=== PATIENT | female | born 1985 | race Caucasian/White ===

== ENCOUNTER 2016-06-13 07:45 | Inpatient (IN) | payer OTHER ==
[~2016-06-13] VITALS: Ht 154.9 cm; Wt 68.3 kg
[~2016-06-13 07:45] MED LIST: ADV1DS; ALBU0.632 IH; ALBU0.632 NEB; ALBU0.8322 IH; ALBU17AE23 IH; ALBU17AE23 INH; ALBU17AE3; ALBU8.5H2 INH; AMOX500C2 PO; BUDE6HFA IH; CEFP500T4 PO; CETI10CA PO; CLIN150C17 PO; CLIN300C11 PO; DOCU100C37 PO; DULO20CA; DULO60CA6; FLUT16SP22 NS; FLUT1DIS26 IH; FLUT1DIS27 IH; FLUT1DIS27 INH; FLUT1DIS28 IH; HYDR-3812 PO; HYDR-3820 PO; HYDR1CAP2 PO; IBP800T PO; IBUP-1773 PO; METH4TAB PO; MNTL10T; MNTL10T PO; MONT10TA24 PO; NCT14P TOP; NCT21TD TD; NEBULIZER TREATMENT; PNT40TEC PO; PRD10T PO; PRD20T PO; PRED10TA PO; PREN-94 PO; PRNMV1T; PRX25T; RANI150T15 PO; RT-ALBUINH IH; RT-ALBUTEROL/IPRATROPIUM 3 ML (DUONEB) VIAL ONE
[2016-06-13] MEDS ORDERED: RT-ALBUTEROL SULF 2.5 MG/3 ML PRE-MIX VIAL ONE ×3 (07:54→08:38)
--- NOTE | 2016-06-13 08:41 | ED Respiratory ---
General Chief Complaint: Respiratory Problems Stated Complaint: ASTHMA Nursing Triage Note: Arrived via amb from home with complaints of her asthma acting up starting yesterday. Denies fever. States she has taken her inhaler at home but it is not working. States she does not have and medicine to give herself a breathing treatment. Source: patient Exam Limitations: no limitations History of Present Illness Time seen by provider: 08:36 Initial Comments The patient is a 31-year-old white female well-known to this institution over many years with asthma attacks. She reports that she has run out of medications and has not seen a doctor since Dr. Nation retired in November. The symptoms increased yesterday. She reports that she stopped smoking a few months ago. Timing/Duration: yesterday Prior Episodes/Possible Cause: frequent episodes Allergies and Home Medications Allergies Coded Allergies: chlorpheniramine (Verified Allergy, Unknown, 03/05/06) phenylephrine (Verified Allergy, Unknown, 03/05/06) phenylpropanolamine (Verified Allergy, Unknown, 03/05/06) phenyltoloxamine (Verified Allergy, Unknown, 03/05/06) Home Medications Albuterol Sulfate 1 Puff Puff 2 PUFF IH Q6H PRN PRN SHORTNESS OF BREATH ( Reported) Constitutional: see HPI EENTM: no symptoms reported Respiratory: see HPI cough dyspnea on exertion short of breath wheezing Cardiovascular: no symptoms reported Gastrointestinal: no symptoms reported Genitourinary: no symptoms reported Musculoskeletal: no symptoms reported Psychiatric/Neurological: No Symptoms Reported Hematologic/Lymphatic: No Symptoms Reported Past Tkirbmr-Obdghg-Ujtvzm Hx Patient Social History Alcohol Use: Denies Use Recreational Drug Use: No (DEINIES USE WITH THIS PAST BUT HAS A KNOWN PAST HISTORY. ) Smoking Status: Former Smoker Type Used: Cigarettes Former Smoker/When Quit: Jan 24, 2015 2nd Hand Smoke Exposure: Yes ( SMOKES IN HOME) Recent Foreign Travel: No Contact w/Someone Who Travel: No Recent Infectious Disease Expo: No Recent Hopitalizations: Yes (C-SECTIONS, ASTHMA) Physical Abuse Screen: No Sexual Abuse: No Immunizations Up To Date Tetanus Booster (TDap): Unknown PED Vaccines UTD: Yes Date of Pneumonia Vaccine: Jan 29, 2013 Seasonal Allergies Seasonal Allergies: Yes Surgeries HX Surgeries: Yes ( X4) Surgeries: Section Respiratory Hx Respiratory Disorders: Yes Respiratory Disorders: Asthma Cardiovascular Hx Cardiac Disorders: No (TACHYCARDIA ) Neurological Hx Neurological Disorders: No Reproductive System : No Hx Reproductive Disorders: No Sexually Transmitted Disease: No HIV/AIDS: No Female Reproductive Disorders: Denies Genitourinary Hx Genitourinary Disorders: No Gastrointestinal Hx Gastrointestinal Disorders: Yes (HEPATITIS C +) Gastrointestinal Disorders: Gastroesophageal Reflux, Liver Disease/Jaundice, Hepatitis Musculoskeletal Hx Musculoskeletal Disorders: No Endocrine Hx Endocrine Disorders: No HEENT HX ENT Disorders: No Loss of Vision: Denies Hearing Impairment: Denies Cancer Hx Cancer: No Psychosocial Hx Psychiatric Problems: No Integumentary HX Skin/Integumentary Disorder: No Blood Transfusions Hx Blood Disorders: No Adverse Reaction to a Blood Tr: No Family Medical History Significant Family History: Asthma Family Medial History: Alcoholism 19 FATHER G8 BROTHER Arthritis 19 FATHER Cardiovascular disease 19 MOTHER Coronary thrombosis 19 MOTHER Diabetes mellitus 19 MOTHER MATERNAL GRANDMOTHER Myocardial infarction 19 MOTHER Neoplasm 19 FATHER (LUNG CANCER) 19 MOTHER Respiratory disorder 19 FATHER (EMPHYSEMA) Physical Exam Vital Signs Vital Sign - Last 12Hours 06/13/16 07:45 Temp 98.0 Pulse 127 Resp 24 B/P 126/76 Pulse Ox 96 O2 Delivery Room Air Capillary Refill : Less Than 3 Seconds General Appearance: moderate distress Eyes: Bilateral Eye Normal Inspection HEENT: normal ENT inspection Neck: full range of motion Respiratory: decreased breath sounds rhonchi wheezing Cardiovascular: tachycardia Gastrointestinal: normal bowel sounds non tender soft no organomegaly no pulsatile mass Extremities: normal range of motion non-tender normal inspection no pedal edema no calf tenderness normal capillary refill pelvis stable Neurologic/Psychiatric: precast molder II-XII nml as tested no motor/sensory deficits alert normal mood/affect oriented x 3 Skin: normal color warm/dry cyanosis cool diaphoresis damp Lymphatic: no adenopathy Progress/Results/Core Measures Results/Orders Lab Results Laboratory Tests Test 06/13/16 07:50 Range/Units Alanine Aminotransferase (ALT/SGPT) 55 0-55 U/L Albumin 4.1 3.2-4.5 G/DL Alkaline Phosphatase 66 40-136 U/L Anion Gap 11 5-14 MMOL/L Aspartate Amino Transf (AST/SGOT) 40 H 5-34 U/L BUN/Creatinine Ratio 10 Basophils # (Auto) 0.1 0.0-0.1 10^3/uL Basophils (%) (Auto) 1 0-10 % Blood Urea Nitrogen 7 7-18 MG/DL Calcium Level 9.2 8.5-10.1 MG/DL Carbon Dioxide Level 23 21-32 MMOL/L Chloride Level 107 98-107 MMOL/L Creatinine 0.70 0.60-1.30 MG/DL Eosinophils # (Auto) 0.8 H 0.0-0.3 10^3/uL Eosinophils (%) (Auto) 12 H 0-10 % Estimat Glomerular Filtration Rate > 60 Glucose Level 113 H 70-105 MG/DL Hematocrit 46 35-52 % Hemoglobin 14.8 11.5-16.0 G/DL Lymphocytes # (Auto) 1.4 1.0-4.0 X 10^3 Lymphocytes (%) (Auto) 19 12-44 % Mean Corpuscular Hemoglobin 27 25-34 PG Mean Corpuscular Hemoglobin Concent 32 32-36 G/DL Mean Corpuscular Volume 84 80-99 FL Mean Platelet Volume 10.7 H 7.4-10.4 FL Monocytes # (Auto) 0.7 0.0-1.0 X 10^3 Monocytes (%) (Auto) 9 0-12 % Neutrophils # (Auto) 4.2 1.8-7.8 X 10^3 Neutrophils (%) (Auto) 59 42-75 % Platelet Count 302 130-400 10^3/uL Potassium Level 4.7 3.6-5.0 MMOL/L Red Blood Count 5.46 4.35-5.85 10^6/uL Red Cell Distribution Width 15.0 H 10.0-14.5 % Sodium Level 141 135-145 MMOL/L Total Bilirubin 0.4 0.1-1.0 MG/DL Total Protein 7.2 6.4-8.2 G/DL White Blood Count 7.2 4.3-11.0 10^3/uL My Orders Orders-CATHY RUBIO MD Albuterol/Ipra Inhalation Soln (Duoneb I (06/13/16 07:43) Albuterol Pre-Mix Nebs (Rt) (Proventil P (06/13/16 07:54) Albuterol Pre-Mix Nebs (Rt) (Proventil P (06/13/16 08:01) Cbc With Automated Diff (06/13/16 08:33) Comprehensive Metabolic Panel (06/13/16 08:33) Drug Screen Stat (Urine) (06/13/16 08:33) Ua Culture If Indicated (06/13/16 08:33) Chest 1 View, Ap/Pa Only (06/13/16 08:33) Rt Request For Service (06/13/16 08:33) Methylprednisolone Sod Succ (Solu-Medrol (06/13/16 08:45) Albuterol Pre-Mix Nebs (Rt) (Proventil P (06/13/16 08:38) Medications Given in ED Current Medications Medications Dose Ordered Sig/Juan José Route Start Time Stop Time Status Last Admin Dose Admin Albuterol Sulfate 2.5 mg STK-MED ONCE .ROUTE 06/13/16 07:54 06/13/16 08:02 DC 06/13/16 08:02 2.5 MG Albuterol Sulfate 2.5 mg STK-MED ONCE .ROUTE 06/13/16 08:01 06/13/16 08:09 DC 06/13/16 08:10 2.5 MG Albuterol Sulfate 2.5 mg STK-MED ONCE .ROUTE 06/13/16 08:38 06/13/16 08:46 DC 06/13/16 08:49 15 MG Albuterol/ Ipratropium 3 ml STK-MED ONCE .ROUTE 06/13/16 07:43 06/13/16 07:51 DC 06/13/16 07:57 3 ML Methylprednisolone Sodium Succinate 125 mg ONCE ONCE IVP 06/13/16 08:45 06/13/16 08:46 DC 06/13/16 09:05 125 MG Vital Signs/I&O Vital Sign - Last 12Hours 06/13/16 06/13/16 06/13/16 06/13/16 07:45 07:57 08:02 08:10 Temp 98.0 Pulse 127 Resp 24 B/P 126/76 Pulse Ox 96 96 98 96 O2 Delivery Room Air Room Air Room Air Room Air 06/13/16 08:50 Pulse Ox 96 O2 Delivery Room Air Blood Pressure Mean: 93 Departure Communication Progress Notes 0945 the patient reports that she feels very little better if any. Repeat exam shows somewhat better air movement and much louder rhonchi and wheezing. Impression Impression: Primary Impression: Asthma exacerbation Disposition: ADMITTED INPATIENT Condition: Stable/Unchanged Decision to Admit Reason: Admit from ER (General) Decision to Admit/Date: Jun 13, 2016 Time/Decision to Admit Time: 09:56 Departure-Patient Inst. Referrals: NO,LOCAL PHYSICIAN (PCP/Family) Primary Care Physician CATHY RUBIO MD Jun 13, 2016 08:41 CATHY RUBIO MD Jun 13, 2016 08:41
[2016-06-13 08:45] LABS: BASOPHILS # (AUTO) 0.1 10^3/uL (0.0-0.1); BASOPHILS % (AUTO) 1 % (0-10); EOSINOPHILS # (AUTO) 0.8 10^3/uL (0.0-0.3); EOSINOPHILS % (AUTO) 12 % (0-10); LYMPHOCYTES # (AUTO) 1.4 X 10^3 (1.0-4.0); LYMPHOCYTES % (AUTO) 19 % (12-44); MEAN CORPUSCULAR HEMOGLOBIN 27 PG (25-34); MEAN CORPUSCULAR HGB CONC 32 G/DL (32-36); MEAN CORPUSCULAR VOLUME 84 FL (80-99); MEAN PLATELET VOLUME 10.7 FL (7.4-10.4); MONOCYTES # (AUTO) 0.7 X 10^3 (0.0-1.0); MONOCYTES % (AUTO) 9 % (0-12); NEUTROPHILS # (AUTO) 4.2 X 10^3 (1.8-7.8); NEUTROPHILS % (AUTO) 59 % (42-75); PLATELET COUNT 302 10^3/uL (130-400); RED BLOOD COUNT 5.46 10^6/uL (4.35-5.85); WHITE BLOOD COUNT 7.2 10^3/uL (4.3-11.0)
[2016-06-13] MEDS ORDERED: methylPREDNISolone 125 MG (Solu-MEDROL) VIAL IVP ONE (08:45)
[2016-06-13 09:00] LABS: ALANINE AMINOTRANSFERASE 55 U/L (0-55); ALBUMIN 4.1 G/DL (3.2-4.5); ANION GAP 11 MMOL/L (5-14); ASPARTATE AMINO TRANSFERASE 40 U/L (5-34); BILIRUBIN,TOTAL 0.4 MG/DL (0.1-1.0); BLOOD UREA NITROGEN 7 MG/DL (7-18); BUN/CREATININE RATIO 10; CALCIUM 9.2 MG/DL (8.5-10.1); CARBON DIOXIDE 23 MMOL/L (21-32); CHLORIDE 107 MMOL/L (98-107); GFR ESTIMATED > 60; GLUCOSE 113 MG/DL (70-105); POTASSIUM 4.7 MMOL/L (3.6-5.0); SODIUM 141 MMOL/L (135-145); TOTAL PROTEIN 7.2 G/DL (6.4-8.2)
--- NOTE | 2016-06-13 09:22 | Diagnostic Imaging Report ---
INDICATION: Difficulty breathing since this morning. FINDINGS: Frontal view of the chest demonstrates the lungs to be clear. The heart, mediastinum, pulmonary vascularity, and visualized bony thorax are normal. IMPRESSION: Normal chest. Dictated by: Dictated on workstation # [id number]
[2016-06-13] MEDS ORDERED: RT-ALBUTEROL/IPRATROPIUM 3 ML (DUONEB) VIAL ONE (10:40)
[2016-06-13] MEDS ORDERED: ALPRAZolam 0.25 MG (XANAX) TAB PO PRN (11:00)
[2016-06-13] MEDS ORDERED: ACETAMINOPHEN 500 MG TAB (TYLENOL) PO PRN (11:00)
[2016-06-13] MEDS ORDERED: ONDANSETRON 4 MG/2 ML (SDV) Z0FRAN IVP PRN (11:00)
[2016-06-13] MEDS ORDERED: LACTULOSE SYRUP 10GM/15ML (ENULOSE) 30ML UDC PO PRN (11:00)
[2016-06-13] MEDS ORDERED: HYDROcodone/APAP 5 MG/325 MG (LORTAB) TAB PO PRN (11:00)
--- NOTE | 2016-06-13 11:20 | History & Physical-Hospitalist ---
HPI History of Present Illness: HPI/Chief Complaint CC: Dyspnea HPI: This is a 31yoWF former clinic patient of [facility] that missed her appt this past week to re-establish care that presents to the ER with complaints of wheezing and shortness of breath for the past several days. She stopped smoking 3 months ago and overall has been doing well but began to have shortness of breath to the extent that she went to the ER found to be in exacerbation of asthma and status asthmaticus meeting criteria for inpatient status. At this current time patient does feel little better but she still feels tight in her chest. Source: patient Exam Limitations: clinical condition Date Seen 06/13/16 Attending Physician Jaylyn Salmon DO PCP No,Local Physician Referring Physician Date of Admission Jun 13, 2016 at 10:34 Home Medications & Allergies Home Medications Reviewed patient Home Medication Reconciliation Form Allergies Coded Allergies: chlorpheniramine (Verified Allergy, Unknown, 03/05/06) phenylephrine (Verified Allergy, Unknown, 03/05/06) phenylpropanolamine (Verified Allergy, Unknown, 03/05/06) phenyltoloxamine (Verified Allergy, Unknown, 03/05/06) Past Bjriyvq-Zmsgsy-Fdgfgh Hx Patient Social History Marrital Status: cohabiting Employed/Student: unemployed Alcohol Use: Denies Use Recreational Drug Use: No (DEINIES USE WITH THIS PAST BUT HAS A KNOWN PAST HISTORY. ) Smoking Status: Former Smoker Former smoker/When Quit: Jan 24, 2015 Type Used: Cigarettes 2nd Hand Smoke Exposure: Yes ( SMOKES IN HOME) Physical Abuse Screen: No Sexual Abuse: No Recent Foreign Travel: No Contact w/other who traveled: No Recent Hopitalizations: Yes (C-SECTIONS, ASTHMA) Recent Infectious Disease Expo: No Immunizations Up To Date Tetanus Booster (TDap): Unknown Date of Pneumonia Vaccine: Jan 29, 2013 Seasonal Allergies Seasonal Allergies: Yes Surgeries HX Surgeries: Yes ( X4) Surgeries: Section Respiratory Hx Respiratory Disorders: Yes Respiratory Disorders: Asthma Cardiovascular Hx Cardiovascular Disorders: Yes (TACHYCARDIA ) Neurological Hx Neurological Disorders: No Reproductive System : No Hx Reproductive Disorders: No Sexually Transmitted Disease: No HIV/AIDS: No Female Reproductive Disorders: Denies Genitourinary Hx Genitourinary Disorders: No Gastrointestinal Hx Gastrointestinal Disorders: Yes (HEPATITIS C +) Gastrointestinal Disorders: Gastroesophageal Reflux, Liver Disease/Jaundice, Hepatitis Musculoskeletal Hx Musculoskeletal Disorders: No Endocrine Hx Endocrine Disorders: No HEENT HX ENT Disorders: No Loss of Vision: Denies Hearing Impairment: Denies Cancer Hx Cancer: No Psychosocial Hx Psychiatric Problems: No Integumentary HX Skin/Integumentary Disorder: No Blood Transfusions Hx Blood Disorders: No Adverse Reaction to a Blood Tr: No Family Medical History Significant Family History: Asthma Family Hx: Alcoholism 19 FATHER G8 BROTHER Arthritis 19 FATHER Cardiovascular disease 19 MOTHER Coronary thrombosis 19 MOTHER Diabetes mellitus 19 MOTHER MATERNAL GRANDMOTHER Myocardial infarction 19 MOTHER Neoplasm 19 FATHER (LUNG CANCER) 19 MOTHER Respiratory disorder 19 FATHER (EMPHYSEMA) Review of Systems Constitutional: see HPI dizziness weakness EENTM: no symptoms reported Respiratory: cough dyspnea on exertion short of breath wheezing Cardiovascular: no symptoms reported Gastrointestinal: no symptoms reported Genitourinary: no symptoms reported Musculoskeletal: no symptoms reported Skin: no symptoms reported Psychiatric/Neurological: Anxiety Depressed All Other Systems Reviewed Negative Unless Noted: Yes Physical Exam Physical Exam Vital Signs Vital Sign - Last 12Hours 06/13/16 06/13/16 07:45 10:46 Temp 98.0 Pulse 127 Resp 24 B/P 126/76 Pulse Ox 96 O2 Delivery Room Air O2 Flow Rate 2 Capillary Refill : Less Than 3 Seconds General Appearance: No Apparent Distress WD/WN Chronically ill Eyes: Bilateral Eye Normal Inspection, Bilateral Eye PERRL HEENT: PERRL/EOMI Normal ENT Inspection Pharynx Normal Neck: Full Range of Motion Normal Inspection Non Tender Supple Carotid Bruit Respiratory: Chest Non Tender Accessory Muscle Use Crackles Decreased Breath Sounds Rales Respiratory Distress Wheezing Cardiovascular: Regular Rate, Rhythm No Edema No Gallop No JVD No Murmur Normal Peripheral Pulses Gastrointestinal: Normal Bowel Sounds No Organomegaly No Pulsatile Mass Non Tender Soft Back: Normal Inspection No CVA Tenderness No Vertebral Tenderness Extremity: Normal Capillary Refill Normal Inspection Normal Range of Motion Non Tender No Calf Tenderness No Pedal Edema Neurologic/Psychiatric: Alert Oriented x3 No Motor/Sensory Deficits Normal Mood/Affect Skin: Normal Color Warm/Dry Lymphatic: No Adenopathy Results Results/Procedures Lab Laboratory Tests 06/13/16 07:50 Assessment/Plan Admission Diagnosis Assessment: Status asthmaticus requiring inpatient status for IV steroids and nebulizer treatments Recent smoking cessation 3 months ago History of hepatitis C Methamphetamine use in the past Noncompliance with medical treatment Assessment and Plan Continue IV steroids and nebulizer treatments Monitor closely Empiric antibiotic for bronchitis JAYLYN SALMON DO Jun 13, 2016 11:20
[2016-06-13] MEDS ORDERED: methylPREDNISolone 40 MG/ML (Solu-MEDROL) VIAL IV SCH (12:00)
[2016-06-13 12:04] VITALS: BP 134/68
[2016-06-13] MEDS ORDERED: RT-ALBUTEROL/IPRATROPIUM 3 ML (DUONEB) VIAL INH PRN (12:15)
[2016-06-13] MEDS: RT-ALBUTEROL/IPRATROPIUM 3 ML (DUONEB) VIAL INH SCH ×3 (13:26→21:59)
[2016-06-13] MEDS ORDERED: RT-ALBUTEROL/IPRATROPIUM 3 ML (DUONEB) VIAL INH SCH (14:00)
[2016-06-13 16:12] VITALS: BP 129/60
[2016-06-13] MEDS: methylPREDNISolone 125 MG (Solu-MEDROL) VIAL IV SCH ×2 (16:24→22:22)
[2016-06-13] MEDS: AUGMENTIN 500 MG TAB (AMOXICILLIN/CLAVULANATE) PO SCH (16:29)
[2016-06-13 18:17] LABS: BILIRUBIN,URINE NEGATIVE (NEGATIVE); KETONES,URINE NEGATIVE (NEGATIVE); LEUKOCYTE ESTERASE ,URINE NEGATIVE (NEGATIVE); NITRITE,URINE NEGATIVE (NEGATIVE); PH,URINE 5 (5-9); PROTEIN,URINE NEGATIVE (NEGATIVE); UROBILINOGEN,URINE NORMAL (NORMAL)
[2016-06-13] MEDS: RT-BUDESONIDE NEBS 0.5 MG/2ML (PULMICORT) AMP INH SCH (18:47)
[2016-06-13 20:00] VITALS: BP 116/57
[2016-06-13] MEDS: BISACODYL 10 MG SUPP (DULCOLAX) PR SCH (21:00)
[2016-06-14] VITALS: BP 125/76
[2016-06-14] MEDS: RT-ALBUTEROL/IPRATROPIUM 3 ML (DUONEB) VIAL INH SCH ×6 (02:00→23:05)
[2016-06-14 04:00] VITALS: BP 113/55
[2016-06-14] MEDS: methylPREDNISolone 125 MG (Solu-MEDROL) VIAL IV SCH ×4 (04:48→20:46)
[2016-06-14 05:07] LABS: ALANINE AMINOTRANSFERASE 46 U/L (0-55); ANION GAP 12 MMOL/L (5-14); ASPARTATE AMINO TRANSFERASE 26 U/L (5-34); BILIRUBIN,TOTAL 0.3 MG/DL (0.1-1.0); BLOOD UREA NITROGEN 9 MG/DL (7-18); BUN/CREATININE RATIO 15; CALCIUM 9.5 MG/DL (8.5-10.1); CARBON DIOXIDE 20 MMOL/L (21-32); CHLORIDE 106 MMOL/L (98-107); CREATININE SERUM 0.62 MG/DL (0.60-1.30); GFR ESTIMATED > 60; GLUCOSE 147 MG/DL (70-105); POTASSIUM 4.5 MMOL/L (3.6-5.0); SODIUM 138 MMOL/L (135-145)
[2016-06-14 05:56] LABS: BASOPHILS % (AUTO) 0 % (0-10); EOSINOPHILS % (AUTO) 0 % (0-10); LYMPHOCYTES # (AUTO) 0.8 X 10^3 (1.0-4.0); LYMPHOCYTES % (AUTO) 4 % (12-44); MEAN CORPUSCULAR HEMOGLOBIN 27 PG (25-34); MEAN CORPUSCULAR HGB CONC 33 G/DL (32-36); MEAN CORPUSCULAR VOLUME 83 FL (80-99); MONOCYTES # (AUTO) 0.3 X 10^3 (0.0-1.0); MONOCYTES % (AUTO) 2 % (0-12); NEUTROPHILS # (AUTO) 19.3 X 10^3 (1.8-7.8); NEUTROPHILS % (AUTO) 95 % (42-75); PLATELET COUNT 323 10^3/uL (130-400); RED BLOOD COUNT 5.18 10^6/uL (4.35-5.85); RED CELL DISTRIBUTION WIDTH 14.9 % (10.0-14.5); WHITE BLOOD COUNT 20.4 10^3/uL (4.3-11.0)
[2016-06-14 06:14] LABS: BAND NEUTROPHILS 8 %; BASOPHILS % (MANUAL) 0 %; EOSINOPHILS % (MANUAL) 0 %; LYMPHOCYTES % (MANUAL) 3 %; NEUTROPHILS % (MANUAL) 87 %
[2016-06-14] MEDS: RT-BUDESONIDE NEBS 0.5 MG/2ML (PULMICORT) AMP INH SCH ×2 (06:26→18:33)
[2016-06-14] MEDS: AUGMENTIN 500 MG TAB (AMOXICILLIN/CLAVULANATE) PO SCH ×2 (07:00→16:52)
[2016-06-14 08:30] VITALS: BP 111/56
[2016-06-14] MEDS: BISACODYL 10 MG SUPP (DULCOLAX) PR SCH ×2 (09:00→20:46)
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
[2016-06-14] MEDS ORDERED: PRED10TA22 PO (11:33)
[2016-06-14] MEDS ORDERED: FLUT1DIS27 IH (11:33)
[2016-06-14] MEDS ORDERED: AMOX1TAB11 PO (11:33)
[2016-06-14] MEDS ORDERED: BUDE10.2 IH (11:45)
[2016-06-14] MEDS ORDERED: CATHETER FLUSH 10 ML SYR IV PRN (13:45)
[2016-06-14] MEDS: ONDANSETRON 4 MG (ZOFRAN) ORAL DISSOLVE TAB PO PRN ×2 (15:17→20:46)
[2016-06-14] MEDS: CATHETER FLUSH 10 ML SYR IV SCH ×2 (15:17→22:15)
[2016-06-14 16:10] VITALS: BP 114/60
[2016-06-14 20:28] VITALS: BP 127/64
[2016-06-15] VITALS: BP 114/64
[2016-06-15] MEDS: RT-ALBUTEROL/IPRATROPIUM 3 ML (DUONEB) VIAL INH SCH ×6 (02:47→22:17)
[2016-06-15] MEDS: methylPREDNISolone 125 MG (Solu-MEDROL) VIAL IV SCH ×4 (02:53→20:24)
[2016-06-15 04:00] VITALS: BP 102/52
[2016-06-15 04:55] LABS: BASOPHILS % (AUTO) 0 % (0-10); EOSINOPHILS % (AUTO) 0 % (0-10); LYMPHOCYTES % (AUTO) 4 % (12-44); MEAN CORPUSCULAR HEMOGLOBIN 27 PG (25-34); MEAN CORPUSCULAR HGB CONC 33 G/DL (32-36); MEAN CORPUSCULAR VOLUME 83 FL (80-99); MEAN PLATELET VOLUME 10.8 FL (7.4-10.4); MONOCYTES # (AUTO) 0.6 X 10^3 (0.0-1.0); MONOCYTES % (AUTO) 3 % (0-12); NEUTROPHILS # (AUTO) 23.9 X 10^3 (1.8-7.8); NEUTROPHILS % (AUTO) 94 % (42-75); PLATELET COUNT 329 10^3/uL (130-400); RED BLOOD COUNT 5.06 10^6/uL (4.35-5.85); RED CELL DISTRIBUTION WIDTH 15.5 % (10.0-14.5); WHITE BLOOD COUNT 25.5 10^3/uL (4.3-11.0)
[2016-06-15 04:58] LABS: ALANINE AMINOTRANSFERASE 40 U/L (0-55); ALBUMIN 3.8 G/DL (3.2-4.5); ANION GAP 13 MMOL/L (5-14); ASPARTATE AMINO TRANSFERASE 21 U/L (5-34); BILIRUBIN,TOTAL 0.3 MG/DL (0.1-1.0); BLOOD UREA NITROGEN 16 MG/DL (7-18); BUN/CREATININE RATIO 25; CALCIUM 9.2 MG/DL (8.5-10.1); CARBON DIOXIDE 20 MMOL/L (21-32); CHLORIDE 105 MMOL/L (98-107); CREATININE SERUM 0.64 MG/DL (0.60-1.30); GFR ESTIMATED > 60; GLUCOSE 126 MG/DL (70-105); POTASSIUM 4.4 MMOL/L (3.6-5.0); SODIUM 138 MMOL/L (135-145); TOTAL PROTEIN 6.7 G/DL (6.4-8.2)
[2016-06-15] MEDS: CATHETER FLUSH 10 ML SYR IV SCH ×3 (06:18→20:25)
[2016-06-15] MEDS: AUGMENTIN 500 MG TAB (AMOXICILLIN/CLAVULANATE) PO SCH (06:18)
[2016-06-15] MEDS: RT-BUDESONIDE NEBS 0.5 MG/2ML (PULMICORT) AMP INH SCH ×2 (07:24→18:26)
[2016-06-15 08:00] VITALS: BP 123/87
[2016-06-15] MEDS: BISACODYL 10 MG SUPP (DULCOLAX) PR SCH ×2 (09:00→20:24)
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
--- NOTE | 2016-06-15 13:27 | Diagnostic Imaging Report ---
INDICATION: Short of air, cough, history of asthma. 2 views of the chest shows normal heart size and vascularity. There is mild perihilar peribronchial thickening which may be related to reactive airway disease. No infiltrate or effusion is seen. There is no pneumothorax. IMPRESSION: There is mild perihilar parabronchial thickening with no peripheral infiltrate present at this time. Dictated by: Dictated on workstation # [id number]
[2016-06-15 16:07] VITALS: BP 115/70
[2016-06-15] MEDS: guaiFENesin (MUCINEX) 600 MG TAB PO SCH (20:24)
[2016-06-16] VITALS: BP 96/53
[2016-06-16] MEDS: RT-ALBUTEROL/IPRATROPIUM 3 ML (DUONEB) VIAL INH SCH ×6 (02:22→22:31)
[2016-06-16] MEDS: methylPREDNISolone 125 MG (Solu-MEDROL) VIAL IV SCH ×4 (03:08→21:16)
[2016-06-16] MEDS: CATHETER FLUSH 10 ML SYR IV SCH ×3 (05:33→21:16)
[2016-06-16] MEDS: RT-BUDESONIDE NEBS 0.5 MG/2ML (PULMICORT) AMP INH SCH ×2 (06:27→18:41)
[2016-06-16 08:00] VITALS: BP 104/56
[2016-06-16] MEDS: BISACODYL 10 MG SUPP (DULCOLAX) PR SCH ×2 (08:16→21:00)
[2016-06-16] MEDS: AZITHROMYCIN 250 MG TAB (ZITHROMAX) PO SCH (08:22)
[2016-06-16] MEDS: guaiFENesin (MUCINEX) 600 MG TAB PO SCH ×2 (08:22→21:16)
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
[2016-06-16 16:00] VITALS: BP 105/52
[2016-06-17] VITALS: BP 130/68
[2016-06-17] MEDS: RT-ALBUTEROL/IPRATROPIUM 3 ML (DUONEB) VIAL INH SCH ×6 (02:18→22:15)
[2016-06-17] MEDS: methylPREDNISolone 125 MG (Solu-MEDROL) VIAL IV SCH (02:35)
[2016-06-17] MEDS: CATHETER FLUSH 10 ML SYR IV SCH ×3 (05:50→20:36)
[2016-06-17] MEDS: RT-BUDESONIDE NEBS 0.5 MG/2ML (PULMICORT) AMP INH SCH ×2 (06:29→19:27)
--- NOTE | 2016-06-17 06:52 | Pulmonary Consultation ---
History of Present Illness History of Present Illness Date of Consultation 06/17/16 06:48 Date of Admission History of Present Illness 31yo presented to ED seocndary to wheezing and worsening SOB. Onset was 3 days prior to admission. She stopped smoking 3 months ago. Pt was given multiple treatments in ED and still had wheezing she was admitted with status asthmaticus. Pt is now feeling much improved. I am consulted for pulmonary management. Allergies and Home Medications Allergies Coded Allergies: chlorpheniramine (Verified Allergy, Unknown, 03/05/06) phenylephrine (Verified Allergy, Unknown, 03/05/06) phenylpropanolamine (Verified Allergy, Unknown, 03/05/06) phenyltoloxamine (Verified Allergy, Unknown, 03/05/06) Home Medications Amoxicillin/Potassium Clav 1 Each Tablet #10 500 MG PO BID WITH MEALS Prescribed by: JAMARCUS NEWSOME on 06/14/16 1133 Budesonide/Formoterol Fumarate 10.2 Gm Hfa.aer.ad #1 2 PUFF IH BID Prescribed by: JAMARCUS NEWSOME on 06/14/16 1145 Prednisone 10 Mg Tab.ds.pk #42 10 MG PO DAILY Take 6 tabs(60mg)daily,decrease by 1 tab(10mg)every other day. Prescribed by: JAMARCUS NEWSOME on 06/14/16 1133 Past Idkhthu-Xmrtdi-Rptvkc Hx Patient Social History Alcohol Use: Denies Use Recreational Drug Use: No Smoking Status: Former Smoker Type Used: Cigarettes Former Smoker/When Quit: Jan 24, 2015 2nd Hand Smoke Exposure: Yes ( SMOKES IN HOME) Recent Foreign Travel: No Contact w/Someone Who Travel: No Recent Infectious Disease Expo: No Recent Hopitalizations: Yes (C-SECTIONS, ASTHMA) Physical Abuse Screen: No Sexual Abuse: No Immunizations Up To Date Tetanus Booster (TDap): Unknown PED Vaccines UTD: No Date of Pneumonia Vaccine: Jan 29, 2013 Date of Influenza Vaccine: Mar 26, 2016 Seasonal Allergies Seasonal Allergies: Yes Surgeries HX Surgeries: Yes ( X4) Surgeries: Section Respiratory Hx Respiratory Disorders: Yes Respiratory Disorders: Asthma Cardiovascular Hx Cardiac Disorders: Yes (TACHYCARDIA ) Neurological Hx Neurological Disorders: No Reproductive System : No Hx Reproductive Disorders: No Sexually Transmitted Disease: No HIV/AIDS: No Female Reproductive Disorders: Denies Genitourinary Hx Genitourinary Disorders: No Gastrointestinal Hx Gastrointestinal Disorders: Yes (HEPATITIS C +) Gastrointestinal Disorders: Gastroesophageal Reflux, Liver Disease/Jaundice, Hepatitis Musculoskeletal Hx Musculoskeletal Disorders: No Endocrine Hx Endocrine Disorders: No HEENT HX ENT Disorders: No Loss of Vision: Denies Hearing Impairment: Denies Cancer Hx Cancer: No Psychosocial Hx Psychiatric Problems: No Integumentary HX Skin/Integumentary Disorder: No Blood Transfusions Hx Blood Disorders: No Adverse Reaction to a Blood Tr: No Family Medical History Significant Family History: Asthma Family Medial History: Alcoholism 19 FATHER G8 BROTHER Arthritis 19 FATHER Cardiovascular disease 19 MOTHER Coronary thrombosis 19 MOTHER Diabetes mellitus 19 MOTHER MATERNAL GRANDMOTHER Myocardial infarction 19 MOTHER Neoplasm 19 FATHER (LUNG CANCER) 19 MOTHER Respiratory disorder 19 FATHER (EMPHYSEMA) Review of Systems Constitutional: : Malaise: Sweats: WeaknessNo: Chills, Fever, Other Respiratory: : Cough: SOB with excertion: Shortness of breath: Wheezing: Wheezing Cardiovascular: : Edema: Paroxysmal Noc. Dyspnea Neurological: : Weakness Exam Exam Vital Signs Date Time Temp Pulse Resp B/P Pulse Ox O2 Delivery O2 Flow Rate FiO2 06/17/16 06:29 96 2.00 06/17/16 06:18 94 2.00 06/17/16 02:18 94 2.00 06/17/16 00:00 98.0 107 18 130/68 94 Nasal Cannula 2.00 06/16/16 22:32 96 2.00 06/16/16 20:00 Nasal Cannula 2.00 06/16/16 18:47 97 2.00 06/16/16 18:42 95 2.00 06/16/16 16:00 98.4 109 16 105/52 96 Nasal Cannula 2.00 06/16/16 13:30 91 2.00 06/16/16 10:19 92 2.00 06/16/16 08:00 97.6 88 20 104/56 95 Nasal Cannula 2.00 06/16/16 07:58 Nasal Cannula 2.00 I & O 06/17/16 07:00 Intake Total 3170 ml Output Total 2250 ml Balance 920 ml General Appearance: WD/WN HEENT: Normal ENT Inspection Neck: Full Range of Motion Normal Inspection Non Tender Supple Carotid Bruit Respiratory: Crackles Expiration Inspiration Rales Rhonci Wheezing Cardiovascular: Tachycardia Capillary Refill: Less Than 3 Seconds Gastrointestinal: normal bowel sounds non tender soft no organomegaly no pulsatile mass Extremity: Normal Capillary Refill Normal Inspection Normal Range of Motion Non Tender No Calf Tenderness No Pedal Edema Neurologic/Psychiatric: Alert Oriented x3 No Motor/Sensory Deficits Normal Mood/Affect Skin: Normal Color Warm/Dry Lymphatic: No Adenopathy Assessment/Plan Assessment/Plan Status asthmaticus -continue SVNS -Solumedrol recently quit smoking 3 mo ago hx of hep C Hx of meth use medical noncompliance. Clinical Quality Measures DVT/VTE Risk/Contraindication: RFS Level Per Nursing on Admit: 0=No Risk/No VTE PPX TONIO GOTTI DO Jun 17, 2016 06:52
[2016-06-17] MEDS: guaiFENesin (MUCINEX) 600 MG TAB PO SCH ×2 (08:39→20:35)
[2016-06-17] MEDS: AZITHROMYCIN 250 MG TAB (ZITHROMAX) PO SCH (08:39)
[2016-06-17] MEDS: methylPREDNISolone 40 MG/ML (Solu-MEDROL) VIAL IV SCH ×3 (08:41→20:35)
[2016-06-17] MEDS: BISACODYL 10 MG SUPP (DULCOLAX) PR SCH ×2 (08:41→20:36)
[2016-06-17 08:48] VITALS: BP 165/57
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
[2016-06-17 16:50] VITALS: BP 113/62
[2016-06-17 23:35] VITALS: BP 106/54
[2016-06-18] MEDS: RT-ALBUTEROL/IPRATROPIUM 3 ML (DUONEB) VIAL INH SCH ×3 (02:12→10:00)
[2016-06-18] MEDS: methylPREDNISolone 40 MG/ML (Solu-MEDROL) VIAL IV SCH ×2 (03:04→09:20)
[2016-06-18 04:00] VITALS: BP 100/51
[2016-06-18] MEDS: CATHETER FLUSH 10 ML SYR IV SCH (06:23)
--- NOTE | 2016-06-18 06:48 | Pulmonary Progress Note ---
Subjective Subjective/Events-last exam Pt feels improved however still wheezy. Exam Exam Vital Signs Date Time Temp Pulse Resp B/P Pulse Ox O2 Delivery O2 Flow Rate FiO2 06/18/16 04:00 98.3 72 16 100/51 94 Nasal Cannula 2.00 06/18/16 02:12 97 2.00 06/17/16 23:35 98.5 90 18 106/54 95 Nasal Cannula 2.00 06/17/16 22:15 95 2.00 06/17/16 20:00 98 Nasal Cannula 2.00 06/17/16 19:34 98 2.00 06/17/16 19:28 97 2.00 06/17/16 16:50 97.7 98 18 113/62 95 Nasal Cannula 2.00 06/17/16 15:07 96 2.00 06/17/16 11:00 92 2.00 06/17/16 08:56 92 2.00 06/17/16 08:48 97.2 101 20 165/57 96 Room Air 06/17/16 08:30 Nasal Cannula 2.00 06/17/16 07:07 93 2.00 I & O 06/18/16 07:00 Intake Total 3800 ml Output Total 4150 ml Balance -350 ml General Appearance: No Apparent Distress WD/WN HEENT: Normal ENT Inspection Neck: Full Range of Motion Normal Inspection Non Tender Supple Carotid Bruit Respiratory: Crackles Expiration Inspiration Rales Rhonci Wheezing Cardiovascular: Tachycardia Capillary Refill: Less Than 3 Seconds Gastrointestinal: normal bowel sounds non tender soft no organomegaly no pulsatile mass Extremity: Normal Capillary Refill Normal Inspection Normal Range of Motion Non Tender No Calf Tenderness No Pedal Edema Neurologic/Psychiatric: Alert Oriented x3 No Motor/Sensory Deficits Normal Mood/Affect Skin: Normal Color Warm/Dry Lymphatic: No Adenopathy Assessment/Plan Assessment/Plan Status asthmaticus -continue SVNS -Solumedrol -add Singulair, advair recently quit smoking 3 mo ago hx of hep C Hx of meth use medical noncompliance. Clinical Quality Measures DVT/VTE Risk/Contraindication: RFS Level Per Nursing on Admit: 0=No Risk/No VTE PPX TONIO GOTTI DO Jun 18, 2016 06:48
[2016-06-18] MEDS: RT-BUDESONIDE NEBS 0.5 MG/2ML (PULMICORT) AMP INH SCH (07:31)
[2016-06-18 08:00] VITALS: BP 109/57
[2016-06-18] MEDS ORDERED: RT-ADVAIR HFA 115/21 MCG PER PUFF IH SCH (08:00)
[2016-06-18] MEDS: BISACODYL 10 MG SUPP (DULCOLAX) PR SCH (09:00)
[2016-06-18] MEDS ORDERED: AZIT250T5 PO (09:12)
--- NOTE | 2016-06-18 09:14 | Discharge Instructions ---
Discharge Instructions Discharge Medications New, Converted or Re-Newed RX: Transmitted to Pharmacy New Medications: Budesonide/Formoterol Fumarate (Symbicort 160-4.5 Mcg Inhaler) 10.2 Gm Hfa.aer.ad 2 PUFF IH BID #1 INHALER Prednisone (Prednisone) 10 Mg Tab.ds.pk 10 MG PO DAILY Take 6 tabs(60mg)daily,decrease by 1 tab(10mg)every other day. # 42 PKG Azithromycin (Azithromycin) 250 Mg Tablet 500 MG PO DAILY #2 TAB Patient Instructions Goal/Follow Up Appt: [facility] in 1 week to establish care Return to The Hospital For: Severe shortness of breath Activity & Diet Discharge Diet: No Restrictions Activity as Tolerated: Yes JAMARCUS NEWSOME DO Jun 18, 2016 09:14
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
[2016-06-18] MEDS: guaiFENesin (MUCINEX) 600 MG TAB PO SCH (09:20)
[2016-06-18] MEDS: AZITHROMYCIN 250 MG TAB (ZITHROMAX) PO SCH (09:20)
[2016-06-18] MEDS ORDERED: MONTELUKAST 10 MG (SINGULAIR) TAB PO SCH (21:00)
== END 2016-06-18 12:58 | disposition home or self-care (01) | DRG 203 ==
LOC: EDUNIT# 07:45 → ER 07:47 → 4TH 10:34 → UNDOADMIN 10:34 → OBSVTOIN 10:34 → 4TH 10:34 → INTOOBSV 10:34 → 4TH 06-14 14:37
PROVIDERS: ADMIT Internal Medicine; ATTEND Internal Medicine
DX: J45.902 Unspecified asthma with status asthmaticus (principal); Z87.891 Personal history of nicotine dependence; B19.20 Unspecified viral hepatitis C without hepatic coma; Z91.19 Patient's noncompliance with other medical treatment and regimen; K21.9 Gastro-esophageal reflux disease without esophagitis; J45.901 Unspecified asthma with (acute) exacerbation; Z77.22 Contact with and (suspected) exposure to environmental tobacco smoke (acute) (chronic)
CPT/HCPCS: 36415; 71010; 71020; 80053; 80306; 81000; 85007; 85025; 85027; 94150; 94640; 94664; 94760; 94761; 96374

== ENCOUNTER → 2016-08-15 | Outpatient (CLI) | payer OTHER ==
[~2016-08-15] MED LIST changes: +AMOX1TAB11 PO; +AZIT250T5 PO; +BUDE10.2 IH; +PRED10TA22 PO; -RT-ALBUTEROL/IPRATROPIUM 3 ML (DUONEB) VIAL ONE
--- NOTE | 2016-08-15 12:45 | Diagnostic Imaging Report ---
INDICATION: Panic attacks, anxiety, depression and asthmatic. COMPARISON: 06/15/2016. FINDINGS: No substantial over thickening of the central airways and no bronchiectasis. There is borderline symmetrical air trapping versus an aggressive inspiratory effort. No pneumothorax or pneumomediastinum. No pneumonia. No failure, effusion or free air beneath the diaphragms. IMPRESSION: Clear borderline hyperexpanded lungs with no alveolar or interstitial infiltrative pattern identified. Dictated by: Dictated on workstation # [id number]
== END ==
LOC: RAD 09:39
PROVIDERS: ATTEND Neuromusculoskeletal Medicine, Sports Medicine
DX: Z02.71 Encounter for disability determination (principal)
CPT/HCPCS: 71020

== ENCOUNTER 2016-11-03 09:22 | Inpatient (IN) | payer OTHER ==
[2016-11-03] VITALS (15 sets, daily range): BP systolic 87–130; BP diastolic 53–96
[~2016-11-03] VITALS: Ht 154.9 cm; Wt 77.8 kg
[~2016-11-03 09:22] MED LIST changes: +RT-ALBUTEROL/IPRATROPIUM 3 ML (DUONEB) VIAL ONE
[2016-11-03] MEDS ORDERED: methylPREDNISolone 125 MG (Solu-MEDROL) VIAL ONE (09:24)
[2016-11-03] MEDS ORDERED: RT-ALBUTEROL SULF 2.5 MG/3 ML PRE-MIX VIAL ONE (09:27)
[2016-11-03] MEDS ORDERED: methylPREDNISolone 125 MG (Solu-MEDROL) VIAL IV STA (09:33)
[2016-11-03] MEDS ORDERED: NS IV 1000 ML 1,000 ML IV ONE (09:33)
[2016-11-03] MEDS ORDERED: RT-ALBUTEROL SULF 2.5 MG/3 ML PRE-MIX VIAL INH STA (09:33)
--- NOTE | 2016-11-03 09:33 | ED Respiratory ---
General Chief Complaint: Respiratory Problems Stated Complaint: ASTHMA Nursing Triage Note: AMBULATED TO ROOM 05 WITH COMPLAINTS OF ASTHMA LIKE SX X2DAYS. Source: patient Exam Limitations: clinical condition History of Present Illness Time seen by provider: 09:25 Initial Comments Patient with a known history of severe asthma and multiple hospitalizations in the last several years comes the ER with acute progressively worsening shortness of breath for the past 1-1/2 days. She feels she is in extremis and it is difficult to catch her breath and exhale. this started yesterday quickly progressively gotten worse. She denies any recent infections, travel, upper respiratory tract infection symptoms, runny nose, ear pain, sore throat, sick contacts, travel outside the [place]. She does live with a significant other who smokes. She does not smoke, drink or admit any recreational drug use. She is very scared and states this is about the worst it has ever been, however she says she has been intubated once in her life for her asthma attacks.she denies any pain, nausea, diarrhea, constipation. Allergies and Home Medications Allergies Coded Allergies: chlorpheniramine (Verified Allergy, Unknown, 03/05/06) phenylephrine (Verified Allergy, Unknown, 03/05/06) phenylpropanolamine (Verified Allergy, Unknown, 03/05/06) phenyltoloxamine (Verified Allergy, Unknown, 03/05/06) Home Medications Azithromycin 250 Mg Tablet, 500 MG PO DAILY, #2 Prescribed by: JAMARCUS NEWSOME on 06/18/16 0912 Budesonide/Formoterol Fumarate 10.2 Gm Hfa.aer.ad, 2 PUFF IH BID, #1 Prescribed by: JAMARCUS NEWSOME on 06/14/16 1145 Prednisone 10 Mg Tab.ds.pk, 10 MG PO DAILY, #42 Take 6 tabs(60mg)daily,decrease by 1 tab(10mg)every other day. Prescribed by: JAMARCUS NEWSOME on 06/14/16 1133 Constitutional: see HPI, No chills, No diaphoresis, No fever, malaise, weakness EENTM: see HPI Respiratory: see HPI, cough, orthopnea, short of breath, wheezing Cardiovascular: No chest pain, No edema, No syncope, No vascular heart diseas Gastrointestinal: see HPI, No abdominal pain, No constipation, No diarrhea, No nausea, No vomiting Genitourinary: No discharge, No dysuria : No (states she is not sexually active and does not use any control.) LMP: October 10, 2016 Musculoskeletal: see HPI, No back pain, No joint pain Skin: see HPI, No pruritus, No rash Psychiatric/Neurological: Headache, Denies Numbness, Denies Paresthesia Hematologic/Lymphatic: Denies Anemia, Denies Easy Bleeding, Denies Easy Bruising Immunological/Allergic: see HPI (lots of seasonal allergies), denies HIV/AIDS Past Beuamlv-Swyfbt-Ocyrxt Hx Patient Social History Alcohol Use: Denies Use Recreational Drug Use: No Smoking Status: Former Smoker Type Used: Cigarettes Former Smoker/When Quit: Jan 24, 2015 2nd Hand Smoke Exposure: Yes ( SMOKES IN HOME) Recent Foreign Travel: No Contact w/Someone Who Travel: No Recent Infectious Disease Expo: No Recent Hopitalizations: Yes (C-SECTIONS, ASTHMA) Immunizations Up To Date Tetanus Booster (TDap): Unknown PED Vaccines UTD: No Date of Pneumonia Vaccine: Jan 29, 2013 Date of Influenza Vaccine: Mar 26, 2016 Seasonal Allergies Seasonal Allergies: Yes Surgeries HX Surgeries: Yes ( X4) Surgeries: Section Respiratory Hx Respiratory Disorders: Yes Respiratory Disorders: Asthma Cardiovascular Hx Cardiac Disorders: Yes (TACHYCARDIA ) Neurological Hx Neurological Disorders: No Reproductive System : No Hx Reproductive Disorders: No Sexually Transmitted Disease: No HIV/AIDS: No Female Reproductive Disorders: Denies Genitourinary Hx Genitourinary Disorders: No Gastrointestinal Hx Gastrointestinal Disorders: Yes (HEPATITIS C +) Gastrointestinal Disorders: Gastroesophageal Reflux, Liver Disease/Jaundice, Hepatitis Musculoskeletal Hx Musculoskeletal Disorders: No Endocrine Hx Endocrine Disorders: No HEENT HX ENT Disorders: No Loss of Vision: Denies Hearing Impairment: Denies Cancer Hx Cancer: No Psychosocial Hx Psychiatric Problems: No Integumentary HX Skin/Integumentary Disorder: No Blood Transfusions Hx Blood Disorders: No Adverse Reaction to a Blood Tr: No Family Medical History Significant Family History: Asthma Family Medial History: Alcoholism 19 FATHER G8 BROTHER Arthritis 19 FATHER Cardiovascular disease 19 MOTHER Coronary thrombosis 19 MOTHER Diabetes mellitus 19 MOTHER MATERNAL GRANDMOTHER Myocardial infarction 19 MOTHER Neoplasm 19 FATHER (LUNG CANCER) 19 MOTHER Respiratory disorder 19 FATHER (EMPHYSEMA) Physical Exam Vital Signs Vital Sign - Last 12Hours 11/03/16 11/03/16 09:22 09:36 Temp 98.9 Pulse 143 Resp 24 B/P (MAP) 131/106 Pulse Ox 84 O2 Delivery Room Air O2 Flow Rate 2.00 Capillary Refill : Less Than 3 Seconds General Appearance: WD/WN, severe distress Eyes: Bilateral Eye EOMI, Bilateral Eye Normal Inspection, Bilateral Eye PERRL HEENT: PERRL/EOMI, normal ENT inspection, TMs normal, pharynx normal Neck: non-tender, full range of motion, supple, normal inspection Respiratory: chest non-tender, respiratory distress (severe), decreased breath sounds, accessory muscle use, rales, rhonchi, wheezing, expiration Cardiovascular: normal peripheral pulses, no edema, no gallop, tachycardia Gastrointestinal: normal bowel sounds, non tender, soft Extremities: non-tender, normal inspection, no pedal edema, no calf tenderness , normal capillary refill Neurologic/Psychiatric: alert, oriented x 3 Skin: normal color, diaphoresis Lymphatic: no adenopathy Focused Exam Evaluation Sepsis Stage: Ruled Out (this is an asthma exacerbation without any evidence of infection on clinical exam, history or lab) Reason for ruling out sepsis: this is an asthma exacerbation Time of Focused Exam: 10:00 Respiratory: Accessory Muscle Use, Decreased Breath Sounds, Expiration, Rales, Respiratory Distress, Wheezing Cardiovascular: No Edema, Normal Peripheral Pulses, Tachycardia Capillary Refill: Less Than 3 Seconds Peripheral Pulses: 3+ Dorsalis Pedis (R), 3+ Left Dors-Pedis (L), 4+ Radial Pulses (R), 4+ Radial Pulses (L) Skin: normal color, diaphoresis Lactic Acid Level Laboratory Tests Test 11/03/16 10:26 Lactic Acid Level 1.21 MMOL/L (0.50-2.00) Progress/Results/Core Measures Results/Orders Lab Results Laboratory Tests Test 11/03/16 09:31 11/03/16 10:05 11/03/16 10:26 Range/Units White Blood Count 6.9 4.3-11.0 10^3/uL Red Blood Count 5.51 4.35-5.85 10^6/uL Hemoglobin 14.6 11.5-16.0 G/DL Hematocrit 46 35-52 % Mean Corpuscular Volume 84 80-99 FL Mean Corpuscular Hemoglobin 27 25-34 PG Mean Corpuscular Hemoglobin Concent 32 32-36 G/DL Red Cell Distribution Width 15.4 H 10.0-14.5 % Platelet Count 294 130-400 10^3/uL Mean Platelet Volume 10.4 7.4-10.4 FL Neutrophils (%) (Auto) 54 42-75 % Lymphocytes (%) (Auto) 27 12-44 % Monocytes (%) (Auto) 8 0-12 % Eosinophils (%) (Auto) 10 0-10 % Basophils (%) (Auto) 1 0-10 % Neutrophils # (Auto) 3.7 1.8-7.8 X 10^3 Lymphocytes # (Auto) 1.9 1.0-4.0 X 10^3 Monocytes # (Auto) 0.6 0.0-1.0 X 10^3 Eosinophils # (Auto) 0.7 H 0.0-0.3 10^3/uL Basophils # (Auto) 0.1 0.0-0.1 10^3/uL D-Dimer < 0.27 0.00-0.49 UG/ML Sodium Level 143 135-145 MMOL/L Potassium Level 4.5 3.6-5.0 MMOL/L Chloride Level 108 H 98-107 MMOL/L Carbon Dioxide Level 26 21-32 MMOL/L Anion Gap 9 5-14 MMOL/L Blood Urea Nitrogen 7 7-18 MG/DL Creatinine 0.66 0.60-1.30 MG/DL Estimat Glomerular Filtration Rate > 60 BUN/Creatinine Ratio 11 Glucose Level 93 70-105 MG/DL Calcium Level 9.9 8.5-10.1 MG/DL Phosphorus Level 3.6 2.3-4.7 MG/DL Magnesium Level 2.2 1.8-2.4 MG/DL Total Bilirubin 0.9 0.1-1.0 MG/DL Aspartate Amino Transf (AST/SGOT) 36 H 5-34 U/L Alanine Aminotransferase (ALT/SGPT) 47 0-55 U/L Alkaline Phosphatase 60 40-136 U/L C-Reactive Protein High Sensitivity 0.13 0.00-0.50 MG/DL Total Protein 7.9 6.4-8.2 G/DL Albumin 4.4 3.2-4.5 G/DL Thyroid Stimulating Hormone (TSH) 0.75 0.35-4.94 UIU/ML Serum Test, Qualitative NEGATIVE NEGATIVE Blood Gas Puncture Site LT RADIAL Blood Gas Patient Temperature 96.9 Arterial Blood pH 7.32 *L 7.37-7.43 Arterial Blood Partial Pressure CO2 47 H 35-45 MMHG Arterial Blood Partial Pressure O2 142 H 79-93 MMHG Arterial Blood HCO3 24 23-27 MMOL/L Arterial Blood Total CO2 25.2 21.0-31.0 MMOL/L Arterial Blood Oxygen Saturation 99 94-100 % Arterial Blood Base Excess -1.8 -2.5-2.5 MMOL/L Familia Test YES-POS Blood Gas Ventilator Setting NO Blood Gas Inspired Oxygen 10 Lactic Acid Level 1.21 0.50-2.00 MMOL/L My Orders Orders - PETR RICARDO Albuterol/Ipra Inhalation Soln (Duoneb I (11/03/16 09:22) Methylprednisolone Sod Succ (Solu-Medrol (11/03/16 09:24) Albuterol Pre-Mix Nebs (Rt) (Proventil P (11/03/16 09:27) Albuterol Pre-Mix Nebs (Rt) (Proventil P (11/03/16 09:45) Cbc With Automated Diff (11/03/16 09:33) Comprehensive Metabolic Panel (11/03/16 09:33) Hs C Reactive Protein (11/03/16 09:33) Lactic Acid Analyzer (11/03/16:33) Magnesium (11/03/16 09:33) Rapid Strep A Screen (11/03/16 09:33) Thyroid Stimulating Hormone (11/03/16 09:33) Blood Culture (11/03/16 09:33) Sputum Culture (11/03/16 09:33) Phosphorus (11/03/16 09:33) Chest 1 View, Ap/Pa Only (11/03/16 09:33) Albuterol Pre-Mix Nebs (Rt) (Proventil P (11/03/16 09:33) Albuterol/Ipra Inhalation Soln (Duoneb I (11/03/16 09:45) Rt Request For Service (11/03/16 09:33) Saline Lock/Iv-Start (11/03/16 09:33) Ns Iv 1000 Ml (Sodium Chloride 0.9%) (11/03/16 09:33) Methylprednisolone Sod Succ (Solu-Medrol (11/03/16 09:33) Fibrin Degradation Products (11/03/16 09:33) Ekg Tracing (11/03/16 09:33) O2 (11/03/16 09:33) Saline Lock/Iv-Start (11/03/16 09:33) Monitor-Rhythm Ecg Trace Only (11/03/16 09:33) Svn Sm Volume Nebulizer Rt-Rfs (11/03/16 09:33) Svn Sm Volume Nebulizer Rt-Rfs (11/03/16 09:33) Magnesium 1 Gm/100 Ml Ivpb (Magnesium Holliday (11/03/16 09:45) Lorazepam Injection (Ativan Injection) (11/03/16 09:49) Arterial Blood Gas (11/03/16 10:06) Ceftriaxone Injection (Rocephin Injectio (11/03/16 10:15) Azithromycin Injection (Zithromax Inject (11/03/16 10:15) Fentanyl Injection (Sublimaze Injection (11/03/16 10:06) Ketamine Injection (Ketalar Injection) (11/03/16 10:30) Ketamine Injection (Ketalar Injection) (11/03/16 10:25) Fentanyl Injection (Sublimaze Injection (11/03/16 10:32) Ondansetron Injection (Zofran Injectio (11/03/16 10:43) Hcg,Qualitative Serum (11/03/16 11:07) Albuterol Pre-Mix Nebs (Rt) (Proventil P (11/03/16 11:30) Medications Given in ED Current Medications Medications Dose Ordered Sig/Juan José Route Start Time Stop Time Status Last Admin Dose Admin Albuterol Sulfate 2.5 mg STK-MED ONCE .ROUTE 11/03/16 09:27 11/03/16 09:33 DC 11/03/16 09:27 2.5 MG Azithromycin 500 mg/Sodium Chloride 250 ml @ 250 mls/hr ONCE ONCE IV 11/03/16 10:15 11/03/16 11:14 DC 11/03/16 10:51 250 MLS/HR Ceftriaxone Sodium 1000 mg/ Sodium Chloride 50 ml @ 100 mls/hr ONCE ONCE IV 11/03/16 10:15 11/03/16 10:44 DC 11/03/16 10:27 100 MLS/HR Fentanyl Citrate 100 mcg STK-MED ONCE .ROUTE 11/03/16 10:06 11/03/16 10:11 DC 11/03/16 10:12 25 MCG Fentanyl Citrate 100 mcg STK-MED ONCE .ROUTE 11/03/16 10:32 11/03/16 10:37 DC 11/03/16 10:38 25 MCG Ketamine HCl 36 mg ONCE ONCE IV 11/03/16 10:30 11/03/16 10:31 DC 11/03/16 10:45 36 MG Lorazepam 2 mg STK-MED ONCE .ROUTE 11/03/16 09:49 11/03/16 09:55 DC 11/03/16 09:58 0.25 MG Methylprednisolone Sodium Succinate 125 mg STK-MED ONCE .ROUTE 11/03/16 09:24 11/03/16 09:30 DC 11/03/16 09:33 125 MG Ondansetron HCl 4 mg STK-MED ONCE .ROUTE 11/03/16 10:43 11/03/16 10:48 DC 11/03/16 10:48 4 MG Sodium Chloride 1,000 ml @ 0 mls/hr Q0M ONCE IV 11/03/16 09:33 11/03/16 09:45 DC 11/03/16 10:02 1,000 MLS/HR Vital Signs/I&O Vital Sign - Last 12Hours 11/03/16 11/03/16 11/03/16 11/03/16 09:22 09:36 10:22 11:22 Temp 98.9 Pulse 143 Resp 24 B/P (MAP) 131/106 Pulse Ox 84 92 97 O2 Delivery Room Air Nasal Cannula Nasal Cannula Nasal Cannula O2 Flow Rate 2.00 5.00 5.00 Blood Pressure Mean: 114 ECG Initial ECG Impression Date: Nov 03, 2016 Initial ECG Impression Time: 10:17 Initial ECG Rate: 140 Initial ECG Rhythm: S.Tach Initial ECG Intervals: Normal Initial ECG Impression: Normal Initial ECG Comparisson: Unchanged Comment Sinus tach with a lot of artifact from breathing. No evidence of ST wave aberration. Diagnostic Imaging Diagonstic Imaging: Xray Plain Films/CT/US/NM/MRI: chest Comments Bronchial markings but no infiltrates noted. Lungs fully expanded. Reviewed: Reviewed by Me Critical Care Note Critical Care Start Time: 10:00 Stop Time: 11:30 Total Time (minutes) 90 Progress patient presented in extremis for asthma exacerbation without any clinical or historical clues as to an infection. She states she's had this many times before. We immediately started her with 2 vials of DuoNeb and followed that with another 10 mg of albuterol by small volume neb. We gave her 125 mg of Solu- Medrol as we got to IV of a large bore characteristic started. She was given a liter of fluids and we gave magnesium 2 g by IV. We continued her albuterol small volume neb for a total of 20 mg to include the DuoNeb up to this point. the crash cart and airway cart were brought just outside the room and the patient was verbally prepared for the possibility of being intubated. We prepared medication doses with ketamine and propofol if we needed to do a rapid sequence intubation. WeGave her a quarter milligram of Ativan IV and started coaching her on her breathing which helped tremendously. An ABG was obtained about this time that demonstrated a pH of 7.32 and a PCO2 of 46. When she arrived she was satting about 60% on room air but on about 35% FiO2 with CPAP at 10 cm water pressure she was maintaining 98-100%.she was not tolerating the CPAP very well and felt that it was suffocating her so he reduced the pressure to 5 cm water pressure. She was still not tolerating this so after about 10-15 minutes we abandon the CPAP. She did not feel she was breathing any better without the CPAP and she was with it. About this time is when the magnesium was completed and the patient began to turn the corner.her lungs were beginning to open up and the patient was no longer tiring out from working so hard to exhale her breath.at this point the ketamine had arrived and we started giving her her dose of 0.5 mg/kg over about 10 minutes. the patient was having a terrible headache so I gave her 25 micrograms of fentanyl for anxiolysis and pain control. This seemed to have a very good effect on her. We got about 15 mg of the ketamine and the patient started feeling quite loose and associated so we held the dose. She stated she could breathe much easier and her breath sounds were much more audible. at this point the patient was becoming much more stable and was given 5 more milligrams of small volume neb albuterol for a total of 25 mg. the patient's FiO2 was trimmed down to about 4 L on nasal cannula and she was satting 98 to 100%. chest x-ray was reviewed at the time it was obtained and was unremarkable. Her labs were reviewed as they came up and there is no evidence on the CRP, white count, or lactate to indicate an infectious etiology. we then transitioned her care to inpatient ICU under the care of internal medicine, Dr. Grossman. Departure Communication Time/Spoke to Admitting Phy: 11:[address] Grossman about the patient's case and he agreed to admit her to the ICU with albuterol updrafts as well as continued 125 mg Solu-Medrol every 6 hours. Impression Impression: Primary Impression: Asthma exacerbation Additional Impression: Hypercapnic respiratory failure Qualified Codes: J96.02 - Acute respiratory failure with hypercapnia Disposition: ADMITTED INPATIENT Condition: Improved (ERASED) Decision to Admit Reason: Admit from ER (General) ( has been typed house) Decision to Admit/Date: Nov 03, 2016 Time/Decision to Admit Time: 12:11 Departure-Patient Inst. Referrals: LEANDER COONEY DO (PCP) Primary Care Physician Copy Copies To 1: LEANDER COONEY TITUS J Nov 03, 2016 09:33
[2016-11-03] MEDS ORDERED: MAGNESIUM 1 GM/100 ML IVPB 100 ML IV SCH (09:45)
[2016-11-03] MEDS ORDERED: RT-ALBUTEROL/IPRATROPIUM 3 ML (DUONEB) VIAL INH ONE (09:45)
[2016-11-03] MEDS ORDERED: RT-ALBUTEROL SULF 2.5 MG/3 ML PRE-MIX VIAL IH SCH ×2 (09:45→11:30)
[2016-11-03 09:48] LABS: BASOPHILS # (AUTO) 0.1 10^3/uL (0.0-0.1); BASOPHILS % (AUTO) 1 % (0-10); EOSINOPHILS # (AUTO) 0.7 10^3/uL (0.0-0.3); EOSINOPHILS % (AUTO) 10 % (0-10); LYMPHOCYTES # (AUTO) 1.9 X 10^3 (1.0-4.0); LYMPHOCYTES % (AUTO) 27 % (12-44); MEAN CORPUSCULAR HEMOGLOBIN 27 PG (25-34); MEAN CORPUSCULAR HGB CONC 32 G/DL (32-36); MEAN CORPUSCULAR VOLUME 84 FL (80-99); MEAN PLATELET VOLUME 10.4 FL (7.4-10.4); MONOCYTES # (AUTO) 0.6 X 10^3 (0.0-1.0); MONOCYTES % (AUTO) 8 % (0-12); NEUTROPHILS # (AUTO) 3.7 X 10^3 (1.8-7.8); NEUTROPHILS % (AUTO) 54 % (42-75); PLATELET COUNT 294 10^3/uL (130-400); RED BLOOD COUNT 5.51 10^6/uL (4.35-5.85); RED CELL DISTRIBUTION WIDTH 15.4 % (10.0-14.5); WHITE BLOOD COUNT 6.9 10^3/uL (4.3-11.0)
[2016-11-03] MEDS ORDERED: LORazepam INJ 2 MG/ML (ATIVAN) VIAL ONE (09:49)
[2016-11-03 10:01] LABS: ALANINE AMINOTRANSFERASE 47 U/L (0-55); ALBUMIN 4.4 G/DL (3.2-4.5); ANION GAP 9 MMOL/L (5-14); ASPARTATE AMINO TRANSFERASE 36 U/L (5-34); BILIRUBIN,TOTAL 0.9 MG/DL (0.1-1.0); BLOOD UREA NITROGEN 7 MG/DL (7-18); BUN/CREATININE RATIO 11; CALCIUM 9.9 MG/DL (8.5-10.1); CARBON DIOXIDE 26 MMOL/L (21-32); CHLORIDE 108 MMOL/L (98-107); CREATININE SERUM 0.66 MG/DL (0.60-1.30); GFR ESTIMATED > 60; GLUCOSE 93 MG/DL (70-105); MAGNESIUM 2.2 MG/DL (1.8-2.4); PHOSPHORUS 3.6 MG/DL (2.3-4.7); POTASSIUM 4.5 MMOL/L (3.6-5.0); SODIUM 143 MMOL/L (135-145); TOTAL PROTEIN 7.9 G/DL (6.4-8.2); hs C REACTIVE PROTEIN 0.13 MG/DL (0.00-0.50)
[2016-11-03] MEDS ORDERED: fentaNYL INJECTION 100 MCG/2 ML AMP ONE ×3 (10:06→13:00)
[2016-11-03 10:12] LABS: ABG BASE EXCESS -1.8 MMOL/L (-2.5-2.5); ABG HCO3 24 MMOL/L (23-27); ABG OXYGEN SATURATION 99 % (94-100); ABG PCO2 47 MMHG (35-45); ABG PO2 142 MMHG (79-93); ABG TCO2 25.2 MMOL/L (21.0-31.0)
[2016-11-03] MEDS: cefTRIAXone INJECTION 1,000 MG in NS (IVPB) 50 ML IV ONE ×2 (10:15→10:27)
[2016-11-03] MEDS ORDERED: AZITHROMYCIN INJECTION 500 MG in NS (IVPB) 250 ML IV ONE (10:15)
[2016-11-03 10:17] LABS: ABG PH 7.32 (7.37-7.43); ALLENS TEST YES-POS; PATIENT TEMP 96.9
[2016-11-03 10:21] LABS: THYROID STIMULATING HORMONE 0.75 UIU/ML (0.35-4.94)
[2016-11-03] MEDS ORDERED: KETAMINE HCL 100 MG/ML 5 ML VIAL IV ONE (10:30)
[2016-11-03] MEDS: KETAMINE HCL 100 MG/ML 5 ML VIAL INJ NR ×2 (10:40→10:41)
[2016-11-03] MEDS ORDERED: ONDANSETRON 4 MG/2 ML (SDV) Z0FRAN ONE (10:43)
--- NOTE | 2016-11-03 12:00 | Diagnostic Imaging Report ---
EXAMINATION: Portable erect AP chest obtained at 11:15h. INDICATION: Asthma, shortness of breath Heart size is within normal limits and stable when compared to 08/15/16. The lungs are clear. There is no evidence for pneumonia or for a pleural effusion. There is no sign of a pneumothorax. As on the prior exam the lungs are slightly hyperexpanded. This would be consistent with the patient's diagnosis of asthma. The mediastinum is not widened. The osseous structures are intact. IMPRESSION: There is no evidence for active disease. When compared to the prior study there has been no adverse change. Dictated by: Dictated on workstation # [id number]
[2016-11-03] MEDS ORDERED: RT-ALBUTEROL SULF 2.5 MG/3 ML PRE-MIX VIAL IH PRN (13:15)
[2016-11-03] MEDS: NS IV 1000 ML 1,000 ML IV SCH (13:36)
[2016-11-03 14:03] LABS: ABG BASE EXCESS -2.2 MMOL/L (-2.5-2.5); ABG HCO3 23 MMOL/L (23-27); ABG OXYGEN SATURATION 79 % (94-100); ABG PCO2 49 MMHG (35-45); ABG PO2 46 MMHG (79-93); ABG TCO2 24.8 MMOL/L (21.0-31.0)
[2016-11-03 14:04] LABS: ALLENS TEST YES-POS; PATIENT TEMP 98.4
[2016-11-03] MEDS: RT-ALBUTEROL SULF 2.5 MG/3 ML PRE-MIX VIAL IH SCH ×3 (14:31→22:04)
[2016-11-03] MEDS: fentaNYL INJECTION 100 MCG/2 ML AMP IVP PRN ×2 (16:10→20:30)
[2016-11-03] MEDS: methylPREDNISolone 125 MG (Solu-MEDROL) VIAL IVP SCH (18:31)
[2016-11-04] VITALS (13 sets, daily range): BP systolic 97–120; BP diastolic 49–83
[2016-11-04] MEDS: methylPREDNISolone 125 MG (Solu-MEDROL) VIAL IVP SCH ×2 (00:08→06:19)
[2016-11-04] MEDS: RT-ALBUTEROL SULF 2.5 MG/3 ML PRE-MIX VIAL IH SCH ×6 (02:08→22:41)
[2016-11-04] MEDS: NS IV 1000 ML 1,000 ML IV SCH (02:55)
[2016-11-04] MEDS: HYDROcodone/APAP 5 MG/325 MG (LORTAB) TAB PO PRN ×4 (03:02→22:07)
[2016-11-04 04:37] LABS: BASOPHILS % (AUTO) 0 % (0-10); EOSINOPHILS % (AUTO) 0 % (0-10); LYMPHOCYTES # (AUTO) 0.8 X 10^3 (1.0-4.0); LYMPHOCYTES % (AUTO) 6 % (12-44); MEAN CORPUSCULAR HEMOGLOBIN 27 PG (25-34); MEAN CORPUSCULAR HGB CONC 32 G/DL (32-36); MEAN CORPUSCULAR VOLUME 85 FL (80-99); MEAN PLATELET VOLUME 10.7 FL (7.4-10.4); MONOCYTES # (AUTO) 0.2 X 10^3 (0.0-1.0); MONOCYTES % (AUTO) 1 % (0-12); NEUTROPHILS % (AUTO) 93 % (42-75); PLATELET COUNT 254 10^3/uL (130-400); RED BLOOD COUNT 4.92 10^6/uL (4.35-5.85); RED CELL DISTRIBUTION WIDTH 15.3 % (10.0-14.5); WHITE BLOOD COUNT 12.9 10^3/uL (4.3-11.0)
[2016-11-04 05:00] LABS: ALANINE AMINOTRANSFERASE 35 U/L (0-55); ALBUMIN 3.9 G/DL (3.2-4.5); ANION GAP 10 MMOL/L (5-14); ASPARTATE AMINO TRANSFERASE 23 U/L (5-34); BILIRUBIN,TOTAL 0.4 MG/DL (0.1-1.0); BLOOD UREA NITROGEN 9 MG/DL (7-18); BUN/CREATININE RATIO 16; CALCIUM 9.1 MG/DL (8.5-10.1); CARBON DIOXIDE 19 MMOL/L (21-32); CHLORIDE 111 MMOL/L (98-107); CREATININE SERUM 0.58 MG/DL (0.60-1.30); GFR ESTIMATED > 60; GLUCOSE 152 MG/DL (70-105); MAGNESIUM 2.3 MG/DL (1.8-2.4); PHOSPHORUS 2.9 MG/DL (2.3-4.7); POTASSIUM 4.4 MMOL/L (3.6-5.0); SODIUM 140 MMOL/L (135-145); TOTAL PROTEIN 6.5 G/DL (6.4-8.2)
[2016-11-04 05:06] LABS: BAND NEUTROPHILS 3 %; BASOPHILS % (MANUAL) 0 %; EOSINOPHILS % (MANUAL) 0 %; LYMPHOCYTES % (MANUAL) 2 %; NEUTROPHILS % (MANUAL) 92 %; REACTIVE LYMPHOCYTES 3 %
[2016-11-04 05:07] LABS: ANISOCYTOSIS SLIGHT
--- NOTE | 2016-11-04 07:19 | Pulmonary Consultation ---
History of Present Illness History of Present Illness Date of Consultation 11/04/16 07:14 Date of Admission History of Present Illness 31 yo with hx of severe asthma and multiple hospitalizations presented to ED with acute progressive SOB and wheezing over the last 1-2 days. No sick contacts at home. She has required mechanical ventilation in the past. Pt has been scheduled in my office in the past however has never actually made any of the appts. Pt uses symbicort, and rescue INH at home. INHs were not helping prior to this admission. I am consulted for pulmonary management. Allergies and Home Medications Allergies Coded Allergies: chlorpheniramine (Verified Allergy, Unknown, 03/05/06) phenylephrine (Verified Allergy, Unknown, 03/05/06) phenylpropanolamine (Verified Allergy, Unknown, 03/05/06) phenyltoloxamine (Verified Allergy, Unknown, 03/05/06) Home Medications Albuterol Sulfate 1 Puff Puff, 2 PUFF IH Q4H PRN for WHEEZING, (Reported) 1 PUFF = 90 MCG Budesonide/Formoterol Fumarate 10.2 Gm Hfa.aer.ad, 2 PUFF IH BID, (Reported) Montelukast Sodium 10 Mg Tablet, 10 MG PO HS, (Reported) Past Qbzzwhb-Rwvftx-Xngvow Hx Patient Social History Alcohol Use: Denies Use Recreational Drug Use: No Smoking Status: Former Smoker Type Used: Cigarettes Former Smoker/When Quit: Jan 24, 2015 2nd Hand Smoke Exposure: Yes ( SMOKES IN HOME) Recent Foreign Travel: No Contact w/Someone Who Travel: No Recent Infectious Disease Expo: No Recent Hopitalizations: Yes (C-SECTIONS, ASTHMA) Physical Abuse Screen: No Sexual Abuse: No Immunizations Up To Date Tetanus Booster (TDap): Unknown PED Vaccines UTD: No Date of Pneumonia Vaccine: Mar 05, 2016 Date of Influenza Vaccine: Mar 26, 2016 Seasonal Allergies Seasonal Allergies: Yes Surgeries HX Surgeries: Yes ( X4) Surgeries: Section Respiratory Hx Respiratory Disorders: Yes Respiratory Disorders: Asthma Cardiovascular Hx Cardiac Disorders: Yes (TACHYCARDIA ) Neurological Hx Neurological Disorders: No Reproductive System : No Hx Reproductive Disorders: No Sexually Transmitted Disease: No HIV/AIDS: No Female Reproductive Disorders: Denies Genitourinary Hx Genitourinary Disorders: No Gastrointestinal Hx Gastrointestinal Disorders: Yes (HEPATITIS C +) Gastrointestinal Disorders: Gastroesophageal Reflux, Liver Disease/Jaundice, Hepatitis Musculoskeletal Hx Musculoskeletal Disorders: No Endocrine Hx Endocrine Disorders: No HEENT HX ENT Disorders: No Loss of Vision: Denies Hearing Impairment: Denies Cancer Hx Cancer: No Psychosocial Hx Psychiatric Problems: No Integumentary HX Skin/Integumentary Disorder: No Blood Transfusions Hx Blood Disorders: No Adverse Reaction to a Blood Tr: No Family Medical History Significant Family History: Asthma Family Medial History: Alcoholism 19 FATHER G8 BROTHER Arthritis 19 FATHER Cardiovascular disease 19 MOTHER Coronary thrombosis 19 MOTHER Diabetes mellitus 19 MOTHER MATERNAL GRANDMOTHER Myocardial infarction 19 MOTHER Neoplasm 19 FATHER (LUNG CANCER) 19 MOTHER Respiratory disorder 19 FATHER (EMPHYSEMA) Review of Systems Constitutional: No: Chills, Fever, Malaise, Other, Sweats, Weakness Eyes: No: Conjunctivae inflammation, Eyelid inflammation, Other, Pain, Redness , Vision change ENT: No: Ear discharge, Ear pain, Mouth pain, Mouth swelling, Nose congestion, Nose discharge, Nose pain, Other, Throat pain, Throat swelling Respiratory: Cough, Dry, Shortness of breath, Wheezing Cardiovascular: Lt Headedness, Orthopnea, Palpitations, Paroxysmal Noc. Dyspnea Gastrointestinal: No: Abdominal Pain, Constipation, Diarrhea, Hematochezia, Melena, Nausea, Other, Vomiting Genitourinary: No Dysuria, No Frequency, No Incontinence, No Hematuria, No Retention, No Other Neurological: Weakness Exam Exam Vital Signs Date Time Temp Pulse Resp B/P (MAP) Pulse Ox O2 Delivery O2 Flow Rate FiO2 11/04/16 04:00 95 Nasal Cannula 3.00 11/04/16 04:00 98.0 92 14 120/83 95 Nasal Cannula 3.00 11/04/16 03:00 105 16 104/64 96 Nasal Cannula 3.00 11/04/16 02:09 97 Nasal Cannula 3.00 11/04/16 02:00 112 19 116/70 97 Nasal Cannula 3.00 11/04/16 01:00 104 19 101/62 95 Nasal Cannula 3.00 11/04/16 01:00 103 11/04/16 00:00 98.2 Nasal Cannula 3.00 11/04/16 00:00 104 47 104/60 93 Nasal Cannula 3.00 11/04/16 00:00 93 Nasal Cannula 3.00 11/03/16 23:00 121 20 109/59 96 Nasal Cannula 3.00 11/03/16 22:05 96 Nasal Cannula 3.00 11/03/16 22:00 109 25 98/53 99 Nasal Cannula 3.00 11/03/16 21:00 117 20 114/70 95 Nasal Cannula 3.00 11/03/16 20:00 98.9 Nasal Cannula 5.00 11/03/16 20:00 96 Nasal Cannula 3.00 11/03/16 20:00 131 24 130/89 97 Nasal Cannula 5.00 11/03/16 19:00 125 21 110/63 95 Nasal Cannula 3.00 11/03/16 19:00 122 11/03/16 18:23 96 Nasal Cannula 3.50 11/03/16 18:00 112 27 106/79 97 Nasal Cannula 5.00 11/03/16 17:00 123 24 108/71 Nasal Cannula 5.00 11/03/16 16:00 96 Nasal Cannula 5.00 11/03/16 16:00 98.8 Nasal Cannula 5.00 11/03/16 16:00 126 17 111/64 Nasal Cannula 5.00 11/03/16 15:23 /66 11/03/16 15:00 137 27 104/96 Nasal Cannula 5.00 11/03/16 14:32 99 11/03/16 14:25 99 Nasal Cannula 5.00 11/03/16 14:00 112 20 87/70 Nasal Cannula 5.00 11/03/16 13:45 112 21 105/59 Nasal Cannula 5.00 11/03/16 13:30 114 29 121/68 96 Nasal Cannula 5.00 11/03/16 13:15 118 33 115/80 96 Nasal Cannula 5.00 11/03/16 13:05 126 11/03/16 13:00 95 Nasal Cannula 5.00 11/03/16 13:00 97.9 11/03/16 13:00 130 20 113/56 97 Nasal Cannula 5.00 11/03/16 12:45 98.0 121 20 99 Nasal Cannula 5.00 11/03/16 11:22 97 Nasal Cannula 5.00 11/03/16 10:22 Nasal Cannula 5.00 11/03/16 09:36 92 Nasal Cannula 2.00 11/03/16 09:22 98.9 143 24 131/106 84 Room Air I & O 11/04/16 07:00 Intake Total 3730 ml Output Total 4800 ml Balance -1070 ml General Appearance: Anxious, Mild Distress HEENT: PERRL/EOMI Neck: Normal Inspection, Non Tender, Supple Respiratory: Accessory Muscle Use, Decreased Breath Sounds, Expiration, Rales, Respiratory Distress, Wheezing Cardiovascular: No Edema, Normal Peripheral Pulses, Tachycardia Capillary Refill: Less Than 3 Seconds Peripheral Pulses: 3+ Dorsalis Pedis (R), 3+ Left Dors-Pedis (L), 4+ Radial Pulses (R), 4+ Radial Pulses (L) Gastrointestinal: normal bowel sounds, non tender, soft Extremity: Normal Capillary Refill, Normal Inspection, Non Tender, No Calf Tenderness Neurologic/Psychiatric: Alert, Oriented x3 Skin: Normal Color, Warm/Dry Results Lab Laboratory Tests 11/03/16 09:31 11/04/16 03:58 Assessment/Plan Assessment/Plan Acute asthma exacerbation with acute respiratory failure -Albuterol Q4 -Solumedrol change to 40 Q6 Allergic rhinitis -singulair, zyrtec, flonase Hyperchloremic metabolic acidosis -CHange IVF to LR. Hx of tobacco use - pt states she no longer smokes Will keep pt in ICU for 24hrs. Labs/radiology reviewed 255 45 mins spent with patient and medical team discussing plan and patient education. Clinical Quality Measures DVT/VTE Risk/Contraindication: Risk Factor Score Per Nursin RFS Level Per Nursing on Admit: 1=Low/No VTE PPX TONIO GOTTI DO Nov 04, 2016 07:19
--- NOTE | 2016-11-04 07:43 | Diagnostic Imaging Report ---
INDICATION: Asthma exacerbation. COMPARISON: 11/03/2016 FINDINGS: Single frontal view of the chest demonstrates normal heart size and pulmonary vascularity. The lungs are well aerated and clear. No large pleural effusion or pneumothorax is seen. The visualized osseous structures show no acute abnormalities. IMPRESSION: 1. No acute cardiopulmonary process. Dictated by: Dictated on workstation # [id number]
[2016-11-04] MEDS ORDERED: MONT10TA21 PO (08:13)
[2016-11-04] MEDS ORDERED: BUDE10.22 IH (08:13)
[2016-11-04] MEDS ORDERED: RT-ALBUINH IH (08:13)
[2016-11-04] MEDS: LORATADINE (CLARITIN) 10 MG TAB PO SCH (08:14)
[2016-11-04] MEDS: FLUTICASONE NASAL SPRAY (FLONASE) 16 GM BTL NS SCH (08:14)
[2016-11-04] MEDS: LACTATED RINGERS 1,000 ML IV SCH ×2 (08:28→22:59)
--- NOTE | 2016-11-04 08:52 | History & Physicial (CH[facility]) ---
HPI History of Present Illness: 31yo woman with a longstanding history of asthma presented to hospital with complaints of shortness of breath and cough developing over the 2 days prior to admssion. Patient states she was previously using Advair which was prescribed to her mother, and her mother is giving it to her. Her mother's insurance stopped covering Advair and she was switched to Symbicort (doses unknown). She has been using that in the past few weeks. She did not have a fever or cold/ URI sx prior to this most recent exacerbation. She has been staying with her mother who smokes outside, but Denise says that her house and clothes all still smell like smoke. No fever. NO sputum production. Patient has been referred to Dr Walsh on several occasions but did not go because she was afraid of a bill as she does not have insurance herself. She has applied for Medicaid and is hopeful to get it soon. Source: patient Exam Limitations: no limitations Date seen by provider: Nov 04, 2016 Time Seen by Provider: 08:30 Attending Physician Primitivo Grossman MD PCP Hillary Hamm DO Consult Yan Walsh DO Date of Admission Nov 03, 2016 at 12:08 Home Medications Home Medications Reviewed patient Home Medication Reconciliation Form Allergies Coded Allergies: chlorpheniramine (Verified Allergy, Unknown, 03/05/06) phenylephrine (Verified Allergy, Unknown, 03/05/06) phenylpropanolamine (Verified Allergy, Unknown, 03/05/06) phenyltoloxamine (Verified Allergy, Unknown, 03/05/06) [id number] Hx Patient Social History Alcohol Use: Denies Use Recreational Drug Use: No Smoking Status: Former Smoker Former smoker/When Quit: Jan 24, 2015 Type Used: Cigarettes 2nd Hand Smoke Exposure: Yes ( SMOKES IN HOME) Recent Foreign Travel: No Contact w/other who traveled: No Recent Hopitalizations: Yes (C-SECTIONS, ASTHMA) Recent Infectious Disease Expo: No Physical Abuse Screen: No Sexual Abuse: No Immunizations Up To Date Tetanus Booster (TDap): Unknown Date of Pneumonia Vaccine: Mar 05, 2016 Date of Influenza Vaccine: Mar 26, 2016 Past Medical History Asthma, Hep C Family Medical History Significant Family History: Asthma Family History: Alcoholism 19 FATHER G8 BROTHER Arthritis 19 FATHER Cardiovascular disease 19 MOTHER Coronary thrombosis 19 MOTHER Diabetes mellitus 19 MOTHER MATERNAL GRANDMOTHER Myocardial infarction 19 MOTHER Neoplasm 19 FATHER (LUNG CANCER) 19 MOTHER Respiratory disorder 19 FATHER (EMPHYSEMA) Review of Systems ([facility]) Time Seen by Provider: 08:30 Constitutional: no symptoms reported All Other Systems Reviewed Negative Unless Noted: Yes Reviewed Test Results Reviewed Test Results Lab Laboratory Tests Test 11/03/16 09:31 11/03/16 10:05 11/03/16 10:26 11/03/16 13:55 Range/Units White Blood Count 6.9 4.3-11.0 10^3/uL Red Blood Count 5.51 4.35-5.85 10^6/uL Hemoglobin 14.6 11.5-16.0 G/DL Hematocrit 46 35-52 % Mean Corpuscular Volume 84 80-99 FL Mean Corpuscular Hemoglobin 27 25-34 PG Mean Corpuscular Hemoglobin Concent 32 32-36 G/DL Red Cell Distribution Width 15.4 H 10.0-14.5 % Platelet Count 294 130-400 10^3/uL Mean Platelet Volume 10.4 7.4-10.4 FL Neutrophils (%) (Auto) 54 42-75 % Lymphocytes (%) (Auto) 27 12-44 % Monocytes (%) (Auto) 8 0-12 % Eosinophils (%) (Auto) 10 0-10 % Basophils (%) (Auto) 1 0-10 % Neutrophils # (Auto) 3.7 1.8-7.8 X 10^3 Lymphocytes # (Auto) 1.9 1.0-4.0 X 10^3 Monocytes # (Auto) 0.6 0.0-1.0 X 10^3 Eosinophils # (Auto) 0.7 H 0.0-0.3 10^3/uL Basophils # (Auto) 0.1 0.0-0.1 10^3/uL D-Dimer < 0.27 0.00-0.49 UG/ML Sodium Level 143 135-145 MMOL/L Potassium Level 4.5 3.6-5.0 MMOL/L Chloride Level 108 H 98-107 MMOL/L Carbon Dioxide Level 26 21-32 MMOL/L Anion Gap 9 5-14 MMOL/L Blood Urea Nitrogen 7 7-18 MG/DL Creatinine 0.66 0.60-1.30 MG/DL Estimat Glomerular Filtration Rate > 60 BUN/Creatinine Ratio 11 Glucose Level 93 70-105 MG/DL Calcium Level 9.9 8.5-10.1 MG/DL Phosphorus Level 3.6 2.3-4.7 MG/DL Magnesium Level 2.2 1.8-2.4 MG/DL Total Bilirubin 0.9 0.1-1.0 MG/DL Aspartate Amino Transf (AST/SGOT) 36 H 5-34 U/L Alanine Aminotransferase (ALT/SGPT) 47 0-55 U/L Alkaline Phosphatase 60 40-136 U/L C-Reactive Protein High Sensitivity 0.13 0.00-0.50 MG/DL Total Protein 7.9 6.4-8.2 G/DL Albumin 4.4 3.2-4.5 G/DL Thyroid Stimulating Hormone (TSH) 0.75 0.35-4.94 UIU/ML Serum Test, Qualitative NEGATIVE NEGATIVE Blood Gas Puncture Site LT RADIAL LT RADIAL Blood Gas Patient Temperature 96.9 98.4 Arterial Blood pH 7.32 *L 7.30 *L 7.37-7.43 Arterial Blood Partial Pressure CO2 47 H 49 H 35-45 MMHG Arterial Blood Partial Pressure O2 142 H 46 L 79-93 MMHG Arterial Blood HCO3 24 23 23-27 MMOL/L Arterial Blood Total CO2 25.2 24.8 21.0-31.0 MMOL/L Arterial Blood Oxygen Saturation 99 79 L 94-100 % Arterial Blood Base Excess -1.8 -2.2 -2.5-2.5 MMOL/L Familia Test YES-POS YES-POS Blood Gas Ventilator Setting NO NO Blood Gas Inspired Oxygen 10 5 Lactic Acid Level 1.21 0.50-2.00 MMOL/L Test 11/04/16 03:58 Range/Units White Blood Count 12.9 H 4.3-11.0 10^3/uL Red Blood Count 4.92 4.35-5.85 10^6/uL Hemoglobin 13.2 11.5-16.0 G/DL Hematocrit 42 35-52 % Mean Corpuscular Volume 85 80-99 FL Mean Corpuscular Hemoglobin 27 25-34 PG Mean Corpuscular Hemoglobin Concent 32 32-36 G/DL Red Cell Distribution Width 15.3 H 10.0-14.5 % Platelet Count 254 130-400 10^3/uL Mean Platelet Volume 10.7 H 7.4-10.4 FL Neutrophils (%) (Auto) 93 H 42-75 % Lymphocytes (%) (Auto) 6 L 12-44 % Monocytes (%) (Auto) 1 0-12 % Eosinophils (%) (Auto) 0 0-10 % Basophils (%) (Auto) 0 0-10 % Neutrophils # (Auto) 12.0 H 1.8-7.8 X 10^3 Lymphocytes # (Auto) 0.8 L 1.0-4.0 X 10^3 Monocytes # (Auto) 0.2 0.0-1.0 X 10^3 Eosinophils # (Auto) 0.0 0.0-0.3 10^3/uL Basophils # (Auto) 0.0 0.0-0.1 10^3/uL Neutrophils % (Manual) 92 % Lymphocytes % (Manual) 2 % Monocytes % (Manual) 0 % Eosinophils % (Manual) 0 % Basophils % (Manual) 0 % Band Neutrophils 3 % Reactive Lymphocytes 3 % Toxic Granulation 1+ Anisocytosis SLIGHT Sodium Level 140 135-145 MMOL/L Potassium Level 4.4 3.6-5.0 MMOL/L Chloride Level 111 H 98-107 MMOL/L Carbon Dioxide Level 19 L 21-32 MMOL/L Anion Gap 10 5-14 MMOL/L Blood Urea Nitrogen 9 7-18 MG/DL Creatinine 0.58 L 0.60-1.30 MG/DL Estimat Glomerular Filtration Rate > 60 BUN/Creatinine Ratio 16 Glucose Level 152 H 70-105 MG/DL Calcium Level 9.1 8.5-10.1 MG/DL Phosphorus Level 2.9 2.3-4.7 MG/DL Magnesium Level 2.3 1.8-2.4 MG/DL Total Bilirubin 0.4 0.1-1.0 MG/DL Aspartate Amino Transf (AST/SGOT) 23 5-34 U/L Alanine Aminotransferase (ALT/SGPT) 35 0-55 U/L Alkaline Phosphatase 53 40-136 U/L Total Protein 6.5 6.4-8.2 G/DL Albumin 3.9 3.2-4.5 G/DL Radiology Date of Exam:11/04/16 CHEST 1 VIEW, AP/PA ONLY INDICATION: Asthma exacerbation. COMPARISON: 11/03/2016 FINDINGS: Single frontal view of the chest demonstrates normal heart size and pulmonary vascularity. The lungs are well aerated and clear. No large pleural effusion or pneumothorax is seen. The visualized osseous structures show no acute abnormalities. IMPRESSION: 1. No acute cardiopulmonary process. Physical Exam-([facility]) Physical Exam Vital Signs VS - Last 72 Hours, by Label 11/03/16 11/03/16 11/03/16 11/03/16 09:22 09:36 10:22 11:22 Temp 98.9 Pulse 143 Resp 24 B/P (MAP) 131/106 Pulse Ox 84 92 97 O2 Delivery Room Air Nasal Cannula Nasal Cannula Nasal Cannula O2 Flow Rate 2.00 5.00 5.00 11/03/16 11/03/16 11/03/16 11/03/16 12:45 13:00 13:00 13:00 Temp 98.0 97.9 Pulse 121 130 Resp 20 20 B/P (MAP) 113/56 Pulse Ox 99 97 95 O2 Delivery Nasal Cannula Nasal Cannula Nasal Cannula O2 Flow Rate 5.00 5.00 5.00 11/03/16 11/03/16 11/03/16 11/03/16 13:05 13:15 13:30 13:45 Pulse 126 118 114 112 Resp 33 29 21 B/P (MAP) 115/80 121/68 105/59 Pulse Ox 96 96 O2 Delivery Nasal Cannula Nasal Cannula Nasal Cannula O2 Flow Rate 5.00 5.00 5.00 11/03/16 11/03/16 11/03/16 11/03/16 14:00 14:25 14:32 15:00 Pulse 112 137 Resp 20 27 B/P (MAP) 87/70 104/96 Pulse Ox 99 99 O2 Delivery Nasal Cannula Nasal Cannula Nasal Cannula O2 Flow Rate 5.00 5.00 5.00 11/03/16 11/03/16 11/03/16 11/03/16 15:23 16:00 16:00 16:00 Temp 98.8 Pulse 126 Resp 17 B/P (MAP) /66 111/64 Pulse Ox 96 O2 Delivery Nasal Cannula Nasal Cannula Nasal Cannula O2 Flow Rate 5.00 5.00 5.00 11/03/16 11/03/16 11/03/16 11/03/16 17:00 18:00 18:23 19:00 Pulse 123 112 122 Resp 24 27 B/P (MAP) 108/71 106/79 Pulse Ox 97 96 O2 Delivery Nasal Cannula Nasal Cannula Nasal Cannula O2 Flow Rate 5.00 5.00 3.50 611/03/16 11/03/16 11/03/16 19:00 20:00 20:00 20:00 Temp 98.9 Pulse 125 131 Resp 21 24 B/P (MAP) 110/63 130/89 Pulse Ox 95 97 96 O2 Delivery Nasal Cannula Nasal Cannula Nasal Cannula Nasal Cannula O2 Flow Rate 3.00 5.00 3.00 5.00 11/03/16 11/03/16 11/03/16 11/03/16 21:00 22:00 22:05 23:00 Pulse 117 109 121 Resp 20 25 20 B/P (MAP) 114/70 98/53 109/59 Pulse Ox 95 99 96 96 O2 Delivery Nasal Cannula Nasal Cannula Nasal Cannula Nasal Cannula O2 Flow Rate 3.00 3.00 3.00 3.00 11/04/16 11/04/16 11/04/16 11/04/16 00:00 00:00 00:00 01:00 Temp 98.2 Pulse 104 103 Resp 47 B/P (MAP) 104/60 Pulse Ox 93 93 O2 Delivery Nasal Cannula Nasal Cannula Nasal Cannula O2 Flow Rate 3.00 3.00 3.00 11/04/16 11/04/16 11/04/16 11/04/16 01:00 02:00 02:09 03:00 Pulse 104 112 105 Resp 19 19 16 B/P (MAP) 101/62 116/70 104/64 Pulse Ox 95 97 97 96 O2 Delivery Nasal Cannula Nasal Cannula Nasal Cannula Nasal Cannula O2 Flow Rate 3.00 3.00 3.00 3.00 11/04/16 11/04/16 11/04/16 11/04/16 04:00 04:00 05:00 06:00 Temp 98.0 Pulse 92 97 90 Resp 14 13 20 B/P (MAP) 120/83 109/64 103/65 Pulse Ox 95 95 95 94 O2 Delivery Nasal Cannula Nasal Cannula Nasal Cannula Nasal Cannula O2 Flow Rate 3.00 3.00 3.00 3.00 11/04/16 11/04/16 11/04/16 11/04/16 07:00 07:00 07:18 08:15 Pulse 76 89 Resp 31 B/P (MAP) 97/55 Pulse Ox 94 95 O2 Delivery Nasal Cannula Nasal Cannula Nasal Cannula O2 Flow Rate 3.00 3.00 3.00 11/04/16 11/04/16 08:20 09:00 Temp 97.8 Pulse 107 109 Resp 25 35 B/P (MAP) 103/49 111/57 Pulse Ox 93 96 O2 Delivery Nasal Cannula Nasal Cannula O2 Flow Rate 3.00 3.00 Capillary Refill : Less Than 3 Seconds General Appearance: WD/WN, mild distress HEENT: PERRL/EOMI, normal ENT inspection, pharynx normal Neck: non-tender, full range of motion, supple, normal inspection Respiratory: chest non-tender, no respiratory distress, no accessory muscle use , wheezing (all lung hernandez) Cardiovascular: regular rate, rhythm, no edema, no gallop, no JVD, no murmur Gastrointestinal: normal bowel sounds, non tender, soft, no organomegaly Extremities: normal range of motion, non-tender, normal inspection, no pedal edema, no calf tenderness, normal capillary refill Neurologic/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 Will continue the IV abx for now due to severity. Dr Walsh consulted. Have encouraged patient to follow up with him in clinic in 4-6 weeks (we will arrange at discharge); we also need to get her on PALS to obtain jaswant inhalers from her own prescription so that she is not reliant on her mother's. Supported her decision to quit tobacco use. Hopefully, she can get into her own home soon and not be exposed to 2nd hand tobacco as well. Change to ICU stepdown status today, plan to move to floor tomorrow. Plan SEVERE ACUTE ASTHMA EXACERBATION PERSONAL HISTORY OF TOBACCO ABUSE ADM: Pt on steroids, changed to Solumedrol 40 q6 today. Will continue the IV abx for now due to severity. Dr Walsh consulted. Have encouraged patient to follow up with him in clinic in 4-6 weeks (we will arrange at discharge); we also need to get her on PALS to obtain jaswant inhalers from her own prescription so that she is not reliant on her mother's. Supported her decision to quit tobacco use. Hopefully, she can get into her own home soon and not be exposed to 2nd hand tobacco as well. Change to ICU stepdown status today, plan to move to floor tomorrow. Diagnosis/Problems: Clinical Quality Measures DVT/VTE Risk/Contraindication: Risk Factor Score Per Nursin RFS Level Per Nursing on Admit: 1=Low/No VTE PPX Copy Copies To 1: LANDON BARKLEY APRN, MD Nov 04, 2016 08:51
[2016-11-04] MEDS ORDERED: AZITHROMYCIN INJECTION 250 MG in NS (IVPB) 250 ML IV SCH (09:00)
[2016-11-04] MEDS: cefTRIAXone INJECTION 1,000 MG in NS (IVPB) 50 ML IV SCH (09:20)
[2016-11-04] MEDS: methylPREDNISolone 40 MG/ML (Solu-MEDROL) VIAL IV SCH ×2 (12:15→18:03)
[2016-11-04] MEDS: MONTELUKAST 10 MG (SINGULAIR) TAB PO SCH (21:29)
[2016-11-05] VITALS (7 sets, daily range): BP systolic 112–141; BP diastolic 53–75
[2016-11-05] MEDS: methylPREDNISolone 40 MG/ML (Solu-MEDROL) VIAL IV SCH ×5 (00:14→23:58)
[2016-11-05] MEDS: RT-ALBUTEROL SULF 2.5 MG/3 ML PRE-MIX VIAL IH SCH ×2 (02:28→06:57)
[2016-11-05] MEDS: HYDROcodone/APAP 5 MG/325 MG (LORTAB) TAB PO PRN ×4 (04:03→22:52)
[2016-11-05 04:27] LABS: BASOPHILS % (AUTO) 0 % (0-10); EOSINOPHILS % (AUTO) 0 % (0-10); LYMPHOCYTES # (AUTO) 0.7 X 10^3 (1.0-4.0); LYMPHOCYTES % (AUTO) 4 % (12-44); MEAN CORPUSCULAR HEMOGLOBIN 27 PG (25-34); MEAN CORPUSCULAR HGB CONC 32 G/DL (32-36); MEAN CORPUSCULAR VOLUME 85 FL (80-99); MEAN PLATELET VOLUME 11.2 FL (7.4-10.4); MONOCYTES # (AUTO) 0.6 X 10^3 (0.0-1.0); MONOCYTES % (AUTO) 3 % (0-12); NEUTROPHILS # (AUTO) 16.3 X 10^3 (1.8-7.8); NEUTROPHILS % (AUTO) 93 % (42-75); PLATELET COUNT 268 10^3/uL (130-400); RED BLOOD COUNT 4.66 10^6/uL (4.35-5.85); RED CELL DISTRIBUTION WIDTH 15.4 % (10.0-14.5); WHITE BLOOD COUNT 17.6 10^3/uL (4.3-11.0)
[2016-11-05 05:07] LABS: ANISOCYTOSIS SLIGHT; BAND NEUTROPHILS 0 %; BASOPHILS % (MANUAL) 0 %; EOSINOPHILS % (MANUAL) 0 %; LYMPHOCYTES % (MANUAL) 3 %; NEUTROPHILS % (MANUAL) 90 %
[2016-11-05 05:14] LABS: ANION GAP 11 MMOL/L (5-14); BLOOD UREA NITROGEN 13 MG/DL (7-18); BUN/CREATININE RATIO 22; CARBON DIOXIDE 19 MMOL/L (21-32); CHLORIDE 110 MMOL/L (98-107); GFR ESTIMATED > 60; GLUCOSE 119 MG/DL (70-105); POTASSIUM 3.9 MMOL/L (3.6-5.0); SODIUM 140 MMOL/L (135-145)
[2016-11-05] MEDS ORDERED: MAGNESIUM 1 GM/100 ML IVPB 100 ML IV SCH (06:00)
[2016-11-05] MEDS ORDERED: KCL 20 MEQ TAB (K-DUR) PO SCH (06:00)
[2016-11-05] MEDS ORDERED: POTASSIUM CL 10MEQ/50ML IVPB 50 ML IV SCH (06:00)
--- NOTE | 2016-11-05 07:59 | Pulmonary Progress Note ---
Subjective Subjective/Events-last exam pt feels improved she is more wheezy secondary to being able to move more air c/ w yesterday Exam Exam Vital Signs Date Time Temp Pulse Resp B/P (MAP) Pulse Ox O2 Delivery O2 Flow Rate FiO2 11/05/16 06:57 96 Nasal Cannula 2.00 11/05/16 04:00 98.2 82 18 116/75 94 Nasal Cannula 2.00 11/05/16 04:00 Nasal Cannula 2.00 11/05/16 02:28 93 Nasal Cannula 2.00 11/05/16 01:00 97 11/05/16 00:00 98.9 105 23 117/74 95 Nasal Cannula 2.00 11/05/16 00:00 Nasal Cannula 2.00 11/04/16 22:41 95 Nasal Cannula 2.00 11/04/16 20:00 Nasal Cannula 2.00 11/04/16 20:00 98.9 111 21 103/62 95 Nasal Cannula 2.00 11/04/16 19:11 93 Nasal Cannula 1.50 11/04/16 19:00 102 11/04/16 16:35 99.3 116 21 118/64 96 Nasal Cannula 2.00 11/04/16 16:00 Nasal Cannula 3.00 11/04/16 14:26 95 Nasal Cannula 3.00 11/04/16 13:00 113 11/04/16 12:10 99.1 118 23 110/64 95 Nasal Cannula 3.00 11/04/16 12:00 Nasal Cannula 3.00 11/04/16 10:19 95 Nasal Cannula 3.00 11/04/16 09:00 109 35 111/57 96 Nasal Cannula 3.00 11/04/16 08:20 97.8 107 25 103/49 93 Nasal Cannula 3.00 11/04/16 08:15 Nasal Cannula 3.00 I & O 11/05/16 07:00 Intake Total 3743 ml Output Total 6350 ml Balance -2607 ml General Appearance: Anxious, Mild Distress HEENT: PERRL/EOMI Neck: Normal Inspection, Non Tender, Supple Respiratory: Accessory Muscle Use, Decreased Breath Sounds, Expiration, Rales, Respiratory Distress, Wheezing Cardiovascular: No Edema, Normal Peripheral Pulses, Tachycardia Capillary Refill: Less Than 3 Seconds Peripheral Pulses: 3+ Dorsalis Pedis (R), 3+ Left Dors-Pedis (L), 4+ Radial Pulses (R), 4+ Radial Pulses (L) Gastrointestinal: normal bowel sounds, non tender, soft Extremity: Normal Capillary Refill, Normal Inspection, Non Tender, No Calf Tenderness Neurologic/Psychiatric: Alert, Oriented x3 Skin: Normal Color, Warm/Dry Results Lab Laboratory Tests 11/03/16 09:31 11/04/16 03:58 11/05/16 03:44 Assessment/Plan Assessment/Plan Acute asthma exacerbation with acute respiratory failure -Albuterol Q4 -- will give an hour -Solumedrol change to 40 Q6 Allergic rhinitis -singulair, zyrtec, flonase Hyperchloremic metabolic acidosis IVF LR. Hx of tobacco use - pt states she no longer smokes Labs/radiology reviewed 233 will transfer to floor later today after hr long SVN. Pt is more wheezy today however this is secondary to bronchodilation and being able to move more air. Clinical Quality Measures DVT/VTE Risk/Contraindication: Risk Factor Score Per Nursin RFS Level Per Nursing on Admit: 1=Low/No VTE PPX TONIO GOTTI DO Nov 05, 2016 07:59
[2016-11-05] MEDS ORDERED: RT-ALBUTEROL SULF 2.5 MG/3 ML PRE-MIX VIAL IH NR (08:00)
[2016-11-05] MEDS ORDERED: RT-IPRATROPIUM (ATROVENT) 0.5MG/2.5ML AMP IH NR (08:00)
[2016-11-05] MEDS ORDERED: RT-ALBUTEROL/IPRATROPIUM 3 ML (DUONEB) VIAL INH PRN (08:00)
[2016-11-05] MEDS ORDERED: RT-IPRATROPIUM (ATROVENT) 0.5MG/2.5ML AMP IH ONE (08:05)
--- NOTE | 2016-11-05 08:55 | Progress Note (SOAP) ---
Objective Exam Last Set of Vital Signs Vital Signs Date Time Temp Pulse Resp B/P (MAP) Pulse Ox O2 Delivery O2 Flow Rate FiO2 11/05/16 08:10 96 Nasal Cannula 2.00 11/05/16 07:00 74 11/05/16 04:00 98.2 18 116/75 Capillary Refill : Less Than 3 Seconds I&O Intake and Output 11/05/16 00:00 Intake Total 4567 ml Output Total 6850 ml Balance -2283 ml Intake Oral 2153 ml IV Total 2414 ml Output Urine Total 6850 ml # Voids 2 # Bowel Movements 1 Results/Procedures Lab Laboratory Tests 11/05/16 03:44: White Blood Count 17.6H, Red Blood Count 4.66, Hemoglobin 12.6, Hematocrit 39, Mean Corpuscular Volume 85, Mean Corpuscular Hemoglobin 27, Mean Corpuscular Hemoglobin Concent 32, Red Cell Distribution Width 15.4H, Platelet Count 268, Mean Platelet Volume 11.2H, Neutrophils (%) (Auto) 93H, Lymphocytes (%) (Auto) 4L, Monocytes (%) (Auto) 3, Eosinophils (%) (Auto) 0, Basophils (%) (Auto) 0, Neutrophils # (Auto) 16.3H, Lymphocytes # (Auto) 0.7L, Monocytes # (Auto) 0.6, Eosinophils # (Auto) 0.0, Basophils # (Auto) 0.0, Neutrophils % (Manual) 90, Lymphocytes % (Manual) 3, Monocytes % (Manual) 7, Eosinophils % (Manual) 0, Basophils % (Manual) 0, Band Neutrophils 0, Toxic Granulation 1+, Anisocytosis SLIGHT, Sodium Level 140, Potassium Level 3.9, Chloride Level 110H, Carbon Dioxide Level 19L, Anion Gap 11, Blood Urea Nitrogen 13, Creatinine 0.60, Estimat Glomerular Filtration Rate > 60, BUN/Creatinine Ratio 22, Glucose Level 119H, Calcium Level 9.0 Microbiology 11/03/16 Blood Culture - Preliminary, Resulted No growth Radiology Date of Exam:11/04/16 CHEST 1 VIEW, AP/PA ONLY INDICATION: Asthma exacerbation. COMPARISON: 11/03/2016 FINDINGS: Single frontal view of the chest demonstrates normal heart size and pulmonary vascularity. The lungs are well aerated and clear. No large pleural effusion or pneumothorax is seen. The visualized osseous structures show no acute abnormalities. IMPRESSION: 1. No acute cardiopulmonary process. Assessment/Plan Assessment/Plan Admission Dx SEVERE ACUTE ASTHMA EXACERBATION PERSONAL HISTORY OF TOBACCO ABUSE ADM: Pt on steroids, changed to Solumedrol 40 q6 today. Will continue the IV abx for now due to severity. Dr Walsh consulted. Have encouraged patient to follow up with him in clinic in 4-6 weeks (we will arrange at discharge); we also need to get her on PALS to obtain jaswant inhalers from her own prescription so that she is not reliant on her mother's. Supported her decision to quit tobacco use. Hopefully, she can get into her own home soon and not be exposed to 2nd hand tobacco as well. Change to ICU stepdown status today, plan to move to floor tomorrow. Plan SEVERE ACUTE ASTHMA EXACERBATION PERSONAL HISTORY OF TOBACCO ABUSE ADM: Pt on steroids, changed to Solumedrol 40 q6 today. Will continue the IV abx for now due to severity. Dr Walsh consulted. Have encouraged patient to follow up with him in clinic in 4-6 weeks (we will arrange at discharge); we also need to get her on PALS to obtain jaswant inhalers from her own prescription so that she is not reliant on her mother's. Supported her decision to quit tobacco use. Hopefully, she can get into her own home soon and not be exposed to 2nd hand tobacco as well. Change to ICU stepdown status today, plan to move to floor tomorrow. Diagnosis/Problems: Clinical Quality Measures DVT/VTE Risk/Contraindication: Risk Factor Score Per Nursin RFS Level Per Nursing on Admit: 1=Low/No VTE PPX LANDON ROWAN MD Nov 05, 2016 08:55
[2016-11-05] MEDS: LORATADINE (CLARITIN) 10 MG TAB PO SCH (09:58)
[2016-11-05] MEDS: cefTRIAXone INJECTION 1,000 MG in NS (IVPB) 50 ML IV SCH (09:59)
[2016-11-05] MEDS: FLUTICASONE NASAL SPRAY (FLONASE) 16 GM BTL NS SCH (09:59)
--- NOTE | 2016-11-05 11:27 | Progress Note (SOAP) ---
Subjective Subjective/Events-last exam Patient is feeling much better today. Breathing better. Has been up to toilet but that is all as yet. Review of Systems Date Seen by Provider: Nov 05, 2016 Time Seen by Provider: 08:45 General: No Chills, No Night Sweats Objective Exam Last Set of Vital Signs Vital Signs Date Time Temp Pulse Resp B/P (MAP) Pulse Ox O2 Delivery O2 Flow Rate FiO2 11/05/16 08:10 96 Nasal Cannula 2.00 11/05/16 08:00 98.3 125 20 141/53 Capillary Refill : Less Than 3 Seconds I&O Intake and Output 11/05/16 00:00 Intake Total 4567 ml Output Total 6850 ml Balance -2283 ml Intake Oral 2153 ml IV Total 2414 ml Output Urine Total 6850 ml # Voids 2 # Bowel Movements 1 General: Alert, Oriented X3, Cooperative, No Acute Distress Lungs: Other (wheezing bilaterally, improved from yesterday, doing SVN during exam, good effort) Heart: Regular Rate, Normal S1, Normal S2, No Murmurs, Gallops, Rubs Abdomen: Normal Bowel Sounds, Soft, No Tenderness, No Hepatosplenomegaly, No Masses Extremities: No Clubbing, No Cyanosis, No Edema Psych/Mental Status: Mental Status NL, Mood NL Results/Procedures Lab Laboratory Tests 11/05/16 03:44: White Blood Count 17.6H, Red Blood Count 4.66, Hemoglobin 12.6, Hematocrit 39, Mean Corpuscular Volume 85, Mean Corpuscular Hemoglobin 27, Mean Corpuscular Hemoglobin Concent 32, Red Cell Distribution Width 15.4H, Platelet Count 268, Mean Platelet Volume 11.2H, Neutrophils (%) (Auto) 93H, Lymphocytes (%) (Auto) 4L, Monocytes (%) (Auto) 3, Eosinophils (%) (Auto) 0, Basophils (%) (Auto) 0, Neutrophils # (Auto) 16.3H, Lymphocytes # (Auto) 0.7L, Monocytes # (Auto) 0.6, Eosinophils # (Auto) 0.0, Basophils # (Auto) 0.0, Neutrophils % (Manual) 90, Lymphocytes % (Manual) 3, Monocytes % (Manual) 7, Eosinophils % (Manual) 0, Basophils % (Manual) 0, Band Neutrophils 0, Toxic Granulation 1+, Anisocytosis SLIGHT, Sodium Level 140, Potassium Level 3.9, Chloride Level 110H, Carbon Dioxide Level 19L, Anion Gap 11, Blood Urea Nitrogen 13, Creatinine 0.60, Estimat Glomerular Filtration Rate > 60, BUN/Creatinine Ratio 22, Glucose Level 119H, Calcium Level 9.0 Microbiology 11/03/16 Blood Culture - Preliminary, Resulted No growth Radiology Date of Exam:11/04/16 CHEST 1 VIEW, AP/PA ONLY INDICATION: Asthma exacerbation. COMPARISON: 11/03/2016 FINDINGS: Single frontal view of the chest demonstrates normal heart size and pulmonary vascularity. The lungs are well aerated and clear. No large pleural effusion or pneumothorax is seen. The visualized osseous structures show no acute abnormalities. IMPRESSION: 1. No acute cardiopulmonary process. Assessment/Plan Assessment/Plan Admission Dx SEVERE ACUTE ASTHMA EXACERBATION PERSONAL HISTORY OF TOBACCO ABUSE ADM: Pt on steroids, changed to Solumedrol 40 q6 today. Will continue the IV abx for now due to severity. Dr Walsh consulted. Have encouraged patient to follow up with him in clinic in 4-6 weeks (we will arrange at discharge); we also need to get her on PALS to obtain jaswant inhalers from her own prescription so that she is not reliant on her mother's. Supported her decision to quit tobacco use. Hopefully, she can get into her own home soon and not be exposed to 2nd hand tobacco as well. Change to ICU stepdown status today, plan to move to floor tomorrow. Plan SEVERE ACUTE ASTHMA EXACERBATION PERSONAL HISTORY OF TOBACCO ABUSE ADM: Pt on steroids, changed to Solumedrol 40 q6 today. Will continue the IV abx for now due to severity. Dr Walsh consulted. Have encouraged patient to follow up with him in clinic in 4-6 weeks (we will arrange at discharge); we also need to get her on PALS to obtain jaswant inhalers from her own prescription so that she is not reliant on her mother's. Supported her decision to quit tobacco use. Hopefully, she can get into her own home soon and not be exposed to 2nd hand tobacco as well. Change to ICU stepdown status today, plan to move to floor tomorrow. 11/05 - pt much improved. continue current care, will transfer to floor today. encouraged her to get up in her room today. change abx to oral azithromycin. now on 2L NC. Diagnosis/Problems: Clinical Quality Measures DVT/VTE Risk/Contraindication: Risk Factor Score Per Nursin RFS Level Per Nursing on Admit: 1=Low/No VTE PPX LANDON ROWAN MD Nov 05, 2016 11:26
[2016-11-05] MEDS: LACTATED RINGERS 1,000 ML IV SCH (11:46)
[2016-11-05] MEDS: AZITHROMYCIN 250 MG TAB (ZITHROMAX) PO SCH (12:21)
[2016-11-05] MEDS: RT-ALBUTEROL/IPRATROPIUM 3 ML (DUONEB) VIAL INH SCH ×4 (13:40→22:06)
[2016-11-05] MEDS: MONTELUKAST 10 MG (SINGULAIR) TAB PO SCH (20:15)
[2016-11-06 00:31] VITALS: BP 115/61
[2016-11-06] MEDS: RT-ALBUTEROL/IPRATROPIUM 3 ML (DUONEB) VIAL INH SCH ×6 (03:51→22:02)
[2016-11-06 04:32] VITALS: BP 114/66
[2016-11-06 05:06] LABS: BASOPHILS % (AUTO) 0 % (0-10); EOSINOPHILS % (AUTO) 0 % (0-10); LYMPHOCYTES # (AUTO) 0.7 X 10^3 (1.0-4.0); LYMPHOCYTES % (AUTO) 6 % (12-44); MEAN CORPUSCULAR HEMOGLOBIN 27 PG (25-34); MEAN CORPUSCULAR HGB CONC 32 G/DL (32-36); MEAN CORPUSCULAR VOLUME 84 FL (80-99); MEAN PLATELET VOLUME 10.9 FL (7.4-10.4); MONOCYTES # (AUTO) 0.4 X 10^3 (0.0-1.0); MONOCYTES % (AUTO) 3 % (0-12); NEUTROPHILS # (AUTO) 11.6 X 10^3 (1.8-7.8); NEUTROPHILS % (AUTO) 91 % (42-75); PLATELET COUNT 266 10^3/uL (130-400); RED BLOOD COUNT 4.82 10^6/uL (4.35-5.85); RED CELL DISTRIBUTION WIDTH 15.3 % (10.0-14.5); WHITE BLOOD COUNT 12.7 10^3/uL (4.3-11.0)
[2016-11-06] MEDS: methylPREDNISolone 40 MG/ML (Solu-MEDROL) VIAL IV SCH ×4 (05:20→23:22)
[2016-11-06 05:29] LABS: ANION GAP 12 MMOL/L (5-14); BLOOD UREA NITROGEN 15 MG/DL (7-18); BUN/CREATININE RATIO 25 (0-20); CALCIUM 9.2 MG/DL (8.5-10.1); CARBON DIOXIDE 21 MMOL/L (21-32); CHLORIDE 107 MMOL/L (98-107); GFR ESTIMATED > 60; GLUCOSE 124 MG/DL (70-105); SODIUM 140 MMOL/L (135-145)
[2016-11-06 07:34] VITALS: BP 108/60
--- NOTE | 2016-11-06 07:39 | Pulmonary Progress Note ---
Subjective Subjective/Events-last exam Pt is still very wheezy and is complaining of COX. Exam Exam Vital Signs Date Time Temp Pulse Resp B/P (MAP) Pulse Ox O2 Delivery O2 Flow Rate FiO2 11/06/16 07:34 97.7 78 22 108/60 93 Nasal Cannula 2.00 11/06/16 06:52 97 Nasal Cannula 2.00 11/06/16 04:32 97.5 67 18 114/66 94 Nasal Cannula 2.00 11/06/16 00:31 97.9 88 18 115/61 95 Nasal Cannula 2.00 11/05/16 22:06 96 Nasal Cannula 2.00 11/05/16 19:45 92 Nasal Cannula 2.00 11/05/16 19:40 98.2 112 20 119/71 92 Nasal Cannula 2.00 11/05/16 19:31 95 Nasal Cannula 2.00 11/05/16 16:00 Nasal Cannula 2.00 11/05/16 15:25 98.8 106 20 114/60 95 Nasal Cannula 2.00 11/05/16 13:40 94 Nasal Cannula 2.00 11/05/16 12:00 98.3 99 16 112/70 98 Nasal Cannula 2.00 11/05/16 11:00 Nasal Cannula 2.00 11/05/16 10:50 98.4 123 16 116/75 94 Nasal Cannula 2.00 11/05/16 08:10 96 Nasal Cannula 2.00 11/05/16 08:00 98.3 125 20 141/53 93 Nasal Cannula 2.00 11/05/16 08:00 Nasal Cannula 2.00 I & O 11/06/16 07:00 Intake Total 4484 ml Output Total 3600 ml Balance 884 ml General Appearance: Anxious, Mild Distress HEENT: PERRL/EOMI Neck: Normal Inspection, Non Tender, Supple Respiratory: Accessory Muscle Use, Decreased Breath Sounds, Expiration, Rales, Respiratory Distress, Wheezing Cardiovascular: No Edema, Normal Peripheral Pulses, Tachycardia Capillary Refill: Less Than 3 Seconds Peripheral Pulses: 3+ Dorsalis Pedis (R), 3+ Left Dors-Pedis (L), 4+ Radial Pulses (R), 4+ Radial Pulses (L) Gastrointestinal: normal bowel sounds, non tender, soft Extremity: Normal Capillary Refill, Normal Inspection, Non Tender, No Calf Tenderness Neurologic/Psychiatric: Alert, Oriented x3 Skin: Normal Color, Warm/Dry Results Lab Laboratory Tests 11/05/16 03:44 11/06/16 04:15 Assessment/Plan Assessment/Plan Acute asthma exacerbation with acute respiratory failure -Albuterol Q4 -- will give an hour -Solumedrol change to 40 Q6 Allergic rhinitis -singulair, zyrtec, flonase Hyperchloremic metabolic acidosis IVF LR. Hx of tobacco use - pt states she no longer smokes Labs/radiology reviewed 232 Clinical Quality Measures DVT/VTE Risk/Contraindication: Risk Factor Score Per Nursin RFS Level Per Nursing on Admit: 1=Low/No VTE PPX TONIO GOTTI DO Nov 06, 2016 07:39
[2016-11-06] MEDS: cefTRIAXone INJECTION 1,000 MG in NS (IVPB) 50 ML IV SCH (07:57)
[2016-11-06] MEDS: AZITHROMYCIN 250 MG TAB (ZITHROMAX) PO SCH (07:57)
[2016-11-06] MEDS: HYDROcodone/APAP 5 MG/325 MG (LORTAB) TAB PO PRN ×3 (07:58→22:00)
[2016-11-06] MEDS: FLUTICASONE NASAL SPRAY (FLONASE) 16 GM BTL NS SCH (07:58)
[2016-11-06] MEDS: LORATADINE (CLARITIN) 10 MG TAB PO SCH (07:58)
[2016-11-06] MEDS ORDERED: AZITHROMYCIN 250 MG TAB (ZITHROMAX) PO SCH (09:00)
--- NOTE | 2016-11-06 10:31 | Progress Note (SOAP) ---
Subjective Subjective/Events-last exam Pt states she is improved but gets very short of breath when she is up and movign around in her room. Review of Systems Date Seen by Provider: Nov 06, 2016 Time Seen by Provider: 08:45 General: No Chills, No Night Sweats Cardiovascular: No: Chest Pain, Palpitations Objective Exam Last Set of Vital Signs Vital Signs Date Time Temp Pulse Resp B/P (MAP) Pulse Ox O2 Delivery O2 Flow Rate FiO2 11/06/16 08:00 93 Nasal Cannula 2.00 11/06/16 07:34 97.7 78 22 108/60 Capillary Refill : Less Than 3 Seconds I&O Intake and Output 11/06/16 00:00 Intake Total 4250 ml Output Total 5500 ml Balance -1250 ml Intake Oral 4250 ml Output Urine Total 5500 ml General: Alert, Oriented X3, Cooperative, Mild Distress Lungs: Other (wheezing throughout all lung hernandez, improved aeration from yesterday) Heart: Regular Rate, Normal S1, Normal S2, No Murmurs, Gallops, Rubs Abdomen: Normal Bowel Sounds, Soft, No Tenderness, No Hepatosplenomegaly Extremities: No Clubbing, No Cyanosis, No Edema Results/Procedures Lab Laboratory Tests 11/06/16 04:15: White Blood Count 12.7H, Red Blood Count 4.82, Hemoglobin 13.0, Hematocrit 41, Mean Corpuscular Volume 84, Mean Corpuscular Hemoglobin 27, Mean Corpuscular Hemoglobin Concent 32, Red Cell Distribution Width 15.3H, Platelet Count 266, Mean Platelet Volume 10.9H, Neutrophils (%) (Auto) 91H, Lymphocytes (%) (Auto) 6L, Monocytes (%) (Auto) 3, Eosinophils (%) (Auto) 0, Basophils (%) (Auto) 0, Neutrophils # (Auto) 11.6H, Lymphocytes # (Auto) 0.7L, Monocytes # (Auto) 0.4, Eosinophils # (Auto) 0.0, Basophils # (Auto) 0.0, Sodium Level 140, Potassium Level 4.0, Chloride Level 107, Carbon Dioxide Level 21, Anion Gap 12, Blood Urea Nitrogen 15, Creatinine 0.60, Estimat Glomerular Filtration Rate > 60, BUN/ Creatinine Ratio 25H, Glucose Level 124H, Calcium Level 9.2 Microbiology 11/03/16 Blood Culture - Preliminary, Resulted No growth Radiology Date of Exam:11/04/16 CHEST 1 VIEW, AP/PA ONLY INDICATION: Asthma exacerbation. COMPARISON: 11/03/2016 FINDINGS: Single frontal view of the chest demonstrates normal heart size and pulmonary vascularity. The lungs are well aerated and clear. No large pleural effusion or pneumothorax is seen. The visualized osseous structures show no acute abnormalities. IMPRESSION: 1. No acute cardiopulmonary process. Assessment/Plan Assessment/Plan Admission Dx SEVERE ACUTE ASTHMA EXACERBATION PERSONAL HISTORY OF TOBACCO ABUSE ADM: Pt on steroids, changed to Solumedrol 40 q6 today. Will continue the IV abx for now due to severity. Dr Walsh consulted. Have encouraged patient to follow up with him in clinic in 4-6 weeks (we will arrange at discharge); we also need to get her on PALS to obtain jaswant inhalers from her own prescription so that she is not reliant on her mother's. Supported her decision to quit tobacco use. Hopefully, she can get into her own home soon and not be exposed to 2nd hand tobacco as well. Change to ICU stepdown status today, plan to move to floor tomorrow. Plan SEVERE ACUTE ASTHMA EXACERBATION PERSONAL HISTORY OF TOBACCO ABUSE ADM: Pt on steroids, changed to Solumedrol 40 q6 today. Will continue the IV abx for now due to severity. Dr Walsh consulted. Have encouraged patient to follow up with him in clinic in 4-6 weeks (we will arrange at discharge); we also need to get her on PALS to obtain jaswant inhalers from her own prescription so that she is not reliant on her mother's. Supported her decision to quit tobacco use. Hopefully, she can get into her own home soon and not be exposed to 2nd hand tobacco as well. Change to ICU stepdown status today, plan to move to floor tomorrow. 11/05 - pt much improved. continue current care, will transfer to floor today. encouraged her to get up in her room today. change abx to oral azithromycin. now on 2L NC. 11/06 - spoke with Dr Walsh personally. will keep steroids at 40 q6h again today. continue albuterol q4h. pt still on 2L NC. expected DC will be Friday , discussed with pt who will find childcare for her baby. Diagnosis/Problems: Clinical Quality Measures DVT/VTE Risk/Contraindication: Risk Factor Score Per Nursin RFS Level Per Nursing on Admit: 1=Low/No VTE PPX LANDON ROWAN MD Nov 06, 2016 10:31
[2016-11-06 15:52] VITALS: BP 112/71
[2016-11-06] MEDS: MONTELUKAST 10 MG (SINGULAIR) TAB PO SCH (20:11)
[2016-11-07] VITALS: BP 111/65
[2016-11-07] MEDS: RT-ALBUTEROL/IPRATROPIUM 3 ML (DUONEB) VIAL INH SCH ×6 (02:22→23:17)
[2016-11-07 05:01] LABS: BASOPHILS % (AUTO) 0 % (0-10); EOSINOPHILS % (AUTO) 0 % (0-10); LYMPHOCYTES # (AUTO) 0.7 X 10^3 (1.0-4.0); LYMPHOCYTES % (AUTO) 8 % (12-44); MEAN CORPUSCULAR HEMOGLOBIN 27 PG (25-34); MEAN CORPUSCULAR HGB CONC 32 G/DL (32-36); MEAN CORPUSCULAR VOLUME 84 FL (80-99); MEAN PLATELET VOLUME 10.3 FL (7.4-10.4); MONOCYTES # (AUTO) 0.4 X 10^3 (0.0-1.0); MONOCYTES % (AUTO) 5 % (0-12); NEUTROPHILS # (AUTO) 7.5 X 10^3 (1.8-7.8); NEUTROPHILS % (AUTO) 87 % (42-75); PLATELET COUNT 261 10^3/uL (130-400); RED BLOOD COUNT 4.91 10^6/uL (4.35-5.85); RED CELL DISTRIBUTION WIDTH 15.1 % (10.0-14.5); WHITE BLOOD COUNT 8.5 10^3/uL (4.3-11.0)
[2016-11-07 05:25] LABS: ANION GAP 13 MMOL/L (5-14); BLOOD UREA NITROGEN 12 MG/DL (7-18); BUN/CREATININE RATIO 20 (0-20); CALCIUM 8.8 MG/DL (8.5-10.1); CARBON DIOXIDE 21 MMOL/L (21-32); CHLORIDE 107 MMOL/L (98-107); GFR ESTIMATED > 60; GLUCOSE 127 MG/DL (70-105); HEMOLYSIS 26 (0-29); ICTERUS 0.4 (0-1.9); LIPEMIA 6 (0-49); POTASSIUM 3.8 MMOL/L (3.6-5.0); SODIUM 141 MMOL/L (135-145)
[2016-11-07] MEDS: methylPREDNISolone 40 MG/ML (Solu-MEDROL) VIAL IV SCH ×4 (05:27→23:39)
[2016-11-07 08:00] VITALS: BP 124/82
[2016-11-07] MEDS: cefTRIAXone INJECTION 1,000 MG in NS (IVPB) 50 ML IV SCH (08:56)
[2016-11-07] MEDS: AZITHROMYCIN 250 MG TAB (ZITHROMAX) PO SCH (08:56)
[2016-11-07] MEDS: LORATADINE (CLARITIN) 10 MG TAB PO SCH (08:56)
[2016-11-07] MEDS: FLUTICASONE NASAL SPRAY (FLONASE) 16 GM BTL NS SCH (08:57)
--- NOTE | 2016-11-07 10:28 | Progress Note (SOAP) ---
Subjective Subjective/Events-last exam Pt states she is better. Has been goign to bathroom without oxygen and doesn't get lightheaded. Still very wheezy. Knows that if she went home too soon taht she would have to come back because of the smoke in her mom's home. Review of Systems Date Seen by Provider: Nov 07, 2016 Time Seen by Provider: 09:00 Pulmonary: Dyspnea, Cough Objective Exam Last Set of Vital Signs Vital Signs Date Time Temp Pulse Resp B/P (MAP) Pulse Ox O2 Delivery O2 Flow Rate FiO2 11/07/16 09:00 92 Nasal Cannula 2.00 11/07/16 08:00 98.2 109 24 124/82 Capillary Refill : Less Than 3 Seconds I&O Intake and Output 11/07/16 00:00 Intake Total 3032 ml Output Total 3600 ml Balance -568 ml Intake Oral 3032 ml Output Urine Total 3600 ml General: Alert, Oriented X3, Cooperative, No Acute Distress Lungs: Other (wheezing throughout, good effort, no use of accessory resp muscles) Heart: Regular Rate, Normal S1, Normal S2, No Murmurs, Gallops, Rubs Abdomen: Normal Bowel Sounds, Soft, No Tenderness, No Hepatosplenomegaly Extremities: No Clubbing, No Cyanosis, No Edema Results/Procedures Lab Laboratory Tests 11/07/16 04:23: White Blood Count 8.5, Red Blood Count 4.91, Hemoglobin 13.3, Hematocrit 41, Mean Corpuscular Volume 84, Mean Corpuscular Hemoglobin 27, Mean Corpuscular Hemoglobin Concent 32, Red Cell Distribution Width 15.1H, Platelet Count 261, Mean Platelet Volume 10.3, Neutrophils (%) (Auto) 87H, Lymphocytes (%) (Auto) 8L , Monocytes (%) (Auto) 5, Eosinophils (%) (Auto) 0, Basophils (%) (Auto) 0, Neutrophils # (Auto) 7.5, Lymphocytes # (Auto) 0.7L, Monocytes # (Auto) 0.4, Eosinophils # (Auto) 0.0, Basophils # (Auto) 0.0, Sodium Level 141, Potassium Level 3.8, Chloride Level 107, Carbon Dioxide Level 21, Anion Gap 13, Blood Urea Nitrogen 12, Creatinine 0.60, Estimat Glomerular Filtration Rate > 60, BUN/ Creatinine Ratio 20, Glucose Level 127H, Calcium Level 8.8 Microbiology 6/11/17 Blood Culture - Preliminary, Resulted No growth Radiology Date of Exam:11/04/16 CHEST 1 VIEW, AP/PA ONLY INDICATION: Asthma exacerbation. COMPARISON: 11/03/2016 FINDINGS: Single frontal view of the chest demonstrates normal heart size and pulmonary vascularity. The lungs are well aerated and clear. No large pleural effusion or pneumothorax is seen. The visualized osseous structures show no acute abnormalities. IMPRESSION: 1. No acute cardiopulmonary process. Assessment/Plan Assessment/Plan Admission Dx SEVERE ACUTE ASTHMA EXACERBATION PERSONAL HISTORY OF TOBACCO ABUSE ADM: Pt on steroids, changed to Solumedrol 40 q6 today. Will continue the IV abx for now due to severity. Dr Walsh consulted. Have encouraged patient to follow up with him in clinic in 4-6 weeks (we will arrange at discharge); we also need to get her on PALS to obtain jaswant inhalers from her own prescription so that she is not reliant on her mother's. Supported her decision to quit tobacco use. Hopefully, she can get into her own home soon and not be exposed to 2nd hand tobacco as well. Change to ICU stepdown status today, plan to move to floor tomorrow. Plan SEVERE ACUTE ASTHMA EXACERBATION PERSONAL HISTORY OF TOBACCO ABUSE ADM: Pt on steroids, changed to Solumedrol 40 q6 today. Will continue the IV abx for now due to severity. Dr Walsh consulted. Have encouraged patient to follow up with him in clinic in 4-6 weeks (we will arrange at discharge); we also need to get her on PALS to obtain jaswant inhalers from her own prescription so that she is not reliant on her mother's. Supported her decision to quit tobacco use. Hopefully, she can get into her own home soon and not be exposed to 2nd hand tobacco as well. Change to ICU stepdown status today, plan to move to floor tomorrow. 11/05 - pt much improved. continue current care, will transfer to floor today. encouraged her to get up in her room today. change abx to oral azithromycin. now on 2L NC. 11/06 - spoke with Dr Walsh personally. will keep steroids at 40 q6h again today. continue albuterol q4h. pt still on 2L [place]. expected DC will be Friday , discussed with pt who will find childcare for her baby. 6/15 - improved but continues to be very wheezy. still on 2L NC. keep steroids the same unless Dr Walsh orders differently. I don't want to kolb things as she has been so sick. I did speak with Joan, and we will arrange her pulmonary meds as an outpatient so that she can obtain them. Diagnosis/Problems: Clinical Quality Measures DVT/VTE Risk/Contraindication: Risk Factor Score Per Nursin RFS Level Per Nursing on Admit: 1=Low/No VTE PPX LANDON ROWAN MD Nov 07, 2016 10:28
[2016-11-07] MEDS: HYDROcodone/APAP 5 MG/325 MG (LORTAB) TAB PO PRN ×2 (11:03→19:44)
--- NOTE | 2016-11-07 14:36 | Pulmonary Progress Note ---
Subjective Subjective/Events-last exam Pt sleeping. Wheezing improved. Exam Exam Vital Signs Date Time Temp Pulse Resp B/P (MAP) Pulse Ox O2 Delivery O2 Flow Rate FiO2 11/07/16 09:00 92 Nasal Cannula 2.00 11/07/16 08:00 98.2 109 24 124/82 92 Nasal Cannula 2.00 11/07/16 07:08 93 Nasal Cannula 2.00 11/07/16 02:23 96 Nasal Cannula 2.00 11/07/16 00:00 98.2 94 18 111/65 95 Room Air 11/06/16 22:03 95 Nasal Cannula 2.00 11/06/16 19:35 92 Nasal Cannula 2.00 11/06/16 18:40 95 Nasal Cannula 2.00 11/06/16 15:52 97.7 105 22 112/71 96 Nasal Cannula 2.00 11/06/16 15:28 93 Nasal Cannula 2.00 11/06/16 14:51 98 11/06/16 14:46 98 Nasal Cannula 2.00 I & O 11/07/16 07:00 Intake Total 2632 ml Output Total 3800 ml Balance -1168 ml General Appearance: No Apparent Distress, Anxious HEENT: PERRL/EOMI Neck: Normal Inspection, Non Tender, Supple Respiratory: Accessory Muscle Use, Decreased Breath Sounds, Expiration, Respiratory Distress, Wheezing (improved) Cardiovascular: No Edema, Normal Peripheral Pulses Capillary Refill: Less Than 3 Seconds Peripheral Pulses: 3+ Dorsalis Pedis (R), 3+ Left Dors-Pedis (L), 4+ Radial Pulses (R), 4+ Radial Pulses (L) Gastrointestinal: normal bowel sounds, non tender, soft Extremity: Normal Capillary Refill, Normal Inspection, Non Tender, No Calf Tenderness Neurologic/Psychiatric: Alert, Oriented x3 Skin: Normal Color, Warm/Dry Results Lab Laboratory Tests 11/06/16 04:15 11/07/16 04:23 Assessment/Plan Assessment/Plan Acute asthma exacerbation with acute respiratory failure -improving -Albuterol Q4 -- -Solumedrol change 40 Q6 Allergic rhinitis -singulair, zyrtec, flonase Hx of tobacco use - pt states she no longer smokes 232 Clinical Quality Measures DVT/VTE Risk/Contraindication: Risk Factor Score Per Nursin RFS Level Per Nursing on Admit: 1=Low/No VTE PPX TONIO GOTTI DO Nov 07, 2016 14:36
[2016-11-07 16:45] VITALS: BP 111/69
[2016-11-07] MEDS: MONTELUKAST 10 MG (SINGULAIR) TAB PO SCH (23:39)
[2016-11-08] VITALS: BP 119/76
[2016-11-08] MEDS: RT-ALBUTEROL/IPRATROPIUM 3 ML (DUONEB) VIAL INH SCH ×6 (01:58→22:01)
[2016-11-08] MEDS: methylPREDNISolone 40 MG/ML (Solu-MEDROL) VIAL IV SCH ×2 (05:59→18:21)
[2016-11-08] MEDS: HYDROcodone/APAP 5 MG/325 MG (LORTAB) TAB PO PRN ×3 (05:59→20:16)
[2016-11-08 08:10] LABS: BASOPHILS % (AUTO) 0 % (0-10); EOSINOPHILS % (AUTO) 0 % (0-10); LYMPHOCYTES # (AUTO) 0.8 X 10^3 (1.0-4.0); LYMPHOCYTES % (AUTO) 7 % (12-44); MEAN CORPUSCULAR HEMOGLOBIN 27 PG (25-34); MEAN CORPUSCULAR HGB CONC 32 G/DL (32-36); MEAN CORPUSCULAR VOLUME 83 FL (80-99); MEAN PLATELET VOLUME 10.1 FL (7.4-10.4); MONOCYTES # (AUTO) 0.7 X 10^3 (0.0-1.0); MONOCYTES % (AUTO) 6 % (0-12); NEUTROPHILS % (AUTO) 88 % (42-75); PLATELET COUNT 300 10^3/uL (130-400); RED BLOOD COUNT 5.27 10^6/uL (4.35-5.85); WHITE BLOOD COUNT 12.5 10^3/uL (4.3-11.0)
[2016-11-08 08:31] LABS: ANION GAP 10 MMOL/L (5-14); BLOOD UREA NITROGEN 15 MG/DL (7-18); BUN/CREATININE RATIO 25 (0-20); CALCIUM 8.9 MG/DL (8.5-10.1); CARBON DIOXIDE 23 MMOL/L (21-32); CHLORIDE 107 MMOL/L (98-107); CREATININE SERUM 0.59 MG/DL (0.60-1.30); GFR ESTIMATED > 60; GLUCOSE 114 MG/DL (70-105); HEMOLYSIS 8 (0-29); ICTERUS 0.6 (0-1.9); LIPEMIA 8 (0-49); POTASSIUM 4.2 MMOL/L (3.6-5.0); SODIUM 140 MMOL/L (135-145)
[2016-11-08 08:46] VITALS: BP 110/72
--- NOTE | 2016-11-08 08:51 | Progress Note (SOAP) ---
Subjective Subjective/Events-last exam Pt feeling much better today. Still winded. Starting to cough more stuff up. Review of Systems Date Seen by Provider: Nov 08, 2016 Time Seen by Provider: 08:51 General: No Chills, No Night Sweats Objective Exam Last Set of Vital Signs Vital Signs Date Time Temp Pulse Resp B/P (MAP) Pulse Ox O2 Delivery O2 Flow Rate FiO2 11/08/16 08:46 95.7 94 18 110/72 97 Nasal Cannula 2.00 Capillary Refill : Less Than 3 Seconds I&O Intake and Output 11/08/16 00:00 Intake Total 4120 ml Output Total 3700 ml Balance 420 ml Intake Oral 4020 ml IV Total 100 ml Output Urine Total 3700 ml General: Alert, Oriented X3, Cooperative, No Acute Distress Lungs: Other (improved air exchange, wheezing improved but still present) Heart: Regular Rate, Normal S1, Normal S2, No Murmurs, Gallops, Rubs Abdomen: Normal Bowel Sounds, Soft, No Tenderness, No Hepatosplenomegaly, No Masses Extremities: No Clubbing, No Cyanosis, No Edema Results/Procedures Lab Laboratory Tests 11/08/16 08:00: White Blood Count 12.5H, Red Blood Count 5.27, Hemoglobin 14.2, Hematocrit 44, Mean Corpuscular Volume 83, Mean Corpuscular Hemoglobin 27, Mean Corpuscular Hemoglobin Concent 32, Red Cell Distribution Width 15.0H, Platelet Count 300, Mean Platelet Volume 10.1, Neutrophils (%) (Auto) 88H, Lymphocytes (%) (Auto) 7L , Monocytes (%) (Auto) 6, Eosinophils (%) (Auto) 0, Basophils (%) (Auto) 0, Neutrophils # (Auto) 11.0H, Lymphocytes # (Auto) 0.8L, Monocytes # (Auto) 0.7, Eosinophils # (Auto) 0.0, Basophils # (Auto) 0.0, Sodium Level 140, Potassium Level 4.2, Chloride Level 107, Carbon Dioxide Level 23, Anion Gap 10, Blood Urea Nitrogen 15, Creatinine 0.59L, Estimat Glomerular Filtration Rate > 60, BUN /Creatinine Ratio 25H, Glucose Level 114H, Calcium Level 8.9 Microbiology 11/03/16 Blood Culture - Preliminary, Resulted No growth Radiology Date of Exam:11/04/16 CHEST 1 VIEW, AP/PA ONLY INDICATION: Asthma exacerbation. COMPARISON: 11/03/2016 FINDINGS: Single frontal view of the chest demonstrates normal heart size and pulmonary vascularity. The lungs are well aerated and clear. No large pleural effusion or pneumothorax is seen. The visualized osseous structures show no acute abnormalities. IMPRESSION: 1. No acute cardiopulmonary process. Assessment/Plan Assessment/Plan Admission Dx SEVERE ACUTE ASTHMA EXACERBATION PERSONAL HISTORY OF TOBACCO ABUSE ADM: Pt on steroids, changed to Solumedrol 40 q6 today. Will continue the IV abx for now due to severity. Dr Walsh consulted. Have encouraged patient to follow up with him in clinic in 4-6 weeks (we will arrange at discharge); we also need to get her on PALS to obtain jaswant inhalers from her own prescription so that she is not reliant on her mother's. Supported her decision to quit tobacco use. Hopefully, she can get into her own home soon and not be exposed to 2nd hand tobacco as well. Change to ICU stepdown status today, plan to move to floor tomorrow. Plan SEVERE ACUTE ASTHMA EXACERBATION PERSONAL HISTORY OF TOBACCO ABUSE ADM: Pt on steroids, changed to Solumedrol 40 q6 today. Will continue the IV abx for now due to severity. Dr Walsh consulted. Have encouraged patient to follow up with him in clinic in 4-6 weeks (we will arrange at discharge); we also need to get her on PALS to obtain jaswant inhalers from her own prescription so that she is not reliant on her mother's. Supported her decision to quit tobacco use. Hopefully, she can get into her own home soon and not be exposed to 2nd hand tobacco as well. Change to ICU stepdown status today, plan to move to floor tomorrow. 11/05 - pt much improved. continue current care, will transfer to floor today. encouraged her to get up in her room today. change abx to oral azithromycin. now on 2L NC. 11/06 - spoke with Dr Walsh personally. will keep steroids at 40 q6h again today. continue albuterol q4h. pt still on 2L NC. expected DC will be Friday , discussed with pt who will find childcare for her baby. 11/07 - improved but continues to be very wheezy. still on 2L NC. keep steroids the same unless Dr Walsh orders differently. I don't want to kolb things as she has been so sick. I did speak with Joan, and we will arrange her pulmonary meds as an outpatient so that she can obtain them. 11/08 - decreased methylpred to [address] Walsh personally - plan to switch to po prednisone at 60mg tomorrow. should be on the long taper - 60/ 60/50/50...etc. plan for DC on Friday when we can arrange home O2. per Dr Walsh, should stay on 10mg of prednisone until he sees her in 4 weeks or so. Diagnosis/Problems: Clinical Quality Measures DVT/VTE Risk/Contraindication: Risk Factor Score Per Nursin RFS Level Per Nursing on Admit: 1=Low/No VTE PPX LANDON ROWAN MD Nov 08, 2016 08:51
[2016-11-08] MEDS: cefTRIAXone INJECTION 1,000 MG in NS (IVPB) 50 ML IV SCH (09:42)
[2016-11-08] MEDS: AZITHROMYCIN 250 MG TAB (ZITHROMAX) PO SCH (09:43)
[2016-11-08] MEDS: FLUTICASONE NASAL SPRAY (FLONASE) 16 GM BTL NS SCH (09:43)
[2016-11-08] MEDS: LORATADINE (CLARITIN) 10 MG TAB PO SCH (09:43)
[2016-11-08 12:05] VITALS: BP 112/71
[2016-11-08 16:45] VITALS: BP 123/69
[2016-11-08] MEDS: MONTELUKAST 10 MG (SINGULAIR) TAB PO SCH (20:16)
[2016-11-08 23:25] VITALS: BP 113/59
[2016-11-09] MEDS: RT-ALBUTEROL/IPRATROPIUM 3 ML (DUONEB) VIAL INH SCH ×6 (01:56→22:05)
[2016-11-09] MEDS: methylPREDNISolone 40 MG/ML (Solu-MEDROL) VIAL IV SCH (05:17)
[2016-11-09 05:21] LABS: BASOPHILS % (AUTO) 0 % (0-10); EOSINOPHILS % (AUTO) 0 % (0-10); LYMPHOCYTES # (AUTO) 1.6 X 10^3 (1.0-4.0); LYMPHOCYTES % (AUTO) 14 % (12-44); MEAN CORPUSCULAR HEMOGLOBIN 27 PG (25-34); MEAN CORPUSCULAR HGB CONC 33 G/DL (32-36); MEAN CORPUSCULAR VOLUME 83 FL (80-99); MONOCYTES # (AUTO) 1.1 X 10^3 (0.0-1.0); MONOCYTES % (AUTO) 9 % (0-12); NEUTROPHILS # (AUTO) 8.9 X 10^3 (1.8-7.8); NEUTROPHILS % (AUTO) 77 % (42-75); PLATELET COUNT 306 10^3/uL (130-400); RED BLOOD COUNT 5.04 10^6/uL (4.35-5.85); RED CELL DISTRIBUTION WIDTH 14.9 % (10.0-14.5); WHITE BLOOD COUNT 11.6 10^3/uL (4.3-11.0)
[2016-11-09] MEDS: HYDROcodone/APAP 5 MG/325 MG (LORTAB) TAB PO PRN ×4 (05:23→23:04)
[2016-11-09 05:45] LABS: ANION GAP 11 MMOL/L (5-14); BLOOD UREA NITROGEN 16 MG/DL (7-18); BUN/CREATININE RATIO 27 (0-20); CALCIUM 8.8 MG/DL (8.5-10.1); CARBON DIOXIDE 23 MMOL/L (21-32); CHLORIDE 106 MMOL/L (98-107); CREATININE SERUM 0.59 MG/DL (0.60-1.30); GFR ESTIMATED > 60; GLUCOSE 99 MG/DL (70-105); HEMOLYSIS 21 (-100-29); ICTERUS 0.6 (-100-1.9); LIPEMIA 13 (-100-49); POTASSIUM 3.8 MMOL/L (3.6-5.0); SODIUM 140 MMOL/L (135-145)
[2016-11-09 08:16] VITALS: BP 124/78
[2016-11-09] MEDS: cefTRIAXone INJECTION 1,000 MG in NS (IVPB) 50 ML IV SCH (09:37)
[2016-11-09] MEDS: LORATADINE (CLARITIN) 10 MG TAB PO SCH (09:37)
[2016-11-09] MEDS: FLUTICASONE NASAL SPRAY (FLONASE) 16 GM BTL NS SCH (09:38)
--- NOTE | 2016-11-09 10:16 | Progress Note (SOAP) ---
Subjective Subjective/Events-last exam Afebrile, no acute events. She feels her breathing is about the same as yesterday. Remains on 2 lpm supplemental oxygen. Review of Systems Date Seen by Provider: Nov 09, 2016 Time Seen by Provider: 07:00 Objective Exam Last Set of Vital Signs Vital Signs Date Time Temp Pulse Resp B/P (MAP) Pulse Ox O2 Delivery O2 Flow Rate FiO2 11/09/16 08:16 97.6 65 12 124/78 96 Nasal Cannula 2.00 Capillary Refill : Less Than 3 Seconds I&O Intake and Output 11/09/16 00:00 Intake Total 4530 ml Output Total 5450 ml Balance -920 ml Intake Oral 4530 ml Output Urine Total 5450 ml General: Alert Lungs: Other (diffuse inspiratory and expiratory wheezing) Heart: Regular Rate, No Murmurs Psych/Mental Status: Mental Status NL Results/Procedures Lab Laboratory Tests 11/09/16 04:54: White Blood Count 11.6H, Red Blood Count 5.04, Hemoglobin 13.7, Hematocrit 42, Mean Corpuscular Volume 83, Mean Corpuscular Hemoglobin 27, Mean Corpuscular Hemoglobin Concent 33, Red Cell Distribution Width 14.9H, Platelet Count 306, Mean Platelet Volume 10.0, Neutrophils (%) (Auto) 77H, Lymphocytes (%) (Auto) 14 , Monocytes (%) (Auto) 9, Eosinophils (%) (Auto) 0, Basophils (%) (Auto) 0, Neutrophils # (Auto) 8.9H, Lymphocytes # (Auto) 1.6, Monocytes # (Auto) 1.1H, Eosinophils # (Auto) 0.0, Basophils # (Auto) 0.0, Sodium Level 140, Potassium Level 3.8, Chloride Level 106, Carbon Dioxide Level 23, Anion Gap 11, Blood Urea Nitrogen 16, Creatinine 0.59L, Estimat Glomerular Filtration Rate > 60, BUN /Creatinine Ratio 27H, Glucose Level 99, Calcium Level 8.8 Microbiology 11/03/16 Blood Culture - Final, Complete No growth Radiology Date of Exam:11/04/16 CHEST 1 VIEW, AP/PA ONLY INDICATION: Asthma exacerbation. COMPARISON: 11/03/2016 FINDINGS: Single frontal view of the chest demonstrates normal heart size and pulmonary vascularity. The lungs are well aerated and clear. No large pleural effusion or pneumothorax is seen. The visualized osseous structures show no acute abnormalities. IMPRESSION: 1. No acute cardiopulmonary process. Assessment/Plan Assessment/Plan Admission Dx SEVERE ACUTE ASTHMA EXACERBATION PERSONAL HISTORY OF TOBACCO ABUSE ADM: Pt on steroids, changed to Solumedrol 40 q6 today. Will continue the IV abx for now due to severity. Dr Walsh consulted. Have encouraged patient to follow up with him in clinic in 4-6 weeks (we will arrange at discharge); we also need to get her on PALS to obtain jaswant inhalers from her own prescription so that she is not reliant on her mother's. Supported her decision to quit tobacco use. Hopefully, she can get into her own home soon and not be exposed to 2nd hand tobacco as well. Change to ICU stepdown status today, plan to move to floor tomorrow. Plan SEVERE ACUTE ASTHMA EXACERBATION PERSONAL HISTORY OF TOBACCO ABUSE ADM: Pt on steroids, changed to Solumedrol 40 q6 today. Will continue the IV abx for now due to severity. Dr Walsh consulted. Have encouraged patient to follow up with him in clinic in 4-6 weeks (we will arrange at discharge); we also need to get her on PALS to obtain jaswant inhalers from her own prescription so that she is not reliant on her mother's. Supported her decision to quit tobacco use. Hopefully, she can get into her own home soon and not be exposed to 2nd hand tobacco as well. Change to ICU stepdown status today, plan to move to floor tomorrow. 11/05 - pt much improved. continue current care, will transfer to floor today. encouraged her to get up in her room today. change abx to oral azithromycin. now on 2L NC. 11/06 - spoke with Dr Walsh personally. will keep steroids at 40 q6h again today. continue albuterol q4h. pt still on 2L NC. expected DC will be Friday , discussed with pt who will find childcare for her baby. 11/07 - improved but continues to be very wheezy. still on 2L NC. keep steroids the same unless Dr Walsh orders differently. I don't want to kolb things as she has been so sick. I did speak with Joan, and we will arrange her pulmonary meds as an outpatient so that she can obtain them. 11/08 - decreased methylpred to [address] Walsh personally - plan to switch to po prednisone at 60mg tomorrow. should be on the long taper - 60/ 60/50/50...etc. plan for DC on Friday when we can arrange home O2. per Dr Walsh, should stay on 10mg of prednisone until he sees her in 4 weeks or so. 11/09 - start PO prednisone taper DVT ppx: low risk Diagnosis/Problems: Clinical Quality Measures DVT/VTE Risk/Contraindication: Risk Factor Score Per Nursin RFS Level Per Nursing on Admit: 1=Low/No VTE PPX MAX WATERMAN MD Nov 09, 2016 10:16 am
[2016-11-09] MEDS: predniSONE 10 MG TAB PO SCH (11:03)
[2016-11-09 15:35] VITALS: BP 108/69
[2016-11-09] MEDS: MONTELUKAST 10 MG (SINGULAIR) TAB PO SCH (20:16)
[2016-11-09 23:35] VITALS: BP 111/69
[2016-11-10] MEDS: RT-ALBUTEROL/IPRATROPIUM 3 ML (DUONEB) VIAL INH SCH ×6 (02:18→21:30)
[2016-11-10] MEDS: HYDROcodone/APAP 5 MG/325 MG (LORTAB) TAB PO PRN ×4 (06:27→20:10)
[2016-11-10] MEDS: predniSONE 10 MG TAB PO SCH (06:27)
[2016-11-10 08:21] VITALS: BP 125/62
[2016-11-10] MEDS: LORATADINE (CLARITIN) 10 MG TAB PO SCH (08:35)
[2016-11-10] MEDS: FLUTICASONE NASAL SPRAY (FLONASE) 16 GM BTL NS SCH (08:35)
[2016-11-10] MEDS: cefTRIAXone INJECTION 1,000 MG in NS (IVPB) 50 ML IV SCH (08:35)
--- NOTE | 2016-11-10 13:57 | Progress Note (SOAP) ---
Subjective Subjective/Events-last exam Afebrile, no acute events. Stable on room air this morning. Review of Systems Date Seen by Provider: Nov 10, 2016 Time Seen by Provider: 09:40 Objective Exam Last Set of Vital Signs Vital Signs Date Time Temp Pulse Resp B/P (MAP) Pulse Ox O2 Delivery O2 Flow Rate FiO2 11/10/16 13:45 96 Room Air 11/10/16 08:21 96.9 104 18 125/62 11/09/16 10:19 1.00 Capillary Refill : Less Than 3 Seconds I&O Intake and Output 11/10/16 00:00 Intake Total 4400 ml Output Total 3200 ml Balance 1200 ml Intake Oral 4400 ml Output Urine Total 3200 ml # Voids 1 General: Alert, Mild Distress Lungs: Clear to Auscultation, Other (appears short of breath) Heart: Regular Rate, No Murmurs Neuro: Normal Speech Psych/Mental Status: Mental Status NL Results/Procedures Lab Microbiology 11/03/16 Blood Culture - Final, Complete No growth Radiology Date of Exam:11/04/16 CHEST 1 VIEW, AP/PA ONLY INDICATION: Asthma exacerbation. COMPARISON: 11/03/2016 FINDINGS: Single frontal view of the chest demonstrates normal heart size and pulmonary vascularity. The lungs are well aerated and clear. No large pleural effusion or pneumothorax is seen. The visualized osseous structures show no acute abnormalities. IMPRESSION: 1. No acute cardiopulmonary process. Assessment/Plan Assessment/Plan Admission Dx SEVERE ACUTE ASTHMA EXACERBATION PERSONAL HISTORY OF TOBACCO ABUSE ADM: Pt on steroids, changed to Solumedrol 40 q6 today. Will continue the IV abx for now due to severity. Dr Walsh consulted. Have encouraged patient to follow up with him in clinic in 4-6 weeks (we will arrange at discharge); we also need to get her on PALS to obtain jaswant inhalers from her own prescription so that she is not reliant on her mother's. Supported her decision to quit tobacco use. Hopefully, she can get into her own home soon and not be exposed to 2nd hand tobacco as well. Change to ICU stepdown status today, plan to move to floor tomorrow. Plan SEVERE ACUTE ASTHMA EXACERBATION PERSONAL HISTORY OF TOBACCO ABUSE ADM: Pt on steroids, changed to Solumedrol 40 q6 today. Will continue the IV abx for now due to severity. Dr Walsh consulted. Have encouraged patient to follow up with him in clinic in 4-6 weeks (we will arrange at discharge); we also need to get her on PALS to obtain jaswant inhalers from her own prescription so that she is not reliant on her mother's. Supported her decision to quit tobacco use. Hopefully, she can get into her own home soon and not be exposed to 2nd hand tobacco as well. Change to ICU stepdown status today, plan to move to floor tomorrow. 11/05 - pt much improved. continue current care, will transfer to floor today. encouraged her to get up in her room today. change abx to oral azithromycin. now on 2L NC. 11/06 - spoke with Dr Walsh personally. will keep steroids at 40 q6h again today. continue albuterol q4h. pt still on 2L NC. expected DC will be Friday , discussed with pt who will find childcare for her baby. 11/07 - improved but continues to be very wheezy. still on 2L NC. keep steroids the same unless Dr Walsh orders differently. I don't want to kolb things as she has been so sick. I did speak with Joan, and we will arrange her pulmonary meds as an outpatient so that she can obtain them. 11/08 - decreased methylpred to [address] Walsh personally - plan to switch to po prednisone at 60mg tomorrow. should be on the long taper - 60/ 60/50/50...etc. plan for DC on Friday when we can arrange home O2. per Dr Walsh, should stay on 10mg of prednisone until he sees her in 4 weeks or so. 11/09 - start PO prednisone taper 11/10 - home O2 qualification testing today DVT ppx: low risk Diagnosis/Problems: Clinical Quality Measures DVT/VTE Risk/Contraindication: Risk Factor Score Per Nursin RFS Level Per Nursing on Admit: 1=Low/No VTE PPX MAX WATERMAN MD Nov 10, 2016 13:57
[2016-11-10 15:45] VITALS: BP 111/72
[2016-11-10] MEDS: MONTELUKAST 10 MG (SINGULAIR) TAB PO SCH (20:08)
[2016-11-11] VITALS: BP 95/52
[2016-11-11] MEDS: RT-ALBUTEROL/IPRATROPIUM 3 ML (DUONEB) VIAL INH SCH ×3 (02:23→10:18)
[2016-11-11] MEDS: predniSONE 10 MG TAB PO SCH (06:06)
[2016-11-11] MEDS: HYDROcodone/APAP 5 MG/325 MG (LORTAB) TAB PO PRN (06:09)
[2016-11-11 08:00] VITALS: BP 107/67
--- NOTE | 2016-11-11 08:14 | Pulmonary Progress Note ---
Subjective Subjective/Events-last exam pt is now much improved. No complications noted. Exam Exam Vital Signs Date Time Temp Pulse Resp B/P (MAP) Pulse Ox O2 Delivery O2 Flow Rate FiO2 11/11/16 06:41 98 Room Air 11/11/16 02:23 97 Room Air 11/11/16 00:00 98.2 58 22 95/52 96 Room Air 11/10/16 21:30 96 Room Air 11/10/16 19:40 Room Air 11/10/16 18:46 95 Room Air 11/10/16 15:45 99.6 96 20 111/72 94 Room Air 11/10/16 13:45 96 Room Air 11/10/16 10:20 98 Room Air 11/10/16 08:21 96.9 104 18 125/62 96 Room Air I & O 11/11/16 07:00 Intake Total 3730 ml Output Total 4500 ml Balance -770 ml General Appearance: No Apparent Distress, Anxious HEENT: PERRL/EOMI Neck: Normal Inspection, Non Tender, Supple Respiratory: Accessory Muscle Use, Decreased Breath Sounds, Expiration, Respiratory Distress, No Wheezing Cardiovascular: No Edema, Normal Peripheral Pulses Capillary Refill: Less Than 3 Seconds Peripheral Pulses: 3+ Dorsalis Pedis (R), 3+ Left Dors-Pedis (L), 4+ Radial Pulses (R), 4+ Radial Pulses (L) Gastrointestinal: normal bowel sounds, non tender, soft Extremity: Normal Capillary Refill, Normal Inspection, Non Tender, No Calf Tenderness Neurologic/Psychiatric: Alert, Oriented x3 Skin: Normal Color, Warm/Dry Assessment/Plan Assessment/Plan Acute asthma exacerbation with acute respiratory failure -improving -Albuterol Q4 -- -Solumedrol changed to prednisone taper -- taper down to 10mg daily then continue until she sees me in office as out patient Allergic rhinitis -singulair, zyrtec, flonase Hx of tobacco use - pt states she no longer smokes Plan is for discharge today. 232 Pt is ok for discharge from my standpoint. Clinical Quality Measures DVT/VTE Risk/Contraindication: Risk Factor Score Per Nursin RFS Level Per Nursing on Admit: 1=Low/No VTE PPX TONIO GOTTI DO Nov 11, 2016 08:14
[2016-11-11] MEDS: LORATADINE (CLARITIN) 10 MG TAB PO SCH (08:48)
[2016-11-11] MEDS: FLUTICASONE NASAL SPRAY (FLONASE) 16 GM BTL NS SCH (08:48)
[2016-11-11] MEDS ORDERED: RT-ALBUINH IH (10:52)
[2016-11-11] MEDS ORDERED: LORA10TA7 PO (10:52)
[2016-11-11] MEDS ORDERED: BUDE10.22 IH (10:52)
[2016-11-11] MEDS ORDERED: MONT10TA21 PO (10:52)
[2016-11-11] MEDS ORDERED: PRD10T PO (10:52)
--- NOTE | 2016-11-11 11:18 | Discharge Instructions ---
Discharge Inst-[facility] Discharge Medications New, Converted or Re-Newed RX: Transmitted to Pharmacy New Medications: Loratadine (Loratadine) 10 Mg Tablet 10 MG PO DAILY, #30 TAB Prednisone (Prednisone) 10 Mg Tab 50 MG PO DAILY@0700, #44 TAB Continued Medications: Albuterol Sulfate (Proair Hfa) 1 Puff Puff 2 PUFF IH Q4H PRN for WHEEZING, #1 PUFF (This prescription has been renewed) 1 PUFF = 90 MCG Budesonide/Formoterol Fumarate (Symbicort 80-4.5 Mcg Inhaler) 10.2 Gm Hfa.aer.ad 2 PUFF IH BID, #1 INHALER (This prescription has been renewed) Montelukast Sodium (Singulair) 10 Mg Tablet 10 MG PO HS, #1 TAB (This prescription has been renewed) Patient Instructions Goal/Follow Up Appt: You have a follow up with Dr Álvarez November 21 @ 940 AM at [facility] Patient Instructions: - Make sure to take your inhalers every day - Try and stay away from your triggers [facility] to [facility]: - Shortness of breath - Chest pain Activity & Diet Discharge Diet: No Restrictions Activity as Tolerated: Yes Copy [facility] To 1: [facility] MD Nov 11, 2016 11:18
--- NOTE | 2016-11-11 11:19 | Discharge Summary ---
Diagnosis/Chief Complaint Date of Admission Nov 03, 2016 at 12:08 Date of Discharge 11/11/2016 Admission Diagnosis Admission Diagnosis Severe Asthma Exaccerbation Tobacco Abuse Discharge Diagnosis See Above Chief Complaint/HPI Chief Complaint/HPI 31yo woman with a longstanding history of asthma presented to hospital with complaints of shortness of breath and cough developing over the 2 days prior to admssion. Patient states she was previously using Advair which was prescribed to her mother, and her mother is giving it to her. Her mother's insurance stopped covering Advair and she was switched to Symbicort (doses unknown). She has been using that in the past few weeks. She did not have a fever or cold/ URI sx prior to this most recent exacerbation. She has been staying with her mother who smokes outside, but Denise says that her house and clothes all still smell like smoke. No fever. NO sputum production. Patient has been referred to Dr Walsh on several occasions but did not go because she was afraid of a bill as she does not have insurance herself. She has applied for Medicaid and is hopeful to get it soon. Discharge Summary-Simple/Stand Consultations Yan Walsh, DO: Pulmonology Discharge Physical Examination Allergies: Coded Allergies: chlorpheniramine (Verified Allergy, Unknown, 03/05/06) phenylephrine (Verified Allergy, Unknown, 03/05/06) phenylpropanolamine (Verified Allergy, Unknown, 03/05/06) phenyltoloxamine (Verified Allergy, Unknown, 03/05/06) Vitals & I&Os Vital Sign - Last 12Hours Date Time Temp Pulse Resp B/P (MAP) Pulse Ox O2 Delivery O2 Flow Rate FiO2 11/11/16 10:18 96 Room Air 11/11/16 08:00 97.5 101 20 107/67 11/09/16 10:19 1.00 Intake and Output 11/11/16 00:00 Intake Total 3030 ml Output Total 3500 ml Balance -470 ml General Appearance: Alert, Oriented X3, Cooperative, No Acute Distress HEENT: Atraumatic, PERRLA, EOMI, Mucous Memb Moist/[place] Respiratory: Clear to Auscultation, Normal Air Movement Cardiovascular: Regular Rate, No Murmurs Abdominal: Normal Bowel Sounds, Soft, No Tenderness Extremities: No Edema, Normal Pulses, No Tenderness/Swelling Skin: No Rashes Neuro: Normal Gait, Normal Speech, Strength at 5/5 X4 Ext, Sensation Intact, Cranial Nerves 3-12 NL Psych/Mental Status: Mental Status NL, Mood NL Hospital Course See final discharge diagnosis. Pending Labs None Radiology Reviewed Date of Exam:11/04/16 CHEST 1 VIEW, AP/PA ONLY INDICATION: Asthma exacerbation. COMPARISON: 11/03/2016 FINDINGS: Single frontal view of the chest demonstrates normal heart size and pulmonary vascularity. The lungs are well aerated and clear. No large pleural effusion or pneumothorax is seen. The visualized osseous structures show no acute abnormalities. IMPRESSION: 1. No acute cardiopulmonary process. Discussion & Recommendations 31 yo F admitted for acute asthma exacerbation Severe Acute asthma exacerbation: Followed by [facility] and Dr Walsh of pulmonology. Discussed the extreme importance of tobacco cessation and inhaler compliance. Patient was put on IV steroids and antibiotics on admission. She was then tapered and put on PO steroids and antibiotics were discontinued. Patient improved and did not qualify for home oxygen. Discussed taking allergy medications as that seems to be a trigger as well as smoking and second hand smoke. Patient desires PALs to help with medication compliance as cost is a issue for her. D/c home today with follow up at [facility] and Dr Walsh Discharge Condition at discharge Improved Instructions to patient/family Please see electonic discharge instructions given to patient. Discharge Medications Reviewed and agree with Discharge Medication list on patient's Discharge Instruction sheet Clinical Quality Measures DVT/VTE Risk/Contraindication: Risk Factor Score Per Nursin RFS Level Per Nursing on Admit: 1=Low/No VTE PPX Copy Copies To 1: Candido WADE HOLLY R MD Nov 11, 2016 11:19
--- OUTSIDE RECORDS SUMMARY | 2016-11-12 00:17 | XMS REPORT ---
Author PREMA Feng [facility] eClinicalWorks Address Unknown Phone Unavailable Care Team Providers Care Java User Interface Developer Name Role Phone PREMA REYES CP Unavailable Allergies, Adverse Reactions, Alerts Substance Reaction Event Type N.K.D.A. Info Not Available Non Drug Allergy Problems Problem Type Condition Code Onset Dates Condition Status Assessment Elevated blood pressure reading R03.0 Active Problem Bronchitis J40 Active Problem Otitis of left ear H66.92 Active Problem Mild intermittent asthma without complication J45.20 Active Assessment Bronchitis J40 Active Assessment Otitis of left ear H66.92 Active Problem Asthma J45.909 Active Assessment Mild intermittent asthma without complication J45.20 Active Medications Medication Code System Code Instructions Start Date End Date Status Dosage PredniSONE [facility] [address]-06 20 mg Orally Once a day Apr 13, 2016 Apr 23, 2016 1 tid x 3, bid x 3 and daily x 3 Levaquin [facility] [address]-24 500 MG Orally Once a day Apr 13, 2016 Apr 23, 2016 1 tablet Albuterol Sulfate HFA [facility] [address]-43 108 (90 Base) MCG/ACT Inhalation every 4 hrs 2 puffs as needed Advair Diskus [facility] [address]-43 250-50 MCG/DOSE Inhalation Twice a day 1 puff Procedures Procedure Coding System Code Date Office Visit, Est Pt., Level 3 CPT-4 11240 Apr 13, 2016 Vital Signs Date/Time: Apr 13, 2016 Cardiac Monitoring Heart Rate 130 bpm Weight 163 lbs Height 61 in BMI 30.80 Index Blood Pressure Diastolic 98 mmHg Blood Pressure Systolic 132 mmHg Results No Known Results Summary Purpose eClinicalWorks Submission
--- OUTSIDE RECORDS SUMMARY | 2016-11-12 00:18 | XMS REPORT ---
Author Author WILIAN MAIN [facility] eClinicalWorks Address Unknown Phone Unavailable Care Team Providers Care Inbound Call Center Agent Name Role Phone WILIAN MAIN CP Unavailable Allergies No Known Allergies Problems Problem Type Condition ICD-9 Code Onset Dates Condition Status Assessment Anxiety 300.00 Active Assessment Asthma 493.90 Active Problem Asthma 493.90 Active Medications Medication Code System Code Instructions Start Date End Date Status Dosage Advair Diskus [facility] [address]-48 250-50 MCG/DOSE Inhalation Twice a day 1 puff HydrOXYzine HCl [facility] [address]-60 25 MG Orally 3 times a day 1 tablet as needed Procedures Procedure Coding System Code Date Office Visit, New Pt., Level 2 CPT-4 78097 Jan 24, 2015 Vital Signs Date/Time: Jan 24, 2015 Cardiac Monitoring Heart Rate 84 bpm Weight 147 lbs Height 61 in BMI 27.77 Index Blood Pressure Diastolic 60 mmHg Blood Pressure Systolic 100 mmHg Results No Known Results Summary Purpose eClinicalWorks Submission
--- OUTSIDE RECORDS SUMMARY | 2016-11-12 00:19 | XMS REPORT | Continuity of Care Document ---
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 leukocytes 95 % 42-75 Automated blood lymphocytes/100 leukocytes 4 % 12-44 Blood monocytes/100 leukocytes 2 % 0-12 Automated blood eosinophils/100 leukocytes 0 % 0-10 Automated blood basophils/100 leukocytes 0 % 0-10 Blood neutrophils automated count (number/volume) 19.3 10*3 1.8-7.8 Blood lymphocytes automated count (number/volume) 0.8 10*3 1.0-4.0 Blood monocytes automated count (number/volume) 0.3 10*3 0.0-1.0 Automated eosinophil count 0.0 10*3/uL 0.0-0.3 Automated blood basophil count (count/volume) 0.0 10*3/uL 0.0-0.1 Blood manual differential performed detection - 06/14/16 04:25 Blood monocytes/100 leukocytes 2 % NRG Manual blood segmented neutrophils/100 leukocytes 87 % NRG Blood band neutrophils/100 leukocytes 8 % NRG Manual blood lymphocytes/100 leukocytes 3 % NRG Manual eosinophils/100 leukocytes in nose 0 % NRG Manual blood basophils/100 leukocytes 0 % NRG Blood erythrocyte morphology finding identification [facility] Comprehensive metabolic panel - 06/15/16 04:14 Serum or plasma sodium measurement (moles/volume) 138 mmol/ L 135-145 Serum or plasma potassium measurement (moles/volume) 4.4 mmol/L 3.6-5.0 Serum or plasma chloride measurement (moles/volume) 105 mmol /L 98-107 Carbon dioxide 20 mmol/L 21-32 Serum or plasma anion gap determination (moles/volume) 13 mmol/L 5-14 Serum or plasma urea nitrogen measurement (mass/volume) 16 mg/dL 7-18 Serum or plasma creatinine measurement (mass/volume) 0.64 mg /dL 0.60-1.30 Serum or plasma urea nitrogen/creatinine mass ratio 25 NRG Serum or plasma creatinine measurement with calculation of estimated glomerular filtration rate > NRG Serum or plasma glucose measurement (mass/volume) 126 mg/dL 70-105 Serum or plasma calcium measurement (mass/volume) 9.2 mg/dL 8.5-10.1 Serum or plasma total bilirubin measurement (mass/volume) 0.3 mg/dL 0.1-1.0 Serum or plasma alkaline phosphatase measurement (enzymatic activity/volume) 64 U/L 40-136 Serum or plasma aspartate aminotransferase measurement (enzymatic activity/ volume) 21 U/L 5-34 Serum or plasma alanine aminotransferase measurement (enzymatic activity/volume ) 40 U/L 0-55 Serum or plasma protein measurement (mass/volume) 6.7 g/dL 6.4-8.2 Serum or plasma albumin measurement (mass/volume) 3.8 g/dL 3.2-4.5 Complete blood count (CBC) with automated white blood cell (WBC) differential - 06/15/16 04:15 Blood leukocytes automated count (number/volume) 25.5 10*3/ uL 4.3-11.0 Blood erythrocytes automated count (number/volume) 5.06 10*6 /uL 4.35-5.85 Venous blood hemoglobin measurement (mass/volume) 13.7 g/dL 11.5-16.0 Blood hematocrit (volume fraction) 42 % 35-52 Automated erythrocyte mean corpuscular volume 83 [foz_us] 80-99 Automated erythrocyte mean corpuscular hemoglobin (mass per erythrocyte) 27 pg 25-34 Automated erythrocyte mean corpuscular hemoglobin concentration measurement ( mass/volume) 33 g/dL 32-36 Automated erythrocyte distribution width ratio 15.5 % 10.0-14.5 Automated blood platelet count (count/volume) 329 10*3/uL 130-400 Automated blood platelet mean volume measurement 10.8 [foz_ us] 7.4-10.4 Automated blood neutrophils/100 leukocytes 94 % 42-75 Automated blood lymphocytes/100 leukocytes 4 % 12-44 Blood monocytes/100 leukocytes 3 % 0-12 Automated blood eosinophils/100 leukocytes 0 % 0-10 Automated blood basophils/100 leukocytes 0 % 0-10 Blood neutrophils automated count (number/volume) 23.9 10*3 1.8-7.8 Blood lymphocytes automated count (number/volume) 1.0 10*3 1.0-4.0 Blood monocytes automated count (number/volume) 0.6 10*3 0.0-1.0 Automated eosinophil count 0.0 10*3/uL 0.0-0.3 Automated blood basophil count (count/volume) 0.0 10*3/uL 0.0-0.1 Complete blood count (CBC) with automated white blood cell (WBC) differential - 11/03/16 09:31 Blood leukocytes automated count (number/volume) 6.9 10*3/ uL 4.3-11.0 Blood erythrocytes automated count (number/volume) 5.51 10*6 /uL 4.35-5.85 Venous blood hemoglobin measurement (mass/volume) 14.6 g/dL 11.5-16.0 Blood hematocrit (volume fraction) 46 % 35-52 Automated erythrocyte mean corpuscular volume 84 [foz_us] 80-99 Automated erythrocyte mean corpuscular hemoglobin (mass per erythrocyte) 27 pg 25-34 Automated erythrocyte mean corpuscular hemoglobin concentration measurement ( mass/volume) 32 g/dL 32-36 Automated erythrocyte distribution width ratio 15.4 % 10.0-14.5 Automated blood platelet count (count/volume) 294 10*3/uL 130-400 Automated blood platelet mean volume measurement 10.4 [foz_ us] 7.4-10.4 Automated blood neutrophils/100 leukocytes 54 % 42-75 Automated blood lymphocytes/100 leukocytes 27 % 12-44 Blood monocytes/100 leukocytes 8 % 0-12 Automated blood eosinophils/100 leukocytes 10 % 0-10 Automated blood basophils/100 leukocytes 1 % 0-10 Blood neutrophils automated count (number/volume) 3.7 10*3 1.8-7.8 Blood lymphocytes automated count (number/volume) 1.9 10*3 1.0-4.0 Blood monocytes automated count (number/volume) 0.6 10*3 0.0-1.0 Automated eosinophil count 0.7 10*3/uL 0.0-0.3 Automated blood basophil count (count/volume) 0.1 10*3/uL 0.0-0.1 Fibrin D-dimer FEU measurement in platelet poor plasma (mass/volume) - 09:31 Fibrin D-dimer FEU measurement in platelet poor plasma (mass/volume) < ug/mL 0.00-0.49 Comprehensive metabolic panel - 11/03/16 09:31 Serum or plasma sodium measurement (moles/volume) 143 mmol/ L 135-145 Serum or plasma potassium measurement (moles/volume) 4.5 mmol/L 3.6-5.0 Serum or plasma chloride measurement (moles/volume) 108 mmol /L 98-107 Carbon dioxide 26 mmol/L 21-32 Serum or plasma anion gap determination (moles/volume) 9 mmol/L 5-14 Serum or plasma urea nitrogen measurement (mass/volume) 7 mg /dL 7-18 Serum or plasma creatinine measurement (mass/volume) 0.66 mg /dL 0.60-1.30 Serum or plasma urea nitrogen/creatinine mass ratio 11 NRG Serum or plasma creatinine measurement with calculation of estimated glomerular filtration rate > NRG Serum or plasma glucose measurement (mass/volume) 93 mg/dL 70-105 Serum or plasma calcium measurement (mass/volume) 9.9 mg/dL 8.5-10.1 Serum or plasma total bilirubin measurement (mass/volume) 0.9 mg/dL 0.1-1.0 Serum or plasma alkaline phosphatase measurement (enzymatic activity/volume) 60 U/L 40-136 Serum or plasma aspartate aminotransferase measurement (enzymatic activity/ volume) 36 U/L 5-34 Serum or plasma alanine aminotransferase measurement (enzymatic activity/volume ) 47 U/L 0-55 Serum or plasma protein measurement (mass/volume) 7.9 g/dL 6.4-8.2 Serum or plasma albumin measurement (mass/volume) 4.4 g/dL 3.2-4.5 Serum or plasma phosphate measurement (mass/volume) - 11/03/16 09:31 Serum or plasma phosphate measurement (mass/volume) 3.6 mg/ dL 2.3-4.7 Magnesium - 11/03/16 09:31 Magnesium 2.2 mg/dL 1.8-2.4 THYROID STIMULATING HORMONE - 11/03/16 09:31 THYROID STIMULATING HORMONE 0.75 u[iU]/mL 0.35-4.94 Serum or plasma C reactive protein measurement (mass/volume) - 11/03/16 09:31 Serum or plasma C reactive protein measurement (mass/volume) 0.13 mg/dL 0.00-0.50 Serum or plasma choriogonadotropin ( test) detection - 11/03/16 09:31 Serum or plasma choriogonadotropin ( test) detection NEGATIVE NEGATIVE Bacterial blood culture - 11/03/16 10:02 Bacterial blood culture NG NRG Arterial blood gas measurement - 11/03/16 10:05 Blood pCO2 47 mm[Hg] 35-45 Blood pO2 142 mm[Hg] 79-93 Arterial blood bicarbonate measurement (moles/volume) 24 mmol/L 23-27 Arterial blood base excess by calculation -1.8 mmol/L -2.5-2.5 Arterial blood oxygen saturation measurement 99 % 94-100 * Inhaled oxygen flow rate 10 NRG Arterial blood pH measurement with patient temperature correction 7.32 7.37-7.43 Arterial blood carbon dioxide, total measurement (moles/volume) 25.2 mmol/L 21.0-31.0 Body site LT RADIAL NRG Assessment of wrist artery patency prior to arterial puncture YES-POS NRG Setting of ventilation mode NO NRG Measurement of body temperature 96.9 NRG Blood lactic acid measurement (moles/volume) - 11/03/16 10:26 Blood lactic acid measurement (moles/volume) 1.21 mmol/L 0.50-2.00 Bacterial blood culture - 11/03/16 10:26 Bacterial blood culture NG NRG Arterial blood gas measurement - 11/03/16 13:55 Blood pCO2 49 mm[Hg] 35-45 Blood pO2 46 mm[Hg] 79-93 Arterial blood bicarbonate measurement (moles/volume) 23 mmol/L 23-27 Arterial blood base excess by calculation -2.2 mmol/L -2.5-2.5 Arterial blood oxygen saturation measurement 79 % 94-100 * Inhaled oxygen flow rate 5 NRG Arterial blood pH measurement with patient temperature correction 7.30 7.37-7.43 Arterial blood carbon dioxide, total measurement (moles/volume) 24.8 mmol/L 21.0-31.0 Body site LT RADIAL NRG Assessment of wrist artery patency prior to arterial puncture YES-POS NRG Setting of ventilation mode NO NRG Measurement of body temperature 98.4 NRG Complete blood count (CBC) with automated white blood cell (WBC) differential - 11/04/16 03:58 Blood leukocytes automated count (number/volume) 12.9 10*3/ uL 4.3-11.0 Blood erythrocytes automated count (number/volume) 4.92 10*6 /uL 4.35-5.85 Venous blood hemoglobin measurement (mass/volume) 13.2 g/dL 11.5-16.0 Blood hematocrit (volume fraction) 42 % 35-52 Automated erythrocyte mean corpuscular volume 85 [foz_us] 80-99 Automated erythrocyte mean corpuscular hemoglobin (mass per erythrocyte) 27 pg 25-34 Automated erythrocyte mean corpuscular hemoglobin concentration measurement ( mass/volume) 32 g/dL 32-36 Automated erythrocyte distribution width ratio 15.3 % 10.0-14.5 Automated blood platelet count (count/volume) 254 10*3/uL 130-400 Automated blood platelet mean volume measurement 10.7 [foz_ us] 7.4-10.4 Automated blood neutrophils/100 leukocytes 93 % 42-75 Automated blood lymphocytes/100 leukocytes 6 % 12-44 Blood monocytes/100 leukocytes 1 % 0-12 Automated blood eosinophils/100 leukocytes 0 % 0-10 Automated blood basophils/100 leukocytes 0 % 0-10 Blood neutrophils automated count (number/volume) 12.0 10*3 1.8-7.8 Blood lymphocytes automated count (number/volume) 0.8 10*3 1.0-4.0 Blood monocytes automated count (number/volume) 0.2 10*3 0.0-1.0 Automated eosinophil count 0.0 10*3/uL 0.0-0.3 Automated blood basophil count (count/volume) 0.0 10*3/uL 0.0-0.1 Comprehensive metabolic panel - 11/04/16 03:58 Serum or plasma sodium measurement (moles/volume) 140 mmol/ L 135-145 Serum or plasma potassium measurement (moles/volume) 4.4 mmol/L 3.6-5.0 Serum or plasma chloride measurement (moles/volume) 111 mmol /L 98-107 Carbon dioxide 19 mmol/L 21-32 Serum or plasma anion gap determination (moles/volume) 10 mmol/L 5-14 Serum or plasma urea nitrogen measurement (mass/volume) 9 mg /dL 7-18 Serum or plasma creatinine measurement (mass/volume) 0.58 mg /dL 0.60-1.30 Serum or plasma urea nitrogen/creatinine mass ratio 16 NRG Serum or plasma creatinine measurement with calculation of estimated glomerular filtration rate > NRG Serum or plasma glucose measurement (mass/volume) 152 mg/dL 70-105 Serum or plasma calcium measurement (mass/volume) 9.1 mg/dL 8.5-10.1 Serum or plasma total bilirubin measurement (mass/volume) 0.4 mg/dL 0.1-1.0 Serum or plasma alkaline phosphatase measurement (enzymatic activity/volume) 53 U/L 40-136 Serum or plasma aspartate aminotransferase measurement (enzymatic activity/ volume) 23 U/L 5-34 Serum or plasma alanine aminotransferase measurement (enzymatic activity/volume ) 35 U/L 0-55 Serum or plasma protein measurement (mass/volume) 6.5 g/dL 6.4-8.2 Serum or plasma albumin measurement (mass/volume) 3.9 g/dL 3.2-4.5 Serum or plasma phosphate measurement (mass/volume) - 11/04/16 03:58 Serum or plasma phosphate measurement (mass/volume) 2.9 mg/ dL 2.3-4.7 Magnesium - 11/04/16 03:58 Magnesium 2.3 mg/dL 1.8-2.4 Blood manual differential performed detection - 11/04/16 03:58 Blood monocytes/100 leukocytes 0 % NRG Manual blood segmented neutrophils/100 leukocytes 92 % NRG Blood band neutrophils/100 leukocytes 3 % NRG Manual blood lymphocytes/100 leukocytes 2 % NRG Manual eosinophils/100 leukocytes in nose 0 % NRG Manual blood basophils/100 leukocytes 0 % NRG Blood lymphocytes variant/100 leukocytes 3 % NRG Blood anisocytosis detection by light microscopy SLIGHT NRG Blood toxic granules detection by light microscopy 1+ NRG Complete blood count (CBC) with automated white blood cell (WBC) differential - 11/06/16 04:15 Blood leukocytes automated count (number/volume) 12.7 10*3/ uL 4.3-11.0 Blood erythrocytes automated count (number/volume) 4.82 10*6 /uL 4.35-5.85 Venous blood hemoglobin measurement (mass/volume) 13.0 g/dL 11.5-16.0 Blood hematocrit (volume fraction) 41 % 35-52 Automated erythrocyte mean corpuscular volume 84 [foz_us] 80-99 Automated erythrocyte mean corpuscular hemoglobin (mass per erythrocyte) 27 pg 25-34 Automated erythrocyte mean corpuscular hemoglobin concentration measurement ( mass/volume) 32 g/dL 32-36 Automated erythrocyte distribution width ratio 15.3 % 10.0-14.5 Automated blood platelet count (count/volume) 266 10*3/uL 130-400 Automated blood platelet mean volume measurement 10.9 [foz_ us] 7.4-10.4 Automated blood neutrophils/100 leukocytes 91 % 42-75 Automated blood lymphocytes/100 leukocytes 6 % 12-44 Blood monocytes/100 leukocytes 3 % 0-12 Automated blood eosinophils/100 leukocytes 0 % 0-10 Automated blood basophils/100 leukocytes 0 % 0-10 Blood neutrophils automated count (number/volume) 11.6 10*3 1.8-7.8 Blood lymphocytes automated count (number/volume) 0.7 10*3 1.0-4.0 Blood monocytes automated count (number/volume) 0.4 10*3 0.0-1.0 Automated eosinophil count 0.0 10*3/uL 0.0-0.3 Automated blood basophil count (count/volume) 0.0 10*3/uL 0.0-0.1 Whole blood basic metabolic panel - 11/06/16 04:15 Serum or plasma sodium measurement (moles/volume) 140 mmol/ L 135-145 Serum or plasma potassium measurement (moles/volume) 4.0 mmol/L 3.6-5.0 Serum or plasma chloride measurement (moles/volume) 107 mmol /L 98-107 Carbon dioxide 21 mmol/L 21-32 Serum or plasma anion gap determination (moles/volume) 12 mmol/L 5-14 Serum or plasma urea nitrogen measurement (mass/volume) 15 mg/dL 7-18 Serum or plasma creatinine measurement (mass/volume) 0.60 mg /dL 0.60-1.30 Serum or plasma urea nitrogen/creatinine mass ratio 25 0-20 Serum or plasma creatinine measurement with calculation of estimated glomerular filtration rate > NRG Serum or plasma glucose measurement (mass/volume) 124 mg/dL 70-105 Serum or plasma calcium measurement (mass/volume) 9.2 mg/dL 8.5-10.1 Complete blood count (CBC) with automated white blood cell (WBC) differential - 11/07/16 04:23 Blood leukocytes automated count (number/volume) 8.5 10*3/ uL 4.3-11.0 Blood erythrocytes automated count (number/volume) 4.91 10*6 /uL 4.35-5.85 Venous blood hemoglobin measurement (mass/volume) 13.3 g/dL 11.5-16.0 Blood hematocrit (volume fraction) 41 % 35-52 Automated erythrocyte mean corpuscular volume 84 [foz_us] 80-99 Automated erythrocyte mean corpuscular hemoglobin (mass per erythrocyte) 27 pg 25-34 Automated erythrocyte mean corpuscular hemoglobin concentration measurement ( mass/volume) 32 g/dL 32-36 Automated erythrocyte distribution width ratio 15.1 % 10.0-14.5 Automated blood platelet count (count/volume) 261 10*3/uL 130-400 Automated blood platelet mean volume measurement 10.3 [foz_ us] 7.4-10.4 Automated blood neutrophils/100 leukocytes 87 % 42-75 Automated blood lymphocytes/100 leukocytes 8 % 12-44 Blood monocytes/100 leukocytes 5 % 0-12 Automated blood eosinophils/100 leukocytes 0 % 0-10 Automated blood basophils/100 leukocytes 0 % 0-10 Blood neutrophils automated count (number/volume) 7.5 10*3 1.8-7.8 Blood lymphocytes automated count (number/volume) 0.7 10*3 1.0-4.0 Blood monocytes automated count (number/volume) 0.4 10*3 0.0-1.0 Automated eosinophil count 0.0 10*3/uL 0.0-0.3 Automated blood basophil count (count/volume) 0.0 10*3/uL 0.0-0.1 Whole blood basic metabolic panel - 11/07/16 04:23 Serum or plasma sodium measurement (moles/volume) 141 mmol/ L 135-145 Serum or plasma potassium measurement (moles/volume) 3.8 mmol/L 3.6-5.0 Serum or plasma chloride measurement (moles/volume) 107 mmol /L 98-107 Carbon dioxide 21 mmol/L 21-32 Serum or plasma anion gap determination (moles/volume) 13 mmol/L 5-14 Serum or plasma urea nitrogen measurement (mass/volume) 12 mg/dL 7-18 Serum or plasma creatinine measurement (mass/volume) 0.60 mg /dL 0.60-1.30 Serum or plasma urea nitrogen/creatinine mass ratio 20 0-20 Serum or plasma creatinine measurement with calculation of estimated glomerular filtration rate > NRG Serum or plasma glucose measurement (mass/volume) 127 mg/dL 70-105 Serum or plasma calcium measurement (mass/volume) 8.8 mg/dL 8.5-10.1 Complete blood count (CBC) with automated white blood cell (WBC) differential - 11/08/16 08:00 Blood leukocytes automated count (number/volume) 12.5 10*3/ uL 4.3-11.0 Blood erythrocytes automated count (number/volume) 5.27 10*6 /uL 4.35-5.85 Venous blood hemoglobin measurement (mass/volume) 14.2 g/dL 11.5-16.0 Blood hematocrit (volume fraction) 44 % 35-52 Automated erythrocyte mean corpuscular volume 83 [foz_us] 80-99 Automated erythrocyte mean corpuscular hemoglobin (mass per erythrocyte) 27 pg 25-34 Automated erythrocyte mean corpuscular hemoglobin concentration measurement ( mass/volume) 32 g/dL 32-36 Automated erythrocyte distribution width ratio 15.0 % 10.0-14.5 Automated blood platelet count (count/volume) 300 10*3/uL 130-400 Automated blood platelet mean volume measurement 10.1 [foz_ us] 7.4-10.4 Automated blood neutrophils/100 leukocytes 88 % 42-75 Automated blood lymphocytes/100 leukocytes 7 % 12-44 Blood monocytes/100 leukocytes 6 % 0-12 Automated blood eosinophils/100 leukocytes 0 % 0-10 Automated blood basophils/100 leukocytes 0 % 0-10 Blood neutrophils automated count (number/volume) 11.0 10*3 1.8-7.8 Blood lymphocytes automated count (number/volume) 0.8 10*3 1.0-4.0 Blood monocytes automated count (number/volume) 0.7 10*3 0.0-1.0 Automated eosinophil count 0.0 10*3/uL 0.0-0.3 Automated blood basophil count (count/volume) 0.0 10*3/uL 0.0-0.1 Whole blood basic metabolic panel - 11/08/16 08:00 Serum or plasma sodium measurement (moles/volume) 140 mmol/ L 135-145 Serum or plasma potassium measurement (moles/volume) 4.2 mmol/L 3.6-5.0 Serum or plasma chloride measurement (moles/volume) 107 mmol /L 98-107 Carbon dioxide 23 mmol/L 21-32 Serum or plasma anion gap determination (moles/volume) 10 mmol/L 5-14 Serum or plasma urea nitrogen measurement (mass/volume) 15 mg/dL 7-18 Serum or plasma creatinine measurement (mass/volume) 0.59 mg /dL 0.60-1.30 Serum or plasma urea nitrogen/creatinine mass ratio 25 0-20 Serum or plasma creatinine measurement with calculation of estimated glomerular filtration rate > NRG Serum or plasma glucose measurement (mass/volume) 114 mg/dL 70-105 Serum or plasma calcium measurement (mass/volume) 8.9 mg/dL 8.5-10.1 Complete blood count (CBC) with automated white blood cell (WBC) differential - 11/09/16 04:54 Blood leukocytes automated count (number/volume) 11.6 10*3/ uL 4.3-11.0 Blood erythrocytes automated count (number/volume) 5.04 10*6 /uL 4.35-5.85 Venous blood hemoglobin measurement (mass/volume) 13.7 g/dL 11.5-16.0 Blood hematocrit (volume fraction) 42 % 35-52 Automated erythrocyte mean corpuscular volume 83 [foz_us] 80-99 Automated erythrocyte mean corpuscular hemoglobin (mass per erythrocyte) 27 pg 25-34 Automated erythrocyte mean corpuscular hemoglobin concentration measurement ( mass/volume) 33 g/dL 32-36 Automated erythrocyte distribution width ratio 14.9 % 10.0-14.5 Automated blood platelet count (count/volume) 306 10*3/uL 130-400 Automated blood platelet mean volume measurement 10.0 [foz_ us] 7.4-10.4 Automated blood neutrophils/100 leukocytes 77 % 42-75 Automated blood lymphocytes/100 leukocytes 14 % 12-44 Blood monocytes/100 leukocytes 9 % 0-12 Automated blood eosinophils/100 leukocytes 0 % 0-10 Automated blood basophils/100 leukocytes 0 % 0-10 Blood neutrophils automated count (number/volume) 8.9 10*3 1.8-7.8 Blood lymphocytes automated count (number/volume) 1.6 10*3 1.0-4.0 Blood monocytes automated count (number/volume) 1.1 10*3 0.0-1.0 Automated eosinophil count 0.0 10*3/uL 0.0-0.3 Automated blood basophil count (count/volume) 0.0 10*3/uL 0.0-0.1 Whole blood basic metabolic panel - 11/09/16 04:54 Serum or plasma sodium measurement (moles/volume) 140 mmol/ L 135-145 Serum or plasma potassium measurement (moles/volume) 3.8 mmol/L 3.6-5.0 Serum or plasma chloride measurement (moles/volume) 106 mmol /L 98-107 Carbon dioxide 23 mmol/L 21-32 Serum or plasma anion gap determination (moles/volume) 11 mmol/L 5-14 Serum or plasma urea nitrogen measurement (mass/volume) 16 mg/dL 7-18 Serum or plasma creatinine measurement (mass/volume) 0.59 mg /dL 0.60-1.30 Serum or plasma urea nitrogen/creatinine mass ratio 27 0-20 Serum or plasma creatinine measurement with calculation of estimated glomerular filtration rate > NRG Serum or plasma glucose measurement (mass/volume) 99 mg/dL 70-105 Serum or plasma calcium measurement (mass/volume) 8.8 mg/dL 8.5-10.1 Encounters ACCT No. Visit Date/Time Discharge Status Pt. Type Provider Facility Loc./Unit Complaint [id number] 06/13/2016 10:34:00 2016 12:58:00 DIS Inpatient JAMARCUS NEWSOME DO [facility] 4TH ASTHMA [id number] 04/09/2016 15:05:00 2015 17:53:00 DIS Inpatient CATHY RUBIO MD [facility] 4TH ASTHMA EXACERBATION [id number] 11/05/2015 19:41:00 2015 22:37:00 DIS Emergency NAINA LEE [facility] ER POST C SECTION PAIN [id number] 10/26/2015 08:40:00 2015 15:30:00 DIS Inpatient PARK FERNANDO DO [facility] LDRP PREVIOUS SECTION [id number] 10/19/2015 10:37:00 2015 11:27:00 DIS Outpatient PARK FERNANDO DO [facility] PREOP PREVIOUS SECTION [id number] 06/17/2015 15:16:00 2015 14:55:00 DIS Inpatient LELAND BERGER MD [facility] WS ASTHMA EXACERBATION [id number] 05/06/2015 19:43:00 2014 20:52:00 DIS Emergency JORGE LUIS DURAN MD [facility] ER ASTHMA ATTACK [id number] 01/16/2015 04:45:00 2014 16:25:00 DIS Inpatient RENÉ LOVETT, MARTHA Gee [facility] SURGICAL FACIAL FRACTURE,ASSAULT, INTOXICATION [id number] 03/17/2014 01:41:00 2013 14:00:00 DIS Inpatient LELAND BERGER MD [facility] 4TH ASTHMA EXACERBATION,ALCOHOL INTOXICATION, N/V,HYPOX [id number] 12/18/2013 17:45:00 2013 16:20:00 DIS Inpatient DALLAS ASH MD R [facility] 4TH ACUTE ASTHMA ATTACK [id number] 04/04/2013 10:59:00 2012 14:45:00 DIS Emergency MARINA WERNER LIANA Jessa [facility] ER CRAMPING BLEEDING ABOUT 8 WEEKS PREG [id number] 03/11/2013 10:04:00 2012 14:15:00 DIS Inpatient LELAND BERGER MD [facility] 4TH ASTHMA EXACERBATION [id number] 01/28/2013 09:26:00 2012 12:25:00 DIS Inpatient LELAND BERGER MD [facility] [address] STATUS ASTHMA HYPERKALEMIA [id number] 09/27/2012 17:15:00 2012 09:55:00 DIS Inpatient LELAND BERGER MD [facility] 4TH ASTHMA EXACERBATION, ALCOHOL INTOXICATION [id number] 09/25/2012 21:35:00 2012 10:40:00 DIS Inpatient LELAND BERGER MD [facility] 4TH ACUTE ASTHMA EXACERBATION [id number] 11/03/2016 12:08:00 ACT Inpatient LANDON SCANLON MD [facility] 4TH ASTHMA EXACERBATION IN EXTREMIS [id number] 08/15/2016 09:39:00 ACT Outpatient CHRISTIANO ESCUDERO MD (DDU) [facility] RAD DDU [id number] 06/23/2015 13:04:00 ACT Outpatient LELAND BERGER MD [facility] RAD SURVEY [id number] 01/16/2015 02:01:00 Document Registration [id number] 01/16/2015 02:01:00 Document Registration [id number] 01/08/2011 13:57:00 Document Registration [id number] 12/13/2010 09:40:00 Document Registration [id number] 11/12/2010 11:00:00 Document Registration [id number] 10/30/2010 17:09:00 Document Registration [id number] 09/07/2010 19:35:00 Document Registration [id number] 08/21/2010 07:26:00 Document Registration [id number] 07/15/2010 09:40:00 Document Registration [id number] 05/16/2010 12:41:00 Document Registration [id number] 01/27/2010 11:19:00 Document Registration
--- OUTSIDE RECORDS SUMMARY | 2016-11-12 00:20 | XMS REPORT ---
Author EMILIE Pink [employer] Address Unknown Phone Unavailable Care Team Providers Care Head Charrer Name Role Phone EMILIE VILA CP Unavailable Allergies, Adverse Reactions, Alerts Substance Reaction Event Type N.K.D.A. Info Not Available Non Drug Allergy Problems Problem Type Condition Code Onset Dates Condition Status Assessment Dental examination Z01.20 Active Problem Asthma J45.909 Active Medications Medication Code System Code Instructions Start Date End Date Status Dosage [place] [facility] [address]-22 5-325 MG Orally every 6 hrs Feb 12, 2016Jan 1 tablet as needed Advair Diskus [facility] [address]-72 250-50 MCG/DOSE Inhalation Twice a day 1 puff Amoxicillin [facility] [address]-41 500 MG Orally 4 times a day Feb 12, 2016 Feb 19, 2016 1 capsule Procedures Procedure Coding System Code Date INTRAORL-PERIAPICAL 1 FILM 58212 CPT-4 D0220 Feb 12, 2016 LTD ORAL EVALUATION - PROBLEM FOCUS CPT-4 D0140 Feb 12, 2016 Vital Signs Date/Time: Feb 12, 2016 Blood Pressure Diastolic 86 mmHg Blood Pressure Systolic 123 mmHg Height 61 in Results No Known Results Summary Purpose eClinicalWorks Submission
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
== END 2016-11-11 14:06 | disposition home or self-care (01) | DRG 202 ==
LOC: EDUNIT# 09:22 → ER 09:22 → ICU 12:08 → 4TH 11-05 10:51
PROVIDERS: ADMIT Pediatrics; ATTEND Pediatrics
DX: J45.901 Unspecified asthma with (acute) exacerbation (principal); Z87.891 Personal history of nicotine dependence; Z77.22 Contact with and (suspected) exposure to environmental tobacco smoke (acute) (chronic); J96.02 Acute respiratory failure with hypercapnia; E87.2 Acidosis; J30.9 Allergic rhinitis, unspecified
CPT/HCPCS: 36415; 71010; 80048; 80053; 82805; 83605; 83735; 84100; 84443; 84703; 85007; 85025; 85027; 85379; 86141; 87040; 93005; 93041; 94640; 94664; 94760; 96361; 96365; 96367; 96368; 96375

== ENCOUNTER 2017-04-20 09:23 | Inpatient (IN) | payer MEDICAID, OTHER ==
[~2017-04-20] VITALS: Ht 154.9 cm; Wt 79.2 kg
[2017-04-20] VITALS (21 sets, daily range): BP systolic 80–138; BP diastolic 59–89
[~2017-04-20 09:23] MED LIST changes: +AZIT250T12 PO; -AZIT250T5 PO; +BUDE10.22 IH; +LORA10TA7 PO; +MONT10TA21 PO; +methylPREDNISolone 125 MG (Solu-MEDROL) VIAL ONE
[2017-04-20] MEDS ORDERED: RT-IPRATROPIUM (ATROVENT) 0.5MG/2.5ML AMP IH ONE ×2 (09:24→09:30)
[2017-04-20] MEDS ORDERED: RT-ALBUTEROL SULF 2.5 MG/3 ML PRE-MIX VIAL ONE (09:24)
--- OUTSIDE RECORDS SUMMARY | 2017-04-20 09:29 | XMS REPORT ---
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 Unknown Non Drug Allergy May, Unknown SOCIAL HISTORY No smoking Hx information available PLAN OF CARE Activity Details Follow Up 3 Weeks Reason:asthma anxiety VITAL SIGNS Height 61 in 2016-06-19 Weight 159.4 lbs 2016-06-19 Temperature 98.9 degrees Fahrenheit 2016-06-19 Heart Rate 86 bpm 2016-06-19 Respiratory Rate 16 2016-06-19 BMI 30.12 kg/m2 2016-06-19 Blood pressure systolic 138 mmHg 2016-06-19 Blood pressure diastolic 88 mmHg 2016-06-19 MEDICATIONS Medication Instructions Dosage Frequency Start Date End Date Duration Status Paroxetine HCl 10 mg Orally Once a day 1 tablet in the morning 24h May, 90 days Active Oxygen Active PredniSONE 10 MG Orally Once a day 1 tablet 24h Active Albuterol Sulfate HFA 108 (90 Base) MCG/ACT Inhalation every 4 hrs 2 puffs as needed 4h Active ProAir HFA 108 (90 Base) MCG/ACT Inhalation every 4-6 hours as needed 2 puffs as needed May, Active Breo Ellipta 100-25 MCG/INH Inhalation Once a day 1 puff 24h May, Active RESULTS No Results PROCEDURES Procedure Date Ordered Related Diagnosis Body Site Office Visit, Est Pt., Level 5 Jun 19, 2016 IMMUNIZATIONS No Known Immunizations
[2017-04-20] MEDS ORDERED: RT-ALBUTEROL SULF 2.5 MG/3 ML PRE-MIX VIAL IH SCH (09:30)
[2017-04-20] MEDS ORDERED: LORazepam INJ 2 MG/ML (ATIVAN) VIAL ONE (09:31)
--- NOTE | 2017-04-20 09:39 | ED Respiratory ---
General Stated Complaint: SOB Source: patient Exam Limitations: no limitations History of Present Illness Time seen by provider: 09:25 Initial Comments The patient is a 31-year-old white female well-known to me. She reports she began having increasing shortness of breath at home yesterday. She has been using both her MDI and her nebulizer with albuterol. She believes that she has been losing ground through the night. She denies fever. There has not been any productive cough. She states that she stopped smoking a year ago. Timing/Duration: yesterday Prior Episodes/Possible Cause: occasional episodes Modifying Factors: Improves With Albuterol Inhaler, Improves With Albuterol Nebulizer Associated Symptoms: shortness of breath, wheezing Allergies and Home Medications Allergies Coded Allergies: chlorpheniramine (Verified Allergy, Unknown, 03/05/06) phenylephrine (Verified Allergy, Unknown, 03/05/06) phenylpropanolamine (Verified Allergy, Unknown, 03/05/06) phenyltoloxamine (Verified Allergy, Unknown, 03/05/06) Home Medications Albuterol Sulfate 1 Puff Puff, 2 PUFF IH Q4H PRN for WHEEZING, #1 1 PUFF = 90 MCG Prescribed by: DEMETRICE JENNINGS on 11/11/16 1052 Budesonide/Formoterol Fumarate 10.2 Gm Hfa.aer.ad, 2 PUFF IH BID, #1 Prescribed by: DEMETRICE JENNINGS on 11/11/16 1052 Loratadine 10 Mg Tablet, 10 MG PO DAILY, #30 Prescribed by: DEMETRICE JENNINGS on 11/11/16 1052 Montelukast Sodium 10 Mg Tablet, 10 MG PO HS, #1 Prescribed by: DEMETRICE JENNINGS on 11/11/16 1052 Prednisone 10 Mg Tab, 50 MG PO DAILY@0700, #44 Prescribed by: DEMETRICE JENNINGS on 11/11/16 1052 Constitutional: see HPI EENTM: no symptoms reported Respiratory: see HPI, cough, dyspnea on exertion, short of breath, wheezing Cardiovascular: palpitations Gastrointestinal: no symptoms reported Genitourinary: no symptoms reported Musculoskeletal: no symptoms reported Skin: no symptoms reported Psychiatric/Neurological: No Symptoms Reported Hematologic/Lymphatic: No Symptoms Reported Immunological/Allergic: no symptoms reported Past Aoknioz-Ssiqvg-Jrfzri Hx Patient Social History Type Used: Cigarettes Former Smoker, Quit: Nov 04, 2015 2nd Hand Smoke Exposure: Yes ( SMOKES IN HOME) Recent Hopitalizations: Yes (C-SECTIONS, ASTHMA) Immunizations Up To Date Tetanus Booster (TDap): Unknown PED Vaccines UTD: No Date of Pneumonia Vaccine: Mar 05, 2016 Date of Influenza Vaccine: Mar 26, 2016 Seasonal Allergies Seasonal Allergies: Yes Surgeries History of Surgeries: Yes ( X5) Surgeries: Section Respiratory History of Respiratory Disorde: Yes Respiratory Disorders: Asthma Currently Using CPAP: No Currently Using BIPAP: No Cardiovascular History of Cardiac Disorders: No Neurological History of Neurological Disord: No Reproductive System Hx Reproductive Disorders: No Sexually Transmitted Disease: No HIV/AIDS: No Female Reproductive Disorders: Denies Genitourinary History of Genitourinary Disor: No Gastrointestinal History of Gastrointestinal Di: Yes (HEPATITIS C +) Gastrointestinal Disorders: Gastroesophageal Reflux, Liver Disease/Jaundice, Hepatitis Musculoskeletal History of Musculoskeletal Dis: No Endocrine History of Endocrine Disorders: No HEENT History of HEENT Disorders: No Loss of Vision: Denies Hearing Impairment: Denies Cancer History of Cancer: No Psychosocial History of Psychiatric Problem: No Integumentary History of Skin or Integumenta: No Blood Transfusions History of Blood Disorders: No Adverse Reaction to a Blood Tr: No Family Medical History Significant Family History: Asthma Family Medial History: Alcoholism 19 FATHER G8 BROTHER Arthritis 19 FATHER Cardiovascular disease 19 MOTHER Coronary thrombosis 19 MOTHER Diabetes mellitus 19 MOTHER MATERNAL GRANDMOTHER Myocardial infarction 19 MOTHER Neoplasm 19 FATHER (LUNG CANCER) 19 MOTHER Respiratory disorder 19 FATHER (EMPHYSEMA) Physical Exam Vital Signs Vital Sign - Last 12Hours 04/20/17 09:37 Pulse Ox 93 O2 Delivery Nasal Cannula O2 Flow Rate 2.00 Capillary Refill : General Appearance: moderate distress Eyes: Bilateral Eye Normal Inspection HEENT: normal ENT inspection Neck: full range of motion Respiratory: respiratory distress (shallow rapid respirations and stridorous inspiration) Cardiovascular: tachycardia Gastrointestinal: normal bowel sounds, non tender, soft, no organomegaly, no pulsatile mass Neurologic/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: 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 nml as tested, no motor/sensory deficits, alert, normal mood/affect, oriented x 3 Skin: normal color, warm/dry, diaphoresis Lymphatic: no adenopathy Progress/Results/Core Measures Suspected Sepsis SIRS Temperature: Pulse: Respiratory Rate: Blood Pressure / Mean: Results/Orders My Orders Orders - CATHY RUBIO MD Albuterol Pre-Mix Nebs (Rt) (Proventil (04/20/17 09:30) Ipratropium 0.02% Neb Solution (Atrovent (04/20/17 09:30) Svn Sm Volume Nebulizer Rt-Rfs (04/20/17 09:30) Ns Iv 1000 Ml (Sodium Chloride 0.9%) (04/20/17 09:45) Methylprednisolone Sod Succ (Solu-Medrol (04/20/17 09:45) Albuterol Pre-Mix Nebs (Rt) (Proventil (04/20/17 09:24) Ipratropium 0.02% Neb Solution (Atrovent (04/20/17 09:24) Ketamine Injection (Ketalar Injection) (04/20/17 09:51) Medications Given in ED Current Medications Medications Dose Ordered Sig/Ujan José Route Start Time Stop Time Status Last Admin Dose Admin Ipratropium [place] 0.5 mg ONCE ONCE IH 04/20/17 09:30 04/20/17 09:33 DC 04/20/17 09:33 0.5 MG Vital Signs/I&O Vital Sign - Last 12Hours 04/20/17 09:37 Pulse Ox 93 O2 Delivery Nasal Cannula O2 Flow Rate 2.00 Capillary Refill : Departure Communication (Admissions) Progress Notes 1015 called back to the room for declining status. The patient was being bagged. We did not have effective IV access at that time and an IO was placed in the left tibia. She was given etomidate and succinylcholine and intubated in rapid sequence with a video scope. A 7 mm endotracheal tube without difficulty. Breath sounds were heard on both sides and the CO2 monitor was positive. Subsequently Mr. Rubalcava placed an external jugular for IV access.. The patient will be transferred to the ICU. [address] Álvarez from [facility]. The patient will be admitted to the ICU blood gases just returned with a pH of 7.1 and a PCO2 of 86. Impression Impression: Primary Impression: bronchospasm/respiratory failure. Disposition: ADMITTED INPATIENT Condition: Critical Admissions Decision to Admit Reason: Admit from ER (General) Decision to Admit/Date: Apr 20, 2017 Time/Decision to Admit Time: 10:39 Departure-Patient Inst. Referrals: LEANDER COONEY DO (PCP) Primary Care Physician CATHY RUBIO MD Apr 20, 2017 09:38
[2017-04-20] MEDS: methylPREDNISolone 125 MG (Solu-MEDROL) VIAL IV SCH ×2 (09:40→18:42)
[2017-04-20] MEDS ORDERED: methylPREDNISolone 125 MG (Solu-MEDROL) VIAL IVP ONE (09:45)
[2017-04-20] MEDS ORDERED: NS IV 1000 ML 1,000 ML IV SCH ×2 (09:45→23:02)
[2017-04-20] MEDS ORDERED: KETAMINE HCL 100 MG/ML 5 ML VIAL ONE (09:51)
[2017-04-20] MEDS: NS IV 1000 ML 1,000 ML IV SCH ×2 (10:15→21:41)
[2017-04-20 10:37] LABS: ABG BASE EXCESS -2.6 MMOL/L (-2.5-2.5); ABG HCO3 26 MMOL/L (23-27); ABG OXYGEN SATURATION 99 % (94-100); ABG PO2 441 MMHG (79-93); ABG TCO2 29.1 MMOL/L (21.0-31.0)
[2017-04-20 10:38] LABS: ABG PCO2 86 MMHG (35-45); ABG PH 7.11 (7.37-7.43)
[2017-04-20 10:39] LABS: ALLENS TEST YES-POS; PATIENT TEMP 96.6
[2017-04-20] MEDS ORDERED: PROPOFOL DRIP (ICU) 100 ML IV ONE (10:52)
--- NOTE | 2017-04-20 10:55 | Diagnostic Imaging Report ---
INDICATION: ET tube placement. OG tube placement Portable chest shows normal heart size and vascularity. The lungs are clear. There is no effusion or pneumothorax. The ET tube is in good position. The OG tube is in the proximal stomach. IMPRESSION: Interval placement of ET tube and OG tube with chest otherwise appearing normal and stable compared to prior exam from 11/04/2016. Dictated by: Dictated on workstation # [id number]
[2017-04-20 11:00] LABS: BASOPHILS # (AUTO) 0.1 10^3/uL (0.0-0.1); BASOPHILS % (AUTO) 1 % (0-10); EOSINOPHILS # (AUTO) 2.5 10^3/uL (0.0-0.3); EOSINOPHILS % (AUTO) 15 % (0-10); LYMPHOCYTES # (AUTO) 6.9 X 10^3 (1.0-4.0); LYMPHOCYTES % (AUTO) 42 % (12-44); MEAN CORPUSCULAR HEMOGLOBIN 27 PG (25-34); MEAN CORPUSCULAR HGB CONC 32 G/DL (32-36); MEAN CORPUSCULAR VOLUME 84 FL (80-99); MONOCYTES # (AUTO) 1.5 X 10^3 (0.0-1.0); MONOCYTES % (AUTO) 9 % (0-12); NEUTROPHILS # (AUTO) 5.4 X 10^3 (1.8-7.8); NEUTROPHILS % (AUTO) 33 % (42-75); PLATELET COUNT 295 10^3/uL (130-400); RED BLOOD COUNT 5.09 10^6/uL (4.35-5.85); RED CELL DISTRIBUTION WIDTH 15.2 % (10.0-14.5); WHITE BLOOD COUNT 16.4 10^3/uL (4.3-11.0)
[2017-04-20 11:01] LABS: BILIRUBIN,URINE NEGATIVE (NEGATIVE); KETONES,URINE NEGATIVE (NEGATIVE); LEUKOCYTE ESTERASE ,URINE NEGATIVE (NEGATIVE); NITRITE,URINE NEGATIVE (NEGATIVE); PH,URINE 5 (5-9); PROTEIN,URINE 1+ (NEGATIVE); UROBILINOGEN,URINE NORMAL (NORMAL)
[2017-04-20 11:09] LABS: ALANINE AMINOTRANSFERASE 38 U/L (0-55); ALBUMIN 4.2 GM/DL (3.2-4.5); ANION GAP 8 MMOL/L (5-14); ASPARTATE AMINO TRANSFERASE 38 U/L (5-34); BILIRUBIN,TOTAL 0.6 MG/DL (0.1-1.0); BLOOD UREA NITROGEN 8 MG/DL (7-18); BUN/CREATININE RATIO 12; CALCIUM 8.9 MG/DL (8.5-10.1); CARBON DIOXIDE 23 MMOL/L (21-32); CHLORIDE 110 MMOL/L (98-107); CREATININE SERUM 0.67 MG/DL (0.60-1.30); GFR ESTIMATED > 60; GLUCOSE 146 MG/DL (70-105); POTASSIUM 4.7 MMOL/L (3.6-5.0); SODIUM 141 MMOL/L (135-145); TOTAL PROTEIN 7.6 GM/DL (6.4-8.2)
[2017-04-20 11:23] LABS: SQUAMOUS EPITHELIAL CELL,UR 0-2 /HPF
[2017-04-20 11:38] LABS: EOSINOPHILS % (MANUAL) 17 %; LYMPHOCYTES % (MANUAL) 45 %; NEUTROPHILS % (MANUAL) 33 %
[2017-04-20] MEDS ORDERED: PROPOFOL DRIP (ICU) 100 ML IV SCH (12:00)
[2017-04-20 12:30] LABS: ABG BASE EXCESS -2.6 MMOL/L (-2.5-2.5); ABG HCO3 24 MMOL/L (23-27); ABG OXYGEN SATURATION 99 % (94-100); ABG PCO2 56 MMHG (35-45); ABG PO2 140 MMHG (79-93); ABG TCO2 25.5 MMOL/L (21.0-31.0)
[2017-04-20 12:31] LABS: ABG PH 7.25 (7.37-7.43)
[2017-04-20 12:32] LABS: ALLENS TEST YES-POS; PATIENT TEMP 97.8
[2017-04-20] MEDS: fentaNYL INJECTION 1,250 MCG in NS (IVPB) 225 ML IV SCH (12:50)
[2017-04-20] MEDS: RT-ALBUTEROL SULF 2.5 MG/3 ML PRE-MIX VIAL IH SCH ×3 (14:01→22:29)
[2017-04-20] MEDS: CATHETER FLUSH 10 ML SYR IV SCH ×2 (14:01→20:38)
[2017-04-20] MEDS: PROPOFOL DRIP (ICU) 100 ML IV SCH ×2 (14:02→16:06)
[2017-04-20] MEDS ORDERED: LIDOCAINE BOLUS 100 MG/5 ML (IMS) SYR IV ONE (14:05)
[2017-04-20] MEDS ORDERED: MIDAZOLAM 10 MG/2 ML (VERSED) VIAL IVP PRN (14:30)
[2017-04-20] MEDS ORDERED: MIDAZOLAM 2 MG/2 ML (VERSED) VIAL IV PRN ×2 (15:15→23:00)
[2017-04-20 19:03] LABS: ABG BASE EXCESS -3.1 MMOL/L (-2.5-2.5); ABG HCO3 25 MMOL/L (23-27); ABG OXYGEN SATURATION 93 % (94-100); ABG PO2 74 MMHG (79-93); ABG TCO2 27.4 MMOL/L (21.0-31.0)
[2017-04-20 19:14] LABS: ABG PCO2 77 MMHG (35-45); ABG PH 7.14 (7.37-7.43)
[2017-04-20 19:15] LABS: ALLENS TEST YES-POS
[2017-04-20] MEDS ORDERED: RT-ALBUTEROL/IPRATROPIUM 3 ML (DUONEB) VIAL INH ONE (20:30)
[2017-04-20] MEDS: FAMOTIDINE 20MG/2ML IV (PEPCID) IV SCH (20:37)
[2017-04-20 21:33] LABS: PROTHROMBIN TIME PATIENT 13.4 SEC (12.2-14.7)
[2017-04-20 22:02] LABS: ABG BASE EXCESS -5.2 MMOL/L (-2.5-2.5); ABG HCO3 23 MMOL/L (23-27); ABG OXYGEN SATURATION 92 % (94-100); ABG PO2 71 MMHG (79-93); ABG TCO2 25.4 MMOL/L (21.0-31.0)
[2017-04-20 22:04] LABS: ABG PCO2 75 MMHG (35-45); ABG PH 7.11 (7.37-7.43)
[2017-04-20] MEDS: ENOXAPARIN 40 MG/0.4 ML (LOVENOX) SYR SC SCH (22:04)
[2017-04-20 22:05] LABS: ALLENS TEST POSITIVE; PATIENT TEMP 98.5
[2017-04-20] MEDS ORDERED: NS (IVPB) 100 ML ONE (22:29)
[2017-04-20] MEDS ORDERED: MIDAZOLAM FOR DRIPS 10 MG/2 ML VIAL ONE (22:29)
[2017-04-20] MEDS ORDERED: NS IV 1000 ML 1,000 ML IV ONE (23:00)
[2017-04-20] MEDS: MIDAZOLAM DRIP 50 MG/NS 90 ML (TOTAL VOLUME 100 ML) IV SCH ×2 (23:48)
[2017-04-21] VITALS (43 sets, daily range): BP systolic 77–159; BP diastolic 53–101
[2017-04-21 00:48] LABS: ABG BASE EXCESS -6.9 MMOL/L (-2.5-2.5); ABG HCO3 22 MMOL/L (23-27); ABG OXYGEN SATURATION 96 % (94-100); ABG PO2 87 MMHG (79-93); ABG TCO2 24.1 MMOL/L (21.0-31.0)
[2017-04-21 00:49] LABS: ABG PH 7.08 (7.37-7.43)
[2017-04-21] MEDS: PROPOFOL DRIP (ICU) 100 ML IV SCH ×2 (00:49→17:13)
[2017-04-21 00:50] LABS: ABG PCO2 78 MMHG (35-45); ALLENS TEST POSITIVE; PATIENT TEMP 99.2
[2017-04-21 00:56] LABS: BASOPHILS % (AUTO) 0 % (0-10); EOSINOPHILS % (AUTO) 0 % (0-10); LYMPHOCYTES # (AUTO) 0.6 X 10^3 (1.0-4.0); LYMPHOCYTES % (AUTO) 3 % (12-44); MEAN CORPUSCULAR HEMOGLOBIN 27 PG (25-34); MEAN CORPUSCULAR HGB CONC 30 G/DL (32-36); MEAN CORPUSCULAR VOLUME 88 FL (80-99); MEAN PLATELET VOLUME 10.5 FL (7.4-10.4); MONOCYTES # (AUTO) 0.8 X 10^3 (0.0-1.0); MONOCYTES % (AUTO) 4 % (0-12); NEUTROPHILS # (AUTO) 19.5 X 10^3 (1.8-7.8); NEUTROPHILS % (AUTO) 93 % (42-75); PLATELET COUNT 297 10^3/uL (130-400); RED BLOOD COUNT 5.08 10^6/uL (4.35-5.85); RED CELL DISTRIBUTION WIDTH 15.7 % (10.0-14.5); WHITE BLOOD COUNT 20.9 10^3/uL (4.3-11.0)
[2017-04-21 01:04] LABS: ANION GAP 8 MMOL/L (5-14); BLOOD UREA NITROGEN 11 MG/DL (7-18); BUN/CREATININE RATIO 15; CARBON DIOXIDE 20 MMOL/L (21-32); CHLORIDE 114 MMOL/L (98-107); CREATININE SERUM 0.73 MG/DL (0.60-1.30); GFR ESTIMATED > 60; GLUCOSE 151 MG/DL (70-105); PHOSPHORUS 4.3 MG/DL (2.3-4.7); POTASSIUM 5.8 MMOL/L (3.6-5.0); SODIUM 142 MMOL/L (135-145)
[2017-04-21] MEDS: RT-ALBUTEROL SULF 2.5 MG/3 ML PRE-MIX VIAL IH SCH ×9 (02:07→22:17)
[2017-04-21 02:14] LABS: ABG BASE EXCESS -5.4 MMOL/L (-2.5-2.5); ABG HCO3 24 MMOL/L (23-27); ABG OXYGEN SATURATION 94 % (94-100); ABG PO2 79 MMHG (79-93); ABG TCO2 26.1 MMOL/L (21.0-31.0)
[2017-04-21 02:15] LABS: ALLENS TEST POSITIVE; PATIENT TEMP 98.2
[2017-04-21 02:17] LABS: ABG PH 7.08 (7.37-7.43)
[2017-04-21 02:18] LABS: ABG PCO2 84 MMHG (35-45)
[2017-04-21] MEDS ORDERED: SOD POLYSTERENE 15 GM/60 ML (KAYEXALATE) UNIT DOSE ONE (03:29)
[2017-04-21 03:45] LABS: ABG BASE EXCESS -4.5 MMOL/L (-2.5-2.5); ABG HCO3 24 MMOL/L (23-27); ABG OXYGEN SATURATION 98 % (94-100); ABG PO2 126 MMHG (79-93); ABG TCO2 26.2 MMOL/L (21.0-31.0)
[2017-04-21] MEDS ORDERED: SOD POLYSTERENE 15 GM/60 ML (KAYEXALATE) UNIT DOSE PO ONE (03:45)
[2017-04-21] MEDS ORDERED: SOD POLYSTERENE 15 GM/60 ML (KAYEXALATE) UNIT DOSE NG NR (03:45)
[2017-04-21 03:46] LABS: ABG PCO2 80 MMHG (35-45); ABG PH 7.11 (7.37-7.43); ALLENS TEST POSITIVE
[2017-04-21 03:47] LABS: PATIENT TEMP 99.4
[2017-04-21] MEDS: methylPREDNISolone 125 MG (Solu-MEDROL) VIAL IV SCH ×4 (03:50→21:59)
[2017-04-21] MEDS: CISATRACURIUM 100 MG/NS 200 ML (TOTAL VOLUME 250 ML) IV SCH ×2 (04:31)
[2017-04-21] MEDS: CATHETER FLUSH 10 ML SYR IV SCH ×3 (05:19→21:59)
[2017-04-21] MEDS: ARTIFICIAL TEARS OINT (LACRI-LUBE) 3.5 GM TUBE OU SCH ×5 (05:19→21:01)
[2017-04-21] MEDS: MAGNESIUM 1 GM/100 ML IVPB 100 ML IV SCH ×2 (05:34→06:18)
--- NOTE | 2017-04-21 06:28 | Pulmonary Consultation ---
History of Present Illness History of Present Illness Date of Consultation 04/21/17 06:23 Time Seen by Provider: 06:23 Date of Admission History of Present Illness 31yo patient with hx of severe uncontrolled asthma presented to ED secondary to worsening SOB. Pt was intubated in the ED secondary to progressive SOB. Pt is currently sedated and medically paralyzed secondary to severe asthma AE. All information was obtained from the chart. Pt has had multiple previous episodes of asthma AE. Pt stopped smoking 1yr ago however her still continues to smoke. I was notified of consult this AM for CC/pulmonary management. Allergies and Home Medications Allergies Coded Allergies: chlorpheniramine (Verified Allergy, Unknown, 03/05/06) phenylephrine (Verified Allergy, Unknown, 03/05/06) phenylpropanolamine (Verified Allergy, Unknown, 03/05/06) phenyltoloxamine (Verified Allergy, Unknown, 03/05/06) Home Medications No Active Prescriptions or Reported Meds Past Okicrhb-Ikofee-Fshrcn Hx Patient Social History Alcohol Use: Denies Use Recreational Drug Use: Yes Drug of Choice: methamphetamine per UA Type Used: Cigarettes Former Smoker, Quit: Nov 04, 2015 2nd Hand Smoke Exposure: Yes ( SMOKES IN HOME) Recent Foreign Travel: No Contact w/Someone Who Travel: No Recent Infectious Disease Expo: No Recent Hopitalizations: Yes (C-SECTIONS, ASTHMA) Physical Abuse: No Sexual Abuse: No Immunizations Up To Date Tetanus Booster (TDap): Unknown PED Vaccines UTD: No Date of Pneumonia Vaccine: Mar 05, 2016 Date of Influenza Vaccine: Mar 26, 2016 Seasonal Allergies Seasonal Allergies: Yes Surgeries History of Surgeries: Yes ( X5) Surgeries: Section Respiratory History of Respiratory Disorde: Yes Respiratory Disorders: Asthma Currently Using CPAP: No Currently Using BIPAP: No Cardiovascular History of Cardiac Disorders: No Neurological History of Neurological Disord: No Reproductive System Hx Reproductive Disorders: No Sexually Transmitted Disease: No HIV/AIDS: No Female Reproductive Disorders: Denies Genitourinary History of Genitourinary Disor: No Gastrointestinal History of Gastrointestinal Di: Yes (HEPATITIS C +) Gastrointestinal Disorders: Gastroesophageal Reflux, Liver Disease/Jaundice, Hepatitis Musculoskeletal History of Musculoskeletal Dis: No Endocrine History of Endocrine Disorders: No HEENT History of HEENT Disorders: No Loss of Vision: Denies Hearing Impairment: Denies Cancer History of Cancer: No Psychosocial History of Psychiatric Problem: No Suicide Risk Score: 0 Integumentary History of Skin or Integumenta: No Blood Transfusions History of Blood Disorders: No Adverse Reaction to a Blood Tr: No Family Medical History Significant Family History: Asthma Family Medial History: Alcoholism 19 FATHER G8 BROTHER Arthritis 19 FATHER Cardiovascular disease 19 MOTHER Coronary thrombosis 19 MOTHER Diabetes mellitus 19 MOTHER MATERNAL GRANDMOTHER Myocardial infarction 19 MOTHER Neoplasm 19 FATHER (LUNG CANCER) 19 MOTHER Respiratory disorder 19 FATHER (EMPHYSEMA) Review of Systems Time Seen by Provider: 06:28 Exam Exam Vital Signs Date Time Temp Pulse Resp B/P (MAP) Pulse Ox O2 Delivery O2 Flow Rate FiO2 04/21/17 06:00 131 30 152/96 99 Mechanical Ventilator 100.00 04/21/17 05:30 135 29 139/87 98 Mechanical Ventilator 100.00 04/21/17 05:09 100 04/21/17 05:00 129 14 119/71 88 Mechanical Ventilator 40.00 04/21/17 04:05 97 Mechanical Ventilator 40.00 04/21/17 04:00 135 17 111/67 98 Mechanical Ventilator 40.00 04/21/17 03:30 98.8 137 30 114/69 97 Mechanical Ventilator 50.00 04/21/17 03:07 140 36 97 50 04/21/17 03:00 137 15 107/75 94 Mechanical Ventilator 50.00 04/21/17 02:30 137 15 123/71 88 Mechanical Ventilator 50.00 04/21/17 02:07 133 30 92 40 04/21/17 02:00 133 15 109/78 92 Mechanical Ventilator 40.00 04/21/17 01:00 131 17 112/75 90 Mechanical Ventilator 40.00 04/21/17 01:00 131 04/21/17 00:49 130 28 117/86 92 Mechanical Ventilator 40.00 04/21/17 00:46 130 28 117/86 92 Mechanical Ventilator 40.00 04/21/17 00:34 129 33 91 40 04/21/17 00:00 92 Mechanical Ventilator 40.00 04/21/17 00:00 98.0 126 28 109/70 92 Mechanical Ventilator 40.00 04/20/17 23:00 149 27 80/66 96 Mechanical Ventilator 40.00 04/20/17 22:29 138 31 93 40 04/20/17 22:00 140 19 112/64 94 Mechanical Ventilator 40.00 04/20/17 21:00 149 19 108/76 96 Mechanical Ventilator 40.00 04/20/17 20:36 129 20 94 40 04/20/17 20:00 96 Mechanical Ventilator 40.00 04/20/17 20:00 122 13 126/87 95 Mechanical Ventilator 40.00 04/20/17 19:00 97.5 118 14 122/83 96 Mechanical Ventilator 40.00 04/20/17 19:00 122 04/20/17 18:25 124 14 98 40 04/20/17 18:00 114 13 101/59 97 Mechanical Ventilator 40.00 04/20/17 17:00 109 13 110/68 97 Mechanical Ventilator 40.00 04/20/17 16:24 110 14 97 40 04/20/17 16:10 97 Mechanical Ventilator 40.00 04/20/17 16:06 116/68 04/20/17 16:00 110 13 116/68 100 Mechanical Ventilator 40.00 04/20/17 15:00 110 14 119/78 100 Mechanical Ventilator 40.00 04/20/17 14:02 138/88 04/20/17 14:01 108 19 100 50 04/20/17 14:00 106 21 136/86 100 Mechanical Ventilator 40.00 04/20/17 13:00 105 17 124/78 100 Mechanical Ventilator 40.00 04/20/17 13:00 105 04/20/17 12:55 Mechanical Ventilator 40.00 04/20/17 12:00 109 26 115/79 100 Mechanical Ventilator 50.00 04/20/17 11:56 109 21 100 50 04/20/17 11:45 107 24 115/79 100 Mechanical Ventilator 04/20/17 11:35 Mechanical Ventilator 50 04/20/17 11:35 99.2 Mechanical Ventilator 50.00 04/20/17 11:35 108 04/20/17 11:30 108 24 105/74 100 Mechanical Ventilator 04/20/17 11:11 114 14 97 Mechanical Ventilator 04/20/17 10:29 129 14 105/69 97 Mechanical Ventilator 04/20/17 10:22 114 25 98 50 04/20/17 09:37 93 Nasal Cannula 2.00 04/20/17 09:23 96.6 138 44 124/77 84 Room Air General Appearance: Severe Distress HEENT: PERRL/EOMI, Normal ENT Inspection, Pharynx Normal Neck: Full Range of Motion, Normal Inspection, Non Tender, Supple Respiratory: Decreased Breath Sounds, Expiration, Wheezing Cardiovascular: Tachycardia Capillary Refill: Less Than 3 Seconds Gastrointestinal: soft, no organomegaly, no pulsatile mass Extremity: Normal Capillary Refill, Normal Inspection Neurologic/Psychiatric: Other (pt is sedated and paralyzed. ) Lymphatic: No Adenopathy Results Lab Laboratory Tests 04/20/17 10:20 04/21/17 00:40 04/21/17 02:00 Assessment/Plan Assessment/Plan Acute severe respiratory failure -Pt is currently on PC settings -Diprivan gtt -repeat ABG Severe Asthma AE -Give Mg bolus -repeat cont nebulizer --Continue Nimbex gtt -Add ketamine gtt -Exchage ET tube out for 8.0 Hyperkalemia -repeat chem Leukocytosis - probably reactive and secondary to steroids -will add Rocephin and azithromycin secondary to patients severe life threatening condition. Methamphetamine dependance hx of tobacco use and current second hand exposure. 120min of ICU time spent in ICU at bedside with patient and medical team. PTs prognosis is guarded at this time. Clinical Quality Measures DVT/VTE Risk/Contraindication: Risk Factor Score Per Nursin RFS Level Per Nursing on Admit: 4+=Very High TONIO GOTTI DO Apr 21, 2017 06:28
[2017-04-21] MEDS ORDERED: KETAMINE HCL 100 MG/ML 5 ML VIAL IV ONE (06:30)
--- NOTE | 2017-04-21 06:35 | Anesthesia-Procedure Note ---
Procedure Start/Stop Time Date of Procedure: Apr 21, 2017 Start Time: 06:00 Stop Time: 06:10 Procedures/Interventions Procedures Called to exchange ETT from a 7.0 to 8.0. Patient paralysed and sedated. Endotracheal tube exchanged with ease using cook airway exchange. 100% O2 prior to exchange. Servando. breath sounds equal. CXR obtained and pending. RADHA ANTUNEZ CRNA Apr 21, 2017 06:35
[2017-04-21 07:04] LABS: BASOPHILS % (AUTO) 0 % (0-10); EOSINOPHILS % (AUTO) 0 % (0-10); LYMPHOCYTES # (AUTO) 1.4 X 10^3 (1.0-4.0); LYMPHOCYTES % (AUTO) 4 % (12-44); MEAN CORPUSCULAR HEMOGLOBIN 27 PG (25-34); MEAN CORPUSCULAR HGB CONC 30 G/DL (32-36); MEAN CORPUSCULAR VOLUME 91 FL (80-99); MEAN PLATELET VOLUME 10.7 FL (7.4-10.4); MONOCYTES # (AUTO) 2.3 X 10^3 (0.0-1.0); MONOCYTES % (AUTO) 7 % (0-12); NEUTROPHILS # (AUTO) 30.9 X 10^3 (1.8-7.8); NEUTROPHILS % (AUTO) 89 % (42-75); PLATELET COUNT 349 10^3/uL (130-400); RED BLOOD COUNT 5.46 10^6/uL (4.35-5.85); RED CELL DISTRIBUTION WIDTH 15.8 % (10.0-14.5)
[2017-04-21 07:06] LABS: WHITE BLOOD COUNT 34.6 10^3/uL (4.3-11.0)
[2017-04-21 07:15] LABS: INR 1.1 (0.8-1.4); PROTHROMBIN TIME PATIENT 14.6 SEC (12.2-14.7)
[2017-04-21 07:23] LABS: ANION GAP 5 MMOL/L (5-14); BLOOD UREA NITROGEN 13 MG/DL (7-18); BUN/CREATININE RATIO 16; CALCIUM 8.2 MG/DL (8.5-10.1); CARBON DIOXIDE 24 MMOL/L (21-32); CHLORIDE 110 MMOL/L (98-107); CREATININE SERUM 0.81 MG/DL (0.60-1.30); GFR ESTIMATED > 60; GLUCOSE 277 MG/DL (70-105); MAGNESIUM 3.2 MG/DL (1.8-2.4); SODIUM 139 MMOL/L (135-145)
[2017-04-21 07:26] LABS: POTASSIUM 7.1 MMOL/L (3.6-5.0)
[2017-04-21] MEDS ORDERED: SODIUM BICARB 8.4% 50 MEQ/50 ML (ABBOTT) SYR ONE ×2 (07:30→07:59)
[2017-04-21 07:43] LABS: BAND NEUTROPHILS 3 %; BASOPHILS % (MANUAL) 0 %; EOSINOPHILS % (MANUAL) 0 %; LYMPHOCYTES % (MANUAL) 5 %; NEUTROPHILS % (MANUAL) 89 %
[2017-04-21] MEDS ORDERED: KETAMINE INJECTION 100 MG in NS (IVPB) 100 ML IV SCH (07:45)
[2017-04-21] MEDS ORDERED: inSUlin (REGULAR) HUMAN 1 UNIT/0.01 ML (CHARGE PER UNIT) ONE (07:55)
[2017-04-21] MEDS ORDERED: CALCIUM CHLORIDE 1 GM/10 ML (IMS) SYR ONE (07:58)
[2017-04-21] MEDS ORDERED: DEXTROSE 50% 50 ML (IMS) SYR ONE (07:59)
[2017-04-21] MEDS: fentaNYL INJECTION 1,250 MCG in NS (IVPB) 225 ML IV SCH (07:59)
[2017-04-21] MEDS ORDERED: KETAMINE INJECTION 500 MG in NS IV 500 ML 500 ML IV SCH (08:00)
[2017-04-21] MEDS ORDERED: MIDAZOLAM 2 MG/2 ML (VERSED) VIAL IV SCH (08:00)
[2017-04-21] MEDS ORDERED: CALCIUM CHLORIDE 1 GM/10 ML (IMS) SYR INJ NR (08:15)
[2017-04-21] MEDS ORDERED: SOD POLYSTERENE 15 GM/60 ML (KAYEXALATE) UNIT DOSE PO NR (08:15)
[2017-04-21] MEDS ORDERED: SODIUM BICARB 8.4% 50 MEQ/50 ML (ABBOTT) SYR IV NR (08:15)
[2017-04-21] MEDS ORDERED: inSUlin (REGULAR) HUMAN 1 UNIT/0.01 ML (CHARGE PER UNIT) SC NR (08:15)
[2017-04-21] MEDS ORDERED: DEXTROSE 50% 50 ML (IMS) SYR IV NR (08:15)
[2017-04-21] MEDS: AZITHROMYCIN INJECTION 500 MG in NS (IVPB) 250 ML IV SCH (08:17)
--- NOTE | 2017-04-21 08:31 | Diagnostic Imaging Report ---
INDICATION: Mechanical ventilation, ICU management. TECHNIQUE: Single view chest 5:08 a.m. CORRELATION STUDY: 04/20/2017 FINDINGS: Endotracheal tube and gastric tube remain in place. Heart size and mediastinum are stable. Lung hernandez symmetrically well inflated. No significant infiltrate. IMPRESSION: 1. Stable support lines and tubes. Significant interval change in the appearance of the chest radiograph. Dictated by: Dictated on workstation # [id number]
[2017-04-21] MEDS: NS IV 1000 ML 1,000 ML IV SCH (08:33)
[2017-04-21] MEDS: cefTRIAXone INJECTION 1,000 MG in NS (IVPB) 50 ML IV SCH (08:33)
[2017-04-21 08:48] LABS: ABG OXYGEN SATURATION 99 % (94-100); ABG PO2 421 MMHG (79-93)
[2017-04-21 08:56] LABS: ABG PH 6.84 (7.37-7.43)
[2017-04-21 08:57] LABS: ALLENS TEST YES-POS; PATIENT TEMP 99.5
--- NOTE | 2017-04-21 08:58 | Diagnostic Imaging Report ---
INDICATION: Exchange of endotracheal tube. TECHNIQUE: Single view chest 6:17 a.m. CORRELATION STUDY: 04/21/2017 FINDINGS: Endotracheal tube is present. Tip is somewhat obscured by overlying monitor lead and gastric tube, but appears to be over the trachea just below the level of clavicles and above the anita. Gastric tube remains in place. Heart size, mediastinum and vasculature appearing stable. Lung hernandez unchanged. IMPRESSION: 1. Endotracheal tube somewhat obscured but appears to be superimposed over the trachea tip just below the level of the clavicles. Dictated by: Dictated on workstation # [id number]
[2017-04-21] MEDS ORDERED: SODIUM BICARB 8.4% 50 MEQ/50 ML (ABBOTT) SYR IV ONE (09:15)
--- NOTE | 2017-04-21 09:17 | History & Physicial ([facility]) ---
HPI History of Present Illness: 31yo woman well known to me for her chronic asthma and unfortunate non- compliance with medical therapy presented to ER with rapid onset of acute respiratory failure. Patient apparently told the ER staff she was sick for only a day or so prior to coming to ER. SHe had been using her albuterol nebs and MDI to no avail. She required intubation while in ER due to rapidly worsening respiratory failure. Of note, Denise also has a history of drug abuse and was positive for methamphetamines in ER. She established care with our clinic in May of this year and did not return until December when I saw her. Our service has admitted her multiple times for asthma, but Denise has only intermittently followed up. We did arrange for her to see Dr Walsh, but as of December, she still had not seen him. Source: RN/, old records Exam Limitations: clinical condition Date seen by provider: Apr 21, 2017 Time Seen by Provider: 09:00 Attending Physician Landon Rowan MD PCP Hillary Hamm DO Consult Yan Walsh DO - [employer] Date of Admission Apr 20, 2017 at 11:17 Home Medications Home Medications Reviewed patient Home Medication Reconciliation Form Allergies Coded Allergies: chlorpheniramine (Verified Allergy, Unknown, 03/05/06) phenylephrine (Verified Allergy, Unknown, 03/05/06) phenylpropanolamine (Verified Allergy, Unknown, 03/05/06) phenyltoloxamine (Verified Allergy, Unknown, 03/05/06) AOS-Qojwwk-Alpjsd Hx Patient Social History Alcohol Use: Denies Use Recreational Drug Use: Yes Drug of Choice: methamphetamine per UA Former smoker/When Quit: Jan 24, 2015 Type Used: Cigarettes 2nd Hand Smoke Exposure: Yes ( SMOKES IN HOME) Recent Foreign Travel: No Contact w/other who traveled: No Recent Hopitalizations: Yes (C-SECTIONS, ASTHMA) Recent Infectious Disease Expo: No Physical Abuse Screen: No Sexual Abuse: No Immunizations Up To Date Tetanus Booster (TDap): Unknown Date of Pneumonia Vaccine: Mar 05, 2016 Date of Influenza Vaccine: Mar 26, 2016 Past Medical History Asthma, Hep C Family Medical History Significant Family History: Asthma Family History: Alcoholism 19 FATHER G8 BROTHER Arthritis 19 FATHER Cardiovascular disease 19 MOTHER Coronary thrombosis 19 MOTHER Diabetes mellitus 19 MOTHER MATERNAL GRANDMOTHER Myocardial infarction 19 MOTHER Neoplasm 19 FATHER (LUNG CANCER) 19 MOTHER Respiratory disorder 19 FATHER (EMPHYSEMA) Review of Systems ([facility]) Constitutional: see HPI Other UNABLE TO OBTAIN Reviewed Test Results Reviewed Test Results Lab Laboratory Tests Test 04/20/17 10:20 04/20/17 10:25 04/20/17 10:39 04/20/17 12:10 Range/Units White Blood Count 16.4 H 4.3-11.0 10^3/uL Red Blood Count 5.09 4.35-5.85 10^6/uL Hemoglobin 13.7 11.5-16.0 G/DL Hematocrit 43 35-52 % Mean Corpuscular Volume 84 80-99 FL Mean Corpuscular Hemoglobin 27 25-34 PG Mean Corpuscular Hemoglobin Concent 32 32-36 G/DL Red Cell Distribution Width 15.2 H 10.0-14.5 % Platelet Count 295 130-400 10^3/uL Mean Platelet Volume 11.0 H 7.4-10.4 FL Neutrophils (%) (Auto) 33 L 42-75 % Lymphocytes (%) (Auto) 42 12-44 % Monocytes (%) (Auto) 9 0-12 % Eosinophils (%) (Auto) 15 H 0-10 % Basophils (%) (Auto) 1 0-10 % Neutrophils # (Auto) 5.4 1.8-7.8 X 10^3 Lymphocytes # (Auto) 6.9 H 1.0-4.0 X 10^3 Monocytes # (Auto) 1.5 H 0.0-1.0 X 10^3 Eosinophils # (Auto) 2.5 H 0.0-0.3 10^3/uL Basophils # (Auto) 0.1 0.0-0.1 10^3/uL Neutrophils % (Manual) 33 % Lymphocytes % (Manual) 45 % Monocytes % (Manual) 5 % Eosinophils % (Manual) 17 % Nucleated Red Blood Cells 1 Platelet Estimate A Clumped Platelets MODERATE Blood Morphology Comment NORMAL Sodium Level 141 135-145 MMOL/L Potassium Level 4.7 3.6-5.0 MMOL/L Chloride Level 110 H 98-107 MMOL/L Carbon Dioxide Level 23 21-32 MMOL/L Anion Gap 8 5-14 MMOL/L Blood Urea Nitrogen 8 7-18 MG/DL Creatinine 0.67 0.60-1.30 MG/DL Estimat Glomerular Filtration Rate > 60 BUN/Creatinine Ratio 12 Glucose Level 146 H 70-105 MG/DL Calcium Level 8.9 8.5-10.1 MG/DL Total Bilirubin 0.6 0.1-1.0 MG/DL Aspartate Amino Transf (AST/SGOT) 38 H 5-34 U/L Alanine Aminotransferase (ALT/SGPT) 38 0-55 U/L Alkaline Phosphatase 54 40-136 U/L Total Protein 7.6 6.4-8.2 GM/DL Albumin 4.2 3.2-4.5 GM/DL Blood Gas Puncture Site L.RAIAL L. RADIAL Blood Gas Patient Temperature 96.6 97.8 Arterial Blood pH 7.11 *L 7.25 *L 7.37-7.43 Arterial Blood Partial Pressure CO2 86 *H 56 H 35-45 MMHG Arterial Blood Partial Pressure O2 441 H 140 H 79-93 MMHG Arterial Blood HCO3 26 24 23-27 MMOL/L Arterial Blood Total CO2 29.1 25.5 21.0-31.0 MMOL/L Arterial Blood Oxygen Saturation 99 99 94-100 % Arterial Blood Base Excess -2.6 L -2.6 L -2.5-2.5 MMOL/L Familia Test YES-POS YES-POS Blood Gas Ventilator Setting NO YES Blood Gas Inspired Oxygen 15 L. 50% Urine Color YELLOW Urine Clarity SLIGHTLY CLOUDY Urine pH 5 5-9 Urine Specific [place] 1.020 1.016-1.022 Urine Protein 1+ H NEGATIVE Urine Glucose (UA) NEGATIVE NEGATIVE Urine Ketones NEGATIVE NEGATIVE Urine Nitrite NEGATIVE NEGATIVE Urine Bilirubin NEGATIVE NEGATIVE Urine Urobilinogen NORMAL NORMAL MG/DL Urine Leukocyte Esterase NEGATIVE NEGATIVE Urine RBC (Auto) NEGATIVE NEGATIVE Urine RBC NONE /HPF Urine WBC NONE /HPF Urine Squamous Epithelial Cells 0-2 /HPF Urine Crystals NONE /LPF Urine Bacteria NEGATIVE /HPF Urine Casts NONE /LPF Urine Mucus NEGATIVE /LPF Urine Culture Indicated NO Urine Opiates Screen NEGATIVE NEGATIVE Urine Oxycodone Screen NEGATIVE NEGATIVE Urine Methadone Screen NEGATIVE NEGATIVE Urine Propoxyphene Screen NEGATIVE NEGATIVE Urine Barbiturates Screen NEGATIVE NEGATIVE Ur Tricyclic Antidepressants Screen NEGATIVE NEGATIVE Urine Phencyclidine Screen NEGATIVE NEGATIVE Urine Amphetamines Screen POSITIVE H NEGATIVE Urine Methamphetamines Screen POSITIVE H NEGATIVE Urine Benzodiazepines Screen NEGATIVE NEGATIVE Urine Cocaine Screen NEGATIVE NEGATIVE Urine Cannabinoids Screen NEGATIVE NEGATIVE Test 04/20/17 18:56 04/20/17 21:14 04/20/17 21:53 04/20/17 22:28 Range/Units Blood Gas Puncture Site R.RADIAL RIGHT WRIST Blood Gas Patient Temperature 98.0 98.5 Arterial Blood pH 7.14 *L 7.11 *L 7.37-7.43 Arterial Blood Partial Pressure CO2 77 *H 75 *H 35-45 MMHG Arterial Blood Partial Pressure O2 74 L 71 L 79-93 MMHG Arterial Blood HCO3 25 23 23-27 MMOL/L Arterial Blood Total CO2 27.4 25.4 21.0-31.0 MMOL/L Arterial Blood Oxygen Saturation 93 L 92 L 94-100 % Arterial Blood Base Excess -3.1 L -5.2 L -2.5-2.5 MMOL/L Familia Test YES-POS POSITIVE Blood Gas Ventilator Setting YES YES Blood Gas Inspired Oxygen 40% 40% Prothrombin Time 13.4 12.2-14.7 SEC INR Comment 1.0 0.8-1.4 Activated Partial Thromboplast Time 27 24-35 SEC Glucometer 148 H 70-110 MG/DL Test 04/21/17 00:40 04/21/17 02:00 04/21/17 02:08 04/21/17 03:38 Range/Units White Blood Count 20.9 H 4.3-11.0 10^3/uL Red Blood Count 5.08 4.35-5.85 10^6/uL Hemoglobin 13.5 11.5-16.0 G/DL Hematocrit 45 35-52 % Mean Corpuscular Volume 88 80-99 FL Mean Corpuscular Hemoglobin 27 25-34 PG Mean Corpuscular Hemoglobin Concent 30 L 32-36 G/DL Red Cell Distribution Width 15.7 H 10.0-14.5 % Platelet Count 297 130-400 10^3/uL Mean Platelet Volume 10.5 H 7.4-10.4 FL Neutrophils (%) (Auto) 93 H 42-75 % Lymphocytes (%) (Auto) 3 L 12-44 % Monocytes (%) (Auto) 4 0-12 % Eosinophils (%) (Auto) 0 0-10 % Basophils (%) (Auto) 0 0-10 % Neutrophils # (Auto) 19.5 H 1.8-7.8 X 10^3 Lymphocytes # (Auto) 0.6 L 1.0-4.0 X 10^3 Monocytes # (Auto) 0.8 0.0-1.0 X 10^3 Eosinophils # (Auto) 0.0 0.0-0.3 10^3/uL Basophils # (Auto) 0.0 0.0-0.1 10^3/uL Blood Gas Puncture Site LEFT RADIAL LEFT RADIAL LEFT RADIAL Blood Gas Patient Temperature 99.2 98.2 99.4 Arterial Blood pH 7.08 *L 7.08 *L 7.11 *L 7.37-7.43 Arterial Blood Partial Pressure CO2 78 *H 84 *H 80 *H 35-45 MMHG Arterial Blood Partial Pressure O2 87 79 126 H 79-93 MMHG Arterial Blood HCO3 22 L 24 24 23-27 MMOL/L Arterial Blood Total CO2 24.1 26.1 26.2 21.0-31.0 MMOL/L Arterial Blood Oxygen Saturation 96 94 98 94-100 % Arterial Blood Base Excess -6.9 L -5.4 L -4.5 L -2.5-2.5 MMOL/L Familia Test POSITIVE POSITIVE POSITIVE Blood Gas Ventilator Setting YES YES YES Blood Gas Inspired Oxygen 40% 40% 50% Sodium Level 142 135-145 MMOL/L Potassium Level 5.8 H 6.2 H 3.6-5.0 MMOL/L Chloride Level 114 H 98-107 MMOL/L Carbon Dioxide Level 20 L 21-32 MMOL/L Anion Gap 8 5-14 MMOL/L Blood Urea Nitrogen 11 7-18 MG/DL Creatinine 0.73 0.60-1.30 MG/DL Estimat Glomerular Filtration Rate > 60 BUN/Creatinine Ratio 15 Glucose Level 151 H 70-105 MG/DL Calcium Level 8.0 L 8.5-10.1 MG/DL Phosphorus Level 4.3 2.3-4.7 MG/DL Magnesium Level 2.0 1.8-2.4 MG/DL Test 04/21/17 06:08 04/21/17 06:58 04/21/17 08:40 04/21/17 10:30 Range/Units Glucometer 163 H 70-110 MG/DL White Blood Count 34.6 *H 4.3-11.0 10^3/uL Red Blood Count 5.46 4.35-5.85 10^6/uL Hemoglobin 14.7 11.5-16.0 G/DL Hematocrit 50 35-52 % Mean Corpuscular Volume 91 80-99 FL Mean Corpuscular Hemoglobin 27 25-34 PG Mean Corpuscular Hemoglobin Concent 30 L 32-36 G/DL Red Cell Distribution Width 15.8 H 10.0-14.5 % Platelet Count 349 130-400 10^3/uL Mean Platelet Volume 10.7 H 7.4-10.4 FL Neutrophils (%) (Auto) 89 H 42-75 % Lymphocytes (%) (Auto) 4 L 12-44 % Monocytes (%) (Auto) 7 0-12 % Eosinophils (%) (Auto) 0 0-10 % Basophils (%) (Auto) 0 0-10 % Neutrophils # (Auto) 30.9 H 1.8-7.8 X 10^3 Lymphocytes # (Auto) 1.4 1.0-4.0 X 10^3 Monocytes # (Auto) 2.3 H 0.0-1.0 X 10^3 Eosinophils # (Auto) 0.0 0.0-0.3 10^3/uL Basophils # (Auto) 0.0 0.0-0.1 10^3/uL Neutrophils % (Manual) 89 % Lymphocytes % (Manual) 5 % Monocytes % (Manual) 3 % Eosinophils % (Manual) 0 % Basophils % (Manual) 0 % Band Neutrophils 3 % Blood Morphology Comment NORMAL Prothrombin Time 14.6 12.2-14.7 SEC INR Comment 1.1 0.8-1.4 Sodium Level 139 135-145 MMOL/L Potassium Level 7.1 *H 3.6-5.0 MMOL/L Chloride Level 110 H 98-107 MMOL/L Carbon Dioxide Level 24 21-32 MMOL/L Anion Gap 5 5-14 MMOL/L Blood Urea Nitrogen 13 7-18 MG/DL Creatinine 0.81 0.60-1.30 MG/DL Estimat Glomerular Filtration Rate > 60 BUN/Creatinine Ratio 16 Glucose Level 277 H 70-105 MG/DL Calcium Level 8.2 L 8.5-10.1 MG/DL Magnesium Level 3.2 H 1.8-2.4 MG/DL Blood Gas Puncture Site LT RAD Blood Gas Patient Temperature 99.5 Arterial Blood pH 6.84 *L 7.37-7.43 Arterial Blood Partial Pressure CO2 35-45 MMHG Arterial Blood Partial Pressure O2 421 H 79-93 MMHG Arterial Blood HCO3 23-27 MMOL/L Arterial Blood Total CO2 21.0-31.0 MMOL/L Arterial Blood Oxygen Saturation 99 94-100 % Arterial Blood Base Excess -2.5-2.5 MMOL/L Familia Test YES-POS Blood Gas Ventilator Setting YES Blood Gas Inspired Oxygen 100% Urine Test NEGATIVE NEGATIVE Test 04/21/17 10:53 Range/Units Blood Gas Puncture Site ART LINE Blood Gas Patient Temperature 97.0 Arterial Blood pH 6.99 *L 7.37-7.43 Arterial Blood Partial Pressure CO2 133 *H 35-45 MMHG Arterial Blood Partial Pressure O2 419 H 79-93 MMHG Arterial Blood HCO3 31 H 23-27 MMOL/L Arterial Blood Total CO2 35.6 H 21.0-31.0 MMOL/L Arterial Blood Oxygen Saturation 99 94-100 % Arterial Blood Base Excess 0.2 -2.5-2.5 MMOL/L Familia Test ART LINE Blood Gas Ventilator Setting YES Blood Gas Inspired Oxygen 100% Sodium Level 150 H 135-145 MMOL/L Potassium Level 4.8 3.6-5.0 MMOL/L Chloride Level 113 H 98-107 MMOL/L Carbon Dioxide Level 30 21-32 MMOL/L Anion Gap 7 5-14 MMOL/L Blood Urea Nitrogen 14 7-18 MG/DL Creatinine 0.79 0.60-1.30 MG/DL Estimat Glomerular Filtration Rate > 60 BUN/Creatinine Ratio 18 Glucose Level 218 H 70-105 MG/DL Calcium Level 8.4 L 8.5-10.1 MG/DL Phosphorus Level 5.4 H 2.3-4.7 MG/DL Magnesium Level 2.5 H 1.8-2.4 MG/DL Radiology Date of Exam: 04/20/17 CHEST 1 VIEW, AP/PA ONLY INDICATION: ET tube placement. OG tube placement Portable chest shows normal heart size and vascularity. The lungs are clear. There is no effusion or pneumothorax. The ET tube is in good position. The OG tube is in the proximal stomach. IMPRESSION: Interval placement of ET tube and OG tube with chest otherwise appearing normal and stable compared to prior exam from 11/04/2016. Physical Exam-([facility]) Physical Exam Vital Signs VS - Last 72 Hours, by Label 04/20/17 04/20/17 04/20/17 04/20/17 09:23 09:37 10:22 10:29 Temp 96.6 Pulse 138 114 129 Resp 44 25 14 B/P (MAP) 124/77 105/69 Pulse Ox 84 93 98 97 O2 Delivery Room Air Nasal Cannula Mechanical Ventilator O2 Flow Rate 2.00 FiO2 50 04/20/17 04/20/17 04/20/17 04/20/17 11:11 11:30 11:35 11:35 Temp 99.2 Pulse 114 108 108 Resp 14 24 B/P (MAP) 105/74 Pulse Ox 97 100 O2 Delivery Mechanical Ventilator Mechanical Ventilator Mechanical Ventilator O2 Flow Rate 50.00 04/20/17 04/20/17 04/20/17 04/20/17 11:35 11:45 11:56 12:00 Pulse 107 109 109 Resp 24 21 26 B/P (MAP) 115/79 115/79 Pulse Ox 100 100 100 O2 Delivery Mechanical Ventilator Mechanical Ventilator Mechanical Ventilator O2 Flow Rate 50.00 FiO2 50 50 04/20/17 04/20/17 04/20/17 04/20/17 12:55 13:00 13:00 14:00 Pulse 105 105 106 Resp 17 21 B/P (MAP) 124/78 136/86 Pulse Ox 100 100 O2 Delivery Mechanical Ventilator Mechanical Ventilator Mechanical Ventilator O2 Flow Rate 40.00 40.00 40.00 04/20/17 04/20/17 04/20/17 04/20/17 14:01 14:02 15:00 16:00 Pulse 108 110 110 Resp 19 14 13 B/P (MAP) 138/88 119/78 116/68 Pulse Ox 100 100 100 O2 Delivery Mechanical Ventilator Mechanical Ventilator O2 Flow Rate 40.00 40.00 FiO2 50 04/20/17 04/20/17 04/20/17 04/20/17 16:06 16:10 16:24 17:00 Pulse 110 109 Resp 14 13 B/P (MAP) 116/68 110/68 Pulse Ox 97 97 97 O2 Delivery Mechanical Ventilator Mechanical Ventilator O2 Flow Rate 40.00 40.00 FiO2 40 04/20/17 04/20/17 04/20/17 04/20/17 18:00 18:25 19:00 19:00 Temp 97.5 Pulse 114 124 122 118 Resp 13 14 14 B/P (MAP) 101/59 122/83 Pulse Ox 97 98 96 O2 Delivery Mechanical Ventilator Mechanical Ventilator O2 Flow Rate 40.00 40.00 FiO2 40 04/20/17 04/20/17 04/20/17 04/20/17 20:00 20:00 20:36 21:00 Pulse 122 129 149 Resp 13 20 19 B/P (MAP) 126/87 108/76 Pulse Ox 95 96 94 96 O2 Delivery Mechanical Ventilator Mechanical Ventilator Mechanical Ventilator O2 Flow Rate 40.00 40.00 40.00 FiO2 40 04/20/17 04/20/17 04/20/17 04/21/17 22:00 22:29 23:00 00:00 Temp 98.0 Pulse 140 138 149 126 Resp 19 31 27 28 B/P (MAP) 112/64 80/66 109/70 Pulse Ox 94 93 96 92 O2 Delivery Mechanical Ventilator Mechanical Ventilator Mechanical Ventilator O2 Flow Rate 40.00 40.00 40.00 FiO2 40 04/21/17 04/21/17 04/21/17 04/21/17 00:00 00:34 00:46 00:49 Pulse 129 130 130 Resp 33 28 28 B/P (MAP) 117/86 117/86 Pulse Ox 92 91 92 92 O2 Delivery Mechanical Ventilator Mechanical Ventilator Mechanical Ventilator O2 Flow Rate 40.00 40.00 40.00 FiO2 40 04/21/17 04/21/17 04/21/17 04/21/17 01:00 01:00 02:00 02:07 Pulse 131 131 133 133 Resp 17 15 30 B/P (MAP) 112/75 109/78 Pulse Ox 90 92 92 O2 Delivery Mechanical Ventilator Mechanical Ventilator O2 Flow Rate 40.00 40.00 FiO2 40 04/21/17 04/21/17 04/21/17 04/21/17 02:30 03:00 03:07 03:30 Temp 98.8 Pulse 137 137 140 137 Resp 15 15 36 30 B/P (MAP) 123/71 107/75 114/69 Pulse Ox 88 94 97 97 O2 Delivery Mechanical Ventilator Mechanical Ventilator Mechanical Ventilator O2 Flow Rate 50.00 50.00 50.00 FiO2 50 04/21/17 04/21/17 04/21/17 04/21/17 04:00 04:05 05:00 05:09 Pulse 135 129 Resp 17 14 B/P (MAP) 111/67 119/71 Pulse Ox 98 97 88 O2 Delivery Mechanical Ventilator Mechanical Ventilator Mechanical Ventilator O2 Flow Rate 40.00 40.00 40.00 FiO2 100 04/21/17 04/21/17 04/21/17 04/21/17 05:30 06:00 06:15 07:00 Pulse 135 131 117 123 Resp 29 30 10 B/P (MAP) 139/87 152/96 Pulse Ox 98 99 98 O2 Delivery Mechanical Ventilator Mechanical Ventilator O2 Flow Rate 100.00 100.00 FiO2 100 04/21/17 04/21/17 04/21/17 04/21/17 08:00 08:07 08:32 10:48 Temp 99.5 Pulse 137 133 Resp 33 35 Pulse Ox 97 100 99 O2 Delivery Mechanical Ventilator O2 Flow Rate 100.00 FiO2 100 100 Capillary Refill : Less Than 3 Seconds General Appearance: other (sedated, intubated) Respiratory: respiratory distress, other (paralyzed with poor air exchange) Cardiovascular: no edema, no gallop, no JVD, no murmur, tachycardia Gastrointestinal: normal bowel sounds, non tender, soft Extremities: normal inspection, no pedal edema, normal capillary refill Neurologic/Psychiatric: other (paralyzed, sedated) Skin: normal color, warm/dry Clinical Quality Measures DVT/VTE Risk/Contraindication: Risk Factor Score Per Nursin RFS Level Per Nursing on Admit: 4+=Very High Copy Copies To 1: LANDON ROWAN MD Assessment/Plan Assessment/Plan Admission Dx SEVERE ASTHMA EXACERBATION ACUTE ON CHRONIC RESPIRATORY FAILURE RESPIRATORY ACIDOSIS HYPERKALEMIA METHAMPHETAMINE ABUSE NONCOMPLIANCE WITH MEDICAL THERAPY ADM: Patient was admitted for her severe asthma exacerbation. We initially had her on Plan SEE ABOVE ADM: Patient was admitted for her severe asthma exacerbation. We initially had her on a TV of 450, PEEP 5. Her O2 was weaned. However, an ABG showed worsening ventilation, so we consulted eICU. She was given an hour long neb and TV decreased and PEEP increased overnight. This morning, we have consulted Dr Walsh. He is very concerned about her prognosis. Her ETT is now an 8.0, she is on mag and ketamine as well as has been paralyzed and switched to PC settings. Her latest ABG continues to show very poor ventilation despite this maximal medical therapy. He has also added on abx owing to her severity. I called and spoke with her mother regarding her prognosis and encouraged her to go see Denise as we are minute by minute right now. I was called around noon ( while I was in clinic) to discuss Denise's severity and again voiced concerns that denise could from this exacerbation. Her boyfriend stated that he would javier if she were to pass away and her mother repeatedly requested transfer. I informed them that she was much too sick to be transferred but that we would consider that as soon as she were stable. I continue to be very concerned that her prognosis is guarded and will keep her family up to date as more information arises. DVT PROPH: SCDs, LovENox GI PROPH: PPI FULL CODE LANDON ROWAN MD Apr 21, 2017 9:17 am
[2017-04-21] MEDS: FAMOTIDINE 20MG/2ML IV (PEPCID) IV SCH ×2 (09:35→21:00)
[2017-04-21] MEDS ORDERED: MIDAZOLAM 2 MG/2 ML (VERSED) VIAL IV PRN (10:15)
[2017-04-21] MEDS ORDERED: RT-ALBUTEROL SULF 2.5 MG/3 ML PRE-MIX VIAL IH SCH ×2 (10:30→14:45)
[2017-04-21 11:08] LABS: ABG BASE EXCESS 0.2 MMOL/L (-2.5-2.5); ABG HCO3 31 MMOL/L (23-27); ABG OXYGEN SATURATION 99 % (94-100); ABG PO2 419 MMHG (79-93); ABG TCO2 35.6 MMOL/L (21.0-31.0)
[2017-04-21 11:10] LABS: ABG PH 6.99 (7.37-7.43)
[2017-04-21 11:11] LABS: ABG PCO2 133 MMHG (35-45); ALLENS TEST ART LINE
[2017-04-21 11:28] LABS: ANION GAP 7 MMOL/L (5-14); BLOOD UREA NITROGEN 14 MG/DL (7-18); BUN/CREATININE RATIO 18; CALCIUM 8.4 MG/DL (8.5-10.1); CARBON DIOXIDE 30 MMOL/L (21-32); CHLORIDE 113 MMOL/L (98-107); CREATININE SERUM 0.79 MG/DL (0.60-1.30); GFR ESTIMATED > 60; GLUCOSE 218 MG/DL (70-105); MAGNESIUM 2.5 MG/DL (1.8-2.4); PHOSPHORUS 5.4 MG/DL (2.3-4.7); POTASSIUM 4.8 MMOL/L (3.6-5.0); SODIUM 150 MMOL/L (135-145)
[2017-04-21] MEDS: inSUlin (REGULAR) HUMAN 1 UNIT/0.01 ML (CHARGE PER UNIT) SC SCH ×3 (12:13→23:59)
[2017-04-21] MEDS ORDERED: D5 1/2 NS 1000 ML IV SOLUTION 1,000 ML IV ONE (12:14)
[2017-04-21] MEDS: D5 1/2 NS 1000 ML IV SOLUTION 1,000 ML IV SCH ×2 (12:25→22:22)
--- NOTE | 2017-04-21 13:41 | Progress Note-Standard ---
Standard Progress Note Progress Notes/Assess & Plan Date Seen by Provider: Apr 21, 2017 Time Seen by Provider: 07:20 Progress/Assessment & Plan Anesthesia Note ([id number]) Called to ICU for arterial line placement. Rt and Lt radial art line attempted x 2 with catheter unable to be threaded. ABG sample drawn successfully. On final attempt, Lt radial art line secured with sterile tegaderm with a good waveform. Will be available if needed. JANNIE ESPINOZA DO Apr 21, 2017 13:41
[2017-04-21 14:14] LABS: ABG HCO3 32 MMOL/L (23-27); ABG OXYGEN SATURATION 99 % (94-100); ABG PO2 418 MMHG (79-93); ABG TCO2 35.7 MMOL/L (21.0-31.0)
[2017-04-21 14:15] LABS: ABG PH 7.01 (7.37-7.43)
[2017-04-21 14:16] LABS: ABG PCO2 130 MMHG (35-45); ALLENS TEST ART LINE; PATIENT TEMP 97.8
--- NOTE | 2017-04-21 14:50 | Diagnostic Imaging Report ---
INDICATION: PICC line placement. TECHNIQUE: A PA chest was obtained at 2:15 hours. COMPARISON: Same day at 6:17 AM. FINDINGS: The ET tube and NG tube are unchanged. A new right-sided PICC line tip overlies the upper SVC. There is new patchy infiltrate in both lung bases, left greater than right. There is no pneumothorax or pleural fluid. IMPRESSION: New patchy bibasilar infiltrates as above. A new right-sided PICC line tip overlies the upper SVC. No other new findings compared to earlier today. Dictated by: Dictated on workstation # [id number]
[2017-04-21 16:36] LABS: ABG BASE EXCESS 1.7 MMOL/L (-2.5-2.5); ABG HCO3 32 MMOL/L (23-27); ABG OXYGEN SATURATION 100 % (94-100); ABG PO2 500 MMHG (79-93); ABG TCO2 36.3 MMOL/L (21.0-31.0)
[2017-04-21 16:42] LABS: ABG PCO2 128 MMHG (35-45); ABG PH 7.03 (7.37-7.43); ALLENS TEST ART LINE; PATIENT TEMP 97.5
[2017-04-21 18:32] LABS: ABG BASE EXCESS 1.1 MMOL/L (-2.5-2.5); ABG HCO3 27 MMOL/L (23-27); ABG OXYGEN SATURATION 100 % (94-100); ABG PCO2 63 MMHG (35-45); ABG PO2 181 MMHG (79-93); ABG TCO2 29.3 MMOL/L (21.0-31.0)
[2017-04-21 18:33] LABS: ABG PH 7.26 (7.37-7.43); ALLENS TEST A LINE; PATIENT TEMP 99
[2017-04-21] MEDS: CATHETER FLUSH 10 ML SYR IV PRN (21:00)
[2017-04-21] MEDS: ENOXAPARIN 40 MG/0.4 ML (LOVENOX) SYR SC SCH (21:12)
[2017-04-21 22:47] LABS: ABG BASE EXCESS 2.8 MMOL/L (-2.5-2.5); ABG HCO3 26 MMOL/L (23-27); ABG OXYGEN SATURATION 100 % (94-100); ABG PCO2 36 MMHG (35-45); ABG PH 7.47 (7.37-7.43); ABG PO2 102 MMHG (79-93); ABG TCO2 27.3 MMOL/L (21.0-31.0)
[2017-04-21 22:48] LABS: PATIENT TEMP 99
[2017-04-21] MEDS: MIDAZOLAM DRIP 50 MG/NS 90 ML (TOTAL VOLUME 100 ML) IV SCH ×2 (23:00)
[2017-04-22] VITALS (35 sets, daily range): BP systolic 93–172; BP diastolic 65–94
[2017-04-22] MEDS: RT-ALBUTEROL SULF 2.5 MG/3 ML PRE-MIX VIAL IH SCH ×12 (00:25→23:02)
[2017-04-22] MEDS: ARTIFICIAL TEARS OINT (LACRI-LUBE) 3.5 GM TUBE OU SCH ×3 (01:08→08:32)
[2017-04-22 01:17] LABS: ABG HCO3 26 MMOL/L (23-27); ABG OXYGEN SATURATION 100 % (94-100); ABG PCO2 36 MMHG (35-45); ABG PH 7.48 (7.37-7.43); ABG PO2 105 MMHG (79-93); ABG TCO2 27.3 MMOL/L (21.0-31.0)
[2017-04-22 01:18] LABS: PATIENT TEMP 99.8
[2017-04-22] MEDS: PROPOFOL DRIP (ICU) 100 ML IV SCH (01:32)
[2017-04-22] MEDS: CISATRACURIUM 100 MG/NS 200 ML (TOTAL VOLUME 250 ML) IV SCH ×2 (02:10)
[2017-04-22 03:42] LABS: ABG BASE EXCESS 3.9 MMOL/L (-2.5-2.5); ABG HCO3 28 MMOL/L (23-27); ABG OXYGEN SATURATION 97 % (94-100); ABG PCO2 47 MMHG (35-45); ABG PO2 65 MMHG (79-93); ABG TCO2 29.7 MMOL/L (21.0-31.0)
[2017-04-22 03:45] LABS: PATIENT TEMP 99.3
[2017-04-22] MEDS: methylPREDNISolone 125 MG (Solu-MEDROL) VIAL IV SCH ×4 (04:08→22:16)
[2017-04-22] MEDS: CATHETER FLUSH 10 ML SYR IV PRN ×2 (04:08→22:17)
[2017-04-22 04:14] LABS: BASOPHILS % (AUTO) 0 % (0-10); EOSINOPHILS % (AUTO) 0 % (0-10); LYMPHOCYTES # (AUTO) 0.7 X 10^3 (1.0-4.0); LYMPHOCYTES % (AUTO) 4 % (12-44); MEAN CORPUSCULAR HEMOGLOBIN 27 PG (25-34); MEAN CORPUSCULAR HGB CONC 31 G/DL (32-36); MEAN CORPUSCULAR VOLUME 87 FL (80-99); MONOCYTES # (AUTO) 0.9 X 10^3 (0.0-1.0); MONOCYTES % (AUTO) 5 % (0-12); NEUTROPHILS # (AUTO) 17.1 X 10^3 (1.8-7.8); NEUTROPHILS % (AUTO) 91 % (42-75); PLATELET COUNT 180 10^3/uL (130-400); RED BLOOD COUNT 4.78 10^6/uL (4.35-5.85); RED CELL DISTRIBUTION WIDTH 15.5 % (10.0-14.5); WHITE BLOOD COUNT 18.8 10^3/uL (4.3-11.0)
[2017-04-22 04:28] LABS: ANION GAP 8 MMOL/L (5-14); BLOOD UREA NITROGEN 20 MG/DL (7-18); BUN/CREATININE RATIO 31; CALCIUM 8.4 MG/DL (8.5-10.1); CARBON DIOXIDE 29 MMOL/L (21-32); CHLORIDE 109 MMOL/L (98-107); CREATININE SERUM 0.65 MG/DL (0.60-1.30); GFR ESTIMATED > 60; GLUCOSE 157 MG/DL (70-105); SODIUM 146 MMOL/L (135-145)
[2017-04-22 04:31] LABS: PHOSPHORUS < 0.7 MG/DL (2.3-4.7)
[2017-04-22] MEDS: POTASSIUM CL 10MEQ/50ML IVPB 50 ML IV SCH ×6 (05:12→09:46)
[2017-04-22] MEDS: inSUlin (REGULAR) HUMAN 1 UNIT/0.01 ML (CHARGE PER UNIT) SC SCH ×4 (06:00→21:00)
[2017-04-22] MEDS ORDERED: POTASSIUM PHOSPHATE INJ 30 MM in NS (IVPB) 250 ML IV ONE (06:00)
[2017-04-22] MEDS: KCL 20 MEQ TAB (K-DUR) PO SCH (06:00)
[2017-04-22] MEDS: MAGNESIUM 1 GM/100 ML IVPB 100 ML IV SCH (06:00)
[2017-04-22] MEDS: CATHETER FLUSH 10 ML SYR IV SCH ×3 (06:22→21:27)
--- NOTE | 2017-04-22 06:25 | Pulmonary Progress Note ---
Subjective Time Seen by Provider: 06:36 Subjective/Events-last exam Pt self extubated and is currently on BiPAP. Exam Exam Vital Signs Date Time Temp Pulse Resp B/P (MAP) Pulse Ox O2 Delivery O2 Flow Rate FiO2 04/22/17 06:00 123 17 165/80 100 NIV Bilevel 40.00 04/22/17 05:00 124 16 166/78 100 NIV Bilevel 40.00 04/22/17 04:15 126 14 100 40.00 04/22/17 04:00 99.3 129 13 164/82 100 NIV Bilevel 40.00 04/22/17 04:00 100 NIV Bilevel 40.00 04/22/17 03:15 131 18 100 30.00 04/22/17 03:00 134 15 172/85 100 NIV Bilevel 30.00 04/22/17 02:00 134 20 134/74 97 Mechanical Ventilator 40.00 04/22/17 01:38 133 20 98 40 04/22/17 01:32 99.8 131 20 113/71 100 Mechanical Ventilator 40.00 04/22/17 01:00 133 20 115/72 100 Mechanical Ventilator 40.00 04/22/17 01:00 133 04/22/17 00:25 131 20 100 40 04/22/17 00:00 100 Mechanical Ventilator 40.00 04/22/17 00:00 99.5 131 20 106/65 100 Mechanical Ventilator 40.00 04/21/17 23:05 133 20 100 40 04/21/17 23:00 134 23 107/60 100 Mechanical Ventilator 40.00 04/21/17 22:17 133 24 100 55 04/21/17 22:00 137 24 100/58 100 Mechanical Ventilator 40.00 04/21/17 21:00 131 24 95/59 100 Mechanical Ventilator 40.00 04/21/17 20:44 133 24 100 40 04/21/17 20:43 133 23 97/64 100 Mechanical Ventilator 40.00 04/21/17 20:00 97.4 124 24 109/69 100 Mechanical Ventilator 60.00 04/21/17 20:00 100 Mechanical Ventilator 60.00 04/21/17 19:00 122 04/21/17 19:00 122 23 109/79 100 Mechanical Ventilator 60.00 04/21/17 18:17 122 24 100 60 04/21/17 18:00 123 26 97/65 100 Mechanical Ventilator 60.00 04/21/17 17:49 123 35 100 60 04/21/17 17:13 97.5 140 35 100 04/21/17 17:00 144 27 101/60 100 Mechanical Ventilator 60.00 04/21/17 16:50 140 35 99 60 04/21/17 16:37 129 35 100 100 04/21/17 16:00 97.0 04/21/17 16:00 97 Mechanical Ventilator 100.00 04/21/17 16:00 130 15 93/64 99 Mechanical Ventilator 100.00 04/21/17 15:00 133 17 120/67 100 Mechanical Ventilator 100.00 04/21/17 14:44 131 35 100 100 04/21/17 14:00 130 11 77/64 99 Mechanical Ventilator 100.00 04/21/17 13:30 126 35 99 100 04/21/17 13:00 126 11 105/60 100 Mechanical Ventilator 100.00 04/21/17 13:00 130 04/21/17 12:00 97.2 04/21/17 12:00 126 27 115/62 99 Mechanical Ventilator 100.00 04/21/17 12:00 97 Mechanical Ventilator 100.00 04/21/17 11:00 134 11 107/65 99 Mechanical Ventilator 100.00 04/21/17 10:48 133 35 99 100 04/21/17 10:00 138 23 114/65 99 Mechanical Ventilator 100.00 04/21/17 09:00 144 43 97/53 99 Mechanical Ventilator 100.00 04/21/17 08:32 99.5 04/21/17 08:07 137 33 100 100 04/21/17 08:00 97 Mechanical Ventilator 100.00 04/21/17 08:00 131 29 113/66 100 Mechanical Ventilator 100.00 04/21/17 07:00 99.5 04/21/17 07:00 113 13 142/96 99 Mechanical Ventilator 100.00 04/21/17 07:00 123 General Appearance: Moderate Distress HEENT: PERRL/EOMI, Normal ENT Inspection, Pharynx Normal Neck: Full Range of Motion, Normal Inspection, Non Tender, Supple Respiratory: Decreased Breath Sounds, Expiration, Wheezing Cardiovascular: Tachycardia Capillary Refill: Less Than 3 Seconds Gastrointestinal: normal bowel sounds, non tender, soft Extremity: Normal Capillary Refill, Normal Inspection Neurologic/Psychiatric: Alert Lymphatic: No Adenopathy Results Lab Laboratory Tests 04/20/17 10:20 04/21/17 00:40 04/21/17 02:00 04/21/17 06:58 04/21/17 10:53 04/22/17 04:02 Assessment/Plan Assessment/Plan Acute severe respiratory failure -Pt self extubated herself. Pt is currently on BiPAP. -repeat ABG Severe Asthma AE -SVN Q2 Electrolyte disturbance -Replace and recheck 2hrs after replacement. Leukocytosis - probably reactive and secondary to steroids - Rocephin and azithromycin Methamphetamine dependance -Education Family stated pt started smoking again recently 233 Clinical Quality Measures DVT/VTE Risk/Contraindication: Risk Factor Score Per Nursin RFS Level Per Nursing on Admit: 4+=Very High TONIO GOTTI DO Apr 22, 2017 06:25
[2017-04-22 06:38] LABS: ABG HCO3 30 MMOL/L (23-27); ABG OXYGEN SATURATION 99 % (94-100); ABG PCO2 48 MMHG (35-45); ABG PO2 94 MMHG (79-93); ABG TCO2 31.1 MMOL/L (21.0-31.0)
[2017-04-22 06:44] LABS: PATIENT TEMP 97.9
[2017-04-22] MEDS: AZITHROMYCIN INJECTION 500 MG in NS (IVPB) 250 ML IV SCH (07:00)
--- NOTE | 2017-04-22 08:05 | Diagnostic Imaging Report ---
EXAMINATION: Portable upright radiograph of the chest. INDICATION: Dyspnea. COMPARISON: 04/21/2017. FINDINGS: There is a patchy infiltrate in the left lung base. The previously seen right basilar infiltrate is improved. The heart size is normal. No effusion or pneumothorax. Mediastinum and arnol appear unremarkable. Right PICC line is seen with the tip at the SVC level. ET tube and NG tube has been removed. IMPRESSION: Improving left basilar infiltrates. Dictated by: Dictated on workstation # [id number]
[2017-04-22] MEDS: FAMOTIDINE 20MG/2ML IV (PEPCID) IV SCH ×2 (08:31→21:26)
[2017-04-22] MEDS: D5 1/2 NS 1000 ML IV SOLUTION 1,000 ML IV SCH ×2 (08:31→16:37)
[2017-04-22] MEDS: cefTRIAXone INJECTION 1,000 MG in NS (IVPB) 50 ML IV SCH (08:32)
[2017-04-22 14:01] LABS: ABG BASE EXCESS 5.2 MMOL/L (-2.5-2.5); ABG HCO3 30 MMOL/L (23-27); ABG OXYGEN SATURATION 98 % (94-100); ABG PCO2 46 MMHG (35-45); ABG PH 7.42 (7.37-7.43); ABG PO2 74 MMHG (79-93)
[2017-04-22 14:06] LABS: ALLENS TEST ART LINE; PATIENT TEMP 98.5
[2017-04-22 15:42] LABS: ANION GAP 3 MMOL/L (5-14); BLOOD UREA NITROGEN 16 MG/DL (7-18); BUN/CREATININE RATIO 30; CALCIUM 8.3 MG/DL (8.5-10.1); CARBON DIOXIDE 31 MMOL/L (21-32); CHLORIDE 109 MMOL/L (98-107); CREATININE SERUM 0.53 MG/DL (0.60-1.30); GFR ESTIMATED > 60; GLUCOSE 131 MG/DL (70-105); PHOSPHORUS 1.3 MG/DL (2.3-4.7); POTASSIUM 3.9 MMOL/L (3.6-5.0); SODIUM 143 MMOL/L (135-145)
--- NOTE | 2017-04-22 18:15 | Progress Note (SOAP) ---
Subjective Subjective/Events-last exam Pt self-extubated. Alert. Still significantly SOA. Review of Systems Date Seen by Provider: Apr 22, 2017 Time Seen by Provider: 09:50 Objective Exam Last Set of Vital Signs Vital Signs Date Time Temp Pulse Resp B/P (MAP) Pulse Ox O2 Delivery O2 Flow Rate FiO2 04/22/17 18:00 87 18 133/77 100 NIV Bilevel 40.00 04/22/17 16:37 40 04/22/17 12:30 99.1 Capillary Refill : Less Than 3 Seconds I&O Intake and Output 04/23/17 00:00 Intake Total 2121 ml Output Total 620 ml Balance 1501 ml Intake Oral 50 ml IV Total 2041 ml Other 30 ml Output Urine Total 570 ml Gastric Drainage Total 50 ml General: Alert, Oriented X3, Cooperative, Moderate Distress (difficulty completing sentences due to SOA) Lungs: Other (wheezes chen) Heart: Regular Rate Results/Procedures Lab Laboratory Tests 04/21/17 18:20: Blood Gas Puncture Site A LINE, Blood Gas Patient Temperature 99, Arterial Blood pH 7.26*L, Arterial Blood Partial Pressure CO2 63H, Arterial Blood Partial Pressure O2 181H, Arterial Blood HCO3 27, Arterial Blood Total CO2 29.3 , Arterial Blood Oxygen Saturation 100, Arterial Blood Base Excess 1.1, Familia Test A LINE, Blood Gas Ventilator Setting YES, Blood Gas Inspired Oxygen 60% 04/21/17 22:40: Blood Gas Puncture Site L RADIAL ART LINE, Blood Gas Patient Temperature 99, Arterial Blood pH 7.47H, Arterial Blood Partial Pressure CO2 36, Arterial Blood Partial Pressure O2 102H, Arterial Blood HCO3 26, Arterial Blood Total CO2 27.3 , Arterial Blood Oxygen Saturation 100, Arterial Blood Base Excess 2.8H, Familia Test N/A, Blood Gas Ventilator Setting YES, Blood Gas Inspired Oxygen 40% 04/21/17 23:52: Glucometer 133H 04/22/17 01:12: Blood Gas Puncture Site L RADIAL ART LINE, Blood Gas Patient Temperature 99.8, Arterial Blood pH 7.48H, Arterial Blood Partial Pressure CO2 36, Arterial Blood Partial Pressure O2 105H, Arterial Blood HCO3 26, Arterial Blood Total CO2 27.3 , Arterial Blood Oxygen Saturation 100, Arterial Blood Base Excess 3.0H, Familia Test N/A, Blood Gas Ventilator Setting YES, Blood Gas Inspired Oxygen 40% 04/22/17 03:36: Blood Gas Puncture Site L RADIAL ART LINE, Blood Gas Patient Temperature 99.3, Arterial Blood pH 7.40, Arterial Blood Partial Pressure CO2 47H, Arterial Blood Partial Pressure O2 65L, Arterial Blood HCO3 28H, Arterial Blood Total CO2 29.7 , Arterial Blood Oxygen Saturation 97, Arterial Blood Base Excess 3.9H, Familia Test N/A, Blood Gas Ventilator Setting NO, Blood Gas Inspired Oxygen 30% BIPAP 04/22/17 04:02: White Blood Count 18.8H, Red Blood Count 4.78, Hemoglobin 12.9, Hematocrit 42, Mean Corpuscular Volume 87, Mean Corpuscular Hemoglobin 27, Mean Corpuscular Hemoglobin Concent 31L, Red Cell Distribution Width 15.5H, Platelet Count 180, Mean Platelet Volume 11.0H, Neutrophils (%) (Auto) 91H, Lymphocytes (%) (Auto) 4L, Monocytes (%) (Auto) 5, Eosinophils (%) (Auto) 0, Basophils (%) (Auto) 0, Neutrophils # (Auto) 17.1H, Lymphocytes # (Auto) 0.7L, Monocytes # (Auto) 0.9, Eosinophils # (Auto) 0.0, Basophils # (Auto) 0.0, Sodium Level 146H, Potassium Level 3.0L, Chloride Level 109H, Carbon Dioxide Level 29, Anion Gap 8, Blood Urea Nitrogen 20H, Creatinine 0.65, Estimat Glomerular Filtration Rate > 60, BUN /Creatinine Ratio 31, Glucose Level 157H, Calcium Level 8.4L, Phosphorus Level < 0.7#*L, Magnesium Level 2.0 04/22/17 06:10: Glucometer 107 04/22/17 06:33: Blood Gas Puncture Site L RADIAL ART LINE, Blood Gas Patient Temperature 97.9, Arterial Blood pH 7.40, Arterial Blood Partial Pressure CO2 48H, Arterial Blood Partial Pressure O2 94H, Arterial Blood HCO3 30H, Arterial Blood Total CO2 31.1H , Arterial Blood Oxygen Saturation 99, Arterial Blood Base Excess 5.0H, Familia Test N/A, Blood Gas Ventilator Setting NO, Blood Gas Inspired Oxygen 40% BIPAP 04/22/17 13:07: Glucometer 87 04/22/17 13:55: Blood Gas Puncture Site LT RAD ARTLINE, Blood Gas Patient Temperature 98.5, Arterial Blood pH 7.42, Arterial Blood Partial Pressure CO2 46H, Arterial Blood Partial Pressure O2 74L, Arterial Blood HCO3 30H, Arterial Blood Total CO2 31.0 , Arterial Blood Oxygen Saturation 98, Arterial Blood Base Excess 5.2H, Familia Test ART LINE, Blood Gas Ventilator Setting NO, Blood Gas Inspired Oxygen 3L NC 04/22/17 15:15: Sodium Level 143, Potassium Level 3.9, Chloride Level 109H, Carbon Dioxide Level 31, Anion Gap 3L, Blood Urea Nitrogen 16, Creatinine 0.53L, Estimat Glomerular Filtration Rate > 60, BUN/Creatinine Ratio 30, Glucose Level 131H, Calcium Level 8.3L, Phosphorus Level 1.3L, Magnesium Level 2.0 04/22/17 16:42: Glucometer 101 Microbiology 04/21/17 Gram Stain - Final, Resulted 04/21/17 Sputum Culture - Preliminary, Resulted Probable Strep Pneumoniae Probable Haemophilus Radiology Date of Exam: 04/20/17 CHEST 1 VIEW, AP/PA ONLY INDICATION: ET tube placement. OG tube placement Portable chest shows normal heart size and vascularity. The lungs are clear. There is no effusion or pneumothorax. The ET tube is in good position. The OG tube is in the proximal stomach. IMPRESSION: Interval placement of ET tube and OG tube with chest otherwise appearing normal and stable compared to prior exam from 11/04/2016. Assessment/Plan Assessment/Plan Plan ADM: Patient was admitted for her severe asthma exacerbation. We initially had her on a TV of 450, PEEP 5. Her O2 was weaned. However, an ABG showed worsening ventilation, so we consulted eICU. She was given an hour long neb and TV decreased and PEEP increased overnight. This morning, we have consulted Dr Walsh. He is very concerned about her prognosis. Her ETT is now an 8.0, she is on mag and ketamine as well as has been paralyzed and switched to PC settings. Her latest ABG continues to show very poor ventilation despite this maximal medical therapy. He has also added on abx owing to her severity. I called and spoke with her mother regarding her prognosis and encouraged her to go see Denise as we are minute by minute right now. I was called around noon ( while I was in clinic) to discuss Denise's severity and again voiced concerns that denise could from this exacerbation. Her boyfriend stated that he would javier if she were to pass away and her mother repeatedly requested transfer. I informed them that she was much too sick to be transferred but that we would consider that as soon as she were stable. I continue to be very concerned that her prognosis is guarded and will keep her family up to date as more information arises. 1. Respiratory Failure secondary to asthma exacerbation and pneumonia - self-extubated overnight; currently sating upper 90's on 4L NC; ABGs normalized - Albuterol and Solu-medrol 2. Left lower lobe Pneumonia - probable Strep pneumonia and H flu on sputum cx - currently on Zithromax and Rocephin 3. Hyperkalemia -RESOLVED 4. Leukocytosis - possibly reactive and secondary to steroids vs infection 5. Methamphetamine dependance - smoking/inhaling meth likely contributing to asthma exacerbation -pt indicated interested in [facility] ATS program DVT PROPH: SCDs, Lovenox GI PROPH: PPI FULL CODE Clinical Quality Measures DVT/VTE Risk/Contraindication: Risk Factor Score Per Nursin RFS Level Per Nursing on Admit: 4+=Very High LEANDER COONEY DO Apr 22, 2017 18:15
[2017-04-22] MEDS ORDERED: INFLUENZA TRIvalent 2017-2018 0.5 ML/45 MCG SYR IM ONE (19:00)
[2017-04-22] MEDS: ENOXAPARIN 40 MG/0.4 ML (LOVENOX) SYR SC SCH (21:27)
[2017-04-23] VITALS (37 sets, daily range): BP systolic 114–176; BP diastolic 63–96
[2017-04-23] MEDS: D5 1/2 NS 1000 ML IV SOLUTION 1,000 ML IV SCH ×2 (00:33→17:21)
[2017-04-23] MEDS: RT-ALBUTEROL SULF 2.5 MG/3 ML PRE-MIX VIAL IH SCH ×8 (00:51→22:17)
[2017-04-23 04:22] LABS: ABG BASE EXCESS 5.1 MMOL/L (-2.5-2.5); ABG HCO3 29 MMOL/L (23-27); ABG OXYGEN SATURATION 95 % (94-100); ABG PCO2 39 MMHG (35-45); ABG PH 7.47 (7.37-7.43); ABG PO2 54 MMHG (79-93); ABG TCO2 30.2 MMOL/L (21.0-31.0)
[2017-04-23 04:23] LABS: ALLENS TEST ART LINE; PATIENT TEMP 96.9
[2017-04-23] MEDS: CATHETER FLUSH 10 ML SYR IV PRN (04:24)
[2017-04-23] MEDS: methylPREDNISolone 125 MG (Solu-MEDROL) VIAL IV SCH (04:24)
[2017-04-23 04:28] LABS: BASOPHILS % (AUTO) 0 % (0-10); EOSINOPHILS % (AUTO) 0 % (0-10); LYMPHOCYTES # (AUTO) 0.5 X 10^3 (1.0-4.0); LYMPHOCYTES % (AUTO) 3 % (12-44); MEAN CORPUSCULAR HEMOGLOBIN 27 PG (25-34); MEAN CORPUSCULAR HGB CONC 32 G/DL (32-36); MEAN CORPUSCULAR VOLUME 86 FL (80-99); MONOCYTES # (AUTO) 0.8 X 10^3 (0.0-1.0); MONOCYTES % (AUTO) 5 % (0-12); NEUTROPHILS # (AUTO) 14.2 X 10^3 (1.8-7.8); NEUTROPHILS % (AUTO) 92 % (42-75); PLATELET COUNT 168 10^3/uL (130-400); RED BLOOD COUNT 4.23 10^6/uL (4.35-5.85); RED CELL DISTRIBUTION WIDTH 15.7 % (10.0-14.5); WHITE BLOOD COUNT 15.5 10^3/uL (4.3-11.0)
[2017-04-23 04:52] LABS: ANION GAP 7 MMOL/L (5-14); BLOOD UREA NITROGEN 14 MG/DL (7-18); BUN/CREATININE RATIO 27; CALCIUM 8.5 MG/DL (8.5-10.1); CARBON DIOXIDE 28 MMOL/L (21-32); CHLORIDE 108 MMOL/L (98-107); CREATININE SERUM 0.52 MG/DL (0.60-1.30); GFR ESTIMATED > 60; GLUCOSE 151 MG/DL (70-105); MAGNESIUM 2.1 MG/DL (1.8-2.4); PHOSPHORUS 1.2 MG/DL (2.3-4.7); POTASSIUM 3.7 MMOL/L (3.6-5.0); SODIUM 143 MMOL/L (135-145)
[2017-04-23] MEDS: KCL 20 MEQ TAB (K-DUR) PO SCH (06:00)
[2017-04-23] MEDS: inSUlin (REGULAR) HUMAN 1 UNIT/0.01 ML (CHARGE PER UNIT) SC SCH ×4 (06:00→20:24)
[2017-04-23] MEDS: POTASSIUM CL 10MEQ/50ML IVPB 50 ML IV SCH (06:00)
[2017-04-23] MEDS: MAGNESIUM 1 GM/100 ML IVPB 100 ML IV SCH (06:00)
--- NOTE | 2017-04-23 06:33 | Pulmonary Progress Note ---
Subjective Time Seen by Provider: 06:37 Subjective/Events-last exam Pt is still requiring BiPAP Exam Exam Vital Signs Date Time Temp Pulse Resp B/P (MAP) Pulse Ox O2 Delivery O2 Flow Rate FiO2 04/23/17 06:00 84 23 141/85 99 NIV Bilevel 30.00 04/23/17 05:00 89 28 156/89 100 NIV Bilevel 30.00 04/23/17 04:50 98 16 130/88 100 NIV Bilevel 30.00 04/23/17 04:46 105 25 94 30.00 04/23/17 04:00 96.9 87 21 150/82 95 NIV Bilevel 21.00 04/23/17 04:00 95 NIV Bilevel 21 04/23/17 03:00 84 22 160/93 100 NIV Bilevel 21.00 04/23/17 02:53 90 20 95 21.00 04/23/17 02:00 88 21 145/86 94 NIV Bilevel 21.00 04/23/17 01:00 87 24 155/90 98 NIV Bilevel 21.00 04/23/17 01:00 87 04/23/17 00:51 87 20 94 21.00 04/23/17 00:00 95 NIV Bilevel 30 04/23/17 00:00 96.7 82 20 149/90 94 NIV Bilevel 21.00 04/22/17 23:09 89 22 100 NIV Bilevel 21.00 04/22/17 23:02 86 19 99 25.00 04/22/17 23:00 86 21 158/91 99 NIV Bilevel 30.00 04/22/17 22:00 91 20 153/90 98 NIV Bilevel 30.00 04/22/17 21:00 92 22 148/83 100 NIV Bilevel 30.00 04/22/17 20:53 92 21 100 30.00 04/22/17 20:00 100 NIV Bilevel 30 04/22/17 20:00 97.6 92 19 138/79 100 NIV Bilevel 30.00 04/22/17 19:00 98 20 93/75 100 NIV Bilevel 30.00 04/22/17 19:00 98 04/22/17 18:52 101 20 100 40.00 04/22/17 18:00 87 18 133/77 100 NIV Bilevel 40.00 04/22/17 17:00 101 20 139/75 100 NIV Bilevel 40.00 04/22/17 16:45 96 18 100 40.00 04/22/17 16:37 100 NIV Bilevel 40 04/22/17 16:00 98 19 138/75 98 NIV Bilevel 40.00 04/22/17 15:00 92 21 139/81 98 NIV Bilevel 40.00 04/22/17 14:52 108 22 100 40.00 04/22/17 14:43 100 Nasal Cannula 3.00 04/22/17 14:00 108 20 139/77 98 NIV Bilevel 40.00 04/22/17 13:00 112 22 149/74 99 NIV Bilevel 40.00 04/22/17 13:00 108 04/22/17 12:59 100 Nasal Cannula 3.00 04/22/17 12:57 100 Nasal Cannula 4.00 04/22/17 12:30 99.1 102 19 142/74 100 Nasal Cannula 3.00 04/22/17 12:00 96 20 162/87 100 NIV Bilevel 40.00 04/22/17 11:00 116 22 163/83 96 NIV Bilevel 40.00 04/22/17 10:31 99 Nasal Cannula 4.00 04/22/17 10:00 91 20 155/83 98 NIV Bilevel 40.00 04/22/17 09:00 121 24 154/76 100 NIV Bilevel 40.00 04/22/17 08:49 100 Nasal Cannula 4.00 04/22/17 08:10 96.6 98 18 143/85 100 Nasal Cannula 4.00 04/22/17 08:10 100 Nasal Cannula 4.00 04/22/17 08:00 113 20 136/88 100 NIV Bilevel 40.00 04/22/17 07:18 99 Nasal Cannula 4.00 04/22/17 07:00 121 19 163/81 100 NIV Bilevel 40.00 04/22/17 07:00 112 General Appearance: Moderate Distress HEENT: PERRL/EOMI, Normal ENT Inspection, Pharynx Normal Neck: Full Range of Motion, Normal Inspection, Non Tender, Supple Respiratory: Decreased Breath Sounds, Expiration, Wheezing Cardiovascular: Tachycardia Capillary Refill: Less Than 3 Seconds Gastrointestinal: normal bowel sounds, non tender, soft Extremity: Normal Capillary Refill, Normal Inspection Neurologic/Psychiatric: Alert Lymphatic: No Adenopathy Results Lab Laboratory Tests 04/21/17 06:58 04/21/17 10:53 04/22/17 04:02 04/22/17 15:15 04/23/17 04:13 Assessment/Plan Assessment/Plan Acute severe respiratory failure -Pt self extubated herself. Pt is currently on BiPAP. -repeat ABG Severe Asthma AE -SVN Q2 -decrease solumedrol to 40 Q 6 Electrolyte disturbance -Replace Leukocytosis - probably reactive and secondary to steroids - Rocephin and azithromycin Methamphetamine dependance -Education Family stated pt started smoking again recently 233 Clinical Quality Measures DVT/VTE Risk/Contraindication: Risk Factor Score Per Nursin RFS Level Per Nursing on Admit: 4+=Very High TONIO GOTTI DO Apr 23, 2017 06:33
[2017-04-23] MEDS: CATHETER FLUSH 10 ML SYR IV SCH ×3 (06:57→20:24)
[2017-04-23] MEDS: AZITHROMYCIN INJECTION 500 MG in NS (IVPB) 250 ML IV SCH (06:58)
[2017-04-23] MEDS ORDERED: POTASSIUM PHOSPHATE INJ 30 MM in NS (IVPB) 250 ML IV NR (07:18)
--- NOTE | 2017-04-23 07:49 | Diagnostic Imaging Report ---
INDICATION: Respiratory failure Study compared with exam of 04/22/2017. FINDINGS: Patchy infiltrate in the left lung base and left perihilar distribution remains however shows at least some reduction in density and severity from prior. Right PICC line overlies the SVC stable. No effusion or pneumothorax. IMPRESSION: Left lung infiltrate is predominantly in the left lower lobe showing a mild improvement from prior. There has been no adverse change. Dictated by: Dictated on workstation # [id number]
[2017-04-23] MEDS: RT-ALBUTEROL/IPRATROPIUM 3 ML (DUONEB) VIAL INH SCH ×4 (08:12→20:20)
[2017-04-23] MEDS: FAMOTIDINE 20MG/2ML IV (PEPCID) IV SCH ×2 (09:10→20:24)
[2017-04-23] MEDS: cefTRIAXone INJECTION 1,000 MG in NS (IVPB) 50 ML IV SCH (09:10)
[2017-04-23] MEDS ORDERED: RT-IPRATROPIUM (ATROVENT) 0.5MG/2.5ML AMP IH SCH (10:00)
--- NOTE | 2017-04-23 11:29 | Progress Note (SOAP) ---
Subjective Subjective/Events-last exam Crystal is still very short of breath. Now on BiPAP. No complaints this morning. Review of Systems Date Seen by Provider: Apr 23, 2017 Time Seen by Provider: 10:00 Pulmonary: Dyspnea, Cough Cardiovascular: No: Chest Pain Objective Exam Last Set of Vital Signs Vital Signs Date Time Temp Pulse Resp B/P (MAP) Pulse Ox O2 Delivery O2 Flow Rate FiO2 04/23/17 10:28 102 23 99 25.00 04/23/17 06:00 141/85 NIV Bilevel 04/23/17 04:00 96.9 04/23/17 04:00 21 Capillary Refill : Less Than 3 Seconds I&O Intake and Output 04/24/17 00:00 Intake Total 1022 ml Output Total 375 ml Balance 647 ml Intake Oral 25 ml IV Total 997 ml Output Urine Total 375 ml General: Alert, Oriented X3, Cooperative, Moderate Distress (respiratory) Lungs: Other (diffuse wheezing bilaterally with poor air exchange) Heart: Regular Rate, Normal S1, Normal S2, No Murmurs, Gallops, Rubs Abdomen: Normal Bowel Sounds, Soft, No Tenderness, No Hepatosplenomegaly, No Masses Extremities: No Clubbing, No Cyanosis, No Edema Psych/Mental Status: Mental Status NL, Mood NL Results/Procedures Lab Laboratory Tests 04/22/17 13:07: Glucometer 87 04/22/17 13:55: Blood Gas Puncture Site LT [facility] ARTLINE, Blood Gas Patient Temperature 98.5, Arterial Blood pH 7.42, Arterial Blood Partial Pressure CO2 46H, Arterial Blood Partial Pressure O2 74L, Arterial Blood HCO3 30H, Arterial Blood Total CO2 31.0 , Arterial Blood Oxygen Saturation 98, Arterial Blood Base Excess 5.2H, Familia Test ART LINE, Blood Gas Ventilator Setting NO, Blood Gas Inspired Oxygen 3L NC 04/22/17 15:15: Sodium Level 143, Potassium Level 3.9, Chloride Level 109H, Carbon Dioxide Level 31, Anion Gap 3L, Blood Urea Nitrogen 16, Creatinine 0.53L, Estimat Glomerular Filtration Rate > 60, BUN/Creatinine Ratio 30, Glucose Level 131H, Calcium Level 8.3L, Phosphorus Level 1.3L, Magnesium Level 2.0 04/22/17 16:42: Glucometer 101 04/22/17 21:26: Glucometer 98 04/23/17 04:13: White Blood Count 15.5H, Red Blood Count 4.23L, Hemoglobin 11.5, Hematocrit 36, Mean Corpuscular Volume 86, Mean Corpuscular Hemoglobin 27, Mean Corpuscular Hemoglobin Concent 32, Red Cell Distribution Width 15.7H, Platelet Count 168, Mean Platelet Volume 11.0H, Neutrophils (%) (Auto) 92H, Lymphocytes (%) (Auto) 3L, Monocytes (%) (Auto) 5, Eosinophils (%) (Auto) 0, Basophils (%) (Auto) 0, Neutrophils # (Auto) 14.2H, Lymphocytes # (Auto) 0.5L, Monocytes # (Auto) 0.8, Eosinophils # (Auto) 0.0, Basophils # (Auto) 0.0, Blood Gas Puncture Site [place], Blood Gas Patient Temperature 96.9, Arterial Blood pH 7.47H, Arterial Blood Partial Pressure CO2 39, Arterial Blood Partial Pressure O2 54L, Arterial Blood HCO3 29H, Arterial Blood Total CO2 30.2, Arterial Blood Oxygen Saturation 95, Arterial Blood Base Excess 5.1H, Familia Test ART LINE, Blood Gas Ventilator Setting NO, Blood Gas Inspired Oxygen 21% BIPAP, Sodium Level 143, Potassium Level 3.7, Chloride Level 108H, Carbon Dioxide Level 28, Anion Gap 7, Blood Urea Nitrogen 14, Creatinine 0.52L, Estimat Glomerular Filtration Rate > 60, BUN /Creatinine Ratio 27, Glucose Level 151H, Calcium Level 8.5, Phosphorus Level 1.2L, Magnesium Level 2.1, B-Type Natriuretic Peptide 188.7H 04/23/17 06:15: Glucometer 111H 04/23/17 11:11: Glucometer 111H Microbiology 04/21/17 Gram Stain - Final, Resulted 04/21/17 Sputum Culture - Preliminary, Resulted Probable Strep Pneumoniae Probable Haemophilus Radiology Date of Exam: 04/20/17 CHEST 1 VIEW, AP/PA ONLY INDICATION: ET tube placement. OG tube placement Portable chest shows normal heart size and vascularity. The lungs are clear. There is no effusion or pneumothorax. The ET tube is in good position. The OG tube is in the proximal stomach. IMPRESSION: Interval placement of ET tube and OG tube with chest otherwise appearing normal and stable compared to prior exam from 11/04/2016. Assessment/Plan Assessment/Plan Plan ADM: Patient was admitted for her severe asthma exacerbation. We initially had her on a TV of 450, PEEP 5. Her O2 was weaned. However, an ABG showed worsening ventilation, so we consulted eICU. She was given an hour long neb and TV decreased and PEEP increased overnight. This morning, we have consulted Dr Walsh. He is very concerned about her prognosis. Her ETT is now an 8.0, she is on mag and ketamine as well as has been paralyzed and switched to PC settings. Her latest ABG continues to show very poor ventilation despite this maximal medical therapy. He has also added on abx owing to her severity. I called and spoke with her mother regarding her prognosis and encouraged her to go see Denise as we are minute by minute right now. I was called around noon ( while I was in clinic) to discuss Denise's severity and again voiced concerns that denise could from this exacerbation. Her boyfriend stated that he would javier if she were to pass away and her mother repeatedly requested transfer. I informed them that she was much too sick to be transferred but that we would consider that as soon as she were stable. I continue to be very concerned that her prognosis is guarded and will keep her family up to date as more information arises. 1. Respiratory Failure secondary to asthma exacerbation and pneumonia - self-extubated overnight; currently sating upper 90's on 4L NC; ABGs normalized - Albuterol and Solu-medrol 04/23 - Pt still too sick to move to floor. We will continue with ICU management for now. She is on BiPAP at present and still significantly sSOB. 2. Left lower lobe Pneumonia - probable Strep pneumonia and H flu on sputum cx - currently on Zithromax and Rocephin 04/23 - Strep Pneumo and Haemophilus - continue current regimen 3. Hyperkalemia -RESOLVED 4. Leukocytosis - possibly reactive and secondary to steroids vs infection 5. Methamphetamine dependance - smoking/inhaling meth likely contributing to asthma exacerbation -pt indicated interested in [facility] ATS program 04/23 - will discuss w patient when improved DVT PROPH: SCDs, Lovenox GI PROPH: PPI FULL CODE Clinical Quality Measures DVT/VTE Risk/Contraindication: Risk Factor Score Per Nursin RFS Level Per Nursing on Admit: 4+=Very High LANDON ROWAN MD Apr 23, 2017 11:29 am
[2017-04-23] MEDS: methylPREDNISolone 40 MG/ML (Solu-MEDROL) VIAL IV SCH ×3 (12:50→21:11)
[2017-04-23] MEDS: morphine INJ 4 MG/ML 1 ML (VIAL/SYRINGE) IVP PRN ×2 (15:11→20:37)
[2017-04-23] MEDS: KETOROLAC 30 MG/ML VIAL IVP PRN (18:36)
[2017-04-23] MEDS: ENOXAPARIN 40 MG/0.4 ML (LOVENOX) SYR SC SCH (20:24)
[2017-04-24] VITALS (23 sets, daily range): BP systolic 107–157; BP diastolic 61–97
[2017-04-24] MEDS: RT-ALBUTEROL/IPRATROPIUM 3 ML (DUONEB) VIAL INH SCH ×6 (00:17→22:22)
[2017-04-24] MEDS: morphine INJ 4 MG/ML 1 ML (VIAL/SYRINGE) IVP PRN ×5 (02:39→22:38)
[2017-04-24] MEDS: RT-ALBUTEROL SULF 2.5 MG/3 ML PRE-MIX VIAL IH SCH ×4 (02:46→14:32)
[2017-04-24] MEDS: methylPREDNISolone 40 MG/ML (Solu-MEDROL) VIAL IV SCH ×4 (03:33→21:00)
[2017-04-24 05:13] LABS: BASOPHILS % (AUTO) 0 % (0-10); EOSINOPHILS % (AUTO) 0 % (0-10); LYMPHOCYTES # (AUTO) 0.6 X 10^3 (1.0-4.0); LYMPHOCYTES % (AUTO) 5 % (12-44); MEAN CORPUSCULAR HEMOGLOBIN 27 PG (25-34); MEAN CORPUSCULAR HGB CONC 33 G/DL (32-36); MEAN CORPUSCULAR VOLUME 83 FL (80-99); MEAN PLATELET VOLUME 10.9 FL (7.4-10.4); MONOCYTES # (AUTO) 0.5 X 10^3 (0.0-1.0); MONOCYTES % (AUTO) 5 % (0-12); NEUTROPHILS % (AUTO) 90 % (42-75); PLATELET COUNT 209 10^3/uL (130-400); RED CELL DISTRIBUTION WIDTH 15.9 % (10.0-14.5); WHITE BLOOD COUNT 11.2 10^3/uL (4.3-11.0)
[2017-04-24 05:15] LABS: ABG BASE EXCESS 3.8 MMOL/L (-2.5-2.5); ABG HCO3 28 MMOL/L (23-27); ABG OXYGEN SATURATION 96 % (94-100); ABG PCO2 39 MMHG (35-45); ABG PH 7.46 (7.37-7.43); ABG PO2 63 MMHG (79-93); ABG TCO2 28.8 MMOL/L (21.0-31.0); ALLENS TEST ART LINE; PATIENT TEMP 97.5
[2017-04-24 05:32] LABS: ANION GAP 10 MMOL/L (5-14); BLOOD UREA NITROGEN 26 MG/DL (7-18); BUN/CREATININE RATIO 49; CALCIUM 8.5 MG/DL (8.5-10.1); CARBON DIOXIDE 26 MMOL/L (21-32); CHLORIDE 108 MMOL/L (98-107); CREATININE SERUM 0.53 MG/DL (0.60-1.30); GFR ESTIMATED > 60; GLUCOSE 133 MG/DL (70-105); MAGNESIUM 2.3 MG/DL (1.8-2.4); PHOSPHORUS 3.1 MG/DL (2.3-4.7); POTASSIUM 3.5 MMOL/L (3.6-5.0); SODIUM 144 MMOL/L (135-145)
[2017-04-24] MEDS: POTASSIUM CL 10MEQ/50ML IVPB 50 ML IV SCH ×3 (05:59→10:59)
[2017-04-24] MEDS: inSUlin (REGULAR) HUMAN 1 UNIT/0.01 ML (CHARGE PER UNIT) SC SCH ×4 (05:59→20:59)
[2017-04-24] MEDS: MAGNESIUM 1 GM/100 ML IVPB 100 ML IV SCH (05:59)
[2017-04-24] MEDS: KCL 20 MEQ TAB (K-DUR) PO SCH (05:59)
[2017-04-24] MEDS: CATHETER FLUSH 10 ML SYR IV SCH ×3 (05:59→18:48)
[2017-04-24] MEDS: KETOROLAC 30 MG/ML VIAL IVP PRN ×2 (06:17→16:49)
[2017-04-24] MEDS: AZITHROMYCIN INJECTION 500 MG in NS (IVPB) 250 ML IV SCH (06:18)
--- NOTE | 2017-04-24 06:57 | Diagnostic Imaging Report ---
INDICATION: Respiratory failure Portable chest 4:55 AM Right upper extremity PICC line tip projects over the SVC. Heart size and pulmonary vascularity are normal. There is a patchy infiltrate at the left lung base that is improved slightly from the previous day. IMPRESSION: Improving left basilar infiltrate. Dictated by: Dictated on workstation # [id number]
--- NOTE | 2017-04-24 07:09 | Pulmonary Progress Note ---
Subjective Time Seen by Provider: 07:10 Subjective/Events-last exam Pt appears to be doing better. still on BiPAP currently. Exam Exam Vital Signs Date Time Temp Pulse Resp B/P (MAP) Pulse Ox O2 Delivery O2 Flow Rate FiO2 04/24/17 06:00 76 17 140/76 95 NIV Bilevel 21.00 04/24/17 05:00 89 20 130/70 94 NIV Bilevel 21.00 04/24/17 04:46 73 17 95 21.00 04/24/17 04:00 75 19 130/74 94 NIV Bilevel 21.00 04/24/17 04:00 95 NIV Bilevel 21 04/24/17 03:00 93 20 124/67 92 NIV Bilevel 21.00 04/24/17 02:46 92 20 93 21.00 04/24/17 02:00 75 17 127/70 95 NIV Bilevel 21.00 04/24/17 01:00 106 04/24/17 01:00 97 27 134/75 90 NIV Bilevel 21.00 04/24/17 00:17 87 19 94 21.00 04/24/17 00:00 95 NIV Bilevel 21 04/24/17 00:00 97.8 85 17 129/71 94 NIV Bilevel 21.00 04/23/17 23:00 93 20 126/68 94 NIV Bilevel 21.00 04/23/17 22:17 94 18 93 21.00 04/23/17 22:00 95 18 119/65 94 NIV Bilevel 21.00 04/23/17 21:00 122 21 117/63 92 NIV Bilevel 21.00 04/23/17 20:20 107 21 93 21.00 04/23/17 20:00 95 NIV Bilevel 21 04/23/17 20:00 97.1 109 23 129/72 95 NIV Bilevel 21.00 04/23/17 19:05 89 25 94 21.00 04/23/17 19:00 122 04/23/17 19:00 133 18 159/88 96 NIV Bilevel 21.00 04/23/17 18:00 83 23 143/77 94 NIV Bilevel 21.00 04/23/17 17:00 116 17 142/77 100 NIV Bilevel 21.00 04/23/17 16:22 112 25 100 21.00 04/23/17 16:20 95 NIV Bilevel 35 04/23/17 16:00 80 22 142/77 100 NIV Bilevel 21.00 04/23/17 16:00 97.1 04/23/17 15:00 133 21 140/78 97 NIV Bilevel 21.00 04/23/17 14:46 89 21 93 21.00 04/23/17 14:00 75 24 162/84 94 NIV Bilevel 21.00 04/23/17 13:00 117 04/23/17 13:00 117 19 176/96 90 NIV Bilevel 21.00 04/23/17 12:50 95 NIV Bilevel 21 04/23/17 12:15 96 25 96 21.00 04/23/17 12:00 93 22 139/81 94 NIV Bilevel 21.00 04/23/17 12:00 96.5 NIV Bilevel 21.00 04/23/17 11:00 85 22 158/85 95 NIV Bilevel 21.00 04/23/17 10:28 102 23 99 25.00 04/23/17 10:00 93 22 151/79 96 NIV Bilevel 30.00 04/23/17 09:00 87 23 136/79 98 NIV Bilevel 30.00 04/23/17 08:59 95 NIV Bilevel 21 04/23/17 08:12 89 24 97 25.00 04/23/17 08:00 96.7 04/23/17 08:00 91 23 134/84 98 NIV Bilevel 30.00 General Appearance: Mild Distress HEENT: PERRL/EOMI, Normal ENT Inspection, Pharynx Normal Neck: Full Range of Motion, Normal Inspection, Non Tender, Supple Respiratory: Decreased Breath Sounds, Expiration, Wheezing Cardiovascular: Tachycardia Capillary Refill: Less Than 3 Seconds Gastrointestinal: normal bowel sounds, non tender, soft Extremity: Normal Capillary Refill, Normal Inspection Neurologic/Psychiatric: Alert Lymphatic: No Adenopathy Results Lab Laboratory Tests 04/22/17 15:15 04/23/17 04:13 04/24/17 05:03 Assessment/Plan Assessment/Plan Acute severe respiratory failure -Pt is currently on BiPAP. -- will trial off BiPAP today -repeat ABG PNeumonia present on admission with strep pneumonia -Continue abx tx Severe Asthma AE -SVN Q2 -solumedrol to 40 Q 6 Electrolyte disturbance -Replace Leukocytosis - probably reactive and secondary to steroids - Rocephin and azithromycin Methamphetamine dependance -Education Family stated pt started smoking again recently Debility -Start PT/OT 233 Clinical Quality Measures DVT/VTE Risk/Contraindication: Risk Factor Score Per Nursin RFS Level Per Nursing on Admit: 4+=Very High TONIO GOTTI DO Apr 24, 2017 07:09
[2017-04-24] MEDS ORDERED: FUROSEMIDE 40 MG/4 ML INJ (LASIX) IVP NR (07:28)
[2017-04-24] MEDS ORDERED: KCL 10 MEQ TAB (MICRO K) PO NR (07:30)
[2017-04-24] MEDS: FAMOTIDINE 20MG/2ML IV (PEPCID) IV SCH ×2 (07:57→20:59)
[2017-04-24] MEDS: cefTRIAXone INJECTION 1,000 MG in NS (IVPB) 50 ML IV SCH (07:57)
[2017-04-24] MEDS ORDERED: ALPRAZolam 0.25 MG (XANAX) TAB PO PRN (09:00)
--- NOTE | 2017-04-24 10:12 | Physical Therapy Evaluation ---
PT Evaluation-General Medical Diagnosis Admission Date Apr 20, 2017 at 11:17 Medical Diagnosis: Respiratory failure, Bronchospasm Onset Date: Apr 21, 2017 Therapy Diagnosis Therapy Diagnosis: weakness Height/Weight Height (Feet): 5 Height (Inches): 1.00 Weight (Pounds): 174 Weight (Ounces): 9.0 Precautions Precautions/Isolations: Fall Prevention, Standard Precautions Weight Bear Status Right Lower Extremity: Right Weight Bearing/Tolerated Left Lower Extremity: Left Weight Bearing/Tolerated Referral Physician: Dr. Yan Walsh Reason for Referral: Evaluation/Treatment Medical History Additional Medical History recent smoker, asthma, reflux, liver disease, hepatitis Reviewed History: Yes Social History Home: Single Level Current Living Status: Significant Other Entry Into Home: Stairs Without Railing PT Steps Into Home: 3 Prior/Core FIM Prior Level of Function Functional [place] Measure 0=Not Assessed/NA 4=Minimal Assistance 1=Total Assistance 5=Supervision or Setup 2=Maximal Assistance 6=Modified [place] 3=Moderate Assistance 7=Complete [place] Bed Mobility: 7 Transfers (B,C,W/C) (FIM): 7 Gait: 7 Locomotion: 7 PT Evaluation-Current Subjective Patient states she is feeling very weak today. She agrees to get up to the side of the bed, but does not believe she can do much else. Patient's HR is 134 while laying supine in bed. Pain Numeric Pain Scale: 0-No Pain Location: No Pain Reported Pt/Family Goals Patient wishes to return to home setting. Objective Patient Orientation: Normal For Age Problem Solving: Good Attachments: IV ROM/Strength ROM Upper Extremities WNL ROM Lower Extremities WNL Strength Upper Extremities Not assessed due to current respiratory distress Strength Lower Extremities Not assessed due to current respiratory distress Integumentary/Posture Integumentary intact Bowel Incontinence: No Bladder Incontinence: No Posture slumped when seated at edge of bed Neuromuscular (Tone, Coordination, Reflexes) normal Sensory Vision: Functional Hearing: Functional Sensation Right Upper Extremit: Intact Sensation Left Upper Extremity: Intact Sensation Right Lower Extremit: Intact Sensation Left Lower Extremity: Intact Transfers Functional [place] Measure 0=Not Assessed/NA 4=Minimal Assistance 1=Total Assistance 5=Supervision or Setup 2=Maximal Assistance 6=Modified [place] 3=Moderate Assistance 7=Complete [place] Transfers (B, C, W/C) (FIM): 5 Scootin Rollin Supine to/from Sit: 5 Patient was SBA for bed mobility. She did not attempt sit to stand on this date due to respiratory distress and reported weakness. Balance Sitting Static: Normal Sitting Dynamic: Normal Assessment/Needs Patient was extubated yesterday and is still suffering weakness and cardiopulmonary issues due to acute respiratory failure. Patient will be assessed tomorrow to examine if patient respiratory status improves and is able to ambulate. Rehab Potential: Good PT Longterm Goals Longterm Goals PT Animal Assistant Goals Time Frame: May 01, 2017 Transfers (B,C,W/C) (FIM): 6 Gait (FIM): 3 Distance: 150' Gait Level of Assist: 6 Gait Assistive Device: FWW PT Plan Problem List Problem List: Activity Tolerance, Functional Strength, Safety, Balance, Gait Treatment/Plan Treatment Plan: Continue Plan of Care Treatment Plan: Education, Functional Activity Leo, Functional Strength, Gait , Therapeutic Exercise Treatment Duration: May 01, 2017 Frequency: 6 times per week Estimated Hrs Per Day: .25 hour per day Patient and/or Family Agrees t: Yes Safety Risks/Education Patient Education: Gait Training, Reviewed Precautions, Safety Issues Teaching Recipient: Patient Teaching Methods: Demonstration, Discussion Response to Teaching: Verbalize Understanding, Return Demonstration Discharge Recommendations Therapy D/C Recommendations: Home Independently Time/GCodes Time In: 930 Time Out: 945 Total Billed Treatment Time: 15 Total Billed Treatment 1 visit EVL 15 min GIOVANNA GRAHAM PT Apr 24, 2017 10:12
--- NOTE | 2017-04-24 10:35 | Progress Note (SOAP) ---
Subjective Subjective/Events-last exam Improved this morning, on room air. Pt states she has a long history of meth addiction. Has lost custody of 4 of her 5 kids due to drug use. Wants to look into [facility] program. Has been to rehab before - a long time ago. Still very short of breath, has a deep cough. Review of Systems Date Seen by Provider: Apr 24, 2017 Time Seen by Provider: 08:00 Pulmonary: Dyspnea, Cough Cardiovascular: No: Chest Pain Objective Exam Last Set of Vital Signs Vital Signs Date Time Temp Pulse Resp B/P (MAP) Pulse Ox O2 Delivery O2 Flow Rate FiO2 04/24/17 08:54 Nasal Cannula 2.00 04/24/17 08:00 115 19 140/73 95 04/24/17 08:00 96.6 04/24/17 04:00 21 Capillary Refill : Less Than 3 Seconds I&O Intake and Output 04/24/17 23:59 Intake Total 200 ml Output Total 140 ml Balance 60 ml Intake Oral 200 ml Output Urine Total 140 ml General: Alert, Oriented X3, Cooperative, Moderate Distress (SOB) Lungs: Other (good effort, diffuse wheezing) Heart: Regular Rate, Normal S1, Normal S2, No Murmurs, Gallops, Rubs Abdomen: Normal Bowel Sounds, Soft, No Tenderness, No Hepatosplenomegaly, No Masses Extremities: No Clubbing, No Cyanosis, No Edema Psych/Mental Status: Mental Status NL, Mood NL Results/Procedures Lab Laboratory Tests 04/23/17 11:11: Glucometer 111H 04/23/17 17:23: Glucometer 104 04/23/17 20:21: Glucometer 98 04/24/17 05:03: White Blood Count 11.2H, Red Blood Count 4.10L, Hemoglobin 11.1L, Hematocrit 34L , Mean Corpuscular Volume 83, Mean Corpuscular Hemoglobin 27, Mean Corpuscular Hemoglobin Concent 33, Red Cell Distribution Width 15.9H, Platelet Count 209, Mean Platelet Volume 10.9H, Neutrophils (%) (Auto) 90H, Lymphocytes (%) (Auto) 5L, Monocytes (%) (Auto) 5, Eosinophils (%) (Auto) 0, Basophils (%) (Auto) 0, Neutrophils # (Auto) 10.0H, Lymphocytes # (Auto) 0.6L, Monocytes # (Auto) 0.5, Eosinophils # (Auto) 0.0, Basophils # (Auto) 0.0, Blood Gas Puncture Site R MISSY, Blood Gas Patient Temperature 97.5, Arterial Blood pH 7.46H, Arterial Blood Partial Pressure CO2 39, Arterial Blood Partial Pressure O2 63L, Arterial Blood HCO3 28H, Arterial Blood Total CO2 28.8, Arterial Blood Oxygen Saturation 96, Arterial Blood Base Excess 3.8H, Familia Test ART LINE, Blood Gas Ventilator Setting NO, Blood Gas Inspired Oxygen 21% FIO2 BIPAP, Sodium Level 144, Potassium Level 3.5L, Chloride Level 108H, Carbon Dioxide Level 26, Anion Gap 10 , Blood Urea Nitrogen 26H, Creatinine 0.53L, Estimat Glomerular Filtration Rate > 60, BUN/Creatinine Ratio 49, Glucose Level 133H, Calcium Level 8.5, Phosphorus Level 3.1, Magnesium Level 2.3 Microbiology 04/21/17 Gram Stain - Final, Resulted 04/21/17 Sputum Culture - Preliminary, Resulted Streptococcus Pneumoniae Haemophilus Species Radiology Date of Exam: 04/20/17 CHEST 1 VIEW, AP/PA ONLY INDICATION: ET tube placement. OG tube placement Portable chest shows normal heart size and vascularity. The lungs are clear. There is no effusion or pneumothorax. The ET tube is in good position. The OG tube is in the proximal stomach. IMPRESSION: Interval placement of ET tube and OG tube with chest otherwise appearing normal and stable compared to prior exam from 11/04/2016. Assessment/Plan Assessment/Plan Plan ADM: Patient was admitted for her severe asthma exacerbation. We initially had her on a TV of 450, PEEP 5. Her O2 was weaned. However, an ABG showed worsening ventilation, so we consulted eICU. She was given an hour long neb and TV decreased and PEEP increased overnight. This morning, we have consulted Dr Walsh. He is very concerned about her prognosis. Her ETT is now an 8.0, she is on mag and ketamine as well as has been paralyzed and switched to PC settings. Her latest ABG continues to show very poor ventilation despite this maximal medical therapy. He has also added on abx owing to her severity. I called and spoke with her mother regarding her prognosis and encouraged her to go see Denise as we are minute by minute right now. I was called around noon ( while I was in clinic) to discuss Denise's severity and again voiced concerns that denise could from this exacerbation. Her boyfriend stated that he would javier if she were to pass away and her mother repeatedly requested transfer. I informed them that she was much too sick to be transferred but that we would consider that as soon as she were stable. I continue to be very concerned that her prognosis is guarded and will keep her family up to date as more information arises. 1. Respiratory Failure secondary to asthma exacerbation and pneumonia - self-extubated overnight; currently sating upper 90's on 4L NC; ABGs normalized - Albuterol and Solu-medrol 04/23 - Pt still too sick to move to floor. We will continue with ICU management for now. She is on BiPAP at present and still significantly sSOB. 04/24 - improved, will plan for floor today. continue O2 to keep sa O2 88-92% at the least. 2. Left lower lobe Pneumonia - probable Strep pneumonia and H flu on sputum cx - currently on Zithromax and Rocephin 04/23 - Strep Pneumo and Haemophilus - continue current regimen 04/24 - awaiting speciation. will pare down when possible. 3. Hyperkalemia -RESOLVED 4. Leukocytosis - possibly reactive and secondary to steroids vs infection 5. Methamphetamine dependance - smoking/inhaling meth likely contributing to asthma exacerbation -pt indicated interested in [facility] AT[facility] program 04/23 - will discuss w patient when improved 04/24 - long discussion w patient about her meth use. DOC is meth. Will admit her into ATS once discharged. I will plan to be her PCP to take care of asthma as well as addictions. Stressed that her compliance is a real issue her. SHe views this event as a wake up call. DVT PROPH: SCDs, Lovenox - encourage ambulation GI PROPH: PPI FULL CODE Clinical Quality Measures DVT/VTE Risk/Contraindication: Risk Factor Score Per Nursin RFS Level Per Nursing on Admit: 4+=Very High LANDON ROWAN MD Apr 24, 2017 10:35 am
--- NOTE | 2017-04-24 14:50 | Occupational Therapy Eval ---
OT Evaluation-General/PLF Medical Diagnosis Admission Date Apr 20, 2017 at 11:17 Medical Diagnosis: Respiratory failure, Bronchospasm Onset Date: Apr 21, 2017 Therapy Diagnosis Therapy Diagnosis: Decreased ADL skills, weakness Height/Weight Height (Feet): 5 Height (Inches): 1.00 Weight (Pounds): 174 Weight (Ounces): 9.0 Precautions Precautions/Isolations: Fall Prevention, Standard Precautions Safety Interventions: None Weight Bear Status Weight Bearing Restriction: Weight Bearing/Tolerated Referral Physician: Dr. Yan Walsh Referral Reason: Activity Tolerance, Self Care, Evaluation/Treatment, Strengthening/ROM Medical History Pertinent Medical History: GERD Additional Medical History x 5, history of asthma, hepatitis C, drug use, liver disease, jaundice. Current History Pt. currently lives with her boyfriend, mother, and 18 month old child. However , states that she will likely be moving out of her mother's house, as her mother smokes. Reviewed History: Yes Social History Home: Single Level Current Living Status: Significant Other Entry Into Home: Stairs With Railing, Stairs Without Railing Steps Into Home: 3 ADL-Prior Level of Function ADL PLOF Comments Pt. states that she does not work, but does have an 18 month old child that she cares for. States that she does not drive. Pt. also reports that she is independent with all basic self care. DME/Equipment: Bath Chair, Shower Occupation: None Drive Self: No OT Current Status Subjective Pt. does not report pain. However, states that she is "cold." When sitting up , asks when she will "cough up this junk." Pt. is coughing each time she sits up in bed. Appearance OT checks on pt. twice. First time, pt. is sitting up in bed and eating lunch. Pt. states that this is her second meal. She has not had a BM yet. Pt. states that she is feeling much better. OT asks several questions, but tells her she will come back after she is done eating. OT comes back and pt. in bed with multiple blankets on. Mental Status/Objective Patient Orientation: Person, Place, Time, Situation Attachments: IV, Oxygen Current Hand Dominance: Right Upper Extremity ROM Pt. has limited AROM in shoulders at this time due to multiple lines and tubing. Upper Extremity Strength Pt. demonstrates approximately 2+/5 handyman strength in bilateral UE. Shoulder strength not tested due to multiple lines, tubing, and pt's continual coughing. Edema: Pt. demonstrates edema in bilateral hands. ADL-Treatment Functional [place] Measure 0=Not Assessed/NA 4=Minimal Assistance 1=Total Assistance 5=Supervision or Setup 2=Maximal Assistance 6=Modified [place] 3=Moderate Assistance 7=Complete IndependenceIRFPAI Quality Coding Scale 6 Independent with activity with or without an assistive device 5 Patient requires set up or clean up by helper. Patient completes activity by themselves 4 Supervision or touching assist (CGA). [place] provide cues , steadying assist 3 The helper provides less than half the effort to complete the activity 2 The helper provides more than half the effort to complete the activity 1 Dependent. The helper does all the effort to complete an activity 7 Patient refused to complete or attempt activity 9 The patient did not perform the activity before the current illness or injury 88 Not attempted due to Medical conditions or safety concerns Eating (FIM): 5 (Pt. eating meal in bed after set up with no difficulty.) Transfers (B, C, W/C) (FIM): 5 (Pt. is able to sit up on side of bed with SBA. Declines to stand at this time. Please see note below.) Other Treatments Pt. agrees to transfer to side of bed for OT. Transfers supine-sit with SBA. Once sitting, pt. begins to cough. States that overall, she is feeling better. OT asks pt. if she would like to attempt to stand. Pt. states that she would not. Declines and asks to lay back down. Pt. lays back with no difficulty. Pt. reports that she will be going to 4th floor soon, and that she would like to walk when down there. OT spoke to nursing privately, to see if pt. ready to transfer, or if OT could possibly assist with ambulation/transfer to 4th. Nursing states that pt. is not to ambulate at this time, per physician, due to severity of lung condition. Nurse states that she will be calling Dr. moe to update her. OT asks for specific restrictions, as far as limitations, so that they are not performed if they are not supposed to be. Nursing to ask physician and let therapy know. Education OT Patient Education: Correct positioning, Progress toward Goal/Update tx plan , Purpose of tx/functional activities, Reviewed precautions, Rehab process, Transfer techniques Teaching Recipient: Patient Teaching Methods: Demonstration, Discussion Response to Teaching: Verbalize Understanding, Return Demonstration OT Short Term Goals Short Term Goals 1=Demonstrate adherence to instructed precautions during ADL tasks. 2=Patient will verbalize/demonstrate understanding of assistive devices/ modifications for ADL. 3=Patient will improve strength/tolerance for activity to enable patient to perform ADL's. OT Fdc Goals Fdc Goals Time Frame: May 08, 2017 Eating (FIM): 7 Grooming(FIM): 7 Bathing(FIM): 6 Upper Body Dressing(FIM): 7 Lower Body Dressing(FIM): 6 Toileting(FIM): 6 Transfers (B,C,W/C) (FIM): 6 Toilet/Commode Transfer(FIM): 6 Shower Transfer(FIM): 6 Additional Goals: 1-Demonstrate ADL Tasks, 2-Verbalize Understanding, 3- ImproveStrength/Leo 1=Demonstrate adherence to instructed precautions during ADL tasks. 2=Patient will verbalize/demonstrate understanding of assistive devices/ modifications for ADL. 3=Patient will improve strength/tolerance for activity to enable patient to perform ADL's. OT Education/Plan Problem List/Assessment Assessment: Decreased Activ Tolerance, Decreased UE Strength, Dependent Transfers, Edema, Impaired Bed Mobility, Impaired Funct Balance, Impaired I ADL' s, Impaired Self-Care Skills, Restricted Funct UE ROM Discharge Recommendations Plan/Recommendations: Continue POC Therapy D/C Recommendations: Home w/ Family Support, Occupational Therapy Home Care Comment Equipment needs to be determined based on pt's progress. Treatment Plan/Plan of Care Treatment,Training & Education: Yes Patient would benefit from OT for education, treatment and training to promote independence in ADL's, mobility, safety and/or upper extremity function for ADL' s. Plan of Care: ADL Retraining, Functional Mobility, UE Funct Exercise/Act Treatment Duration: May 08, 2017 Frequency: 5 times per week Estimated Hrs Per Day: .25 hour per day Agreement: Yes Rehab Potential: Good Time/GCodes Start Time: 14:20 Stop Time: 14:40 Total Time Billed (hr/min): 20 Billed Treatment Time 1, JAMILAH WOODS OT Apr 24, 2017 14:50
[2017-04-24] MEDS: ENOXAPARIN 40 MG/0.4 ML (LOVENOX) SYR SC SCH (20:59)
[2017-04-25 00:39] VITALS: BP 136/75
[2017-04-25] MEDS: RT-ALBUTEROL/IPRATROPIUM 3 ML (DUONEB) VIAL INH SCH ×6 (02:20→22:11)
[2017-04-25] MEDS: morphine INJ 4 MG/ML 1 ML (VIAL/SYRINGE) IVP PRN ×4 (02:46→20:54)
[2017-04-25] MEDS: methylPREDNISolone 40 MG/ML (Solu-MEDROL) VIAL IV SCH (03:12)
[2017-04-25 04:14] VITALS: BP 131/76
[2017-04-25 04:48] LABS: BASOPHILS % (AUTO) 0 % (0-10); EOSINOPHILS % (AUTO) 0 % (0-10); LYMPHOCYTES # (AUTO) 0.9 X 10^3 (1.0-4.0); LYMPHOCYTES % (AUTO) 6 % (12-44); MEAN CORPUSCULAR HEMOGLOBIN 27 PG (25-34); MEAN CORPUSCULAR HGB CONC 33 G/DL (32-36); MEAN CORPUSCULAR VOLUME 83 FL (80-99); MEAN PLATELET VOLUME 10.7 FL (7.4-10.4); MONOCYTES # (AUTO) 0.7 X 10^3 (0.0-1.0); MONOCYTES % (AUTO) 4 % (0-12); NEUTROPHILS # (AUTO) 15.3 X 10^3 (1.8-7.8); NEUTROPHILS % (AUTO) 90 % (42-75); PLATELET COUNT 219 10^3/uL (130-400); RED BLOOD COUNT 4.03 10^6/uL (4.35-5.85); RED CELL DISTRIBUTION WIDTH 15.6 % (10.0-14.5)
[2017-04-25 05:24] LABS: ANION GAP 8 MMOL/L (5-14); BLOOD UREA NITROGEN 27 MG/DL (7-18); BUN/CREATININE RATIO 47; CALCIUM 8.5 MG/DL (8.5-10.1); CARBON DIOXIDE 26 MMOL/L (21-32); CHLORIDE 107 MMOL/L (98-107); CREATININE SERUM 0.58 MG/DL (0.60-1.30); GFR ESTIMATED > 60; GLUCOSE 143 MG/DL (70-105); MAGNESIUM 1.8 MG/DL (1.8-2.4); PHOSPHORUS 2.8 MG/DL (2.3-4.7); POTASSIUM 3.9 MMOL/L (3.6-5.0); SODIUM 141 MMOL/L (135-145)
[2017-04-25] MEDS: CATHETER FLUSH 10 ML SYR IV SCH ×3 (06:30→20:55)
[2017-04-25] MEDS: inSUlin (REGULAR) HUMAN 1 UNIT/0.01 ML (CHARGE PER UNIT) SC SCH ×4 (06:30→20:43)
--- NOTE | 2017-04-25 07:22 | Diagnostic Imaging Report ---
Portable upright radiograph of the chest. INDICATION: Dyspnea. COMPARISON: 04/24/2017. FINDINGS: There is mild patchy left basilar infiltrate. This is similar to 04/24/2017. The right lung is clear. The heart size is normal. No effusion or pneumothorax. Right PICC line is seen without change. IMPRESSION: Stable mild left basilar patchy infiltrate. Dictated by: Dictated on workstation # [id number]
[2017-04-25] MEDS: AZITHROMYCIN INJECTION 500 MG in NS (IVPB) 250 ML IV SCH (07:44)
--- NOTE | 2017-04-25 07:44 | Pulmonary Progress Note ---
Subjective Time Seen by Provider: 07:45 Subjective/Events-last exam PT is doing better. No complications noted. Exam Exam Vital Signs Date Time Temp Pulse Resp B/P (MAP) Pulse Ox O2 Delivery O2 Flow Rate FiO2 04/25/17 07:07 94 Room Air 0.00 04/25/17 04:14 98.1 88 18 131/76 (94) 94 Room Air 04/25/17 02:21 92 Room Air 04/25/17 00:39 98.2 87 18 136/75 (95) 95 Room Air 04/24/17 22:22 92 Room Air 04/24/17 20:00 Room Air 04/24/17 20:00 98.2 116 24 139/78 (98) 95 Room Air 04/24/17 18:33 95 Room Air 04/24/17 16:15 97.6 118 22 129/87 (101) 99 Room Air 04/24/17 16:00 Room Air 04/24/17 16:00 98.5 105 23 155/97 (116) 95 Room Air 04/24/17 15:00 94 27 157/77 (103) 94 Room Air 04/24/17 14:00 112 26 144/88 (106) 96 Nasal Cannula 1.00 04/24/17 13:00 86 04/24/17 13:00 86 18 136/75 (95) 97 Nasal Cannula 1.00 04/24/17 12:00 Room Air 04/24/17 12:00 98.5 Nasal Cannula 1.00 04/24/17 12:00 113 18 143/65 (91) 98 Nasal Cannula 1.00 04/24/17 11:40 Nasal Cannula 1.00 04/24/17 11:00 121 20 113/65 (81) 97 Nasal Cannula 2.00 04/24/17 10:28 98 Nasal Cannula 2.00 04/24/17 10:00 110 22 143/72 (95) 95 Nasal Cannula 2.00 04/24/17 09:00 147 31 145/80 (101) 95 Nasal Cannula 2.00 04/24/17 08:54 Nasal Cannula 2.00 04/24/17 08:00 115 19 140/73 95 NIV Bilevel 21.00 04/24/17 08:00 Room Air 04/24/17 08:00 96.6 Room Air General Appearance: No Apparent Distress, Anxious HEENT: PERRL/EOMI, Normal ENT Inspection, Pharynx Normal Neck: Full Range of Motion, Normal Inspection, Non Tender, Supple Respiratory: Decreased Breath Sounds, Expiration, Wheezing Cardiovascular: No Edema, No Gallop, No JVD Capillary Refill: Less Than 3 Seconds Gastrointestinal: normal bowel sounds, non tender, soft Extremity: Normal Capillary Refill, Normal Inspection Neurologic/Psychiatric: Alert, Oriented x3 Skin: Normal Color, Warm/Dry Lymphatic: No Adenopathy Results Lab Laboratory Tests 04/24/17 05:03 04/25/17 04:30 Assessment/Plan Assessment/Plan Acute severe respiratory failure -Pt doing well off BiPAP PNeumonia present on admission with strep pneumonia -Azithromycin x 5 days then D/C -Change Rocephin to omicef 300mg BID x 5 days then D/C Severe Asthma AE -SVN Q2 -solumedrol to 40 Q 6 -- change to prednisone taper Methamphetamine dependance -Education - Pt admits to smoking methamphetamine prior to hospitalization Family stated pt started smoking again recently Debility -Start PT/OT 233 Clinical Quality Measures DVT/VTE Risk/Contraindication: Risk Factor Score Per Nursin RFS Level Per Nursing on Admit: 4+=Very High TONIO GOTTI DO Apr 25, 2017 07:44
[2017-04-25 08:26] VITALS: BP 118/78
[2017-04-25] MEDS: CEFDINIR 300 MG (OMNICEF) CAP PO SCH ×2 (08:50→20:54)
[2017-04-25] MEDS: predniSONE 10 MG TAB PO SCH (08:50)
[2017-04-25] MEDS: FAMOTIDINE 20MG/2ML IV (PEPCID) IV SCH (08:51)
[2017-04-25] MEDS ORDERED: AZITHROMYCIN 250 MG TAB (ZITHROMAX) PO NR (08:59)
--- NOTE | 2017-04-25 10:25 | Physical Therapy Daily Note ---
PT Daily Note-Current Subjective Patient reluctantly agrees to PT. She reports she is having a hard time breathing. Pain Numeric Pain Scale: 0-No Pain Location: No Pain Reported Mental Status Patient Orientation: Normal For Age Transfers Functional [place] Measure 0=Not Assessed/NA 4=Minimal Assistance 1=Total Assistance 5=Supervision or Setup 2=Maximal Assistance 6=Modified [place] 3=Moderate Assistance 7=Complete IndependenceIRFPAI Quality Coding Scale 6 Independent with activity with or without an assistive device 5 Patient requires set up or clean up by helper. Patient completes activity by themselves 4 Supervision or touching assist (CGA). [place] provide cues , steadying assist 3 The helper provides less than half the effort to complete the activity 2 The helper provides more than half the effort to complete the activity 1 Dependent. The helper does all the effort to complete an activity 7 Patient refused to complete or attempt activity 9 The patient did not perform the activity before the current illness or injury 88 Not attempted due to Medical conditions or safety concerns Transfers (B, C, W/C) (FIM): 7 Rollin Supine to/from Sit: 7 Sit to/from Stand: 7 Weight Bearing Right Lower Extremity: Right Weight Bearing/Tolerated Left Lower Extremity: Left Weight Bearing/Tolerated Gait Training Gait (FIM): 1 Distance (FIM): 1=up to 49 ft Distance: 45' x 2 Gait Level of Assist: 7 Gait Assistive Device: None safe and functional Assessment SAO2 on RA is 93% with and without activity. Patient reports frustration with inability to "catch her breath", however, is completely independent with all functional mobility. PT to dismiss patient from services at this time and has encouraged/educated patient to ambulate PRN in hallway to improve pulmonary function. PT Outreach Team Member Goals Outreach Team Member Goals PT Group Home Goals Time Frame: May 01, 2017 Transfers (B,C,W/C) (FIM): 6 Gait (FIM): 3 Distance: 150' Gait Level of Assist: 6 Gait Assistive Device: FWW PT Plan Treatment/Plan Treatment Plan: Discontinue PT Treatment Plan: Education, Functional Activity Leo, Functional Strength, Gait , Therapeutic Exercise Treatment Duration: May 01, 2017 Frequency: 6 times per week Estimated Hrs Per Day: .25 hour per day Patient and/or Family Agrees t: Yes Time/GCodes Time In: 955 Time Out: 1009 Total Billed Treatment Time: 9 Total Billed Treatment 1 visit FA 9 min G Codes Necessary: GIOVANNA Worley PT Apr 25, 2017 10:24
--- NOTE | 2017-04-25 10:47 | Progress Note (SOAP) ---
Subjective Subjective/Events-last exam Сергей is not requiring oxygen but states she is still easily short of breath once she starts moving around. Review of Systems Date Seen by Provider: Apr 26, 2017 Time Seen by Provider: 10:00 Pulmonary: Dyspnea, Cough Cardiovascular: No: Chest Pain Objective Exam Last Set of Vital Signs Vital Signs Date Time Temp Pulse Resp B/P (MAP) Pulse Ox O2 Delivery O2 Flow Rate FiO2 04/25/17 09:30 96.8 04/25/17 08:26 111 16 118/78 (91) 96 Room Air 04/25/17 08:00 0.00 04/24/17 04:00 21 Capillary Refill : Less Than 3 Seconds I&O Intake and Output 04/26/17 00:00 Intake Total 300 ml Balance 300 ml Intake Oral 300 ml # Voids 2 General: Alert, Oriented X3, Cooperative, No Acute Distress Lungs: Other (diffuse wheezing, good effort) Abdomen: Normal Bowel Sounds, Soft, No Tenderness, No Hepatosplenomegaly, No Masses Psych/Mental Status: Mental Status NL, Mood NL Results/Procedures Lab Laboratory Tests 04/24/17 11:01: Glucometer 155H 04/24/17 16:59: Glucometer 183H 04/24/17 21:07: Glucometer 139H 04/25/17 04:30: White Blood Count 17.0H, Red Blood Count 4.03L, Hemoglobin 10.9L, Hematocrit 34L , Mean Corpuscular Volume 83, Mean Corpuscular Hemoglobin 27, Mean Corpuscular Hemoglobin Concent 33, Red Cell Distribution Width 15.6H, Platelet Count 219, Mean Platelet Volume 10.7H, Neutrophils (%) (Auto) 90H, Lymphocytes (%) (Auto) 6L, Monocytes (%) (Auto) 4, Eosinophils (%) (Auto) 0, Basophils (%) (Auto) 0, Neutrophils # (Auto) 15.3H, Lymphocytes # (Auto) 0.9L, Monocytes # (Auto) 0.7, Eosinophils # (Auto) 0.0, Basophils # (Auto) 0.0, Sodium Level 141, Potassium Level 3.9, Chloride Level 107, Carbon Dioxide Level 26, Anion Gap 8, Blood Urea Nitrogen 27H, Creatinine 0.58L, Estimat Glomerular Filtration Rate > 60, BUN/ Creatinine Ratio 47, Glucose Level 143H, Calcium Level 8.5, Phosphorus Level 2.8 , Magnesium Level 1.8 04/25/17 05:52: Glucometer 170H Microbiology 04/21/17 Gram Stain - Final, Resulted 04/21/17 Sputum Culture - Preliminary, Resulted Streptococcus Pneumoniae Haemophilus Influenza Radiology Date of Exam: 04/20/17 CHEST 1 VIEW, AP/PA ONLY INDICATION: ET tube placement. OG tube placement Portable chest shows normal heart size and vascularity. The lungs are clear. There is no effusion or pneumothorax. The ET tube is in good position. The OG tube is in the proximal stomach. IMPRESSION: Interval placement of ET tube and OG tube with chest otherwise appearing normal and stable compared to prior exam from 11/04/2016. Assessment/Plan Assessment/Plan Plan ADM: Patient was admitted for her severe asthma exacerbation. We initially had her on a TV of 450, PEEP 5. Her O2 was weaned. However, an ABG showed worsening ventilation, so we consulted eICU. She was given an hour long neb and TV decreased and PEEP increased overnight. This morning, we have consulted Dr Walsh. He is very concerned about her prognosis. Her ETT is now an 8.0, she is on mag and ketamine as well as has been paralyzed and switched to PC settings. Her latest ABG continues to show very poor ventilation despite this maximal medical therapy. He has also added on abx owing to her severity. I called and spoke with her mother regarding her prognosis and encouraged her to go see Сергей as we are minute by minute right now. I was called around noon ( while I was in clinic) to discuss Сергей's severity and again voiced concerns that сергей could from this exacerbation. Her boyfriend stated that he would javier if she were to pass away and her mother repeatedly requested transfer. I informed them that she was much too sick to be transferred but that we would consider that as soon as she were stable. I continue to be very concerned that her prognosis is guarded and will keep her family up to date as more information arises. 1. Respiratory Failure secondary to asthma exacerbation and pneumonia - self-extubated overnight; currently sating upper 90's on 4L NC; ABGs normalized - Albuterol and Solu-medrol 04/23 - Pt still too sick to move to floor. We will continue with ICU management for now. She is on BiPAP at present and still significantly sSOB. 04/24 - improved, will plan for floor today. continue O2 to keep sa O2 88-92% at the least. 04/25 - doing well on the floor. changing to PO abx, steroids. believe she might be ready for DC on Friday. 2. Left lower lobe Pneumonia - probable Strep pneumonia and H flu on sputum cx - currently on Zithromax and Rocephin 04/23 - Strep Pneumo and Haemophilus - continue current regimen 04/24 - awaiting speciation. will pare down when possible. 04/25 - improved aeration 3. Hyperkalemia -RESOLVED 4. Leukocytosis - possibly reactive and secondary to steroids vs infection 5. Methamphetamine dependance - smoking/inhaling meth likely contributing to asthma exacerbation -pt indicated interested in [facility] ATS program 04/23 - will discuss w patient when improved 04/24 - long discussion w patient about her meth use. DOC is meth. Will admit her into ATS once discharged. I will plan to be her PCP to take care of asthma as well as addictions. Stressed that her compliance is a real issue her. SHe views this event as a wake up call. 04/25 - pt discloses that she lost 4 of her 5 kids due to meth addiction. She has a sister that got sick and is wheelchair bound, but she is not into drugs. States her brother is not into drugs. She and her boyfriend are interested in ATS, which we will arrange at discharge. We also discussed that I will be her PCP. DVT PROPH: SCDs, Lovenox - encourage ambulation GI PROPH: PPI FULL CODE Clinical Quality Measures DVT/VTE Risk/Contraindication: Risk Factor Score Per Nursin RFS Level Per Nursing on Admit: 4+=Very High LANDON ROWAN MD Apr 25, 2017 10:47 am
[2017-04-25] MEDS: RT-ADVAIR HFA 115/21 MCG PER PUFF IH SCH ×2 (10:48→19:19)
--- NOTE | 2017-04-25 11:13 | Occupational Ther Daily Note ---
OT Current Status-Daily Note Subjective Pt alert, lying in bed. Pt stated that she did not feel like doing anything and that she couldn't breath. CASAREZ encouraged pt to participate in therapy. Pt did agree to attempt some exercises. Mental Status/Objective Patient Orientation: Person, Place, Time, Situation Functional [place] Measure 0=Not Assessed/NA 4=Minimal Assistance 1=Total Assistance 5=Supervision or Setup 2=Maximal Assistance 6=Modified [place] 3=Moderate Assistance 7=Complete [place] ADL-Treatment Per nrsg notes, pt is up with assist to complete bathing and toileting. Other Treatment Pt did complete 2 medium resistive theraband exercises, 10 reps, before refusing to complete anymore. Pt stated that she is just having a rough day and isn't going to do anymore. After therapy, pt lying in bed with call light/ phone in reach. All needs met in room. OT Short Term Goals Short Term Goals 1=Demonstrate adherence to instructed precautions during ADL tasks. 2=Patient will verbalize/demonstrate understanding of assistive devices/ modifications for ADL. 3=Patient will improve strength/tolerance for activity to enable patient to perform ADL's. OT Sales Force Developer Goals Care Home Goals Time Frame: May 08, 2017 Eating (FIM): 7 Grooming(FIM): 7 Bathing(FIM): 6 Upper Body Dressing(FIM): 7 Lower Body Dressing(FIM): 6 Toileting(FIM): 6 Transfers (B,C,W/C) (FIM): 6 Toilet/Commode Transfer(FIM): 6 Shower Transfer(FIM): 6 Additional Goals: 1-Demonstrate ADL Tasks, 2-Verbalize Understanding, 3- ImproveStrength/Leo 1=Demonstrate adherence to instructed precautions during ADL tasks. 2=Patient will verbalize/demonstrate understanding of assistive devices/ modifications for ADL. 3=Patient will improve strength/tolerance for activity to enable patient to perform ADL's. OT Education/Plan Discharge Recommendations Plan/Recommendations: Continue POC Treatment Plan/Plan of Care Patient would benefit from OT for education, treatment and training to promote independence in ADL's, mobility, safety and/or upper extremity function for ADL' s. Plan of Care: ADL Retraining, Functional Mobility, UE Funct Exercise/Act Treatment Duration: May 08, 2017 Frequency: 5 times per week Estimated Hrs Per Day: .25 hour per day Agreement: Yes Rehab Potential: Good Time/GCodes Start Time: 11:00 Stop Time: 11:10 Total Time Billed (hr/min): 10 Billed Treatment Time 1 visit-EX 1 (10 min) KEN RAMON Apr 25, 2017 11:13
[2017-04-25 12:55] VITALS: BP 132/84
[2017-04-25 16:00] VITALS: BP 124/91
[2017-04-25] MEDS: ENOXAPARIN 40 MG/0.4 ML (LOVENOX) SYR SC SCH (20:53)
[2017-04-25] MEDS: FAMOTIDINE 20 MG (PEPCID) TABLET PO SCH (20:54)
[2017-04-26] VITALS: BP 132/72
[2017-04-26] MEDS: RT-ALBUTEROL/IPRATROPIUM 3 ML (DUONEB) VIAL INH SCH ×6 (02:05→23:15)
[2017-04-26] MEDS: morphine INJ 4 MG/ML 1 ML (VIAL/SYRINGE) IVP PRN ×4 (04:22→21:00)
[2017-04-26 04:28] LABS: BASOPHILS % (AUTO) 0 % (0-10); EOSINOPHILS % (AUTO) 0 % (0-10); LYMPHOCYTES # (AUTO) 2.1 X 10^3 (1.0-4.0); LYMPHOCYTES % (AUTO) 15 % (12-44); MEAN CORPUSCULAR HEMOGLOBIN 27 PG (25-34); MEAN CORPUSCULAR HGB CONC 32 G/DL (32-36); MEAN CORPUSCULAR VOLUME 82 FL (80-99); MEAN PLATELET VOLUME 10.4 FL (7.4-10.4); MONOCYTES # (AUTO) 1.5 X 10^3 (0.0-1.0); MONOCYTES % (AUTO) 11 % (0-12); NEUTROPHILS % (AUTO) 73 % (42-75); PLATELET COUNT 204 10^3/uL (130-400); RED BLOOD COUNT 4.03 10^6/uL (4.35-5.85); WHITE BLOOD COUNT 13.6 10^3/uL (4.3-11.0)
[2017-04-26 04:46] LABS: ANION GAP 7 MMOL/L (5-14); BLOOD UREA NITROGEN 11 MG/DL (7-18); BUN/CREATININE RATIO 21; CALCIUM 7.9 MG/DL (8.5-10.1); CARBON DIOXIDE 27 MMOL/L (21-32); CHLORIDE 108 MMOL/L (98-107); CREATININE SERUM 0.53 MG/DL (0.60-1.30); GFR ESTIMATED > 60; GLUCOSE 85 MG/DL (70-105); MAGNESIUM 1.5 MG/DL (1.8-2.4); POTASSIUM 3.5 MMOL/L (3.6-5.0); SODIUM 142 MMOL/L (135-145)
[2017-04-26] MEDS: inSUlin (REGULAR) HUMAN 1 UNIT/0.01 ML (CHARGE PER UNIT) SC SCH ×4 (05:08→21:08)
[2017-04-26] MEDS: CATHETER FLUSH 10 ML SYR IV SCH ×3 (06:19→22:16)
--- NOTE | 2017-04-26 07:57 | Diagnostic Imaging Report ---
INDICATION: Shortness of breath COMPARISON: 04/25/2017 FINDINGS: Single view of the chest demonstrates a stable right-sided PICC line. Minimal infiltrate remains in the left base. The right lung is clear. There is no pneumothorax or a large effusion. Osseous structures are stable. IMPRESSION: Unchanged infiltrate left lung base. Dictated by: Dictated on workstation # [id number]
[2017-04-26 08:00] VITALS: BP 114/72
[2017-04-26] MEDS: CEFDINIR 300 MG (OMNICEF) CAP PO SCH ×2 (08:57→21:00)
[2017-04-26] MEDS: FAMOTIDINE 20 MG (PEPCID) TABLET PO SCH ×2 (08:57→21:00)
[2017-04-26] MEDS: predniSONE 10 MG TAB PO SCH (08:57)
[2017-04-26] MEDS: KETOROLAC 30 MG/ML VIAL IVP PRN (10:23)
[2017-04-26] MEDS: RT-ADVAIR HFA 115/21 MCG PER PUFF IH SCH ×2 (10:33→19:33)
--- NOTE | 2017-04-26 14:17 | Progress Note (SOAP) ---
Subjective Subjective/Events-last exam Afebrile. Reports she dropped to the 80s for oxygen saturation overnight and has been wearing 2 lpm supplemental oxygen since then. Feels like her breathing is the same as yesterday. Is feeling cold. Denies any other concerns. Review of Systems Date Seen by Provider: Apr 26, 2017 Time Seen by Provider: 14:31 Objective Exam Last Set of Vital Signs Vital Signs Date Time Temp Pulse Resp B/P (MAP) Pulse Ox O2 Delivery O2 Flow Rate FiO2 04/26/17 10:35 96 Nasal Cannula 2.00 04/26/17 08:00 98.7 102 18 114/72 (86) 04/24/17 04:00 21 Capillary Refill : Less Than 3 Seconds I&O Intake and Output 04/27/17 00:00 Intake Total 400 ml Balance 400 ml Intake Oral 400 ml # Voids 2 General: Alert, No Acute Distress Lungs: Normal Air Movement, Other (diffuse expiratory wheeze) Heart: Regular Rate, No Murmurs Psych/Mental Status: Mental Status NL Results/Procedures Lab Laboratory Tests 04/25/17 15:40: Glucometer 124H 04/25/17 20:29: Glucometer 125H 04/26/17 04:15: White Blood Count 13.6H, Red Blood Count 4.03L, Hemoglobin 10.7L, Hematocrit 33L , Mean Corpuscular Volume 82, Mean Corpuscular Hemoglobin 27, Mean Corpuscular Hemoglobin Concent 32, Red Cell Distribution Width 15.0H, Platelet Count 204, Mean Platelet Volume 10.4, Neutrophils (%) (Auto) 73, Lymphocytes (%) (Auto) 15 , Monocytes (%) (Auto) 11, Eosinophils (%) (Auto) 0, Basophils (%) (Auto) 0, Neutrophils # (Auto) 10.0H, Lymphocytes # (Auto) 2.1, Monocytes # (Auto) 1.5H, Eosinophils # (Auto) 0.0, Basophils # (Auto) 0.0, Sodium Level 142, Potassium Level 3.5L, Chloride Level 108H, Carbon Dioxide Level 27, Anion Gap 7, Blood Urea Nitrogen 11, Creatinine 0.53L, Estimat Glomerular Filtration Rate > 60, BUN /Creatinine Ratio 21, Glucose Level 85, Calcium Level 7.9L, Phosphorus Level 3.0 , Magnesium Level 1.5L 04/26/17 11:01: Glucometer 140H Microbiology 04/21/17 Gram Stain - Final, Resulted 04/21/17 Sputum Culture - Preliminary, Resulted Streptococcus Pneumoniae Haemophilus Influenza Radiology Date of Exam: 04/20/17 CHEST 1 VIEW, AP/PA ONLY INDICATION: ET tube placement. OG tube placement Portable chest shows normal heart size and vascularity. The lungs are clear. There is no effusion or pneumothorax. The ET tube is in good position. The OG tube is in the proximal stomach. IMPRESSION: Interval placement of ET tube and OG tube with chest otherwise appearing normal and stable compared to prior exam from 11/04/2016. Assessment/Plan Assessment/Plan Plan ADM: Patient was admitted for her severe asthma exacerbation. We initially had her on a TV of 450, PEEP 5. Her O2 was weaned. However, an ABG showed worsening ventilation, so we consulted eICU. She was given an hour long neb and TV decreased and PEEP increased overnight. This morning, we have consulted Dr Walsh. He is very concerned about her prognosis. Her ETT is now an 8.0, she is on mag and ketamine as well as has been paralyzed and switched to PC settings. Her latest ABG continues to show very poor ventilation despite this maximal medical therapy. He has also added on abx owing to her severity. I called and spoke with her mother regarding her prognosis and encouraged her to go see Сергей as we are minute by minute right now. I was called around noon ( while I was in clinic) to discuss Сергей's severity and again voiced concerns that сергей could from this exacerbation. Her boyfriend stated that he would javier if she were to pass away and her mother repeatedly requested transfer. I informed them that she was much too sick to be transferred but that we would consider that as soon as she were stable. I continue to be very concerned that her prognosis is guarded and will keep her family up to date as more information arises. 1. Respiratory Failure secondary to asthma exacerbation and pneumonia - self-extubated overnight; currently sating upper 90's on 4L NC; ABGs normalized - Albuterol and Solu-medrol 04/23 - Pt still too sick to move to floor. We will continue with ICU management for now. She is on BiPAP at present and still significantly sSOB. 04/24 - improved, will plan for floor today. continue O2 to keep sa O2 88-92% at the least. 04/25 - doing well on the floor. changing to PO abx, steroids. believe she might be ready for DC on Friday. 04/26 - intermittently still requiring supplemental oxygen, continue PO antibiotics and steroids and breathing treatments 2. Left lower lobe Pneumonia - probable Strep pneumonia and H flu on sputum cx - currently on Zithromax and Rocephin 04/23 - Strep Pneumo and Haemophilus - continue current regimen 04/24 - awaiting speciation. will pare down when possible. 04/25 - improved aeration 3. Hyperkalemia -RESOLVED 4. Leukocytosis - possibly reactive and secondary to steroids vs infection 5. Methamphetamine dependance - smoking/inhaling meth likely contributing to asthma exacerbation -pt indicated interested in [facility] ATS program 04/23 - will discuss w patient when improved 04/24 - long discussion w patient about her meth use. DOC is meth. Will admit her into ATS once discharged. Dr. Álvarez will plan to be her PCP to take care of asthma as well as addictions. Stressed that her compliance is a real issue here. She views this event as a wake up call. 04/25 - pt discloses that she lost 4 of her 5 kids due to meth addiction. She has a sister that got sick and is wheelchair bound, but she is not into drugs. States her brother is not into drugs. She and her boyfriend are interested in ATS, which we will arrange at discharge. Also discussed that Dr. Álvarez will be her PCP. DVT PROPH: SCDs, Lovenox - encourage ambulation GI PROPH: Famotidine FULL CODE Clinical Quality Measures DVT/VTE Risk/Contraindication: Risk Factor Score Per Nursin RFS Level Per Nursing on Admit: 4+=Very High MAX WATERMAN MD Apr 26, 2017 2:17 pm
[2017-04-26] MEDS ORDERED: MAGNESIUM OXIDE (MAG-OX)400 MG TAB PO ONE (14:30)
[2017-04-26] MEDS ORDERED: KCL 20 MEQ TAB (K-DUR) PO ONE (14:30)
[2017-04-26 16:00] VITALS: BP 120/72
[2017-04-26] MEDS: ENOXAPARIN 40 MG/0.4 ML (LOVENOX) SYR SC SCH (20:59)
[2017-04-27] VITALS: BP 106/58
[2017-04-27] MEDS: morphine INJ 4 MG/ML 1 ML (VIAL/SYRINGE) IVP PRN ×5 (02:42→22:11)
[2017-04-27] MEDS: RT-ALBUTEROL/IPRATROPIUM 3 ML (DUONEB) VIAL INH SCH ×6 (03:01→21:25)
[2017-04-27 04:00] VITALS: BP 111/71
[2017-04-27 04:52] LABS: BASOPHILS % (AUTO) 0 % (0-10); EOSINOPHILS # (AUTO) 0.4 10^3/uL (0.0-0.3); EOSINOPHILS % (AUTO) 4 % (0-10); LYMPHOCYTES # (AUTO) 2.8 X 10^3 (1.0-4.0); LYMPHOCYTES % (AUTO) 28 % (12-44); MEAN CORPUSCULAR HEMOGLOBIN 27 PG (25-34); MEAN CORPUSCULAR HGB CONC 33 G/DL (32-36); MEAN CORPUSCULAR VOLUME 81 FL (80-99); MEAN PLATELET VOLUME 10.6 FL (7.4-10.4); MONOCYTES # (AUTO) 1.3 X 10^3 (0.0-1.0); MONOCYTES % (AUTO) 14 % (0-12); NEUTROPHILS # (AUTO) 5.4 X 10^3 (1.8-7.8); NEUTROPHILS % (AUTO) 54 % (42-75); PLATELET COUNT 206 10^3/uL (130-400); RED BLOOD COUNT 4.19 10^6/uL (4.35-5.85); RED CELL DISTRIBUTION WIDTH 14.7 % (10.0-14.5); WHITE BLOOD COUNT 9.9 10^3/uL (4.3-11.0)
[2017-04-27 05:13] LABS: ANION GAP 6 MMOL/L (5-14); BLOOD UREA NITROGEN 11 MG/DL (7-18); BUN/CREATININE RATIO 21; CARBON DIOXIDE 28 MMOL/L (21-32); CHLORIDE 106 MMOL/L (98-107); CREATININE SERUM 0.52 MG/DL (0.60-1.30); GFR ESTIMATED > 60; GLUCOSE 89 MG/DL (70-105); MAGNESIUM 1.3 MG/DL (1.8-2.4); POTASSIUM 3.8 MMOL/L (3.6-5.0); SODIUM 140 MMOL/L (135-145)
[2017-04-27] MEDS: inSUlin (REGULAR) HUMAN 1 UNIT/0.01 ML (CHARGE PER UNIT) SC SCH ×4 (05:43→20:41)
[2017-04-27] MEDS: CATHETER FLUSH 10 ML SYR IV SCH ×3 (05:43→22:10)
--- NOTE | 2017-04-27 07:49 | Diagnostic Imaging Report ---
INDICATION: Shortness of breath COMPARISON: 04/26/17 FINDINGS: Single view of the chest demonstrates slight increased infiltrate in the left base. The right lung is clear. There is no pneumothorax. The heart is stable. PICC line is in good position. IMPRESSION: Increasing infiltrate left lung base. Dictated by: Dictated on workstation # [id number]
[2017-04-27 07:50] VITALS: BP 114/72
[2017-04-27] MEDS: FAMOTIDINE 20 MG (PEPCID) TABLET PO SCH ×2 (08:23→20:41)
[2017-04-27] MEDS: predniSONE 10 MG TAB PO SCH (08:23)
[2017-04-27] MEDS: CEFDINIR 300 MG (OMNICEF) CAP PO SCH ×2 (08:23→20:41)
--- NOTE | 2017-04-27 10:49 | Progress Note (SOAP) ---
Subjective Subjective/Events-last exam Afebrile, no acute events. Did not require supplemental oxygen overnight. Review of Systems Date Seen by Provider: Apr 27, 2017 Time Seen by Provider: 10:49 Objective Exam Last Set of Vital Signs Vital Signs Date Time Temp Pulse Resp B/P (MAP) Pulse Ox O2 Delivery O2 Flow Rate FiO2 04/27/17 09:03 Room Air 04/27/17 07:50 99.8 103 19 114/72 (86) 94 04/26/17 23:15 0.00 04/24/17 04:00 21 Capillary Refill : Less Than 3 Seconds I&O Intake and Output 04/28/17 00:00 Intake Total 300 ml Balance 300 ml Intake Oral 300 ml # Voids 1 General: Alert, No Acute Distress Lungs: Other (end expiratory wheezing) Results/Procedures Lab Laboratory Tests 04/26/17 11:01: Glucometer 140H 04/26/17 15:40: Glucometer 182H 04/26/17 20:49: Glucometer 116H 04/27/17 04:45: White Blood Count 9.9, Red Blood Count 4.19L, Hemoglobin 11.2L, Hematocrit 34L, Mean Corpuscular Volume 81, Mean Corpuscular Hemoglobin 27, Mean Corpuscular Hemoglobin Concent 33, Red Cell Distribution Width 14.7H, Platelet Count 206, Mean Platelet Volume 10.6H, Neutrophils (%) (Auto) 54, Lymphocytes (%) (Auto) 28 , Monocytes (%) (Auto) 14H, Eosinophils (%) (Auto) 4, Basophils (%) (Auto) 0, Neutrophils # (Auto) 5.4, Lymphocytes # (Auto) 2.8, Monocytes # (Auto) 1.3H, Eosinophils # (Auto) 0.4H, Basophils # (Auto) 0.0, Sodium Level 140, Potassium Level 3.8, Chloride Level 106, Carbon Dioxide Level 28, Anion Gap 6, Blood Urea Nitrogen 11, Creatinine 0.52L, Estimat Glomerular Filtration Rate > 60, BUN/ Creatinine Ratio 21, Glucose Level 89, Calcium Level 8.0L, Magnesium Level 1.3L Microbiology 04/21/17 Gram Stain - Final, Resulted 04/21/17 Sputum Culture - Preliminary, Resulted Streptococcus Pneumoniae Haemophilus Influenza Radiology Date of Exam: 04/20/17 CHEST 1 VIEW, AP/PA ONLY INDICATION: ET tube placement. OG tube placement Portable chest shows normal heart size and vascularity. The lungs are clear. There is no effusion or pneumothorax. The ET tube is in good position. The OG tube is in the proximal stomach. IMPRESSION: Interval placement of ET tube and OG tube with chest otherwise appearing normal and stable compared to prior exam from 11/04/2016. Assessment/Plan Assessment/Plan Plan ADM: Patient was admitted for her severe asthma exacerbation. We initially had her on a TV of 450, PEEP 5. Her O2 was weaned. However, an ABG showed worsening ventilation, so we consulted eICU. She was given an hour long neb and TV decreased and PEEP increased overnight. This morning, we have consulted Dr Walsh. He is very concerned about her prognosis. Her ETT is now an 8.0, she is on mag and ketamine as well as has been paralyzed and switched to PC settings. Her latest ABG continues to show very poor ventilation despite this maximal medical therapy. He has also added on abx owing to her severity. I called and spoke with her mother regarding her prognosis and encouraged her to go see Сергей as we are minute by minute right now. I was called around noon ( while I was in clinic) to discuss Сергей's severity and again voiced concerns that сергей could from this exacerbation. Her boyfriend stated that he would javier if she were to pass away and her mother repeatedly requested transfer. I informed them that she was much too sick to be transferred but that we would consider that as soon as she were stable. I continue to be very concerned that her prognosis is guarded and will keep her family up to date as more information arises. 1. Respiratory Failure secondary to asthma exacerbation and pneumonia - self-extubated overnight; currently sating upper 90's on 4L NC; ABGs normalized - Albuterol and Solu-medrol 04/23 - Pt still too sick to move to floor. We will continue with ICU management for now. She is on BiPAP at present and still significantly SOB. 04/24 - improved, will plan for floor today. continue O2 to keep sa O2 88-92% at the least. 04/25 - doing well on the floor. changing to PO abx, steroids. believe she might be ready for DC on Friday. 04/26 - intermittently still requiring supplemental oxygen, continue PO antibiotics and steroids and breathing treatments 12/3 - stable on room air, but continues with fairly significant wheezing, continue PO abx and steroids, anticipate likely d/c tomorrow 2. Left lower lobe Pneumonia - probable Strep pneumonia and H flu on sputum cx - currently on Zithromax and Rocephin 04/23 - Strep Pneumo and Haemophilus - continue current regimen 04/24 - awaiting speciation. will pare down when possible. 04/25 - improved aeration 3. Hyperkalemia -RESOLVED 4. Leukocytosis - possibly reactive and secondary to steroids vs infection 5. Methamphetamine dependance - smoking/inhaling meth likely contributing to asthma exacerbation -pt indicated interested in [facility] ATS program 04/23 - will discuss w patient when improved 04/24 - long discussion w patient about her meth use. DOC is meth. Will admit her into ATS once discharged. Dr. Álvarez will plan to be her PCP to take care of asthma as well as addictions. Stressed that her compliance is a real issue here. She views this event as a wake up call. 04/25 - pt discloses that she lost 4 of her 5 kids due to meth addiction. She has a sister that got sick and is wheelchair bound, but she is not into drugs. States her brother is not into drugs. She and her boyfriend are interested in ATS, which we will arrange at discharge. Also discussed that Dr. Álvarez will be her PCP. DVT PROPH: SCDs, Lovenox - encourage ambulation GI PROPH: Famotidine FULL CODE Clinical Quality Measures DVT/VTE Risk/Contraindication: Risk Factor Score Per Nursin RFS Level Per Nursing on Admit: 4+=Very High MAX WATERMAN MD Apr 27, 2017 10:49 am
[2017-04-27 12:00] VITALS: BP 125/77
[2017-04-27] MEDS: RT-ADVAIR HFA 115/21 MCG PER PUFF IH SCH ×2 (14:28→21:24)
[2017-04-27] MEDS: MAGNESIUM 1 GM/100 ML IVPB 100 ML IV SCH ×2 (15:40→15:42)
[2017-04-27 16:00] VITALS: BP 114/70
[2017-04-27 19:50] VITALS: BP 100/61
[2017-04-27] MEDS: ENOXAPARIN 40 MG/0.4 ML (LOVENOX) SYR SC SCH (20:41)
[2017-04-28] VITALS: BP 108/61
[2017-04-28] MEDS: RT-ALBUTEROL/IPRATROPIUM 3 ML (DUONEB) VIAL INH SCH ×3 (02:00→10:00)
[2017-04-28] MEDS: morphine INJ 4 MG/ML 1 ML (VIAL/SYRINGE) IVP PRN ×2 (03:26→08:05)
[2017-04-28 03:39] VITALS: BP 109/57
[2017-04-28] MEDS: CATHETER FLUSH 10 ML SYR IV SCH (05:11)
[2017-04-28] MEDS: inSUlin (REGULAR) HUMAN 1 UNIT/0.01 ML (CHARGE PER UNIT) SC SCH ×2 (05:11→11:27)
[2017-04-28 05:59] LABS: BASOPHILS % (AUTO) 0 % (0-10); EOSINOPHILS # (AUTO) 0.4 10^3/uL (0.0-0.3); EOSINOPHILS % (AUTO) 4 % (0-10); LYMPHOCYTES # (AUTO) 3.4 X 10^3 (1.0-4.0); LYMPHOCYTES % (AUTO) 32 % (12-44); MEAN CORPUSCULAR HEMOGLOBIN 27 PG (25-34); MEAN CORPUSCULAR HGB CONC 33 G/DL (32-36); MEAN CORPUSCULAR VOLUME 81 FL (80-99); MEAN PLATELET VOLUME 10.3 FL (7.4-10.4); MONOCYTES # (AUTO) 1.2 X 10^3 (0.0-1.0); MONOCYTES % (AUTO) 12 % (0-12); NEUTROPHILS # (AUTO) 5.7 X 10^3 (1.8-7.8); NEUTROPHILS % (AUTO) 53 % (42-75); PLATELET COUNT 219 10^3/uL (130-400); RED BLOOD COUNT 4.19 10^6/uL (4.35-5.85); RED CELL DISTRIBUTION WIDTH 14.7 % (10.0-14.5); WHITE BLOOD COUNT 10.8 10^3/uL (4.3-11.0)
[2017-04-28 06:18] LABS: ANION GAP 6 MMOL/L (5-14); BLOOD UREA NITROGEN 8 MG/DL (7-18); BUN/CREATININE RATIO 15; CALCIUM 7.8 MG/DL (8.5-10.1); CARBON DIOXIDE 27 MMOL/L (21-32); CHLORIDE 107 MMOL/L (98-107); CREATININE SERUM 0.52 MG/DL (0.60-1.30); GFR ESTIMATED > 60; GLUCOSE 86 MG/DL (70-105); MAGNESIUM 1.8 MG/DL (1.8-2.4); POTASSIUM 3.5 MMOL/L (3.6-5.0); SODIUM 140 MMOL/L (135-145)
[2017-04-28] MEDS: RT-ADVAIR HFA 115/21 MCG PER PUFF IH SCH (07:05)
[2017-04-28] MEDS: CEFDINIR 300 MG (OMNICEF) CAP PO SCH (08:04)
[2017-04-28] MEDS: FAMOTIDINE 20 MG (PEPCID) TABLET PO SCH (08:04)
[2017-04-28] MEDS: predniSONE 10 MG TAB PO SCH (08:05)
[2017-04-28 08:14] VITALS: BP 117/75
--- NOTE | 2017-04-28 10:38 | Discharge Summary ---
Diagnosis/Chief Complaint Date of Admission Apr 20, 2017 at 11:17 Date of Discharge Chief Complaint/HPI Chief Complaint/HPI 31yo woman well known to me for her chronic asthma and unfortunate non- compliance with medical therapy presented to ER with rapid onset of acute respiratory failure. Patient apparently told the ER staff she was sick for only a day or so prior to coming to ER. SHe had been using her albuterol nebs and MDI to no avail. She required intubation while in ER due to rapidly worsening respiratory failure. Of note, Denise also has a history of drug abuse and was positive for methamphetamines in ER. She established care with our clinic in May of this year and did not return until December when I saw her. Our service has admitted her multiple times for asthma, but Denise has only intermittently followed up. We did arrange for her to see Dr Walsh, but as of December, she still had not seen him. Discharge Summary-Simple/Stand Consultations Yan Walsh DO - [employer] Consultant Discharge Physical Examination Allergies: Coded Allergies: chlorpheniramine (Verified Allergy, Unknown, 03/05/06) phenylephrine (Verified Allergy, Unknown, 03/05/06) phenylpropanolamine (Verified Allergy, Unknown, 03/05/06) phenyltoloxamine (Verified Allergy, Unknown, 03/05/06) Vitals & I&Os Vital Sign - Last 12Hours Date Time Temp Pulse Resp B/P (MAP) Pulse Ox O2 Delivery O2 Flow Rate FiO2 04/28/17 08:14 98.6 86 18 117/75 (89) 97 Room Air 04/26/17 23:15 0.00 04/24/17 04:00 21 Hospital Course See final discharge diagnosis. Radiology Reviewed Date of Exam: 04/20/17 CHEST 1 VIEW, AP/PA ONLY INDICATION: ET tube placement. OG tube placement Portable chest shows normal heart size and vascularity. The lungs are clear. There is no effusion or pneumothorax. The ET tube is in good position. The OG tube is in the proximal stomach. IMPRESSION: Interval placement of ET tube and OG tube with chest otherwise appearing normal and stable compared to prior exam from 11/04/2016. Discharge Instructions to patient/family Please see electronic discharge instructions given to patient. Discharge Medications Reviewed and agree with Discharge Medication list on patient's Discharge Instruction sheet Clinical Quality Measures DVT/VTE Risk/Contraindication: Risk Factor Score Per Nursin RFS Level Per Nursing on Admit: 4+=Very High DEMETRICE JENNINGS MD Apr 28, 2017 10:37
[2017-04-28] MEDS ORDERED: PRD10T PO (10:47)
[2017-04-28] MEDS ORDERED: RT-ALBUINH IH (10:47)
[2017-04-28] MEDS ORDERED: CEFD300C3 PO (10:47)
[2017-04-28] MEDS ORDERED: FLUT12AE4 IH (10:47)
--- NOTE | 2017-04-28 10:51 | Discharge Instructions ---
Discharge Inst-[facility] Discharge Medications New, Converted or Re-Newed RX: Transmitted to Pharmacy New Medications: Albuterol Sulfate (Ventolin Hfa) 1 Puff Puff 1 PUFF IH Q4H, #1 INHALER 1 PUFF = 90 MCG Cefdinir (Cefdinir) 300 Mg Capsule 300 MG PO BID, #4 CAP Fluticasone/Salmeterol (Advair Hfa 115-21 Mcg Inhaler) 12 Gm Hfa.aer.ad 2 PUFF IH BID@, #1 INHALER Prednisone (Prednisone) 10 Mg Tab 40 MG PO DAILY, #20 TAB Patient Instructions Goal/Follow Up Appt: You have an appt at [facility] today @ 3 pm with Deborah Bui with Dr Álvarez on 04/30 2 PM Patient Instructions: - It is important that you complete your antibiotics and prednisone taper - I have also sent your 2 inhalers to the pharmacy Advair is your controller medication that you take every day and the albuterol is the inhaler that you take as needed Return to The Hospital For: - Chest pain - Shortness of breath after breathing treatments Activity & Diet Discharge Diet: No Restrictions Activity as Tolerated: Yes Copy Copies To 1: LANDON ÁLVAREZ MD, HOLLY R MD Apr 28, 2017 10:51
== END 2017-04-28 13:30 | disposition home or self-care (01) | DRG 208 ==
LOC: EDUNIT# 09:23 → ER 09:25 → ICU 11:17 → 4TH 04-24 15:30
PROVIDERS: ADMIT Pediatrics; ATTEND Pediatrics
PROC: 5A1945Z Respiratory Ventilation, 24-96 Consecutive Hours (ICD-10-PCS; principal; 2017-04-20)
DX: J96.20 Acute and chronic respiratory failure, unspecified whether with hypoxia or hypercapnia (principal); J45.901 Unspecified asthma with (acute) exacerbation; J13 Pneumonia due to Streptococcus pneumoniae; J14 Pneumonia due to Hemophilus influenzae; F15.20 Other stimulant dependence, uncomplicated; K21.9 Gastro-esophageal reflux disease without esophagitis; B19.20 Unspecified viral hepatitis C without hepatic coma; E87.5 Hyperkalemia; F17.210 Nicotine dependence, cigarettes, uncomplicated; D72.829 Elevated white blood cell count, unspecified; R53.81 Other malaise; T38.0X5A Adverse effect of glucocorticoids and synthetic analogues, initial encounter; Z91.19 Patient's noncompliance with other medical treatment and regimen
CPT/HCPCS: 31500; 36415; 36569; 51702; 71010; 76937; 80048; 80053; 80306; 81000; 82805; 82962; 83735; 83880; 84100; 84132; 84703; 85007; 85025; 85027; 85610; 85730; 87070; 87077; 87205; 94002; 94003; 94640; 94660; 94760; 94799; 96361; 96365; 96375

== ENCOUNTER 2017-10-31 06:36 | Inpatient (IN) | payer MEDICAID ==
[~2017-10-31] VITALS: Ht 154.9 cm; Wt 76.9 kg
[2017-10-31] VITALS (21 sets, daily range): BP systolic 75–147; BP diastolic 40–105
[~2017-10-31 06:36] MED LIST changes: +ACHD5005 PO; +CEFD300C3 PO; +FLUT12AE4 IH; -HYDR-3812 PO; -RANI150T15 PO; +RANI150T46 PO; -RT-ALBUTEROL/IPRATROPIUM 3 ML (DUONEB) VIAL ONE; -methylPREDNISolone 125 MG (Solu-MEDROL) VIAL ONE
[2017-10-31] MEDS ORDERED: RT-ALBUTEROL SULF 2.5 MG/3 ML PRE-MIX VIAL INH STA (06:44)
[2017-10-31] MEDS ORDERED: RT-ALBUTEROL/IPRATROPIUM 3 ML (DUONEB) VIAL ONE (06:45)
[2017-10-31] MEDS ORDERED: RT-ALBUTEROL/IPRATROPIUM 3 ML (DUONEB) VIAL INH ONE (06:45)
[2017-10-31] MEDS ORDERED: RT-ALBUTEROL SULF 2.5 MG/3 ML PRE-MIX VIAL ONE (06:45)
[2017-10-31] MEDS ORDERED: NS IV 1000 ML 1,000 ML IV ONE ×2 (07:10→20:30)
[2017-10-31] MEDS ORDERED: methylPREDNISolone 125 MG (Solu-MEDROL) VIAL IV STA (07:10)
[2017-10-31 07:32] LABS: BASOPHILS % (AUTO) 0 % (0-10); EOSINOPHILS # (AUTO) 0.7 10^3/uL (0.0-0.3); EOSINOPHILS % (AUTO) 7 % (0-10); HEMATOCRIT 41 % (35-52); HEMOGLOBIN 13.7 G/DL (11.5-16.0); LYMPHOCYTES # (AUTO) 1.5 X 10^3 (1.0-4.0); LYMPHOCYTES % (AUTO) 16 % (12-44); MEAN CORPUSCULAR HEMOGLOBIN 27 PG (25-34); MEAN CORPUSCULAR HGB CONC 34 G/DL (32-36); MEAN CORPUSCULAR VOLUME 80 FL (80-99); MEAN PLATELET VOLUME 9.7 FL (7.4-10.4); MONOCYTES # (AUTO) 0.9 X 10^3 (0.0-1.0); MONOCYTES % (AUTO) 9 % (0-12); NEUTROPHILS # (AUTO) 6.5 X 10^3 (1.8-7.8); NEUTROPHILS % (AUTO) 68 % (42-75); PLATELET COUNT 292 10^3/uL (130-400); RED BLOOD COUNT 5.07 10^6/uL (4.35-5.85); RED CELL DISTRIBUTION WIDTH 16.6 % (10.0-14.5); WHITE BLOOD COUNT 9.6 10^3/uL (4.3-11.0)
--- NOTE | 2017-10-31 07:34 | ED Respiratory ---
General Chief Complaint: Respiratory Problems Stated Complaint: ASTHMA ATTACK Nursing Triage Note: c/o SOA Source: patient Exam Limitations: no limitations History of Present Illness Date Seen by Provider: Oct 31, 2017 Time Seen by Provider: 06:40 Initial Comments Here with acute onset shortness of air and started about 1 a.m. States that she believes that her allergies. She is approximately 10 weeks . She has recently been on steroids for asthma problems. Patient's had multiple admissions for asthma exacerbation. Denies fever or chills. Denies nausea or vomiting. Timing/Duration: this morning (1 a.m.) Severity: moderate, severe Prior Episodes/Possible Cause: occasional episodes Modifying Factors: Worse With Activity; Improves With Albuterol Inhaler Associated Symptoms: cough; No facial pain, No fever/chills, No nasal congestion, No nasal drainage; shortness of breath, wheezing Allergies and Home Medications Allergies Coded Allergies: chlorpheniramine (Verified Allergy, Unknown, 03/05/06) phenylephrine (Verified Allergy, Unknown, 03/05/06) phenylpropanolamine (Verified Allergy, Unknown, 03/05/06) phenyltoloxamine (Verified Allergy, Unknown, 03/05/06) Home Medications Albuterol Sulfate 1 Puff Puff, 2 PUFF IH Q4H PRN for SHORTNESS OF BREATH, ( Reported) 1 PUFF = 90 MCG Budesonide/Formoterol Fumarate 10.2 Gm Hfa.aer.ad, 2 PUFF INH BID, (Reported) Montelukast Sodium 10 Mg Tablet, 10 MG PO HS, (Reported) Vit W-Ca,Fe,FA(<1 mg) 1 Each Tablet, 1 TAB PO DAILY, (Reported) Patient Home Medication List Home Medication List Reviewed: Yes Review of Systems Constitutional: see HPI; No chills, No fever, No weakness EENTM: no symptoms reported Respiratory: cough, short of breath, wheezing Gastrointestinal: No abdominal pain, No nausea, No vomiting All Other Systems Reviewed Negative Unless Noted: Yes Past Pmnuzbm-Otrpxd-Wgzzpi Hx Past Med/Social Hx: Reviewed Nursing Past Med/Soc Hx Patient Social History Alcohol Use: Denies Use Recreational Drug Use: No Drug of Choice: methamphetamine per UA Smoking Status: Former Smoker Type Used: Cigarettes Former Smoker, Quit: Nov 04, 2015 2nd Hand Smoke Exposure: Yes ( SMOKES IN HOME) Recent Foreign Travel: No Contact w/Someone Who Travel: No Recent Infectious Disease Expo: No Recent Hopitalizations: No Physical Abuse: No Sexual Abuse: No Immunizations Up To Date Tetanus Booster (TDap): Unknown PED Vaccines UTD: No Date of Pneumonia Vaccine: Mar 05, 2016 Date of Influenza Vaccine: Mar 26, 2016 Seasonal Allergies Seasonal Allergies: Yes Past Medical History Surgeries: Yes ( X5) Section Respiratory: Yes Asthma Currently Using CPAP: No Currently Using BIPAP: No Cardiac: No Neurological: No Reproductive Disorders: No Female Reproductive Disorders: Denies Sexually Transmitted Disease: No HIV/AIDS: No Genitourinary: No Gastrointestinal: Yes (HEPATITIS C +) Gastroesophageal Reflux, Liver Disease/Jaundice, Hepatitis Musculoskeletal: No Endocrine: No HEENT: No Loss of Vision: Denies Hearing Impairment: Denies Cancer: No Psychosocial: No Nursing Suicide Risk Score: 0 Integumentary: No Blood Disorders: No Adverse Reaction/Blood Tranf: No Family Medical History Reviewed Nursing Family Hx Alcoholism 19 FATHER G8 BROTHER Arthritis 19 FATHER Cardiovascular disease 19 MOTHER Coronary thrombosis 19 MOTHER Diabetes mellitus 19 MOTHER MATERNAL GRANDMOTHER Myocardial infarction 19 MOTHER Neoplasm 19 FATHER (LUNG CANCER) 19 MOTHER Respiratory disorder 19 FATHER (EMPHYSEMA) Asthma Physical Exam Vital Signs Vital Signs - First Documented 10/31/17 06:41 Temp 98.0 Pulse 145 Resp 28 B/P (MAP) 150/95 (113) Pulse Ox 96 O2 Delivery Room Air Capillary Refill : Less Than 3 Seconds General Appearance: WD/WN, moderate distress HEENT: PERRL/EOMI, pharynx normal Neck: full range of motion, supple Respiratory: decreased breath sounds, accessory muscle use, wheezing, expiration Cardiovascular: no murmur, tachycardia Gastrointestinal: non tender, soft Extremities: non-tender, normal inspection Neurologic/Psychiatric: alert, oriented x 3 Skin: normal color, warm/dry Procedures/Interventions Date of ETT Placement: Apr 20, 2017 Time of ETT Placement: 1022 Progress/Results/Core Measures Suspected Sepsis Recent Fever Within 48 Hours: No Infection Criteria Present: None New/Unexplained Altered Menta: No Sepsis Screen: No Definite Risk SIRS Temperature:98.0 Pulse: 145 Respiratory Rate: 28 Laboratory Tests 10/31/17 07:27: White Blood Count 9.6 Blood Pressure 150 /95 Mean: 113 Laboratory Tests 10/31/17 07:27: Creatinine 0.60, Platelet Count 292, Total Bilirubin 0.4 Results/Orders Lab Results Laboratory Tests Test 10/31/17 07:27 10/31/17 08:00 Range/Units White Blood Count 9.6 4.3-11.0 10^3/uL Red Blood Count 5.07 4.35-5.85 10^6/uL Hemoglobin 13.7 11.5-16.0 G/DL Hematocrit 41 35-52 % Mean Corpuscular Volume 80 80-99 FL Mean Corpuscular Hemoglobin 27 25-34 PG Mean Corpuscular Hemoglobin Concent 34 32-36 G/DL Red Cell Distribution Width 16.6 H 10.0-14.5 % Platelet Count 292 130-400 10^3/uL Mean Platelet Volume 9.7 7.4-10.4 FL Neutrophils (%) (Auto) 68 42-75 % Lymphocytes (%) (Auto) 16 12-44 % Monocytes (%) (Auto) 9 0-12 % Eosinophils (%) (Auto) 7 0-10 % Basophils (%) (Auto) 0 0-10 % Neutrophils # (Auto) 6.5 1.8-7.8 X 10^3 Lymphocytes # (Auto) 1.5 1.0-4.0 X 10^3 Monocytes # (Auto) 0.9 0.0-1.0 X 10^3 Eosinophils # (Auto) 0.7 H 0.0-0.3 10^3/uL Basophils # (Auto) 0.0 0.0-0.1 10^3/uL Sodium Level 140 135-145 MMOL/L Potassium Level 4.3 3.6-5.0 MMOL/L Chloride Level 107 98-107 MMOL/L Carbon Dioxide Level 22 21-32 MMOL/L Anion Gap 11 5-14 MMOL/L Blood Urea Nitrogen 8 7-18 MG/DL Creatinine 0.60 0.60-1.30 MG/DL Estimat Glomerular Filtration Rate > 60 BUN/Creatinine Ratio 13 Glucose Level 101 70-105 MG/DL Calcium Level 9.5 8.5-10.1 MG/DL Magnesium Level 2.1 1.8-2.4 MG/DL Total Bilirubin 0.4 0.1-1.0 MG/DL Aspartate Amino Transf (AST/SGOT) 58 H 5-34 U/L Alanine Aminotransferase (ALT/SGPT) 83 H 0-55 U/L Alkaline Phosphatase 59 40-136 U/L Total Protein 7.6 6.4-8.2 GM/DL Albumin 4.4 3.2-4.5 GM/DL Blood Gas Puncture Site RT RADIAL Blood Gas Patient Temperature 98.7 Arterial Blood pH 7.35 L 7.37-7.43 Arterial Blood Partial Pressure CO2 37 35-45 MMHG Arterial Blood Partial Pressure O2 71 L 79-93 MMHG Arterial Blood HCO3 20 L 23-27 MMOL/L Arterial Blood Total CO2 21.1 21.0-31.0 MMOL/L Arterial Blood Oxygen Saturation 94 94-100 % Arterial Blood Base Excess -4.6 L -2.5-2.5 MMOL/L Familia Test YES-POS Blood Gas Ventilator Setting NO Blood Gas Inspired Oxygen ROOM AIR My Orders Orders - JORGE LUIS DURAN MD Albuterol Pre-Mix Nebs (Rt) (Proventil (10/31/17 06:44) Albuterol/Ipra Inhalation Soln (Duoneb I (10/31/17 06:45) Svn Small Volume Nebulizer (10/31/17 06:44) Svn Small Volume Nebulizer (10/31/17 06:44) Albuterol Pre-Mix Nebs (Rt) (Proventil (10/31/17 06:45) Albuterol/Ipra Inhalation Soln (Duoneb I (10/31/17 06:45) Cbc With Automated Diff (10/31/17 07:10) Comprehensive Metabolic Panel (10/31/17 07:10) Magnesium (10/31/17 07:10) Methylprednisolone Sod Succ (Solu-Medrol (10/31/17 07:10) Saline Lock/Iv-Start (10/31/17 07:10) Ns Iv 1000 Ml (Sodium Chloride 0.9%) (10/31/17 07:10) Ipratropium 0.02% Neb Solution (Atrovent (10/31/17 07:38) Magnesium 1 Gm/100 Ml Ivpb (Magnesium Holliday (10/31/17 08:00) Arterial Blood Gas (10/31/17 07:50) Medications Given in ED Vital Signs/I&O 10/31/17 10/31/17 10/31/17 10/31/17 06:41 06:47 06:55 07:00 Temp 98.0 Pulse 145 Resp 28 B/P (MAP) 150/95 (113) Pulse Ox 96 95 96 95 O2 Delivery Room Air Room Air Room Air Room Air 10/31/17 10/31/17 10/31/17 10/31/17 07:08 07:17 07:31 07:40 Pulse Ox 94 93 95 94 O2 Delivery Room Air Room Air 10/31/17 07:53 Pulse Ox 96 O2 Delivery Room Air Capillary Refill : Less Than 3 Seconds Blood Pressure Mean: 113 Progress Note : Progress Note Seen and evaluated. DuoNeb and albuterol treatment 2 ordered. This only partially relieved symptoms. Patient has significant history including intubation. IV, labs and continuous 1 hour long treatment initiated. Solu- Medrol 125 mg IV ordered. Monitor patient. 0738: Having some waxing and waning. We will consider magnesium IV if not improved or sooner. 0800: We did initiate magnesium treatment. 0830: Doing much better with magnesium continuing. Patient has not had ultrasound yet during this so we will get that now. I have talked to Dr. Walsh. She will be admitted to the ICU. We will continue IV Solu-Medrol. All this was discussed with the patient who agrees with plan. We did do ABG and results are complete. No significant concerns currently with that. This is reviewed with Dr. Walsh as well. I discussed the case with Dr. Alfaro at 0748 and she accepts patient for admission , inpatient status. Dr. Walsh to consult. Departure Communication (Admissions) Time/Spoke to Admitting Phy: 07:48 Time/Spoke to Consulting Phy: 08:20 Impression Primary Impression: Status asthmaticus, allergic Qualified Codes: J45.52 - Severe persistent asthma with status asthmaticus Disposition: ADMITTED INPATIENT Condition: Stable Admissions Decision to Admit Reason: Admit from ER (General) Decision to Admit/Date: Oct 31, 2017 Time/Decision to Admit Time: 07:48 Departure-Patient Inst. Referrals: LEANDER COONEY DO (PCP/Family) Primary Care Physician JORGE LUIS DURAN MD Oct 31, 2017 07:34
[2017-10-31] MEDS ORDERED: RT-IPRATROPIUM (ATROVENT) 0.5MG/2.5ML AMP IH ONE (07:38)
[2017-10-31] MEDS ORDERED: MAGNESIUM 1 GM/100 ML IVPB 100 ML IV SCH (08:00)
[2017-10-31 08:13] LABS: ALANINE AMINOTRANSFERASE 83 U/L (0-55); ALBUMIN 4.4 GM/DL (3.2-4.5); ALKALINE PHOSPHATASE 59 U/L (40-136); BILIRUBIN,TOTAL 0.4 MG/DL (0.1-1.0); BUN/CREATININE RATIO 13; CALCIUM 9.5 MG/DL (8.5-10.1); CARBON DIOXIDE 22 MMOL/L (21-32); CHLORIDE 107 MMOL/L (98-107); GFR ESTIMATED > 60; GLUCOSE 101 MG/DL (70-105); MAGNESIUM 2.1 MG/DL (1.8-2.4); POTASSIUM 4.3 MMOL/L (3.6-5.0); SODIUM 140 MMOL/L (135-145); TOTAL PROTEIN 7.6 GM/DL (6.4-8.2)
[2017-10-31 08:20] LABS: ABG BASE EXCESS -4.6 MMOL/L (-2.5-2.5); ABG OXYGEN SATURATION 94 % (94-100); ABG PCO2 37 MMHG (35-45); ABG PH 7.35 (7.37-7.43); ABG PO2 71 MMHG (79-93); ABG TCO2 21.1 MMOL/L (21.0-31.0)
[2017-10-31 08:21] LABS: ALLENS TEST YES-POS; INSPIRED O2 ROOM AIR; PATIENT TEMP 98.7; VENTILATOR NO
[2017-10-31] MEDS ORDERED: fentaNYL INJECTION 100 MCG/2 ML AMP INJ ONE (08:24)
[2017-10-31] MEDS ORDERED: MIDAZOLAM 5 MG/5 ML (VERSED) VIAL IV ONE (08:24)
[2017-10-31] MEDS ORDERED: ETOMIDATE IV SOLN 20 MG/10 ML VIAL IV ONE (08:24)
[2017-10-31] MEDS ORDERED: SUCCINYLCHOLINE INJ 100 MG/5 ML SYR INJ ONE (08:24)
--- OUTSIDE RECORDS SUMMARY | 2017-10-31 08:42 | XMS REPORT ---
Author Author LANDON ROWAN Organization [facility] Address [address] [place] [address] Care Team Providers Care Sample Selector Name Role Phone LANDON ROWAN Unavailable PROBLEMS Type Condition ICD9-CM Code DRJ22-FV Code Onset Dates Condition Status SNOMED Code Problem Severe persistent asthma, uncomplicated J45.50 Active 338611160 Problem FPC current use of systemic steroids Z79.52 Active 856381854903772 Problem Hypoxia R09.02 Active 453042896 Problem Mild intermittent asthma without complication J45.20 Active 185459177 Problem Moderate persistent asthma with acute exacerbation J45.41 Active 890909076661985 Problem Social anxiety disorder F40.10 Active [id number] ALLERGIES No Known Allergies ENCOUNTERS Encounter Location Date Diagnosis [facility] [address] [phone] Jul, Moderate asthma with exacerbation, unspecified whether persistent J45.901 and Cough R05 [facility] [address] [phone] Jun, Cough R05 [facility] [address] [address] Dec, FPC current use of systemic steroids Z79.52 and Severe persistent asthma, uncomplicated J45.50 [facility] [id number] [place] [phone] Oct, [facility] [address] [address] May, Moderate persistent asthma with acute exacerbation J45.41 ; Social anxiety disorder F40.10 and Hypoxia R09.02 [facility] [id number] [place] [phone] Mar, Mild intermittent asthma without complication J45.20 ; Bronchitis J40 ; Otitis of left ear H66.92 and Elevated blood pressure reading R03.0 [facility] [address] [facility] [id number] [place] [address] Jan, Dental examination Z01.20 [facility] [address] [place] [id number] Jan, Anxiety 300.00 and Asthma 493.90 IMMUNIZATIONS No Known Immunizations SOCIAL HISTORY Never Assessed REASON FOR VISIT via jovanni f/h-jnopsp-IPunlsygjLA PLAN OF CARE Activity Details Follow Up 3 Months Reason: VITAL SIGNS Height 61 in 2016-12-26 Weight 168.0 lbs 2016-12-26 Temperature 97.9 degrees Fahrenheit 2016-12-26 Heart Rate 124 bpm 2016-12-26 Respiratory Rate 18 2016-12-26 Oximetry 98 % 2016-12-26 BMI 31.74 kg/m2 2016-12-26 Blood pressure systolic 122 mmHg 2016-12-26 Blood pressure diastolic 76 mmHg 2016-12-26 MEDICATIONS Medication Instructions Dosage Frequency Start Date End Date Duration Status ProAir HFA 108 (90 Base) MCG/ACT Inhalation every 4-6 hours as needed 2 puffs as needed May, Active Singulair 10 MG Orally Once a day 1 tablet in the evening 24h Active Symbicort 160-4.5 MCG/ACT Inhalation Twice a day 2 puffs 12h Active Loratadine 10 MG Orally Once a day 1 tablet 24h Active RESULTS No Results PROCEDURES Procedure Date Ordered Result Body Site MEASURE BLOOD OXYGEN LEVEL Dec 26, 2016 INSTRUCTIONS MEDICATIONS ADMINISTERED No Known Medications MEDICAL (GENERAL) HISTORY Type Description Date Medical History Mild intermittent asthma without complication Surgical History c section x5 Hospitalization History Asthma 2016 Hospitalization History Child Hospitalization History [facility] asthma May 2016 Hospitalization History Severe acute asthma exacerbation-[facility] 11/03/16
--- NOTE | 2017-10-31 09:21 | Pulmonary Consultation ---
History of Present Illness History of Present Illness Date of Consultation 10/31/17 09:15 Time Seen by Provider: 09:15 Date of Admission History of Present Illness 32yo with hx of uncontrolled asthma drug/tobacco use and medical noncompliance presented to ED secondary to worsening SOB and started at 1am. PT states she is currently 10wks . She was recently on steroids for her asthma however her symptoms continued to worsen. She denies f/c/ns. No nausea, vomiting.I am consulted for pulmonary/CC management. Pt received SVNs and steroids in the ED. Allergies and Home Medications Allergies Coded Allergies: chlorpheniramine (Verified Allergy, Unknown, 03/05/06) phenylephrine (Verified Allergy, Unknown, 03/05/06) phenylpropanolamine (Verified Allergy, Unknown, 03/05/06) phenyltoloxamine (Verified Allergy, Unknown, 03/05/06) Home Medications Albuterol Sulfate 1 Puff Puff, 2 PUFF IH Q4H PRN for SHORTNESS OF BREATH, ( Reported) 1 PUFF = 90 MCG Budesonide/Formoterol Fumarate 10.2 Gm Hfa.aer.ad, 2 PUFF INH BID, (Reported) Montelukast Sodium 10 Mg Tablet, 10 MG PO HS, (Reported) Vit W-Ca,Fe,FA(<1 mg) 1 Each Tablet, 1 TAB PO DAILY, (Reported) Past Glpycpr-Sypzja-Mndsoe Hx Past Med/Social Hx: Reviewed Nursing Past Med/Soc Hx Patient Social History Alcohol Use: Denies Use Recreational Drug Use: No Drug of Choice: methamphetamine per UA Smoking Status: Former Smoker Type Used: Cigarettes Former Smoker, Quit: Nov 04, 2015 2nd Hand Smoke Exposure: Yes ( SMOKES IN HOME) Recent Foreign Travel: No Contact w/Someone Who Travel: No Recent Infectious Disease Expo: No Recent Hopitalizations: No Physical Abuse: No Sexual Abuse: No Immunizations Up To Date Tetanus Booster (TDap): Unknown PED Vaccines UTD: No Date of Pneumonia Vaccine: Mar 05, 2016 Date of Influenza Vaccine: Mar 26, 2016 Seasonal Allergies Seasonal Allergies: Yes Past Medical History Surgeries: Yes ( X5) Section Respiratory: Yes Asthma Currently Using CPAP: No Currently Using BIPAP: No Cardiac: No Neurological: No Reproductive Disorders: No Female Reproductive Disorders: Denies Sexually Transmitted Disease: No HIV/AIDS: No Genitourinary: No Gastrointestinal: Yes (HEPATITIS C +) Gastroesophageal Reflux, Liver Disease/Jaundice, Hepatitis Musculoskeletal: No Endocrine: No HEENT: No Loss of Vision: Denies Hearing Impairment: Denies Cancer: No Psychosocial: No Nursing Suicide Risk Score: 0 Integumentary: No Blood Disorders: No Adverse Reaction/Blood Tranf: No Family Medical History Reviewed Nursing Family Hx Alcoholism 19 FATHER G8 BROTHER Arthritis 19 FATHER Cardiovascular disease 19 MOTHER Coronary thrombosis 19 MOTHER Diabetes mellitus 19 MOTHER MATERNAL GRANDMOTHER Myocardial infarction 19 MOTHER Neoplasm 19 FATHER (LUNG CANCER) 19 MOTHER Respiratory disorder 19 FATHER (EMPHYSEMA) Asthma Review of Systems Time Seen by Provider: 09:18 Constitutional: Sweats, Weakness, Malaise; No: Fever, Chills, Other ENT: Nose congestion Respiratory: Cough, Dry, Shortness of breath, SOB with excertion, Wheezing; No : Sputum Cardiovascular: Palpitations, Orthopnea, Paroxysmal Noc. Dyspnea; No: Chest Pain, Edema, Lt Headedness, Other Neurological: Weakness Exam Exam Vital Signs Date Time Temp Pulse Resp B/P (MAP) Pulse Ox O2 Delivery O2 Flow Rate FiO2 10/31/17 07:53 96 Room Air 10/31/17 07:40 94 Room Air 10/31/17 07:31 95 Room Air 10/31/17 07:17 93 10/31/17 07:08 94 10/31/17 07:00 95 Room Air 10/31/17 06:55 96 Room Air 10/31/17 06:47 95 Room Air 10/31/17 06:41 98.0 145 28 150/95 (113) 96 Room Air General Appearance: Anxious, Moderate Distress HEENT: Pharynx Normal, Other (MMD) Neck: Normal Inspection, Non Tender, Supple; No JVD Respiratory: Accessory Muscle Use, Decreased Breath Sounds, Respiratory Distress, Wheezing Cardiovascular: No JVD, No Murmur, Tachycardia Capillary Refill: Less Than 3 Seconds Gastrointestinal: non tender, soft Extremity: Normal Capillary Refill, Normal Inspection, Non Tender, No Pedal Edema Neurologic/Psychiatric: Alert Skin: Normal Color, Warm/Dry Lymphatic: No Adenopathy Results Lab Laboratory Tests 10/31/17 07:27 Assessment/Plan Assessment/Plan Severe Asthma AE -SVNS albuterol Q4, Pulmicort BID Solumedrol -Oxygen - -monitor in ICU 10wks -US pending Hypomagnesium -replace and recheck hx of uncontrolled asthma and medical noncompliance hx of hep C -HIV NR in 2015 In 04/11 UDS was + for methamphetamine -will check UDS tobacco use -education hx of hep C 255 TONIO GOTTI DO Oct 31, 2017 09:20
--- NOTE | 2017-10-31 09:42 | Diagnostic Imaging Report ---
PROCEDURE: US OB SINGLE FETUS <14 WKS. TECHNIQUE: Multiple real-time grayscale images were obtained over the gravid uterus in various projections. INDICATION: survey. There is a gestational sac within uterus containing a single live fetus. heart motion was noted at a rate of 181 bpm was recorded. The crown-rump length suggests estimated gestational age is 8 weeks 3 days plus or minus 1 week. There are no obvious abnormalities identified. The amniotic fluid volume is within normal limits. At this time it is not certain whether the placenta was developed. The left ovary was visualized and was unremarkable. The right ovary could not be clearly identified. There is no pelvic mass or free fluid collection noted. IMPRESSION: 1. There is a single live intrauterine approximately 8 weeks 2 days gestation plus or minus 1 week. The EDC is 06/09/2018. 2. There are no abnormalities identified. If more sensitive evaluation of anatomy is desired however, then a followup OB ultrasound exam in 10-12 weeks would be recommended. 3. There is no pelvic mass or free fluid collection noted. Dictated by: Dictated on workstation # [id number]
[2017-10-31] MEDS ORDERED: NS IV 1000 ML 1,000 ML IV SCH ×2 (09:45→20:30)
[2017-10-31] MEDS ORDERED: CATHETER FLUSH 10 ML SYR IV PRN (09:45)
[2017-10-31] MEDS ORDERED: RT-ALBUTEROL SULF 2.5 MG/3 ML PRE-MIX VIAL INH PRN ×2 (09:45→23:30)
[2017-10-31 09:59] LABS: AMPHETAMINE SCREEN, URINE NEGATIVE (NEGATIVE); BARBITURATE SCREEN URINE NEGATIVE (NEGATIVE); BENZODIAZEPINES SCREEN URINE NEGATIVE (NEGATIVE); CANNABINOID SCREEN, URINE NEGATIVE (NEGATIVE); COCAINE SCREEN URINE NEGATIVE (NEGATIVE); METHADONE STAT NEGATIVE (NEGATIVE); METHAMPHETAMINE SCREEN URINE S NEGATIVE (NEGATIVE); OPIATE SCREEN URINE POSITIVE (NEGATIVE); OXYCODONE STAT NEGATIVE (NEGATIVE); PROPOXYPHENE STAT NEGATIVE (NEGATIVE); TRICYCLIC ANTIDEPRESSANTS SCRE NEGATIVE (NEGATIVE)
[2017-10-31] MEDS: RT-ALBUTEROL/IPRATROPIUM 3 ML (DUONEB) VIAL IH SCH ×4 (09:59→21:51)
[2017-10-31] MEDS ORDERED: RT-ALBUTEROL SULF 2.5 MG/3 ML PRE-MIX VIAL INH SCH ×2 (10:00)
[2017-10-31] MEDS ORDERED: PREN-8 PO (11:20)
[2017-10-31] MEDS ORDERED: BUDE10.22 INH (11:20)
[2017-10-31] MEDS ORDERED: MONT10TA21 PO (11:20)
[2017-10-31] MEDS ORDERED: RT-ALBUINH IH (11:20)
[2017-10-31 11:44] LABS: ALANINE AMINOTRANSFERASE 79 U/L (0-55); ALBUMIN 4.1 GM/DL (3.2-4.5); ALKALINE PHOSPHATASE 53 U/L (40-136); BILIRUBIN,TOTAL 0.4 MG/DL (0.1-1.0); BUN/CREATININE RATIO 10; CALCIUM 8.6 MG/DL (8.5-10.1); CARBON DIOXIDE 18 MMOL/L (21-32); CHLORIDE 109 MMOL/L (98-107); CREATININE SERUM 0.58 MG/DL (0.60-1.30); GFR ESTIMATED > 60; GLUCOSE 132 MG/DL (70-105); MAGNESIUM 2.3 MG/DL (1.8-2.4); PHOSPHORUS 2.3 MG/DL (2.3-4.7); POTASSIUM 3.7 MMOL/L (3.6-5.0); SODIUM 139 MMOL/L (135-145); TOTAL PROTEIN 7.1 GM/DL (6.4-8.2)
[2017-10-31] MEDS ORDERED: methylPREDNISolone 40 MG/ML (Solu-MEDROL) VIAL IV SCH ×3 (12:00)
[2017-10-31] MEDS: RT-ALBUTEROL SULF 2.5 MG/3 ML PRE-MIX VIAL INH SCH ×4 (12:15→23:57)
[2017-10-31] MEDS: MAGNESIUM 1 GM/100 ML IVPB 100 ML IV SCH ×2 (12:46→13:51)
--- NOTE | 2017-10-31 16:05 | History & Physicial ([facility]) ---
HPI History of Present Illness: 32 yo F with known uncontrolled asthma with previous intubation for asthma exacerbation that comes in with 2 day history of worsening shortness of breath. States that she has been taking her asthma medications since finding out she was about 2 weeks ago. She has allergy induced asthma. She has multiple hospitalizations in the last year for exacerbation due to poor compliance to medications. Denies any sick contacts. No fever or chills. Source: patient, RN/MD, old records Exam Limitations: no limitations Date seen by provider: Oct 31, 2017 Time Seen by Provider: 11:15 Attending Physician Demetrice Alfaro MD PCP Hillary Hamm DO Consult Date of Admission Oct 31, 2017 at 08:20 Home Medications Home Medications Reviewed patient Home Medication Reconciliation performed by pharmacy medication reconciliations weed science research technician and/or nursing. Patients Allergies have been reviewed. Allergies Coded Allergies: chlorpheniramine (Verified Allergy, Unknown, 03/05/06) phenylephrine (Verified Allergy, Unknown, 03/05/06) phenylpropanolamine (Verified Allergy, Unknown, 03/05/06) phenyltoloxamine (Verified Allergy, Unknown, 03/05/06) F[facility]N-Dpmvxl-Dwoxuw Hx Patient Social History Alcohol Use: Denies Use Recreational Drug Use: No Drug of Choice: methamphetamine per UA Smoking Status: Former Smoker Former smoker/When Quit: Jan 24, 2015 Type Used: Cigarettes 2nd Hand Smoke Exposure: Yes ( SMOKES IN HOME) Recent Foreign Travel: No Contact w/other who traveled: No Recent Hopitalizations: Yes Recent Infectious Disease Expo: No Physical Abuse Screen: No Sexual Abuse: No Immunizations Up To Date Tetanus Booster (TDap): Unknown Date of Pneumonia Vaccine: Mar 05, 2016 Date of Influenza Vaccine: Mar 26, 2016 Past Medical History Severe Persistant Asthma Hepatitis C Currently Family Medical History Significant Family History: Asthma Family History: Alcoholism 19 FATHER G8 BROTHER Arthritis 19 FATHER Cardiovascular disease 19 MOTHER Coronary thrombosis 19 MOTHER Diabetes mellitus 19 MOTHER MATERNAL GRANDMOTHER Myocardial infarction 19 MOTHER Neoplasm 19 FATHER (LUNG CANCER) 19 MOTHER Respiratory disorder 19 FATHER (EMPHYSEMA) Review of Systems ([facility]) Constitutional: No chills, No fever; weakness EENTM: nose congestion, throat pain; No hoarseness Respiratory: cough, dyspnea on exertion, short of breath, wheezing Cardiovascular: No chest pain, No edema; palpitations Gastrointestinal: no symptoms reported; No abdominal pain, No constipation, No diarrhea, No nausea, No vomiting Genitourinary: no symptoms reported; No dysuria, No frequency, No hematuria : Yes LMP: Jun 04, 2018 Musculoskeletal: no symptoms reported; No back pain, No joint pain, No muscle pain Skin: no symptoms reported; No lesions, No rash Psychiatric/Neurological: Headache, Tremors Reviewed Test Results Reviewed Test Results Lab Laboratory Tests Test 10/31/17 07:27 10/31/17 08:00 10/31/17 09:00 10/31/17 11:10 Range/Units White Blood Count 9.6 4.3-11.0 10^3/uL Red Blood Count 5.07 4.35-5.85 10^6/uL Hemoglobin 13.7 11.5-16.0 G/DL Hematocrit 41 35-52 % Mean Corpuscular Volume 80 80-99 FL Mean Corpuscular Hemoglobin 27 25-34 PG Mean Corpuscular Hemoglobin Concent 34 32-36 G/DL Red Cell Distribution Width 16.6 H 10.0-14.5 % Platelet Count 292 130-400 10^3/uL Mean Platelet Volume 9.7 7.4-10.4 FL Neutrophils (%) (Auto) 68 42-75 % Lymphocytes (%) (Auto) 16 12-44 % Monocytes (%) (Auto) 9 0-12 % Eosinophils (%) (Auto) 7 0-10 % Basophils (%) (Auto) 0 0-10 % Neutrophils # (Auto) 6.5 1.8-7.8 X 10^3 Lymphocytes # (Auto) 1.5 1.0-4.0 X 10^3 Monocytes # (Auto) 0.9 0.0-1.0 X 10^3 Eosinophils # (Auto) 0.7 H 0.0-0.3 10^3/uL Basophils # (Auto) 0.0 0.0-0.1 10^3/uL Sodium Level 140 139 135-145 MMOL/L Potassium Level 4.3 3.7 3.6-5.0 MMOL/L Chloride Level 107 109 H 98-107 MMOL/L Carbon Dioxide Level 22 18 L 21-32 MMOL/L Anion Gap 11 12 5-14 MMOL/L Blood Urea Nitrogen 8 6 L 7-18 MG/DL Creatinine 0.60 0.58 L 0.60-1.30 MG/DL Estimat Glomerular Filtration Rate > 60 > 60 BUN/Creatinine Ratio 13 10 Glucose Level 101 132 H 70-105 MG/DL Calcium Level 9.5 8.6 8.5-10.1 MG/DL Magnesium Level 2.1 2.3 1.8-2.4 MG/DL Total Bilirubin 0.4 0.4 0.1-1.0 MG/DL Aspartate Amino Transf (AST/SGOT) 58 H 52 H 5-34 U/L Alanine Aminotransferase (ALT/SGPT) 83 H 79 H 0-55 U/L Alkaline Phosphatase 59 53 40-136 U/L Total Protein 7.6 7.1 6.4-8.2 GM/DL Albumin 4.4 4.1 3.2-4.5 GM/DL Blood Gas Puncture Site RT RADIAL Blood Gas Patient Temperature 98.7 Arterial Blood pH 7.35 L 7.37-7.43 Arterial Blood Partial Pressure CO2 37 35-45 MMHG Arterial Blood Partial Pressure O2 71 L 79-93 MMHG Arterial Blood HCO3 20 L 23-27 MMOL/L Arterial Blood Total CO2 21.1 21.0-31.0 MMOL/L Arterial Blood Oxygen Saturation 94 94-100 % Arterial Blood Base Excess -4.6 L -2.5-2.5 MMOL/L Familia Test YES-POS Blood Gas Ventilator Setting NO Blood Gas Inspired Oxygen ROOM AIR Urine Opiates Screen POSITIVE H NEGATIVE Urine Oxycodone Screen NEGATIVE NEGATIVE Urine Methadone Screen NEGATIVE NEGATIVE Urine Propoxyphene Screen NEGATIVE NEGATIVE Urine Barbiturates Screen NEGATIVE NEGATIVE Ur Tricyclic Antidepressants Screen NEGATIVE NEGATIVE Urine Phencyclidine Screen NEGATIVE NEGATIVE Urine Amphetamines Screen NEGATIVE NEGATIVE Urine Methamphetamines Screen NEGATIVE NEGATIVE Urine Benzodiazepines Screen NEGATIVE NEGATIVE Urine Cocaine Screen NEGATIVE NEGATIVE Urine Cannabinoids Screen NEGATIVE NEGATIVE Phosphorus Level 2.3 2.3-4.7 MG/DL Physical Exam-([facility]) Physical Exam Vital Signs VS - Last 72 Hours, by Label 10/31/17 10/31/17 10/31/17 10/31/17 06:41 06:47 06:55 07:00 Temp 98.0 Pulse 145 Resp 28 B/P (MAP) 150/95 (113) Pulse Ox 96 95 96 95 O2 Delivery Room Air Room Air Room Air Room Air 10/31/17 10/31/17 10/31/17 10/31/17 07:08 07:17 07:31 07:40 Pulse Ox 94 93 95 94 O2 Delivery Room Air Room Air 10/31/17 10/31/17 10/31/17 10/31/17 07:53 09:00 09:22 09:30 Temp 98.0 98.3 Pulse 86 135 Resp 20 22 B/P (MAP) 100/65 108/89 (95) Pulse Ox 96 95 93 96 O2 Delivery Room Air Room Air Nasal Cannula O2 Flow Rate 2.00 10/31/17 10/31/17 10/31/17 10/31/17 09:30 09:35 09:59 10:00 Pulse 133 140 124 Resp 20 19 B/P (MAP) 108/89 (95) 122/88 (99) Pulse Ox 94 96 95 O2 Delivery Room Air Nasal Cannula Nasal Cannula O2 Flow Rate 2.00 3.00 10/31/17 10/31/17 10/31/17 10/31/17 11:00 12:00 12:00 12:15 Pulse 122 130 Resp 24 25 B/P (MAP) 125/74 (91) 127/73 (91) Pulse Ox 95 96 96 93 O2 Delivery Nasal Cannula Nasal Cannula Nasal Cannula Nasal Cannula O2 Flow Rate 3.00 3.00 3.00 2.00 10/31/17 10/31/17 10/31/17 10/31/17 13:00 13:00 13:28 13:28 Pulse 143 142 Resp 30 25 B/P (MAP) 133/63 (86) Pulse Ox 95 95 95 O2 Delivery Nasal Cannula Nasal Cannula O2 Flow Rate 3.00 4.00 10/31/17 10/31/17 10/31/17 10/31/17 14:00 14:27 14:27 15:00 Pulse 125 117 Resp 24 22 23 B/P (MAP) 135/86 (102) 100/62 (75) Pulse Ox 96 100 100 96 O2 Delivery Nasal Cannula Nasal Cannula Nasal Cannula O2 Flow Rate 4.00 4.00 4.00 Capillary Refill : Less Than 3 Seconds General Appearance: moderate distress HEENT: PERRL/EOMI Neck: full range of motion, supple Respiratory: decreased breath sounds, accessory muscle use, wheezing, expiration, inspiration Cardiovascular: no edema, no murmur, tachycardia Gastrointestinal: normal bowel sounds, non tender, soft, no organomegaly Back: no CVA tenderness, no vertebral tenderness Extremities: non-tender, normal inspection, no pedal edema, no calf tenderness , normal capillary refill Neurologic/Psychiatric: deboning team leader II-XII nml as tested, no motor/sensory deficits, alert, normal mood/affect, oriented x 3 Skin: normal color, warm/dry Lymphatic: no adenopathy Assessment/Plan Assessment/Plan Admission Status: Inpatient Order (span 2 midnights) Reason for Inpatient Admission: Requiring respiratory support (1) Acute and chronic respiratory failure with hypoxia Status: Acute Assessment & Plan: - Dr Walsh consulted and managing Asthma, patient started on heliox, MAT protocol, s/p magnesium in ER with multiple 1 hr treatments with minimal improvement, Continue IV steroids (2) Asthma exacerbation Status: Acute Assessment & Plan: See Above Qualifiers: Qualified Codes: J45.51 - Severe persistent asthma with (acute) exacerbation (3) Hypoxia Status: Acute Assessment & Plan: - See Above (4) First trimester Status: Acute (5) Elevated LFTs Status: Chronic Assessment & Plan: - Patient has known h/o Hep C (6) DVT prophylaxis Status: Acute Assessment & Plan: Lovenox Clinical Quality Measures DVT/VTE Risk/Contraindication: Risk Factor Score Per Nursin RFS Level Per Nursing on Admit: 1=Low/No VTE PPX Copy Copies To 1: DEMETRICE ALFARO MD, HOLLY R MD Oct 31, 2017 16:05
[2017-10-31 17:14] LABS: ABG BASE EXCESS -3.2 MMOL/L (-2.5-2.5); ABG OXYGEN SATURATION 85 % (94-100); ABG PCO2 41 MMHG (35-45); ABG PO2 51 MMHG (79-93); ABG TCO2 23.2 MMOL/L (21.0-31.0)
[2017-10-31 17:16] LABS: ABG PH 7.34 (7.37-7.43)
[2017-10-31 17:17] LABS: ALLENS TEST POSITIVE; INSPIRED O2 4L HELIOX; PATIENT TEMP 96.8; VENTILATOR NO
[2017-10-31] MEDS ORDERED: morphine INJ 4 MG/ML 1 ML (VIAL/SYRINGE) IV NR (17:45)
[2017-10-31] MEDS ORDERED: proPOfol 200 MG/20 ML (DIPRIVAN) VIAL IV ONE (17:54)
[2017-10-31] MEDS ORDERED: PROPOFOL DRIP (ICU) 100 ML IV ONE (17:55)
[2017-10-31] MEDS ORDERED: RT-ALBUTEROL SULF 2.5 MG/3 ML PRE-MIX VIAL INH ONE (18:00)
[2017-10-31] MEDS ORDERED: fentaNYL INJECTION 100 MCG/2 ML AMP IV PRN (18:15)
--- NOTE | 2017-10-31 18:42 | Diagnostic Imaging Report ---
INDICATION: Intubation. TECHNIQUE: Single view chest, 6:27 p.m. CORRELATION STUDY: 04/27/2017. FINDINGS: Endotracheal tube has been placed. Tip is obscured by overlying monitor lead but is superimposed over the lower trachea by the anita. Gastric tube passes below the left hemidiaphragm and edge of the film. Heart size and mediastinum are unremarkable. Improved aeration of the lung hernandez. Previously noted infiltrate/atelectasis at the left lung base has resolved. IMPRESSION: Interval intubation. Improved aeration of the left lung base. Dictated by: Dictated on workstation # [id number]
[2017-10-31 18:49] LABS: BUN/CREATININE RATIO 11; CALCIUM 8.9 MG/DL (8.5-10.1); CARBON DIOXIDE 18 MMOL/L (21-32); CHLORIDE 109 MMOL/L (98-107); CREATININE SERUM 0.66 MG/DL (0.60-1.30); GFR ESTIMATED > 60; GLUCOSE 126 MG/DL (70-105); POTASSIUM 5.6 MMOL/L (3.6-5.0); SODIUM 138 MMOL/L (135-145)
[2017-10-31 18:59] LABS: ABG BASE EXCESS -5.6 MMOL/L (-2.5-2.5); ABG OXYGEN SATURATION 100 % (94-100); ABG PCO2 69 MMHG (35-45); ABG PO2 348 MMHG (79-93); ABG TCO2 24.4 MMOL/L (21.0-31.0)
[2017-10-31 19:01] LABS: ABG PH 7.13 (7.37-7.43); ALLENS TEST POSITIVE; INSPIRED O2 100; PATIENT TEMP 98.1; VENTILATOR YES
[2017-10-31] MEDS: PROPOFOL DRIP (ICU) 100 ML IV SCH (19:10)
[2017-10-31] MEDS ORDERED: SODIUM BICARB 8.4% 50 MEQ/50 ML (ABBOTT) SYR IV NR (19:30)
[2017-10-31] MEDS ORDERED: NS IV 500 ML 500 ML IV ONE (19:30)
[2017-10-31] MEDS ORDERED: fentaNYL INJECTION 100 MCG/2 ML AMP ONE (19:35)
[2017-10-31] MEDS ORDERED: methylPREDNISolone 125 MG (Solu-MEDROL) VIAL ONE (19:58)
--- NOTE | 2017-10-31 20:15 | Procedure/Intervention Note ---
Procedures/Interventions Reason for Intubation: respiratory failure Date of ETT Placement: Oct 31, 2017 Time of ETT Placement: 1758 Tube Size: 7.50 Medications: Etomidate, Succinylcholine, Versed Positive End Tide CO2: Yes Breath Sounds after Intubation: bilateral-equal Intubation Complications: no complications Post Intubation Xray: Yes in good position Called emergently to ICU for intubation of asthmatic with respiratory failure. He should having declining ABG criteria. Patient has had rigors intubation for respiratory failure secondary to acute asthma exacerbation. Versed 2.5 mg IV given during preoxygenation phase to help with anxiety. This did help. Patient was able to oxygenate to 100 percent O2 saturation on high flow O2. Intubated after sedation with 20 mg of etomidate and 100 mg and succinylcholine with 5 mg of Versed and 100 g of fentanyl given post intubation for sedation. Repeat 2.5 mg of Versed given after while propofol drip being initiated that was ordered by the ICU. I did give propofol bolus 40 mg IV 2 for continued sedation. Patient oxygenated well with O2 sats near 100 percent and Intal CO2 of 41. Care transferred back to eICU for ventilator management and sedation management. JORGE LUIS DURAN MD Oct 31, 2017 20:15
[2017-10-31] MEDS: fentaNYL INJECTION 1,250 MCG in NS (IVPB) 225 ML IV SCH (20:35)
[2017-10-31] MEDS ORDERED: RT-BUDESONIDE NEBS 0.5 MG/2ML (PULMICORT) AMP INH SCH (21:00)
[2017-10-31] MEDS ORDERED: NON-FORMULARY MEDICATION 1 EA EA (Montelukast Sodium (Singulair) 10 MG) PO SCH (21:00)
[2017-10-31] MEDS: RT-BUDESONIDE NEBS 0.5 MG/2ML (PULMICORT) AMP INH SCH (21:14)
[2017-10-31 21:28] LABS: ABG BASE EXCESS -6.2 MMOL/L (-2.5-2.5); ABG OXYGEN SATURATION 95 % (94-100); ABG PCO2 60 MMHG (35-45); ABG PO2 90 MMHG (79-93); ABG TCO2 23.1 MMOL/L (21.0-31.0)
[2017-10-31 21:30] LABS: ABG PH 7.17 (7.37-7.43); ALLENS TEST POSITIVE; INSPIRED O2 40%; PATIENT TEMP 97.5; VENTILATOR YES
[2017-10-31] MEDS: raNItidine 50 MG/2 ML INJ (ZANTAC) IV SCH (21:37)
[2017-10-31] MEDS: CHLORHEXIDINE 0.12% SOLN 15 ML (PERIDEX) UDC PO SCH (21:37)
[2017-10-31] MEDS: MONTELUKAST 10 MG (SINGULAIR) TAB PO SCH (21:37)
[2017-10-31] MEDS ORDERED: VECURONIUM IV ONE (22:30)
[2017-10-31] MEDS ORDERED: ROCURONIUM 10 MG/ML 5 ML SYRINGE IV ONE (23:00)
[2017-10-31] MEDS ORDERED: SODIUM BICARB 8.4% 50 MEQ/50 ML (ABBOTT) SYR IV ONE (23:30)
[2017-10-31] MEDS ORDERED: MAGNESIUM 1 GM/100 ML IVPB 200 ML IV ONE (23:34)
[2017-10-31 23:38] LABS: ABG BASE EXCESS -3.3 MMOL/L (-2.5-2.5); ABG OXYGEN SATURATION 96 % (94-100); ABG PO2 104 MMHG (79-93); ABG TCO2 29.3 MMOL/L (21.0-31.0)
[2017-10-31 23:42] LABS: ALLENS TEST YES-POS; INSPIRED O2 40%; PATIENT TEMP 96.9; VENTILATOR YES
[2017-10-31 23:47] LABS: ABG PCO2 95 MMHG (35-45); ABG PH 7.06 (7.37-7.43)
[2017-10-31] MEDS: MAGNESIUM 1 GM/D5W 100 ML IVPB IV SCH (23:50)
[2017-11-01] VITALS (35 sets, daily range): BP systolic 80–145; BP diastolic 46–98
[2017-11-01] MEDS ORDERED: ROCURONIUM 10 MG/ML 5 ML SYRINGE IV ONE ×2 (00:15→12:00)
[2017-11-01] MEDS ORDERED: SODIUM BICARB 8.4% 50 MEQ/50 ML (ABBOTT) SYR IV ONE ×2 (00:15→04:30)
[2017-11-01] MEDS: CISATRACURIUM 100 MG/NS 200 ML (TOTAL VOLUME 250 ML) IV SCH ×6 (00:17→18:14)
[2017-11-01] MEDS: methylPREDNISolone 125 MG (Solu-MEDROL) VIAL IV SCH ×4 (00:57→15:33)
[2017-11-01] MEDS: MAGNESIUM 1 GM/D5W 100 ML IVPB IV SCH (01:01)
[2017-11-01] MEDS ORDERED: inSUlin ASPART (NovoLOG) 1 UNIT/0.01 ML (CHARGE PER UNIT) ONE (01:14)
[2017-11-01] MEDS ORDERED: fentaNYL (OMNICELL DRIP KIT ONLY) 250 MCG/5 ML AMP ONE ×2 (01:21→05:01)
[2017-11-01] MEDS ORDERED: NS (IVPB) 100 ML ONE ×2 (01:21→05:01)
[2017-11-01] MEDS: RT-ALBUTEROL/IPRATROPIUM 3 ML (DUONEB) VIAL IH SCH ×6 (01:52→22:23)
[2017-11-01 01:54] LABS: ABG BASE EXCESS -0.2 MMOL/L (-2.5-2.5); ABG OXYGEN SATURATION 99 % (94-100); ABG PO2 139 MMHG (79-93); ABG TCO2 31.6 MMOL/L (21.0-31.0)
[2017-11-01 01:55] LABS: ALLENS TEST YES-POS; INSPIRED O2 60% FIO2; VENTILATOR YES
[2017-11-01 01:57] LABS: ABG PCO2 94 MMHG (35-45); ABG PH 7.11 (7.37-7.43)
[2017-11-01 03:22] LABS: ABG BASE EXCESS -0.4 MMOL/L (-2.5-2.5); ABG OXYGEN SATURATION 90 % (94-100); ABG PO2 69 MMHG (79-93); ABG TCO2 31.2 MMOL/L (21.0-31.0)
[2017-11-01 03:23] LABS: ALLENS TEST YES-POS; INSPIRED O2 40% FIO2; PATIENT TEMP 97.8; VENTILATOR YES
[2017-11-01 03:24] LABS: ABG PCO2 91 MMHG (35-45); ABG PH 7.12 (7.37-7.43)
[2017-11-01 03:51] LABS: BILIRUBIN,URINE NEGATIVE (NEGATIVE); CLARITY,URINE CLEAR; COLOR,URINE YELLOW; GLUCOSE, URINE (UA) 4+ (NEGATIVE); KETONES,URINE NEGATIVE (NEGATIVE); LEUKOCYTE ESTERASE ,URINE NEGATIVE (NEGATIVE); NITRITE,URINE NEGATIVE (NEGATIVE); PH,URINE 5 (5-9); PROTEIN,URINE 2+ (NEGATIVE); UROBILINOGEN,URINE NORMAL (NORMAL)
[2017-11-01] MEDS: MAGNESIUM 1 GM/100 ML IVPB 100 ML IV SCH ×2 (03:51→10:53)
[2017-11-01] MEDS: KCL 20 MEQ TAB (K-DUR) PO SCH (03:51)
[2017-11-01] MEDS: POTASSIUM CL 10MEQ/50ML IVPB 50 ML IV SCH (03:51)
[2017-11-01] MEDS ORDERED: SODIUM BICARB 8.4% 50 MEQ/50 ML (ABBOTT) SYR ONE ×2 (04:09)
[2017-11-01 04:12] LABS: BACTERIA,URINE TRACE /HPF; RBC,URINE RARE /HPF; WBC,URINE 50-100 /HPF
[2017-11-01 04:37] LABS: MAGNESIUM 2.1 MG/DL (1.8-2.4); PHOSPHORUS 2.7 MG/DL (2.3-4.7)
[2017-11-01 04:41] LABS: ALANINE AMINOTRANSFERASE 55 U/L (0-55); ALBUMIN 3.3 GM/DL (3.2-4.5); ALKALINE PHOSPHATASE 48 U/L (40-136); BILIRUBIN,TOTAL 0.3 MG/DL (0.1-1.0); BUN/CREATININE RATIO 15; CALCIUM 6.4 MG/DL (8.5-10.1); CARBON DIOXIDE 20 MMOL/L (21-32); CHLORIDE 112 MMOL/L (98-107); CREATININE SERUM 0.52 MG/DL (0.60-1.30); GFR ESTIMATED > 60; GLUCOSE 160 MG/DL (70-105); SODIUM 144 MMOL/L (135-145); TOTAL PROTEIN 5.5 GM/DL (6.4-8.2)
[2017-11-01] MEDS: inSUlin ASPART (NovoLOG) 1 UNIT/0.01 ML (CHARGE PER UNIT) SQ SCH ×5 (04:52→20:19)
[2017-11-01] MEDS ORDERED: NS IV 1000 ML 1,000 ML IV SCH (05:00)
[2017-11-01] MEDS ORDERED: NS IV 1000 ML 1,000 ML IV ONE ×3 (05:45→06:00)
[2017-11-01 05:47] LABS: ABG BASE EXCESS 4.2 MMOL/L (-2.5-2.5); ABG OXYGEN SATURATION 98 % (94-100); ABG PO2 111 MMHG (79-93); ABG TCO2 35.2 MMOL/L (21.0-31.0); ALLENS TEST YES-POS
[2017-11-01 05:48] LABS: INSPIRED O2 50% FIO2; PATIENT TEMP 97.6; VENTILATOR YES
[2017-11-01 05:49] LABS: ABG PCO2 91 MMHG (35-45); ABG PH 7.17 (7.37-7.43)
[2017-11-01 05:53] LABS: BASOPHILS % (AUTO) 0 % (0-10); EOSINOPHILS % (AUTO) 0 % (0-10); HEMATOCRIT 38 % (35-52); LYMPHOCYTES # (AUTO) 0.8 X 10^3 (1.0-4.0); LYMPHOCYTES % (AUTO) 5 % (12-44); MEAN CORPUSCULAR HEMOGLOBIN 27 PG (25-34); MEAN CORPUSCULAR HGB CONC 31 G/DL (32-36); MEAN CORPUSCULAR VOLUME 85 FL (80-99); MONOCYTES # (AUTO) 0.7 X 10^3 (0.0-1.0); MONOCYTES % (AUTO) 4 % (0-12); NEUTROPHILS # (AUTO) 16.7 X 10^3 (1.8-7.8); NEUTROPHILS % (AUTO) 92 % (42-75); PLATELET COUNT 285 10^3/uL (130-400); RED BLOOD COUNT 4.48 10^6/uL (4.35-5.85); RED CELL DISTRIBUTION WIDTH 17.4 % (10.0-14.5); WHITE BLOOD COUNT 18.2 10^3/uL (4.3-11.0)
[2017-11-01] MEDS ORDERED: inSUlin ASPART (NovoLOG) 1 UNIT/0.01 ML (CHARGE PER UNIT) SC SCH (06:00)
[2017-11-01] MEDS: PRENATAL VITAMIN 1 EA TAB PO SCH (06:04)
[2017-11-01] MEDS: RT-BUDESONIDE NEBS 0.5 MG/2ML (PULMICORT) AMP INH SCH ×2 (06:15→22:23)
--- NOTE | 2017-11-01 06:22 | Pulmonary Progress Note ---
Subjective Time Seen by Provider: 06:00 Subjective/Events-last exam PT is sedated on vent. Focused Exam Lactate Level 11/01/17 05:20: Lactic Acid Level 1.75 Lactic Acid Level Laboratory Tests Test 11/01/17 05:20 Lactic Acid Level 1.75 MMOL/L (0.50-2.00) Exam Exam Vital Signs Date Time Temp Pulse Resp B/P (MAP) Pulse Ox O2 Delivery O2 Flow Rate FiO2 11/01/17 05:00 117 15 80/48 (59) 100 Mechanical Ventilator 40.00 11/01/17 04:00 97 Mechanical Ventilator 40 11/01/17 04:00 109 16 98/55 (69) 100 Mechanical Ventilator 40.00 11/01/17 03:58 108 16 100 50 11/01/17 03:00 109 14 96/60 (72) 100 Mechanical Ventilator 40.00 11/01/17 02:00 104 13 101/55 (70) 100 Mechanical Ventilator 40.00 11/01/17 01:52 102 14 100 60 11/01/17 01:00 110 14 112/54 (73) 98 Mechanical Ventilator 60.00 11/01/17 01:00 111 11/01/17 00:57 111 14 99 60 11/01/17 00:00 112 35 118/67 (84) 96 Mechanical Ventilator 40.00 11/01/17 00:00 96 Mechanical Ventilator 40 10/31/17 23:58 113 35 96 60 10/31/17 23:00 122 34 98/49 (65) 100 Mechanical Ventilator 40.00 10/31/17 22:55 121 39 40 10/31/17 22:00 118 20 94/58 (70) 95 Mechanical Ventilator 40.00 10/31/17 21:51 121 31 100 40 10/31/17 21:25 137 30 100 40 10/31/17 21:00 146 28 147/105 (119) 99 Mechanical Ventilator 40.00 10/31/17 20:05 140 28 99 40 10/31/17 20:00 99 Mechanical Ventilator 100 10/31/17 19:55 97.6 147 28 75/40 (52) 97 Mechanical Ventilator 40.00 10/31/17 19:24 151 35 97 40 10/31/17 19:12 98.1 129 19 112/72 97 Mechanical Ventilator 100.00 10/31/17 19:10 98.1 129 19 112/72 97 Mechanical Ventilator 100.00 18 19:00 145 618 19:00 144 32 132/80 (97) 98 Mechanical Ventilator 100.00 18 18:00 129 19 112/72 (85) 97 Mechanical Ventilator 100.00 18 18:00 131 19 98 100 18 17:58 Mechanical Ventilator 100.00 10/31/17 17:00 134 25 98 Nasal Cannula 3.00 10/31/17 16:05 3.00 18 16:04 27 93 18 16:04 93 Nasal Cannula 2.00 10/31/17 16:00 124 24 131/68 (89) 94 Nasal Cannula 3.00 10/31/17 16:00 96 Nasal Cannula 3.00 10/31/17 16:00 98.1 10/31/17 15:00 117 23 100/62 (75) 96 Nasal Cannula 4.00 10/31/17 14:27 100 Nasal Cannula 4.00 10/31/17 14:27 22 100 10/31/17 14:00 125 24 135/86 (102) 96 Nasal Cannula 4.00 10/31/17 13:28 95 Nasal Cannula 4.00 18 13:28 25 95 18 13:00 142 30 133/63 (86) 95 Nasal Cannula 3.00 10/31/17 13:00 143 10/31/17 12:15 93 Nasal Cannula 2.00 10/31/17 12:00 130 25 127/73 (91) 96 Nasal Cannula 3.00 10/31/17 12:00 96 Nasal Cannula 3.00 10/31/17 12:00 98.4 10/31/17 11:00 122 24 125/74 (91) 95 Nasal Cannula 3.00 10/31/17 10:00 124 19 122/88 (99) 95 Nasal Cannula 3.00 10/31/17 09:59 96 Nasal Cannula 2.00 10/31/17 09:35 140 10/31/17 09:30 133 20 108/89 (95) 94 Room Air 10/31/17 09:30 96 Nasal Cannula 2.00 10/31/17 09:22 98.3 135 22 108/89 (95) 93 Room Air 10/31/17 09:00 98.0 86 20 100/65 95 10/31/17 07:53 96 Room Air 10/31/17 07:40 94 Room Air 10/31/17 07:31 95 Room Air 10/31/17 07:17 93 10/31/17 07:08 94 10/31/17 07:00 95 Room Air 10/31/17 06:55 96 Room Air 10/31/17 06:47 95 Room Air 10/31/17 06:41 98.0 145 28 150/95 (113) 96 Room Air I & O 11/01/17 07:00 Intake Total 4350 ml Output Total 2725 ml Balance 1625 ml General Appearance: Moderate Distress HEENT: Normal ENT Inspection, Pharynx Normal Neck: Full Range of Motion, Normal Inspection, Supple Respiratory: Decreased Breath Sounds, Respiratory Distress, Other (pt is sedated on vent) Capillary Refill: Less Than 3 Seconds Gastrointestinal: non tender, soft Extremity: Normal Capillary Refill, Normal Inspection, Normal Range of Motion Skin: Normal Color, Warm/Dry Lymphatic: No Adenopathy Results Lab Laboratory Tests 10/31/17 07:27 10/31/17 11:10 10/31/17 18:25 11/01/17 03:05 11/01/17 05:30 Assessment/Plan Assessment/Plan Acute respiratory failure secondary to severe status asthmaticus -Continue vent Asthma AE -SVNS albuterol Q4, Pulmicort BID Solumedrol -Oxygen - -monitor in ICU Hypotensive -PT has responded to IVF and decrease in IV sedation -monitor close. -EICU is also monitoring patient very closely 10wks -US pending Hypomagnesium -replace medical noncompliance hx of hep C -HIV NR in 2015 In 04/11 UDS was + for methamphetamine -will check UDS TONIO GOTTI DO Nov 01, 2017 06:22
[2017-11-01 06:23] LABS: BAND NEUTROPHILS 2 %; BASOPHILS % (MANUAL) 0 %; EOSINOPHILS % (MANUAL) 0 %; LYMPHOCYTES % (MANUAL) 5 %; MONOCYTES % (MANUAL) 3 %; NEUTROPHILS % (MANUAL) 90 %; SMUDGE CELLS SLIGHT
[2017-11-01 06:24] LABS: ANISOCYTOSIS SLIGHT
[2017-11-01] MEDS ORDERED: 1/2 NS IV SCH (06:30)
[2017-11-01] MEDS ORDERED: SODIUM BICARBONATE IV SCH (06:30)
[2017-11-01] MEDS ORDERED: SODIUM BICARBONATE 8.4% VIAL 100 MEQ in WATER FOR INJECTION, STERILE 1,000 ML IV SCH (06:30)
[2017-11-01] MEDS ORDERED: RT-ALBUTEROL/IPRATROPIUM 3 ML (DUONEB) VIAL INH ONE (07:00)
[2017-11-01] MEDS ORDERED: RT-ALBUTEROL SULF 2.5 MG/3 ML PRE-MIX VIAL INH ONE (07:00)
--- NOTE | 2017-11-01 07:04 | Diagnostic Imaging Report ---
EXAM: CHEST 1 VIEW, AP/PA ONLY INDICATION: ET tube placement. COMPARISON: Chest radiograph 10/31/2017. FINDINGS: ETT tip approximately 2 cm from the anita. NG tube tip below the diaphragm. Normal heart size and pulmonary vascularity. No focal pulmonary opacity, pleural effusion or pneumothorax. No acute osseous findings. IMPRESSION: ETT tip approximately 2 cm from the anita. No acute cardiopulmonary findings. Dictated by: Dictated on workstation # [id number]
[2017-11-01] MEDS ORDERED: NS IV 500 ML 500 ML ONE (07:23)
[2017-11-01] MEDS: raNItidine 50 MG/2 ML INJ (ZANTAC) IV SCH ×2 (07:44→21:21)
[2017-11-01] MEDS: PROPOFOL DRIP (ICU) 100 ML IV SCH ×2 (07:46→18:54)
[2017-11-01] MEDS: RT-ALBUTEROL SULF 2.5 MG/3 ML PRE-MIX VIAL INH SCH ×4 (08:00→20:06)
[2017-11-01 08:08] LABS: ABG BASE EXCESS 0.5 MMOL/L (-2.5-2.5); ABG OXYGEN SATURATION 98 % (94-100); ABG PO2 126 MMHG (79-93); ABG TCO2 36.4 MMOL/L (21.0-31.0)
[2017-11-01 08:11] LABS: ABG PCO2 149 MMHG (35-45); ABG PH 6.97 (7.37-7.43); ALLENS TEST YES-POS
[2017-11-01 08:12] LABS: INSPIRED O2 50%; PATIENT TEMP 99.5; VENTILATOR YES
[2017-11-01] MEDS: SODIUM BICARBONATE 8.4% VIAL 100 MEQ in 1/2 NS IV SOLUTION 1,000 ML IV SCH ×2 (08:28→18:38)
[2017-11-01 08:29] LABS: ABG BASE EXCESS 1.9 MMOL/L (-2.5-2.5); ABG OXYGEN SATURATION 97 % (94-100); ABG PO2 115 MMHG (79-93); ABG TCO2 35.3 MMOL/L (21.0-31.0)
[2017-11-01 08:30] LABS: ABG PCO2 120 MMHG (35-45); ABG PH 7.06 (7.37-7.43); ALLENS TEST YES-POS; INSPIRED O2 50%; PATIENT TEMP 99.5; VENTILATOR YES
[2017-11-01] MEDS: CHLORHEXIDINE 0.12% SOLN 15 ML (PERIDEX) UDC PO SCH ×2 (08:38→21:21)
[2017-11-01] MEDS: cefTRIAXone INJECTION 1,000 MG in NS (IVPB) 50 ML IV SCH (09:00)
[2017-11-01] MEDS ORDERED: NON-FORMULARY MEDICATION 1 EA EA (Prenatal Vit W-Ca,Fe,FA(<1 mg) (Prenatal Formula) 1 TAB) PO SCH (09:00)
[2017-11-01] MEDS: fentaNYL INJECTION 1,250 MCG in NS (IVPB) 225 ML IV SCH ×2 (09:07→18:35)
[2017-11-01] MEDS ORDERED: LACTATED RINGERS 1,000 ML IV ONE (09:34)
--- NOTE | 2017-11-01 10:02 | Progress Note (SOAP) ---
Subjective Subjective/Events-last exam Patient currently intubated so no history is obtained. Review of Systems Date Seen by Provider: Nov 01, 2017 Time Seen by Provider: 07:00 Focused Exam Lactate Level 11/01/17 05:20: Lactic Acid Level 1.75 Objective Exam Last Set of Vital Signs Vital Signs Date Time Temp Pulse Resp B/P (MAP) Pulse Ox O2 Delivery O2 Flow Rate FiO2 11/01/17 09:01 115 18 99 50 11/01/17 07:46 99.5 Mechanical Ventilator 50.00 11/01/17 06:00 91/53 (66) Capillary Refill : Less Than 3 Seconds I&O Intake and Output 11/01/17 00:00 Intake Total 3900 ml Output Total 2275 ml Balance 1625 ml Intake Oral 1200 ml IV Total 2700 ml Output Urine Total 2275 ml Daily Weight Change No General: No Acute Distress (but she is intubated) Lungs: Clear to Auscultation Heart: Regular Rate Abdomen: Soft Results/Procedures Lab Laboratory Tests 10/31/17 11:10: Sodium Level 139, Potassium Level 3.7, Chloride Level 109H, Carbon Dioxide Level 18L, Anion Gap 12, Blood Urea Nitrogen 6L, Creatinine 0.58L, Estimat Glomerular Filtration Rate > 60, BUN/Creatinine Ratio 10, Glucose Level 132H, Calcium Level 8.6, Phosphorus Level 2.3, Magnesium Level 2.3, Total Bilirubin 0.4, Aspartate Amino Transf (AST/SGOT) 52H, Alanine Aminotransferase (ALT/SGPT) 79H, Alkaline Phosphatase 53, Total Protein 7.1, Albumin 4.1 10/31/17 17:08: Blood Gas Puncture Site RIGHT RADIAL, Blood Gas Patient Temperature 96.8, Arterial Blood pH 7.34*L, Arterial Blood Partial Pressure CO2 41, Arterial Blood Partial Pressure O2 51L, Arterial Blood HCO3 22L, Arterial Blood Total CO2 23.2, Arterial Blood Oxygen Saturation 85L, Arterial Blood Base Excess -3.2L , Familia Test POSITIVE, Blood Gas Ventilator Setting NO, Blood Gas Inspired Oxygen 4L HELIOX 10/31/17 18:25: Sodium Level 138, Potassium Level 5.6H, Chloride Level 109H, Carbon Dioxide Level 18L, Anion Gap 11, Blood Urea Nitrogen 7, Creatinine 0.66, Estimat Glomerular Filtration Rate > 60, BUN/Creatinine Ratio 11, Glucose Level 126H, Calcium Level 8.9, Magnesium Level 3.0H, Triglycerides Level 69 10/31/17 18:49: Blood Gas Puncture Site LEFT RADIAL, Blood Gas Patient Temperature 98.1, Arterial Blood pH 7.13*L, Arterial Blood Partial Pressure CO2 69H, Arterial Blood Partial Pressure O2 348H, Arterial Blood HCO3 22L, Arterial Blood Total CO2 24.4, Arterial Blood Oxygen Saturation 100, Arterial Blood Base Excess -5.6L , Familia Test POSITIVE, Blood Gas Ventilator Setting YES, Blood Gas Inspired Oxygen 100 10/31/17 21:22: Blood Gas Puncture Site LEFT RADIAL, Blood Gas Patient Temperature 97.5, Arterial Blood pH 7.17*L, Arterial Blood Partial Pressure CO2 60H, Arterial Blood Partial Pressure O2 90, Arterial Blood HCO3 21L, Arterial Blood Total CO2 23.1, Arterial Blood Oxygen Saturation 95, Arterial Blood Base Excess -6.2L, Familia Test POSITIVE, Blood Gas Ventilator Setting YES, Blood Gas Inspired Oxygen 40% 10/31/17 23:30: Blood Gas Puncture Site R RAD, Blood Gas Patient Temperature 96.9, Arterial Blood pH 7.06*L, Arterial Blood Partial Pressure CO2 95*H, Arterial Blood Partial Pressure O2 104H, Arterial Blood HCO3 26, Arterial Blood Total CO2 29.3 , Arterial Blood Oxygen Saturation 96, Arterial Blood Base Excess -3.3L, Familia Test YES-POS, Blood Gas Ventilator Setting YES, Blood Gas Inspired Oxygen 40% 11/01/17 01:04: Glucometer 223H 11/01/17 01:50: Blood Gas Puncture Site R RAD, Blood Gas Patient Temperature 98.0, Arterial Blood pH 7.11*L, Arterial Blood Partial Pressure CO2 94*H, Arterial Blood Partial Pressure O2 139H, Arterial Blood HCO3 29H, Arterial Blood Total CO2 31.6H, Arterial Blood Oxygen Saturation 99, Arterial Blood Base Excess -0.2, Familia Test YES-POS, Blood Gas Ventilator Setting YES, Blood Gas Inspired Oxygen 60% FIO2 11/01/17 03:05: Sodium Level 144, Potassium Level 4.0, Chloride Level 112H, Carbon Dioxide Level 20L, Anion Gap 12, Blood Urea Nitrogen 8, Creatinine 0.52L, Estimat Glomerular Filtration Rate > 60, BUN/Creatinine Ratio 15, Glucose Level 160H, Calcium Level 6.4L, Phosphorus Level 2.7, Magnesium Level 2.1, Total Bilirubin 0.3, Aspartate Amino Transf (AST/SGOT) 31, Alanine Aminotransferase (ALT/SGPT) 55, Alkaline Phosphatase 48, Total Protein 5.5L, Albumin 3.3 11/01/17 03:09: Blood Gas Puncture Site R RAD, Blood Gas Patient Temperature 97.8, Arterial Blood pH 7.12*L, Arterial Blood Partial Pressure CO2 91*H, Arterial Blood Partial Pressure O2 69L, Arterial Blood HCO3 28H, Arterial Blood Total CO2 31.2H , Arterial Blood Oxygen Saturation 90L, Arterial Blood Base Excess -0.4, Familia Test YES-POS, Blood Gas Ventilator Setting YES, Blood Gas Inspired Oxygen 40% FIO2 11/01/17 03:30: Urine Color YELLOW, Urine Clarity CLEAR, Urine pH 5, Urine Specific [place] 1.025H, Urine Protein 2+H, Urine Glucose (UA) 4+H, Urine Ketones NEGATIVE, Urine Nitrite NEGATIVE, Urine Bilirubin NEGATIVE, Urine Urobilinogen NORMAL, Urine Leukocyte Esterase NEGATIVE, Urine RBC (Auto) 5+H, Urine RBC RARE, Urine WBC 50-100H, Urine Squamous Epithelial Cells NONE, Urine Crystals NONE, Urine Bacteria TRACE, Urine Casts PRESENT, Urine Hyaline Casts 5-10H, Urine Mucus SMALLH, Urine Culture Indicated NO 11/01/17 05:20: Lactic Acid Level 1.75 11/01/17 05:30: White Blood Count 18.2H, Red Blood Count 4.48, Hemoglobin 12.0#, Hematocrit 38, Mean Corpuscular Volume 85, Mean Corpuscular Hemoglobin 27, Mean Corpuscular Hemoglobin Concent 31L, Red Cell Distribution Width 17.4H, Platelet Count 285, Mean Platelet Volume 10.0, Neutrophils (%) (Auto) 92H, Lymphocytes (%) (Auto) 5L , Monocytes (%) (Auto) 4, Eosinophils (%) (Auto) 0, Basophils (%) (Auto) 0, Neutrophils # (Auto) 16.7H, Lymphocytes # (Auto) 0.8L, Monocytes # (Auto) 0.7, Eosinophils # (Auto) 0.0, Basophils # (Auto) 0.0, Neutrophils % (Manual) 90, Lymphocytes % (Manual) 5, Monocytes % (Manual) 3, Eosinophils % (Manual) 0, Basophils % (Manual) 0, Band Neutrophils 2, Smudge Cells SLIGHT, Anisocytosis SLIGHT 11/01/17 05:38: Blood Gas Puncture Site R RAD, Blood Gas Patient Temperature 97.6, Arterial Blood pH 7.17*L, Arterial Blood Partial Pressure CO2 91*H, Arterial Blood Partial Pressure O2 111H, Arterial Blood HCO3 32H, Arterial Blood Total CO2 35.2H, Arterial Blood Oxygen Saturation 98, Arterial Blood Base Excess 4.2H, Familia Test YES-POS, Blood Gas Ventilator Setting YES, Blood Gas Inspired Oxygen 50% FIO2 11/01/17 07:15: 11/01/17 08:01: Blood Gas Puncture Site RT RADIAL, Blood Gas Patient Temperature 99.5, Arterial Blood pH 6.97*L, Arterial Blood Partial Pressure CO2 149*H, Arterial Blood Partial Pressure O2 126H, Arterial Blood HCO3 32H, Arterial Blood Total CO2 36.4H, Arterial Blood Oxygen Saturation 98, Arterial Blood Base Excess 0.5, Familia Test YES-POS, Blood Gas Ventilator Setting YES, Blood Gas Inspired Oxygen 50% 11/01/17 08:24: Blood Gas Puncture Site RT RAD, Blood Gas Patient Temperature 99.5, Arterial Blood pH 7.06*L, Arterial Blood Partial Pressure CO2 120*H, Arterial Blood Partial Pressure O2 115H, Arterial Blood HCO3 32H, Arterial Blood Total CO2 35.3H, Arterial Blood Oxygen Saturation 97, Arterial Blood Base Excess 1.9, Familia Test YES-POS, Blood Gas Ventilator Setting YES, Blood Gas Inspired Oxygen 50% 11/01/17 08:41: Glucometer 184H Radiology NAME: RAMÓN YANES [facility] REC#: [id number] PT STATUS: ADM IN : 1985 PHYSICIAN: JORGE LUIS DURAN MD ADMIT DATE: 10/31/17/ICU Signed Date of Exam: 10/31/17 US OB SINGLE FETUS<14 [id number] PROCEDURE: US OB SINGLE FETUS <14 WKS. TECHNIQUE: Multiple real-time grayscale images were obtained over the gravid uterus in various projections. INDICATION: survey. There is a gestational sac within uterus containing a single live fetus. heart motion was noted at a rate of 181 bpm was recorded. The crown-rump length suggests estimated gestational age is 8 weeks 3 days plus or minus 1 week. There are no obvious abnormalities identified. The amniotic fluid volume is within normal limits. At this time it is not certain whether the placenta was developed. The left ovary was visualized and was unremarkable. The right ovary could not be clearly identified. There is no pelvic mass or free fluid collection noted. IMPRESSION: 1. There is a single live intrauterine approximately 8 weeks 2 days gestation plus or minus 1 week. The EDC is 06/09/2018. 2. There are no abnormalities identified. If more sensitive evaluation of anatomy is desired however, then a followup OB ultrasound exam in 10-12 weeks would be recommended. 3. There is no pelvic mass or free fluid collection noted. Dictated by: Dictated on workstation # [id number] Assessment/Plan Assessment/Plan Admission Status: Inpatient Order (span 2 midnights) Assessment & Plan (1) Acute and chronic respiratory failure with hypoxia 11/01: patient currently intubated and under the care of Dr. Walsh. Status: Acute Assessment & Plan: - Dr Walsh consulted and managing Asthma, patient started on heliox, MAT protocol, s/p magnesium in ER with multiple 1 hr treatments with minimal improvement, Continue IV steroids (2) Asthma exacerbation Status: Acute Assessment & Plan: See Above Qualifiers: Qualified Codes: J45.51 - Severe persistent asthma with (acute) exacerbation (3) Hypoxia Status: Acute Assessment & Plan: - See Above (4) First trimester 11/01:the ultrasound is noted and patient was 8 weeks 2 days gestation plus or minus one week yesterday. Status: Acute (5) Elevated LFTs Status: Chronic Assessment & Plan: - Patient has known h/o Hep C (6) DVT prophylaxis Status: Acute Assessment & Plan: Lovenox Clinical Quality Measures DVT/VTE Risk/Contraindication: Risk Factor Score Per Nursin RFS Level Per Nursing on Admit: 1=Low/No VTE PPX JOSE JUAN CRAWFORD MD Nov 01, 2017 10:02
--- NOTE | 2017-11-01 10:32 | Anesthesia-Procedure Note ---
Procedures/Interventions Procedure Start/Stop/Diagnosis Date of Procedure: Nov 01, 2017 Start Time: 10:00 Stop Time: 10:25 Arterial Line Arterial Line Catheter: 20G Type: Radial Location: Left Procedure: prepped, draped in sterile fashion, good wave-form was obtained, patient tolerated procedure well, no immediate complications, post procedure area cleaned, post procedure dressing applied THOMAS SAUNDERS CRNA Nov 01, 2017 10:32
[2017-11-01] MEDS: LACTATED RINGERS 1,000 ML IV SCH ×2 (10:53→10:54)
[2017-11-01] MEDS ORDERED: methylPREDNISolone 125 MG (Solu-MEDROL) VIAL IV SCH (19:30)
[2017-11-01] MEDS: MONTELUKAST 10 MG (SINGULAIR) TAB PO SCH (20:48)
[2017-11-01] MEDS ORDERED: RT-LEVALBUTEROL (XOPENEX) 1.25 MG/3 ML NEB NON-FORMULARY INH ONE (23:30)
[2017-11-02] VITALS (41 sets, daily range): BP systolic 80–146; BP diastolic 41–88
[2017-11-02 00:10] LABS: ABG BASE EXCESS 6.7 MMOL/L (-2.5-2.5); ABG OXYGEN SATURATION 99 % (94-100); ABG PCO2 85 MMHG (35-45); ABG PO2 121 MMHG (79-93); ABG TCO2 36.9 MMOL/L (21.0-31.0)
[2017-11-02 00:11] LABS: ALLENS TEST ART LINE; PATIENT TEMP 97.5; VENTILATOR YES
[2017-11-02 00:13] LABS: ABG PH 7.22 (7.37-7.43)
[2017-11-02] MEDS: RT-ALBUTEROL SULF 2.5 MG/3 ML PRE-MIX VIAL INH SCH (00:16)
[2017-11-02] MEDS: NS IV SCH (00:42)
[2017-11-02] MEDS: ROCURONIUM IV SCH (00:42)
[2017-11-02] MEDS: methylPREDNISolone 125 MG (Solu-MEDROL) VIAL IV SCH ×4 (00:53→17:34)
[2017-11-02] MEDS: inSUlin ASPART (NovoLOG) 1 UNIT/0.01 ML (CHARGE PER UNIT) SQ SCH ×6 (00:57→20:47)
[2017-11-02] MEDS ORDERED: TERBUTALINE INJ 1 MG/ML (BRETHINE) AMP ONE ×2 (01:17→05:04)
[2017-11-02] MEDS: PROPOFOL DRIP (ICU) 100 ML IV SCH ×6 (01:29→20:48)
[2017-11-02] MEDS: TERBUTALINE INJ 1 MG/ML (BRETHINE) AMP SC SCH ×4 (01:35→17:33)
[2017-11-02] MEDS: SODIUM BICARBONATE 8.4% VIAL 100 MEQ in 1/2 NS IV SOLUTION 1,000 ML IV SCH ×3 (02:15→14:55)
[2017-11-02] MEDS: fentaNYL INJECTION 1,250 MCG in NS (IVPB) 225 ML IV SCH ×4 (02:20→20:47)
[2017-11-02] MEDS: KCL 20 MEQ TAB (K-DUR) PO SCH (02:41)
[2017-11-02] MEDS: MAGNESIUM 1 GM/100 ML IVPB 100 ML IV SCH (02:41)
[2017-11-02] MEDS: POTASSIUM CL 10MEQ/50ML IVPB 50 ML IV SCH (02:41)
[2017-11-02 03:47] LABS: ABG BASE EXCESS 8.4 MMOL/L (-2.5-2.5); ABG OXYGEN SATURATION 97 % (94-100); ABG PO2 81 MMHG (79-93); ABG TCO2 37.5 MMOL/L (21.0-31.0)
[2017-11-02 03:48] LABS: ALLENS TEST ART LINE; INSPIRED O2 45%; VENTILATOR YES
[2017-11-02 03:49] LABS: ABG PCO2 75 MMHG (35-45); ABG PH 7.29 (7.37-7.43)
[2017-11-02 03:51] LABS: BASOPHILS % (AUTO) 0 % (0-10); EOSINOPHILS % (AUTO) 0 % (0-10); HEMATOCRIT 40 % (35-52); HEMOGLOBIN 11.8 G/DL (11.5-16.0); LYMPHOCYTES # (AUTO) 0.3 X 10^3 (1.0-4.0); LYMPHOCYTES % (AUTO) 2 % (12-44); MEAN CORPUSCULAR HEMOGLOBIN 27 PG (25-34); MEAN CORPUSCULAR HGB CONC 30 G/DL (32-36); MEAN CORPUSCULAR VOLUME 89 FL (80-99); MEAN PLATELET VOLUME 10.3 FL (7.4-10.4); MONOCYTES # (AUTO) 1.5 X 10^3 (0.0-1.0); MONOCYTES % (AUTO) 7 % (0-12); NEUTROPHILS # (AUTO) 18.2 X 10^3 (1.8-7.8); NEUTROPHILS % (AUTO) 91 % (42-75); PLATELET COUNT 253 10^3/uL (130-400); RED BLOOD COUNT 4.42 10^6/uL (4.35-5.85); RED CELL DISTRIBUTION WIDTH 17.9 % (10.0-14.5); WHITE BLOOD COUNT 19.9 10^3/uL (4.3-11.0)
[2017-11-02 04:05] LABS: BUN/CREATININE RATIO 29; CALCIUM 7.4 MG/DL (8.5-10.1); CARBON DIOXIDE 28 MMOL/L (21-32); CHLORIDE 106 MMOL/L (98-107); CREATININE SERUM 0.55 MG/DL (0.60-1.30); GFR ESTIMATED > 60; GLUCOSE 140 MG/DL (70-105); PHOSPHORUS 2.8 MG/DL (2.3-4.7); POTASSIUM 4.7 MMOL/L (3.6-5.0); SODIUM 144 MMOL/L (135-145)
[2017-11-02] MEDS: PRENATAL VITAMIN 1 EA TAB PO SCH (04:44)
--- NOTE | 2017-11-02 05:58 | Pulmonary Progress Note ---
Subjective Time Seen by Provider: 06:29 Subjective/Events-last exam ABG is showing some improvements. Pt does not seem to be tolerating SVN treatments. EICU started Terbutaline. Focused Exam Lactate Level 11/01/17 05:20: Lactic Acid Level 1.75 Exam Exam Vital Signs Date Time Temp Pulse Resp B/P (MAP) Pulse Ox O2 Delivery O2 Flow Rate FiO2 11/02/17 05:00 113 19 95/41 (59) 99 Mechanical Ventilator 40.00 11/02/17 04:33 Mechanical Ventilator 40.00 11/02/17 04:30 114 20 100 45 11/02/17 04:00 95 Mechanical Ventilator 45 11/02/17 04:00 117 20 92/43 (59) 98 Mechanical Ventilator 45.00 11/02/17 03:15 123 20 115/52 (73) 98 Mechanical Ventilator 45.00 11/02/17 03:10 45 11/02/17 03:00 123 19 122/53 (76) 100 Mechanical Ventilator 55.00 11/02/17 02:22 130 20 100 55 11/02/17 02:00 128 19 118/52 (74) 100 Mechanical Ventilator 55.00 11/02/17 01:29 99.5 129 20 119/57 98 Mechanical Ventilator 55.00 11/02/17 01:00 129 20 119/57 (77) 98 Mechanical Ventilator 55.00 11/02/17 01:00 129 11/02/17 01:00 97.5 11/02/17 00:19 126 20 100 55 11/02/17 00:00 94 Mechanical Ventilator 55 11/02/17 00:00 130 20 99/53 (68) 99 Mechanical Ventilator 55.00 11/01/17 23:08 140 20 97 55 11/01/17 23:00 141 19 119/52 (74) 96 Mechanical Ventilator 55.00 11/01/17 22:24 125 20 98 55 11/01/17 22:00 128 19 108/57 (74) 97 Mechanical Ventilator 55.00 11/01/17 21:00 138 20 138/75 (96) 92 Mechanical Ventilator 55.00 11/01/17 20:07 125 20 92 55 11/01/17 20:05 99.5 129 20 124/70 (88) 93 Mechanical Ventilator 55.00 11/01/17 20:00 125 19 104/64 (77) 93 Mechanical Ventilator 55.00 11/01/17 20:00 96 Mechanical Ventilator 55 11/01/17 19:00 130 19 110/67 (81) 94 Mechanical Ventilator 55.00 11/01/17 19:00 130 11/01/17 18:54 130 20 118/65 93 Mechanical Ventilator 55.00 11/01/17 18:23 134 20 93 55 11/01/17 18:00 117 20 104/57 (73) 95 Mechanical Ventilator 55.00 11/01/17 17:00 122 20 102/54 (70) 96 Mechanical Ventilator 40.00 11/01/17 16:03 115 20 95 40 11/01/17 16:00 118 20 104/50 (68) 94 Mechanical Ventilator 40.00 11/01/17 16:00 95 Mechanical Ventilator 40 11/01/17 15:00 126 20 124/50 (74) 94 Mechanical Ventilator 40.00 11/01/17 14:02 115 20 91 55 11/01/17 14:00 134 20 145/63 (90) 90 Mechanical Ventilator 40.00 11/01/17 13:00 114 41 101/53 (69) 91 Mechanical Ventilator 40.00 11/01/17 13:00 133 11/01/17 12:26 107 20 94 40 11/01/17 12:00 95 Mechanical Ventilator 40 11/01/17 12:00 118 20 104/50 (68) 94 Mechanical Ventilator 40.00 11/01/17 11:00 118 20 91/47 (62) 95 Mechanical Ventilator 40.00 11/01/17 11:00 97.6 110 16 99/46 (63) 95 Mechanical Ventilator 40.00 11/01/17 10:27 113 20 96 40 11/01/17 10:00 128 20 126/88 (101) 96 Mechanical Ventilator 40.00 11/01/17 09:01 115 18 99 50 11/01/17 09:00 120 18 82/56 (65) 100 Mechanical Ventilator 40.00 11/01/17 08:00 100 Mechanical Ventilator 40 11/01/17 08:00 130 15 90/49 (63) 98 Mechanical Ventilator 40.00 11/01/17 07:46 99.5 100 16 97 Mechanical Ventilator 50.00 11/01/17 07:00 99.5 114 16 88/52 (64) 100 Mechanical Ventilator 40.00 11/01/17 07:00 124 11/01/17 06:56 50 11/01/17 06:16 112 20 99 50 11/01/17 06:00 110 16 91/53 (66) 100 Mechanical Ventilator 40.00 I & O 11/02/17 07:00 Intake Total 3950 ml Output Total 1135 ml Balance 2815 ml General Appearance: Moderate Distress HEENT: Normal ENT Inspection, Pharynx Normal Neck: Full Range of Motion, Normal Inspection, Supple Respiratory: Decreased Breath Sounds, Respiratory Distress, Other (pt is sedated on vent) Capillary Refill: Less Than 3 Seconds Gastrointestinal: non tender, soft Extremity: Normal Capillary Refill, Normal Inspection, Normal Range of Motion Skin: Normal Color, Warm/Dry Lymphatic: No Adenopathy Results Lab Laboratory Tests 10/31/17 07:27 10/31/17 11:10 10/31/17 18:25 11/01/17 03:05 11/01/17 05:30 11/02/17 03:30 Assessment/Plan Assessment/Plan Acute respiratory failure secondary to severe status asthmaticus -Continue vent severe status Asthmaticus/AsthmaAE -EICU has albuterol on hold secondary to ? of albuterol making low expiratory tidal volume. -SVNS albuterol Q4, Pulmicort BID Solumedrol -Terbutaline was added last night per EICU -Oxygen - -monitor in ICU Hypotensive -PT has responded to IVF and decrease in IV sedation -give IVF bolus 10wks -US Hypomagnesium -replace medical noncompliance hx of hep C -HIV NR in 2015 In 04/11 UDS was + for methamphetamine -will check UDS Discussed with EICU regarding patients current medical status. We are seeing some improvements however pt is still very severe and prognosis is guarded at best for both patient and fetus. 60 min spent with patient and medical staff including TONIO LIU DO Nov 02, 2017 05:58
[2017-11-02] MEDS ORDERED: ALBUTEROL 2 MG PO SCH (06:00)
[2017-11-02] MEDS ORDERED: RT-ALBUTEROL/IPRATROPIUM 3 ML (DUONEB) VIAL ONE (06:11)
[2017-11-02] MEDS ORDERED: HYDROmorphone 1 MG/ML (DILAUDID) 1 ML SYRINGE ONE (06:19)
[2017-11-02] MEDS ORDERED: LACTATED RINGERS 1,000 ML IV ONE (06:23)
[2017-11-02] MEDS ORDERED: HYDROmorphone 1 MG/ML (DILAUDID) 1 ML SYRINGE IV ONE (06:45)
[2017-11-02] MEDS ORDERED: RT-BUDESONIDE NEBS 0.5 MG/2ML (PULMICORT) AMP INH SCH (08:00)
[2017-11-02] MEDS: raNItidine 50 MG/2 ML INJ (ZANTAC) IV SCH ×2 (08:46→22:04)
[2017-11-02] MEDS: CHLORHEXIDINE 0.12% SOLN 15 ML (PERIDEX) UDC PO SCH ×2 (08:46→22:04)
[2017-11-02] MEDS: cefTRIAXone INJECTION 1,000 MG in NS (IVPB) 50 ML IV SCH (08:46)
--- NOTE | 2017-11-02 09:30 | Progress Note (SOAP) ---
Subjective Subjective/Events-last exam Patient remains intubated and sedated. Her prognosis is guarded. Review of Systems Date Seen by Provider: Nov 02, 2017 Time Seen by Provider: 07:15 Focused Exam Lactate Level 11/01/17 05:20: Lactic Acid Level 1.75 Objective Exam Last Set of Vital Signs Vital Signs Date Time Temp Pulse Resp B/P (MAP) Pulse Ox O2 Delivery O2 Flow Rate FiO2 11/02/17 08:42 116 20 100 50 11/02/17 08:00 Mechanical Ventilator 11/02/17 08:00 106/53 (70) 40.00 11/02/17 06:50 99.5 Capillary Refill : Less Than 3 Seconds I&O Intake and Output 11/02/17 00:00 Intake Total 4150 ml Output Total 1475 ml Balance 2675 ml Intake Oral 0 ml IV Total 4150 ml Output Urine Total 1275 ml Gastric Drainage Total 200 ml General: No Acute Distress (But she is sedated) Lungs: Other (Rales noted in the apical region) Heart: Regular Rate Abdomen: Other (No attempts were made on Doppler due to age of today 8 weeks 4 days) Results/Procedures Lab Laboratory Tests 11/01/17 11:35: Glucometer 126H 11/01/17 15:19: Glucometer 129H 11/01/17 20:12: Glucometer 132H 11/02/17 00:00: Blood Gas Puncture Site L RAD, Blood Gas Patient Temperature 97.5, Arterial Blood pH 7.22*L, Arterial Blood Partial Pressure CO2 85*H, Arterial Blood Partial Pressure O2 121H, Arterial Blood HCO3 34H, Arterial Blood Total CO2 36.9H, Arterial Blood Oxygen Saturation 99, Arterial Blood Base Excess 6.7H, Familia Test ART LINE, Blood Gas Ventilator Setting YES, Blood Gas Inspired Oxygen 55% 11/02/17 00:56: Glucometer 123H 11/02/17 03:30: White Blood Count 19.9H, Red Blood Count 4.42, Hemoglobin 11.8, Hematocrit 40, Mean Corpuscular Volume 89, Mean Corpuscular Hemoglobin 27, Mean Corpuscular Hemoglobin Concent 30L, Red Cell Distribution Width 17.9H, Platelet Count 253, Mean Platelet Volume 10.3, Neutrophils (%) (Auto) 91H, Lymphocytes (%) (Auto) 2L , Monocytes (%) (Auto) 7, Eosinophils (%) (Auto) 0, Basophils (%) (Auto) 0, Neutrophils # (Auto) 18.2H, Lymphocytes # (Auto) 0.3L, Monocytes # (Auto) 1.5H, Eosinophils # (Auto) 0.0, Basophils # (Auto) 0.0, Blood Gas Puncture Site L RAD , Blood Gas Patient Temperature 97.0, Arterial Blood pH 7.29*L, Arterial Blood Partial Pressure CO2 75*H, Arterial Blood Partial Pressure O2 81, Arterial Blood HCO3 35H, Arterial Blood Total CO2 37.5H, Arterial Blood Oxygen Saturation 97, Arterial Blood Base Excess 8.4H, Familia Test ART LINE, Blood Gas Ventilator Setting YES, Blood Gas Inspired Oxygen 45%, Sodium Level 144, Potassium Level 4.7, Chloride Level 106, Carbon Dioxide Level 28, Anion Gap 10, Blood Urea Nitrogen 16, Creatinine 0.55L, Estimat Glomerular Filtration Rate > 60, BUN/Creatinine Ratio 29, Glucose Level 140H, Calcium Level 7.4L, Phosphorus Level 2.8, Magnesium Level 3.0H 11/02/17 08:41: Glucometer 130H Microbiology 10/31/17 MRSA Screen - Final, Complete No growth Radiology NAME: RAMÓN YANES [facility] REC#: [id number] PT STATUS: ADM IN : 1985 PHYSICIAN: JORGE LUIS DURAN MD ADMIT DATE: 10/31/17/ICU Signed Date of Exam: 10/31/17 US OB SINGLE FETUS<14 [id number] PROCEDURE: US OB SINGLE FETUS <14 WKS. TECHNIQUE: Multiple real-time grayscale images were obtained over the gravid uterus in various projections. INDICATION: survey. There is a gestational sac within uterus containing a single live fetus. heart motion was noted at a rate of 181 bpm was recorded. The crown-rump length suggests estimated gestational age is 8 weeks 3 days plus or minus 1 week. There are no obvious abnormalities identified. The amniotic fluid volume is within normal limits. At this time it is not certain whether the placenta was developed. The left ovary was visualized and was unremarkable. The right ovary could not be clearly identified. There is no pelvic mass or free fluid collection noted. IMPRESSION: 1. There is a single live intrauterine approximately 8 weeks 2 days gestation plus or minus 1 week. The EDC is 06/09/2018. 2. There are no abnormalities identified. If more sensitive evaluation of anatomy is desired however, then a followup OB ultrasound exam in 10-12 weeks would be recommended. 3. There is no pelvic mass or free fluid collection noted. Dictated by: Dictated on workstation # [id number] Assessment/Plan Assessment/Plan Assessment & Plan (1) Acute and chronic respiratory failure with hypoxia 11/01: patient currently intubated and under the care of Dr. Walsh. 11/02: Patient remains intubated and is currently on IV Solu-Medrol, Xopenex, Rocephin, as well as terbutaline added last night by eICU Status: Acute Assessment & Plan: - Dr Walsh consulted and managing Asthma, patient started on heliox, MAT protocol, s/p magnesium in ER with multiple 1 hr treatments with minimal improvement, Continue IV steroids (2) Asthma exacerbation Status: Acute Assessment & Plan: See Above Qualifiers: Qualified Codes: J45.51 - Severe persistent asthma with (acute) exacerbation (3) Hypoxia Status: Acute Assessment & Plan: - See Above (4) First trimester 11/01:the ultrasound is noted and patient was 8 weeks 2 days gestation plus or minus one week on yesterdays study. 11/02: Ultrasound will be rechecked in the near future. -Medications patient is receiving in the ICU are necessary for maternal life sustaining. Status: Acute (5) Elevated LFTs Status: Chronic Assessment & Plan: - Patient has known h/o Hep C (6) DVT prophylaxis Status: Acute Assessment & Plan: Lovenox Clinical Quality Measures DVT/VTE Risk/Contraindication: Risk Factor Score Per Nursin RFS Level Per Nursing on Admit: 1=Low/No VTE PPX JOSE JUAN CRAWFORD MD Nov 02, 2017 09:30
[2017-11-02] MEDS ORDERED: RT-ALBUTEROL/IPRATROPIUM 3 ML (DUONEB) VIAL INH SCH (10:00)
--- NOTE | 2017-11-02 10:21 | Diagnostic Imaging Report ---
INDICATION: Shortness of breath. COMPARISON: Comparison made with prior examination 10/31/2017. FINDINGS: Heart size is normal. ET and NG tubes are in satisfactory position. Lungs are clear. No pleural effusion or pneumothorax. Mediastinum is unremarkable. IMPRESSION: Stable appearance of the chest. Dictated by: Dictated on workstation # [id number]
[2017-11-02] MEDS: MONTELUKAST 10 MG (SINGULAIR) TAB PO SCH (21:48)
[2017-11-03] VITALS (38 sets, daily range): BP systolic 91–130; BP diastolic 49–88
[2017-11-03] MEDS: inSUlin ASPART (NovoLOG) 1 UNIT/0.01 ML (CHARGE PER UNIT) SQ SCH ×6 (00:33→20:59)
[2017-11-03] MEDS: methylPREDNISolone 125 MG (Solu-MEDROL) VIAL IV SCH ×4 (00:37→17:43)
[2017-11-03] MEDS: PROPOFOL DRIP (ICU) 100 ML IV SCH ×6 (00:37→21:12)
[2017-11-03] MEDS: TERBUTALINE INJ 1 MG/ML (BRETHINE) AMP SC SCH ×4 (00:37→17:44)
[2017-11-03] MEDS: SODIUM BICARBONATE 8.4% VIAL 100 MEQ in 1/2 NS IV SOLUTION 1,000 ML IV SCH (02:00)
[2017-11-03 03:24] LABS: ABG BASE EXCESS 14.5 MMOL/L (-2.5-2.5); ABG OXYGEN SATURATION 96 % (94-100); ABG PCO2 68 MMHG (35-45); ABG PH 7.39 (7.37-7.43); ABG PO2 75 MMHG (79-93); ABG TCO2 42.6 MMOL/L (21.0-31.0)
[2017-11-03 03:25] LABS: BASOPHILS % (AUTO) 0 % (0-10); EOSINOPHILS % (AUTO) 0 % (0-10); HEMATOCRIT 34 % (35-52); HEMOGLOBIN 9.9 G/DL (11.5-16.0); LYMPHOCYTES # (AUTO) 0.5 X 10^3 (1.0-4.0); LYMPHOCYTES % (AUTO) 4 % (12-44); MEAN CORPUSCULAR HEMOGLOBIN 26 PG (25-34); MEAN CORPUSCULAR HGB CONC 30 G/DL (32-36); MEAN CORPUSCULAR VOLUME 90 FL (80-99); MEAN PLATELET VOLUME 10.3 FL (7.4-10.4); MONOCYTES % (AUTO) 8 % (0-12); NEUTROPHILS # (AUTO) 11.6 X 10^3 (1.8-7.8); NEUTROPHILS % (AUTO) 89 % (42-75); PLATELET COUNT 226 10^3/uL (130-400); RED BLOOD COUNT 3.75 10^6/uL (4.35-5.85); RED CELL DISTRIBUTION WIDTH 18.2 % (10.0-14.5); WHITE BLOOD COUNT 13.1 10^3/uL (4.3-11.0)
[2017-11-03 03:26] LABS: ALLENS TEST ALINE; INSPIRED O2 40%; PATIENT TEMP 97.5; VENTILATOR YES
[2017-11-03] MEDS: ROCURONIUM IV SCH ×2 (03:42→17:45)
[2017-11-03] MEDS: NS IV SCH ×2 (03:42→17:45)
[2017-11-03] MEDS: fentaNYL INJECTION 1,250 MCG in NS (IVPB) 225 ML IV SCH ×4 (03:54→19:34)
[2017-11-03 03:58] LABS: BUN/CREATININE RATIO 50; CALCIUM 7.9 MG/DL (8.5-10.1); CARBON DIOXIDE 36 MMOL/L (21-32); CHLORIDE 101 MMOL/L (98-107); CREATININE SERUM 0.48 MG/DL (0.60-1.30); GFR ESTIMATED > 60; GLUCOSE 139 MG/DL (70-105); MAGNESIUM 2.9 MG/DL (1.8-2.4); PHOSPHORUS 2.2 MG/DL (2.3-4.7); POTASSIUM 4.2 MMOL/L (3.6-5.0); SODIUM 144 MMOL/L (135-145)
[2017-11-03] MEDS: KCL 20 MEQ TAB (K-DUR) PO SCH (05:06)
[2017-11-03] MEDS: MAGNESIUM 1 GM/100 ML IVPB 100 ML IV SCH (05:06)
[2017-11-03] MEDS: POTASSIUM CL 10MEQ/50ML IVPB 50 ML IV SCH (05:06)
[2017-11-03] MEDS: PRENATAL VITAMIN 1 EA TAB PO SCH (05:07)
--- NOTE | 2017-11-03 05:46 | Pulmonary Progress Note ---
Subjective Time Seen by Provider: 05:49 Subjective/Events-last exam Pt sedated on vent currently. Focused Exam Lactate Level 11/01/17 05:20: Lactic Acid Level 1.75 Exam Exam Vital Signs Date Time Temp Pulse Resp B/P (MAP) Pulse Ox O2 Delivery O2 Flow Rate FiO2 11/03/17 05:00 102 19 108/59 (75) 97 Mechanical Ventilator 35.00 11/03/17 04:46 90 19 98/53 (68) 93 Mechanical Ventilator 35.00 11/03/17 04:38 87 20 90 30 11/03/17 04:00 96 Mechanical Ventilator 40 11/03/17 04:00 98 20 96/55 (69) 92 Mechanical Ventilator 30.00 11/03/17 03:43 105 20 99/49 (66) 100 Mechanical Ventilator 30.00 11/03/17 03:00 85 15 110/67 (81) 100 Mechanical Ventilator 40.00 11/03/17 02:57 78 20 100 40 11/03/17 02:00 80 20 107/61 (76) 99 Mechanical Ventilator 40.00 11/03/17 01:00 80 11/03/17 01:00 80 20 107/63 (78) 95 Mechanical Ventilator 40.00 11/03/17 00:53 84 20 97 40 11/03/17 00:37 97.5 89 20 91/52 98 Mechanical Ventilator 40.00 11/03/17 00:00 95 Mechanical Ventilator 40 11/03/17 00:00 89 20 91/52 (65) 98 Mechanical Ventilator 40.00 11/02/17 23:00 98 19 145/65 (91) 97 Mechanical Ventilator 40.00 11/02/17 22:58 102 20 98 40 11/02/17 22:00 87 21 99/52 (68) 100 Mechanical Ventilator 40.00 11/02/17 21:00 94 20 101/52 (68) 99 Mechanical Ventilator 40.00 11/02/17 20:48 97.5 96 20 126/88 97 Mechanical Ventilator 40.00 11/02/17 20:12 96 20 97 40 11/02/17 20:00 98 27 104/48 (66) 98 Mechanical Ventilator 40.00 11/02/17 20:00 95 Mechanical Ventilator 40 11/02/17 19:45 106 25 122/63 (82) 96 Mechanical Ventilator 40.00 11/02/17 19:30 108 14 128/59 (82) 97 Mechanical Ventilator 40.00 11/02/17 19:19 110 20 98 40 11/02/17 19:16 97.5 101 20 105/49 (67) 98 Mechanical Ventilator 40.00 11/02/17 19:00 105 11/02/17 19:00 105 24 109/49 (69) 99 Mechanical Ventilator 40.00 11/02/17 18:00 107 20 100/47 (64) 100 Mechanical Ventilator 40.00 11/02/17 17:00 101 20 99/49 (66) 99 Mechanical Ventilator 40.00 11/02/17 16:20 111 20 96 40 11/02/17 16:00 96 Mechanical Ventilator 40 11/02/17 16:00 98.1 103 20 92/52 (65) 97 Mechanical Ventilator 40.00 11/02/17 15:36 99.5 117 20 108/56 96 Mechanical Ventilator 40.00 11/02/17 15:00 122 18 131/65 (87) 95 Mechanical Ventilator 40.00 11/02/17 14:03 117 20 96 40 11/02/17 14:00 121 20 107/57 (74) 96 Mechanical Ventilator 40.00 11/02/17 13:00 120 19 108/57 (74) 96 Mechanical Ventilator 40.00 11/02/17 12:52 124 11/02/17 12:16 124/66 11/02/17 12:04 124 20 99 50 11/02/17 12:00 95 Mechanical Ventilator 45 11/02/17 12:00 125 20 122/60 (80) 99 Mechanical Ventilator 40.00 11/02/17 11:00 137 20 105/53 (70) 99 Mechanical Ventilator 50.00 11/02/17 10:13 117 20 97 50 11/02/17 10:13 122/61 11/02/17 10:00 116 20 98/43 (61) 98 Mechanical Ventilator 50.00 11/02/17 09:10 114 19 97/48 (64) 100 Mechanical Ventilator 50.00 11/02/17 09:05 115 20 89/46 (60) 100 Mechanical Ventilator 50.00 11/02/17 08:42 116 20 100 50 11/02/17 08:00 95 Mechanical Ventilator 45 11/02/17 08:00 120 20 106/53 (70) 100 Mechanical Ventilator 40.00 11/02/17 07:00 125 11/02/17 07:00 125 20 126/60 (82) 97 Mechanical Ventilator 50.00 11/02/17 06:50 99.5 131 20 80/41 98 Mechanical Ventilator 40.00 11/02/17 06:15 131 20 98 50 11/02/17 06:00 118 20 111/41 (64) 96 Mechanical Ventilator 40.00 I & O 11/03/17 07:00 Intake Total 100 ml Output Total 825 ml Balance -725 ml General Appearance: Mild Distress HEENT: Normal ENT Inspection, Pharynx Normal Neck: Full Range of Motion, Normal Inspection, Supple Respiratory: Decreased Breath Sounds, Respiratory Distress, Other (pt is sedated on vent) Capillary Refill: Less Than 3 Seconds Gastrointestinal: non tender, soft Extremity: Normal Capillary Refill, Normal Inspection, Normal Range of Motion Skin: Normal Color, Warm/Dry Lymphatic: No Adenopathy Results Lab Laboratory Tests 11/02/17 03:30 11/03/17 03:20 Assessment/Plan Assessment/Plan Acute respiratory failure secondary to severe status asthmaticus -Will start weaning sedation and probably vent today -D/C paralytic, start precedex -ativan, dilauded PRN -ABG is improved. PT still wheezing and having mucous plugs. Wheezing is much improved -Will plan bedside bronch in AM to suction out mucous plugs and attempt extubation/weaning. severe status Asthmaticus/AsthmaAE -EICU has albuterol on hold secondary to ? of albuterol making low expiratory tidal volume. -SVNS albuterol Q4, Pulmicort BID Solumedrol -Terbutaline was added last night per EICU -Oxygen - -monitor in ICU Vaginal bleeding -Dr. Shepherd was notified. He recommends a repeat US after extubation. 10wks -repeat US shows loss of heart tones -Spontaneous secondary to very severe life threatening respiratory failure/asthma exacerbation. -Plan is for probable D&C. medical noncompliance hx of hep C In 04/11 UDS was + for methamphetamine - UDS this admission is positive for only narcotics 233 TONIO GOTTI DO Nov 03, 2017 05:45
[2017-11-03] MEDS ORDERED: POTASSIUM PHOSPHATE INJ 15 MM in NS (IVPB) 250 ML IV ONE (06:00)
[2017-11-03] MEDS ORDERED: D5 LR IV SOLUTION 1,000 ML IV ONE (06:17)
[2017-11-03] MEDS: D5 LR IV SOLUTION 1,000 ML IV SCH ×2 (06:23→20:38)
[2017-11-03 06:40] LABS: ABG BASE EXCESS 15.1 MMOL/L (-2.5-2.5); ABG OXYGEN SATURATION 95 % (94-100); ABG PCO2 63 MMHG (35-45); ABG PH 7.42 (7.37-7.43); ABG PO2 66 MMHG (79-93); ABG TCO2 42.6 MMOL/L (21.0-31.0)
[2017-11-03 06:42] LABS: ALLENS TEST ART LINE; INSPIRED O2 35%; VENTILATOR YES
--- NOTE | 2017-11-03 07:12 | Diagnostic Imaging Report ---
EXAM: CHEST 1 VIEW, AP/PA ONLY INDICATION: Intubated. COMPARISON: Chest radiograph 11/02/2017. FINDINGS: Normal heart size and central pulmonary vascularity. No focal pleural effusion or pneumothorax. ETT tip midway between the level of the clavicles and the anita. NG tube tip below the [id number]. No acute osseous findings. No significant change. IMPRESSION: Stable exam. Support lines in the expected position. No acute cardiopulmonary findings. Dictated by: Dictated on workstation # [id number]
[2017-11-03] MEDS ORDERED: HYDROmorphone 1 MG/ML (DILAUDID) 1 ML SYRINGE IV PRN (08:00)
[2017-11-03] MEDS: raNItidine 50 MG/2 ML INJ (ZANTAC) IV SCH ×2 (08:06→21:00)
[2017-11-03] MEDS: cefTRIAXone INJECTION 1,000 MG in NS (IVPB) 50 ML IV SCH (08:18)
[2017-11-03] MEDS: CHLORHEXIDINE 0.12% SOLN 15 ML (PERIDEX) UDC PO SCH ×2 (08:45→20:59)
[2017-11-03] MEDS: ARTIFICIAL TEARS OINT (LACRI-LUBE) 3.5 GM TUBE OU SCH ×4 (09:00→20:38)
--- NOTE | 2017-11-03 12:11 | Progress Note (SOAP) ---
Subjective Subjective/Events-last exam Patient sedated on ventilator. Reportedly had response to commands earlier today. Overnight patient began having bright red vaginal bleeding. Clean pad under patient that has already been changed once today, mild to moderate amount of bright red vaginal bleeding noted. Patient LMP 08/24/17, which would make her just over 10 wks gestation; US per radiology on 10/31/18 showed single IUP measuring 8w 3d gestation. Pt sedated at the time of exam and does not follow commands at this time. Review of Systems Date Seen by Provider: Nov 03, 2017 Time Seen by Provider: 11:20 General: No Chills, No Night Sweats HEENT: No Head Aches, No Dysphasia Pulmonary: No Cough Cardiovascular: No: Edema Gastrointestinal: No: Nausea, Vomiting, Diarrhea, Melena Genitourinary: No Dysuria, No Hematuria Neurological: Other (sedated) Focused Exam Lactate Level 11/01/17 05:20: Lactic Acid Level 1.75 Objective Exam Last Set of Vital Signs Vital Signs Date Time Temp Pulse Resp B/P (MAP) Pulse Ox O2 Delivery O2 Flow Rate FiO2 11/03/17 11:00 80 19 106/51 (69) 94 Mechanical Ventilator 30.00 11/03/17 10:09 30 11/03/17 08:15 97.0 Capillary Refill : Less Than 3 Seconds I&O Intake and Output 11/03/17 00:00 Intake Total 350 ml Output Total 935 ml Balance -585 ml Intake Oral 0 ml IV Total 250 ml Tube Feeding 100 ml Output Urine Total 935 ml General: No Acute Distress, Other (sedated on ventilator) HEENT: Atraumatic, Mucous Memb Moist/[place] Neck: Supple, No Thyromegaly, +2 Carotid Pulse No Bruit Lungs: Normal Air Movement, Other (mildly diminished in bases) Heart: Regular Rate, Normal S1, Normal S2 Abdomen: Normal Bowel Sounds, Soft, No Tenderness, No Hepatosplenomegaly, No Masses Extremities: No Clubbing, No Cyanosis, No Edema, Normal Pulses Skin: No Rashes, No Significant Lesion Neuro: Normal Tone Psych/Mental Status: Other (sedated on ventilator) Other physical findings bright red vaginal bleeding noted on pad under patient; sterile speculum exam done; cervix appears thick and closed with bright red bleeding from os Results/Procedures Lab Laboratory Tests 11/02/17 12:14: Glucometer 149H 11/02/17 20:30: Triglycerides Level 169H 11/02/17 20:31: Glucometer 137H 11/03/17 00:32: Glucometer 134H 11/03/17 03:15: Blood Gas Puncture Site L RAD, Blood Gas Patient Temperature 97.5, Arterial Blood pH 7.39, Arterial Blood Partial Pressure CO2 68H, Arterial Blood Partial Pressure O2 75L, Arterial Blood HCO3 40H, Arterial Blood Total CO2 42.6H, Arterial Blood Oxygen Saturation 96, Arterial Blood Base Excess 14.5H, Familia Test MISSY, Blood Gas Ventilator Setting YES, Blood Gas Inspired Oxygen 40% 11/03/17 03:20: White Blood Count 13.1H, Red Blood Count 3.75L, Hemoglobin 9.9L, Hematocrit 34L , Mean Corpuscular Volume 90, Mean Corpuscular Hemoglobin 26, Mean Corpuscular Hemoglobin Concent 30L, Red Cell Distribution Width 18.2H, Platelet Count 226, Mean Platelet Volume 10.3, Neutrophils (%) (Auto) 89H, Lymphocytes (%) (Auto) 4L , Monocytes (%) (Auto) 8, Eosinophils (%) (Auto) 0, Basophils (%) (Auto) 0, Neutrophils # (Auto) 11.6H, Lymphocytes # (Auto) 0.5L, Monocytes # (Auto) 1.0, Eosinophils # (Auto) 0.0, Basophils # (Auto) 0.0, Sodium Level 144, Potassium Level 4.2, Chloride Level 101, Carbon Dioxide Level 36H, Anion Gap 7, Blood Urea Nitrogen 24H, Creatinine 0.48L, Estimat Glomerular Filtration Rate > 60, BUN/Creatinine Ratio 50, Glucose Level 139H, Calcium Level 7.9L, Phosphorus Level 2.2L, Magnesium Level 2.9H 11/03/17 06:34: Blood Gas Puncture Site L RAD, Blood Gas Patient Temperature 97.0, Arterial Blood pH 7.42, Arterial Blood Partial Pressure CO2 63H, Arterial Blood Partial Pressure O2 66L, Arterial Blood HCO3 41*H, Arterial Blood Total CO2 42.6H, Arterial Blood Oxygen Saturation 95, Arterial Blood Base Excess 15.1H, Familia Test ART LINE, Blood Gas Ventilator Setting YES, Blood Gas Inspired Oxygen 35% 11/03/17 08:43: Glucometer 153H Microbiology 10/31/17 MRSA Screen - Final, Complete No growth Radiology NAME: RAMÓN YANES [facility] REC#: [id number] PT STATUS: ADM IN : 1985 PHYSICIAN: JORGE LUIS DURAN MD ADMIT DATE: 10/31/17/ICU Signed Date of Exam: 10/31/17 US OB SINGLE FETUS<14 [id number] PROCEDURE: US OB SINGLE FETUS <14 WKS. TECHNIQUE: Multiple real-time grayscale images were obtained over the gravid uterus in various projections. INDICATION: survey. There is a gestational sac within uterus containing a single live fetus. heart motion was noted at a rate of 181 bpm was recorded. The crown-rump length suggests estimated gestational age is 8 weeks 3 days plus or minus 1 week. There are no obvious abnormalities identified. The amniotic fluid volume is within normal limits. At this time it is not certain whether the placenta was developed. The left ovary was visualized and was unremarkable. The right ovary could not be clearly identified. There is no pelvic mass or free fluid collection noted. IMPRESSION: 1. There is a single live intrauterine approximately 8 weeks 2 days gestation plus or minus 1 week. The EDC is 06/09/2018. 2. There are no abnormalities identified. If more sensitive evaluation of anatomy is desired however, then a followup OB ultrasound exam in 10-12 weeks would be recommended. 3. There is no pelvic mass or free fluid collection noted. Dictated by: Dictated on workstation # [id number] Procedures unable to doppler FHR due to gestation; US called to check for FHR due to suspected missed AB -- no FHR noted on exam. Assessment/Plan Assessment/Plan Assessment & Plan (1) Acute and chronic respiratory failure with hypoxia 11/01: patient currently intubated and under the care of Dr. Walsh. 11/02: Patient remains intubated and is currently on IV Solu-Medrol, Xopenex, Rocephin, as well as terbutaline added last night by eICU Status: Acute Assessment & Plan: - Dr Walsh consulted and managing Asthma, patient started on heliox, MAT protocol, s/p magnesium in ER with multiple 1 hr treatments with minimal improvement, Continue IV steroids (2) Asthma exacerbation Status: Acute Assessment & Plan: See Above Qualifiers: Qualified Codes: J45.51 - Severe persistent asthma with (acute) exacerbation (3) Hypoxia Status: Acute Assessment & Plan: - See Above (4) First trimester 11/01:the ultrasound is noted and patient was 8 weeks 2 days gestation plus or minus one week on yesterdays study. 11/02: Ultrasound will be rechecked in the near future. -Medications patient is receiving in the ICU are necessary for maternal life sustaining. Status: Acute (5) Elevated LFTs Status: Chronic Assessment & Plan: - Patient has known h/o Hep C (6) DVT prophylaxis Status: Acute Assessment & Plan: Lovenox (1) Acute and chronic respiratory failure with hypoxia Status: Acute Assessment & Plan: - Dr Walsh consulted and managing Asthma, patient started on heliox, MAT protocol, s/p magnesium in ER with multiple 1 hr treatments with minimal improvement, Continue IV steroids 11/03 -pt remains intubated, now on FiO2 30% -continue to defer pulmonary management to Dr. Walsh (2) Asthma exacerbation Status: Acute Assessment & Plan: See Above Qualifiers: Qualified Codes: J45.51 - Severe persistent asthma with (acute) exacerbation (3) Hypoxia Status: Acute Assessment & Plan: - See Above (4) Missed with demise before 20 completed weeks of gestation Status: Acute Assessment & Plan: 11/03 -bright red bleeding per vagina; sterile speculum exam shows cervix closed but bleeding is coming from os -US confirmed no cardiac activity -Dr. Case notified of pt's presentation, complication and missed AB; as pt is not currently experiencing heavy vaginal bleeding, will wait until patient is awake and can decide how she would like to proceed - D&C vs medical therapy vs watchful waiting, etc -should pt become hemodynamically unstable, we will be required to take more aggressive measures to prevent harm to patient (5) Grand multiparity with problem Status: Acute Assessment & Plan: 11/03 -see above Qualifiers: Qualified Codes: O09.41 - Supervision of with grand multiparity, first trimester (6) First trimester Status: Resolved Assessment & Plan: 11/03 -bright red bleeding per vagina; sterile speculum exam shows cervix closed but bleeding is coming from os -US confirmed no cardiac activity (7) Elevated LFTs Status: Chronic Assessment & Plan: - Patient has known h/o Hep C (8) DVT prophylaxis Status: Acute Assessment & Plan: Lovenox (9) Previous section Status: Chronic Assessment & Plan: -previous c/s x5 (10) Type O blood, Rh positive Status: Chronic Assessment & Plan: -no need for RhoGam, pt Rh positive per previous records -will obtain antibody screen in AM (11) Hepatitis C antibody test positive Clinical Quality Measures DVT/VTE Risk/Contraindication: Risk Factor Score Per Nursin RFS Level Per Nursing on Admit: 1=Low/No VTE PPX Copy Copies To 1: [facility] DO Nov 03, 2017 12:11
--- NOTE | 2017-11-03 16:29 | Diagnostic Imaging Report ---
PROCEDURE: US OB SINGLE FETUS <14 WKS. TECHNIQUE: Multiple real-time grayscale images were obtained over the gravid uterus in various projections. INDICATION: New-onset vaginal bleeding. Recent asthma attack. Ventilated patient. . COMPARISON: 10/31/2017. FINDINGS: Single live intrauterine gestational sac is identified. Within the gestational sac, there is a pole measuring approximately 2 cm in length. Measurements are consistent with 8 weeks and 5 days gestation. Unfortunately, however, heart tones cannot be identified. There is moderate amount of hypoechogenicity peripheral to the gestational sac, which may be on the basis of subchorionic hemorrhage. Placenta cannot be identified secondary to early gestation. Moderate amount of free fluid is noted within the pelvis. No adnexal masses are seen. Visualization of the ovaries was attempted, but ovaries could not be adequately identified. CLINICAL DATES: 8 weeks and 6 days with estimated date of delivery of 06/09/2018. IMPRESSION: 1. Non demonstrable heart tones. Given the size measurements, this is abnormal and consistent with demise. Dictated by: Dictated on workstation # [id number]
[2017-11-03] MEDS: MONTELUKAST 10 MG (SINGULAIR) TAB PO SCH (21:01)
[2017-11-04] VITALS (35 sets, daily range): BP systolic 111–138; BP diastolic 60–91
[2017-11-04] MEDS: methylPREDNISolone 125 MG (Solu-MEDROL) VIAL IV SCH ×5 (00:30→23:51)
[2017-11-04] MEDS: ARTIFICIAL TEARS OINT (LACRI-LUBE) 3.5 GM TUBE OU SCH ×7 (00:30→23:51)
[2017-11-04] MEDS: TERBUTALINE INJ 1 MG/ML (BRETHINE) AMP SC SCH ×5 (00:30→23:51)
[2017-11-04] MEDS: fentaNYL INJECTION 1,250 MCG in NS (IVPB) 225 ML IV SCH ×5 (00:33→20:52)
[2017-11-04] MEDS: PROPOFOL DRIP (ICU) 100 ML IV SCH ×6 (01:10→20:47)
[2017-11-04] MEDS: ROCURONIUM IV SCH (02:56)
[2017-11-04] MEDS: NS IV SCH (02:56)
[2017-11-04 03:56] LABS: BASOPHILS % (AUTO) 0 % (0-10); EOSINOPHILS % (AUTO) 0 % (0-10); HEMATOCRIT 32 % (35-52); HEMOGLOBIN 9.8 G/DL (11.5-16.0); LYMPHOCYTES # (AUTO) 0.5 X 10^3 (1.0-4.0); LYMPHOCYTES % (AUTO) 4 % (12-44); MEAN CORPUSCULAR HEMOGLOBIN 27 PG (25-34); MEAN CORPUSCULAR HGB CONC 31 G/DL (32-36); MEAN CORPUSCULAR VOLUME 89 FL (80-99); MEAN PLATELET VOLUME 10.3 FL (7.4-10.4); MONOCYTES % (AUTO) 7 % (0-12); NEUTROPHILS % (AUTO) 90 % (42-75); PLATELET COUNT 187 10^3/uL (130-400); RED BLOOD COUNT 3.61 10^6/uL (4.35-5.85); RED CELL DISTRIBUTION WIDTH 18.2 % (10.0-14.5); WHITE BLOOD COUNT 14.5 10^3/uL (4.3-11.0)
[2017-11-04 03:59] LABS: ABG BASE EXCESS 12.2 MMOL/L (-2.5-2.5); ABG OXYGEN SATURATION 93 % (94-100); ABG PCO2 67 MMHG (35-45); ABG PH 7.37 (7.37-7.43); ABG PO2 70 MMHG (79-93); ABG TCO2 39.9 MMOL/L (21.0-31.0)
[2017-11-04 04:00] LABS: ALLENS TEST YES-POS; INSPIRED O2 35%
[2017-11-04 04:01] LABS: PATIENT TEMP 98.6; VENTILATOR YES
[2017-11-04 04:26] LABS: BUN/CREATININE RATIO 51; CALCIUM 8.5 MG/DL (8.5-10.1); CARBON DIOXIDE 31 MMOL/L (21-32); CHLORIDE 104 MMOL/L (98-107); CREATININE SERUM 0.51 MG/DL (0.60-1.30); GFR ESTIMATED > 60; GLUCOSE 140 MG/DL (70-105); MAGNESIUM 2.4 MG/DL (1.8-2.4); PHOSPHORUS 2.8 MG/DL (2.3-4.7); POTASSIUM 4.4 MMOL/L (3.6-5.0); SODIUM 145 MMOL/L (135-145)
[2017-11-04] MEDS ORDERED: LORazepam INJ 2 MG/ML (ATIVAN) VIAL IVP PRN (06:45)
[2017-11-04] MEDS ORDERED: HYDROmorphone 1 MG/ML (DILAUDID) 1 ML SYRINGE IV PRN (07:00)
[2017-11-04] MEDS: inSUlin ASPART (NovoLOG) 1 UNIT/0.01 ML (CHARGE PER UNIT) SQ SCH ×7 (07:48→23:43)
[2017-11-04] MEDS: POTASSIUM CL 10MEQ/50ML IVPB 50 ML IV SCH (07:51)
[2017-11-04] MEDS: MAGNESIUM 1 GM/100 ML IVPB 100 ML IV SCH (07:51)
[2017-11-04] MEDS: KCL 20 MEQ TAB (K-DUR) PO SCH (07:52)
[2017-11-04] MEDS: PRENATAL VITAMIN 1 EA TAB PO SCH (08:00)
--- NOTE | 2017-11-04 08:14 | Diagnostic Imaging Report ---
INDICATION: Dyspnea and respiratory distress Frontal chest obtained at 3:03 hours and compared to the previous day. Heart is normal in size. Mediastinal silhouette is unremarkable. The lungs show no focal infiltrate. There is no pneumothorax or pleural fluid. ET tube tip is unchanged with tip overlying mid trachea. NG tube tip is below the film. IMPRESSION: Unchanged ET tube and NG tube. No focal infiltrate or pneumothorax or pleural fluid. Dictated by: Dictated on workstation # [id number]
[2017-11-04] MEDS: raNItidine 50 MG/2 ML INJ (ZANTAC) IV SCH ×2 (08:23→20:34)
[2017-11-04] MEDS: CHLORHEXIDINE 0.12% SOLN 15 ML (PERIDEX) UDC PO SCH ×2 (08:23→20:34)
[2017-11-04] MEDS: cefTRIAXone INJECTION 1,000 MG in NS (IVPB) 50 ML IV SCH (08:23)
[2017-11-04] MEDS: DEXMEDETOMIDINE INJECTION 400 MCG in NS (IVPB) 96 ML IV SCH ×2 (08:54→15:45)
--- NOTE | 2017-11-04 11:48 | Progress Note (SOAP) ---
Subjective Subjective/Events-last exam Patient remains sedated and on ventilator. Propofol and Precedex turned off briefly at the time of exam, and patient was able to wake and follow commands. Discussed with patient that ultrasound done yesterday showed no heart tones, and that she had a miscarriage. Pt visibly upset and tearful. Briefly reviewed options, including D&C, medication, or watchful waiting. Patient very clear about wanting D&C. Will attempt to coordinate this before patient is extubated, as this will likely happen soon. Propofol and precedex turned back on for patient to rest. Review of Systems Date Seen by Provider: Nov 04, 2017 Time Seen by Provider: 17:00 General: No Chills, No Night Sweats HEENT: No Visual Changes, No Eye Pain Pulmonary: Cough Cardiovascular: Edema; No: Palpitations Gastrointestinal: No: Nausea, Vomiting Genitourinary: Hematuria; No Retention Neurological: Incoordination; No: Confusion, Seizures Objective Exam Last Set of Vital Signs Vital Signs Date Time Temp Pulse Resp B/P (MAP) Pulse Ox O2 Delivery O2 Flow Rate FiO2 11/04/17 11:08 78 20 95 35 11/04/17 11:00 127/72 (90) Mechanical Ventilator 35.00 11/04/17 07:40 97.4 Capillary Refill : Less Than 3 Seconds I&O Intake and Output 11/04/17 00:00 Intake Total 3020 ml Output Total 835 ml Balance 2185 ml Intake Oral 0 ml IV Total 2055 ml Tube Feeding 715 ml Other 250 ml Output Urine Total 835 ml General: Alert, Oriented X3, Cooperative, No Acute Distress HEENT: Atraumatic, EOMI, Mucous Memb Moist/[place] Neck: Supple, No Thyromegaly, +2 Carotid Pulse No Bruit Lungs: Other (diminished with diffuse wheezes) Heart: Regular Rate, Normal S1, Normal S2 Abdomen: Normal Bowel Sounds, Soft, No Tenderness Extremities: No Clubbing, No Cyanosis, Normal Pulses Skin: No Rashes, No Significant Lesion Neuro: Normal Tone, Sensation Intact, Cranial Nerves 3-12 NL Psych/Mental Status: Mental Status NL, Mood NL Other physical findings bright red vaginal bleeding Results/Procedures Lab Laboratory Tests 11/03/17 12:39: Glucometer 145H 11/03/17 16:17: Glucometer 173H 11/03/17 20:46: Glucometer 141H 11/04/17 01:37: Glucometer 135H 11/04/17 03:40: White Blood Count 14.5H, Red Blood Count 3.61L, Hemoglobin 9.8L, Hematocrit 32L , Mean Corpuscular Volume 89, Mean Corpuscular Hemoglobin 27, Mean Corpuscular Hemoglobin Concent 31L, Red Cell Distribution Width 18.2H, Platelet Count 187, Mean Platelet Volume 10.3, Neutrophils (%) (Auto) 90H, Lymphocytes (%) (Auto) 4L , Monocytes (%) (Auto) 7, Eosinophils (%) (Auto) 0, Basophils (%) (Auto) 0, Neutrophils # (Auto) 13.0H, Lymphocytes # (Auto) 0.5L, Monocytes # (Auto) 1.0, Eosinophils # (Auto) 0.0, Basophils # (Auto) 0.0, Sodium Level 145, Potassium Level 4.4, Chloride Level 104, Carbon Dioxide Level 31, Anion Gap 10, Blood Urea Nitrogen 26H, Creatinine 0.51L, Estimat Glomerular Filtration Rate > 60, BUN/Creatinine Ratio 51, Glucose Level 140H, Calcium Level 8.5, Phosphorus Level 2.8, Magnesium Level 2.4 11/04/17 03:54: Blood Gas Puncture Site R RAD, Blood Gas Patient Temperature 98.6, Arterial Blood pH 7.37, Arterial Blood Partial Pressure CO2 67H, Arterial Blood Partial Pressure O2 70L, Arterial Blood HCO3 38H, Arterial Blood Total CO2 39.9H, Arterial Blood Oxygen Saturation 93L, Arterial Blood Base Excess 12.2H, Familia Test YES-POS, Blood Gas Ventilator Setting YES, Blood Gas Inspired Oxygen 35% 11/04/17 08:47: Glucometer 134H Microbiology 10/31/17 MRSA Screen - Final, Complete No growth Radiology NAME: RAMÓN YANES [facility] REC#: [id number] PT STATUS: ADM IN : 1985 PHYSICIAN: JORGE LUIS DURAN MD ADMIT DATE: 10/31/17/ICU Signed Date of Exam: 10/31/17 US OB SINGLE FETUS<14 [id number] PROCEDURE: US OB SINGLE FETUS <14 WKS. TECHNIQUE: Multiple real-time grayscale images were obtained over the gravid uterus in various projections. INDICATION: survey. There is a gestational sac within uterus containing a single live fetus. heart motion was noted at a rate of 181 bpm was recorded. The crown-rump length suggests estimated gestational age is 8 weeks 3 days plus or minus 1 week. There are no obvious abnormalities identified. The amniotic fluid volume is within normal limits. At this time it is not certain whether the placenta was developed. The left ovary was visualized and was unremarkable. The right ovary could not be clearly identified. There is no pelvic mass or free fluid collection noted. IMPRESSION: 1. There is a single live intrauterine approximately 8 weeks 2 days gestation plus or minus 1 week. The EDC is 06/09/2018. 2. There are no abnormalities identified. If more sensitive evaluation of anatomy is desired however, then a followup OB ultrasound exam in 10-12 weeks would be recommended. 3. There is no pelvic mass or free fluid collection noted. Dictated by: Dictated on workstation # [id number] Procedures unable to doppler FHR due to gestation; US called to check for FHR due to suspected missed AB -- no FHR noted on exam. Assessment/Plan Assessment/Plan Assessment & Plan (1) Acute and chronic respiratory failure with hypoxia 11/01: patient currently intubated and under the care of Dr. Walsh. 11/02: Patient remains intubated and is currently on IV Solu-Medrol, Xopenex, Rocephin, as well as terbutaline added last night by eICU Status: Acute Assessment & Plan: - Dr Walsh consulted and managing Asthma, patient started on heliox, MAT protocol, s/p magnesium in ER with multiple 1 hr treatments with minimal improvement, Continue IV steroids (2) Asthma exacerbation Status: Acute Assessment & Plan: See Above Qualifiers: Qualified Codes: J45.51 - Severe persistent asthma with (acute) exacerbation (3) Hypoxia Status: Acute Assessment & Plan: - See Above (4) First trimester 11/01:the ultrasound is noted and patient was 8 weeks 2 days gestation plus or minus one week on yesterdays study. 11/02: Ultrasound will be rechecked in the near future. -Medications patient is receiving in the ICU are necessary for maternal life sustaining. Status: Acute (5) Elevated LFTs Status: Chronic Assessment & Plan: - Patient has known h/o Hep C (6) DVT prophylaxis Status: Acute Assessment & Plan: Lovenox (1) Acute and chronic respiratory failure with hypoxia Status: Acute Assessment & Plan: - Dr Walsh consulted and managing Asthma, patient started on heliox, MAT protocol, s/p magnesium in ER with multiple 1 hr treatments with minimal improvement, Continue IV steroids 11/03 -pt remains intubated, now on FiO2 30% -continue to defer pulmonary management to Dr. Walsh 11/04 -FiO2 35% -tentative plan for extubation tomorrow; will attempt to try and coordinate D&C before extubation if possible (2) Asthma exacerbation Status: Acute Assessment & Plan: See Above Qualifiers: Qualified Codes: J45.51 - Severe persistent asthma with (acute) exacerbation (3) Hypoxia Status: Acute Assessment & Plan: - See Above (4) Missed with demise before 20 completed weeks of gestation Status: Acute Assessment & Plan: 11/03 -bright red bleeding per vagina; sterile speculum exam shows cervix closed but bleeding is coming from os -US confirmed no cardiac activity -Dr. Case notified of pt's presentation, complication and missed AB; as pt is not currently experiencing heavy vaginal bleeding, will wait until patient is awake and can decide how she would like to proceed - D&C vs medical therapy vs watchful waiting, etc -should pt become hemodynamically unstable, we will be required to take more aggressive measures to prevent harm to patient 11/04 -continues to have small amount of bright red bleeding per vagina -US images reviewed; consistent with missed AB, moderate free fluid in the pelvis -sedation lightened this evening and discussed with patient loss of and potential options; patient very tearful about loss of , but also very clear about wanting D&C -will attempt to coordinate with Dr. Case for D&C prior to pt extubation (5) Grand multiparity with problem Status: Acute Assessment & Plan: 11/03 -see above Qualifiers: Qualified Codes: O09.41 - Supervision of with grand multiparity, first trimester (6) First trimester Status: Resolved Assessment & Plan: 11/03 -bright red bleeding per vagina; sterile speculum exam shows cervix closed but bleeding is coming from os -US confirmed no cardiac activity (7) Elevated LFTs Status: Chronic Assessment & Plan: - Patient has known h/o Hep C (8) DVT prophylaxis Status: Acute Assessment & Plan: Lovenox (9) Previous section Status: Chronic Assessment & Plan: -previous c/s x5 (10) Type O blood, Rh positive Status: Chronic Assessment & Plan: -no need for RhoGam, pt Rh positive per previous records -will obtain antibody screen in AM (11) Hepatitis C antibody test positive Status: Chronic Assessment & Plan: 11/04 -no history of treatment Clinical Quality Measures DVT/VTE Risk/Contraindication: Risk Factor Score Per Nursin RFS Level Per Nursing on Admit: 1=Low/No VTE PPX Copy Copies To 1: [facility] DO Nov 04, 2017 11:48
[2017-11-04] MEDS: MONTELUKAST 10 MG (SINGULAIR) TAB PO SCH (20:34)
[2017-11-05] VITALS (20 sets, daily range): BP systolic 112–178; BP diastolic 70–97
[2017-11-05] MEDS: DEXMEDETOMIDINE INJECTION 400 MCG in NS (IVPB) 96 ML IV SCH ×3 (00:04→15:03)
[2017-11-05] MEDS: PROPOFOL DRIP (ICU) 100 ML IV SCH ×5 (00:31→14:11)
[2017-11-05] MEDS: fentaNYL INJECTION 1,250 MCG in NS (IVPB) 225 ML IV SCH ×3 (01:43→12:12)
[2017-11-05] MEDS: inSUlin ASPART (NovoLOG) 1 UNIT/0.01 ML (CHARGE PER UNIT) SQ SCH ×3 (03:51→13:39)
[2017-11-05] MEDS: ARTIFICIAL TEARS OINT (LACRI-LUBE) 3.5 GM TUBE OU SCH ×3 (03:51→11:34)
[2017-11-05 04:17] LABS: BASOPHILS % (AUTO) 0 % (0-10); EOSINOPHILS % (AUTO) 0 % (0-10); HEMATOCRIT 34 % (35-52); HEMOGLOBIN 10.2 G/DL (11.5-16.0); LYMPHOCYTES # (AUTO) 0.8 X 10^3 (1.0-4.0); LYMPHOCYTES % (AUTO) 4 % (12-44); MEAN CORPUSCULAR HEMOGLOBIN 26 PG (25-34); MEAN CORPUSCULAR HGB CONC 30 G/DL (32-36); MEAN CORPUSCULAR VOLUME 87 FL (80-99); MEAN PLATELET VOLUME 10.1 FL (7.4-10.4); MONOCYTES # (AUTO) 0.7 X 10^3 (0.0-1.0); MONOCYTES % (AUTO) 4 % (0-12); NEUTROPHILS # (AUTO) 15.9 X 10^3 (1.8-7.8); NEUTROPHILS % (AUTO) 91 % (42-75); PLATELET COUNT 203 10^3/uL (130-400); RED BLOOD COUNT 3.85 10^6/uL (4.35-5.85); RED CELL DISTRIBUTION WIDTH 17.9 % (10.0-14.5); WHITE BLOOD COUNT 17.4 10^3/uL (4.3-11.0)
[2017-11-05 04:41] LABS: ANISOCYTOSIS SLIGHT; BAND NEUTROPHILS 2 %; BASOPHILS % (MANUAL) 0 %; EOSINOPHILS % (MANUAL) 1 %; LYMPHOCYTES % (MANUAL) 1 %; MONOCYTES % (MANUAL) 5 %; NEUTROPHILS % (MANUAL) 91 %
[2017-11-05 04:42] LABS: BUN/CREATININE RATIO 44; CALCIUM 8.7 MG/DL (8.5-10.1); CARBON DIOXIDE 30 MMOL/L (21-32); CHLORIDE 104 MMOL/L (98-107); CREATININE SERUM 0.52 MG/DL (0.60-1.30); GFR ESTIMATED > 60; GLUCOSE 152 MG/DL (70-105); MAGNESIUM 2.1 MG/DL (1.8-2.4); PHOSPHORUS 3.8 MG/DL (2.3-4.7); POTASSIUM 4.6 MMOL/L (3.6-5.0); SODIUM 145 MMOL/L (135-145); TRIGLYCERIDES 114 MG/DL (<150)
[2017-11-05] MEDS: KCL 20 MEQ TAB (K-DUR) PO SCH (04:47)
[2017-11-05] MEDS: POTASSIUM CL 10MEQ/50ML IVPB 50 ML IV SCH (04:47)
[2017-11-05] MEDS: MAGNESIUM 1 GM/100 ML IVPB 100 ML IV SCH (04:47)
[2017-11-05 04:48] LABS: ABG BASE EXCESS 10.3 MMOL/L (-2.5-2.5); ABG OXYGEN SATURATION 97 % (94-100); ABG PCO2 58 MMHG (35-45); ABG PO2 85 MMHG (79-93); ABG TCO2 37.4 MMOL/L (21.0-31.0)
[2017-11-05 04:49] LABS: ALLENS TEST YES-POS; INSPIRED O2 35%; PATIENT TEMP 97.4; VENTILATOR YES
[2017-11-05] MEDS: PRENATAL VITAMIN 1 EA TAB PO SCH (05:25)
[2017-11-05] MEDS: methylPREDNISolone 125 MG (Solu-MEDROL) VIAL IV SCH (05:25)
[2017-11-05] MEDS: TERBUTALINE INJ 1 MG/ML (BRETHINE) AMP SC SCH ×2 (05:25→11:33)
[2017-11-05] MEDS: raNItidine 50 MG/2 ML INJ (ZANTAC) IV SCH (08:52)
[2017-11-05] MEDS: CHLORHEXIDINE 0.12% SOLN 15 ML (PERIDEX) UDC PO SCH (08:52)
[2017-11-05] MEDS: cefTRIAXone INJECTION 1,000 MG in NS (IVPB) 50 ML IV SCH (08:52)
--- NOTE | 2017-11-05 09:31 | Diagnostic Imaging Report ---
INDICATION: Ventilatory dependency. An ET tube is above the anita. An OG catheter in the stomach. The lungs remain clear. There is no effusion, pneumothorax or failure pattern. IMPRESSION: Clear lungs, no pleural pathology with support apparatus projecting in good alignment. Dictated by: Dictated on workstation # [id number]
[2017-11-05] MEDS ORDERED: FUROSEMIDE 40 MG/4 ML INJ (LASIX) IVP ONE (10:30)
[2017-11-05] MEDS ORDERED: methylPREDNISolone 125 MG (Solu-MEDROL) VIAL IVP SCH (12:00)
[2017-11-05] MEDS ORDERED: DOXYCYCLINE INJECTION 100 MG in NS (IVPB) 100 ML IV SCH (13:00)
[2017-11-05] MEDS ORDERED: RT-ALBUTEROL/IPRATROPIUM 3 ML (DUONEB) VIAL IH PRN (13:30)
[2017-11-05] MEDS ORDERED: AZITHROMYCIN 500 MG/NS 250 ML IVPB IV NR ×2 (13:30)
[2017-11-05] MEDS ORDERED: PIPERACILLIN SODIUM/TAZOBACTAM 4.5 GM in D5W 100 ML IVPB 100 ML IV ONE (14:45)
[2017-11-05] MEDS ORDERED: PIPERACILLIN/TAZO3.375 GM/D5W 100 ML IV NR ×2 (15:00)
--- NOTE | 2017-11-05 15:08 | Discharge Summary ---
Diagnosis/Chief Complaint Date of Admission Oct 31, 2017 at 08:20 Date of Discharge 11/05/17 Admission Diagnosis Admission Diagnosis (1) Acute and chronic respiratory failure with hypoxia (2) Asthma exacerbation (3) Hypoxia (4) First trimester (5) Elevated LFTs Discharge Diagnosis (1) Acute and chronic respiratory failure with hypoxia Status: Acute Assessment & Plan: - Dr Walsh consulted and managing Asthma, patient started on heliox, MAT protocol, s/p magnesium in ER with multiple 1 hr treatments with minimal improvement, Continue IV steroids 11/03 -pt remains intubated, now on FiO2 30% -continue to defer pulmonary management to Dr. Walsh 11/04 -FiO2 35% -tentative plan for extubation tomorrow; will attempt to try and coordinate D&C before extubation if possible 11/05 -this AM pt on FiO2 35% -bronch planned by Dr. Walsh, but unavailable due to family emergency -acute decompensation this afternoon, requiring increase in FiO2 -Dr. Walsh available by phone, multiple interventions tried without improvement and decision ultimately made to transfer patient to higher level of care with critical care available on site -pt to be transferred to [facility], accepted by Dr. Mane (2) Asthma exacerbation Status: Acute Assessment & Plan: See Above Qualifiers: Qualified Codes: J45.51 - Severe persistent asthma with (acute) exacerbation (3) Hypoxia Status: Acute Assessment & Plan: - See Above (4) Missed with demise before 20 completed weeks of gestation Status: Acute Assessment & Plan: 11/03 -bright red bleeding per vagina; sterile speculum exam shows cervix closed but bleeding is coming from os -US confirmed no cardiac activity -Dr. Case notified of pt's presentation, complication and missed AB; as pt is not currently experiencing heavy vaginal bleeding, will wait until patient is awake and can decide how she would like to proceed - D&C vs medical therapy vs watchful waiting, etc -should pt become hemodynamically unstable, we will be required to take more aggressive measures to prevent harm to patient 11/04 -continues to have small amount of bright red bleeding per vagina -US images reviewed; consistent with missed AB, moderate free fluid in the pelvis -sedation lightened this evening and discussed with patient loss of and potential options; patient very tearful about loss of , but also very clear about wanting D&C -will attempt to coordinate with Dr. Case for D&C prior to pt extubation 11/05 -scant vaginal bleeding -discussed this morning with Dr. Case; he would prefer patient have procedure done as an outpatient after she has recovered from her acute illness -WBC slightly elevated today compared to yesterday 14.5 --> 17.4 -with acute decompensation this afternoon, pt started on empiric therapy for suspected septic , as this seems a likely source of infection for patient, who has become tachycardic with temp 99.7; started on zosyn (cefoxitan and cefotetan not available at this facility) and doxycycline -Dr. Case in OR case; requested that he call when finished, but will proceed with plan to transfer patient unless we hear from him and he is willing to do D&C now -transfer arranged, case discussed per phone with Dr. Gandhi, who is [employer] it applications analyst at [facility] today (5) Grand multiparity with problem Status: Acute Assessment & Plan: 11/03 -see above Qualifiers: Qualified Codes: O09.41 - Supervision of with grand multiparity, first trimester (6) First trimester Status: Resolved Assessment & Plan: 11/03 -bright red bleeding per vagina; sterile speculum exam shows cervix closed but bleeding is coming from os -US confirmed no cardiac activity (7) Elevated LFTs Status: Chronic Assessment & Plan: - Patient has known h/o Hep C (8) DVT prophylaxis Status: Acute Assessment & Plan: Lovenox (9) Previous section Status: Chronic Assessment & Plan: -previous c/s x5 (10) Type O blood, Rh positive Status: Chronic Assessment & Plan: -no need for RhoGam, pt Rh positive per previous records -will obtain antibody screen in AM 11/03 -antibody screen negative, blood type O positive confirmed (11) Hepatitis C antibody test positive Status: Chronic Assessment & Plan: 11/04 -no history of treatment (12) History of Polysubstance Abuse Status: Chronic Assessment & Plan: -UDS positive only for opiates on admission -last known UDS positive for methamphetamines 04/21/17 Chief Complaint/HPI Chief Complaint/HPI 32 yo F with known uncontrolled asthma with previous intubation for asthma exacerbation that comes in with 2 day history of worsening shortness of breath. States that she has been taking her asthma medications since finding out she was about 2 weeks ago. She has allergy induced asthma. She has multiple hospitalizations in the last year for exacerbation due to poor compliance to medications. Denies any sick contacts. No fever or chills. Discharge Summary-Simple/Stand Procedures unable to doppler FHR due to gestation; US called to check for FHR due to suspected missed AB -- no FHR noted on exam. Consultations Dr. Walsh - Critical Care Management Discharge Physical Examination Allergies: Coded Allergies: chlorpheniramine (Verified Allergy, Unknown, 03/05/06) phenylephrine (Verified Allergy, Unknown, 03/05/06) phenylpropanolamine (Verified Allergy, Unknown, 03/05/06) phenyltoloxamine (Verified Allergy, Unknown, 03/05/06) Vitals & I&Os Vital Sign - Last 12Hours Date Time Temp Pulse Resp B/P (MAP) Pulse Ox O2 Delivery O2 Flow Rate FiO2 11/05/17 14:11 120 17 115/72 97 Mechanical Ventilator 50.00 11/05/17 10:33 35 11/05/17 08:53 97.9 Intake and Output 11/05/17 00:00 Intake Total 2266 ml Output Total 650 ml Balance 1616 ml General Appearance: Other (sedated and on ventilator; scant amount vaginal bleeding noted, no foul odor) HEENT: Atraumatic, Mucous Memb Moist/[place] Respiratory: Other (diminished with diffuse wheezing) Cardiovascular: Regular Rate, Normal S1, Normal S2, No Murmurs Abdominal: Normal Bowel Sounds, Soft, No Tenderness, No Masses Extremities: No Clubbing, No Cyanosis, Normal Pulses, Other (significant edema) Skin: No Rashes, No Significant Lesion Neuro: Other (sedated and on ventilator) Psych/Mental Status: Other (sedated and on ventilator) Hospital Course See final discharge diagnosis. Labs Laboratory Tests Test 11/04/17 03:54 11/05/17 04:22 Blood Gas Puncture Site R RAD R BRACH Blood Gas Patient Temperature 98.6 97.4 Arterial Blood pH 7.37 7.40 Arterial Blood Partial Pressure CO2 67 MMHG 58 MMHG Arterial Blood Partial Pressure O2 70 MMHG 85 MMHG Arterial Blood HCO3 38 MMOL/L 36 MMOL/L Arterial Blood Total CO2 39.9 MMOL/L 37.4 MMOL/L Arterial Blood Oxygen Saturation 93 % 97 % Arterial Blood Base Excess 12.2 MMOL/L 10.3 MMOL/L Familia Test YES-POS YES-POS Blood Gas Ventilator Setting YES YES Blood Gas Inspired Oxygen 35% 35% Laboratory Tests Test 11/02/17 20:30 11/02/17 20:31 11/03/17 00:32 11/03/17 03:15 Range/Units Triglycerides Level 169 H <150 MG/DL Glucometer 137 H 134 H 70-110 MG/DL Blood Gas Puncture Site L RAD Blood Gas Patient Temperature 97.5 Arterial Blood pH 7.39 7.37-7.43 Arterial Blood Partial Pressure CO2 68 H 35-45 MMHG Arterial Blood Partial Pressure O2 75 L 79-93 MMHG Arterial Blood HCO3 40 H 23-27 MMOL/L Arterial Blood Total CO2 42.6 H 21.0-31.0 MMOL/L Arterial Blood Oxygen Saturation 96 94-100 % Arterial Blood Base Excess 14.5 H -2.5-2.5 MMOL/L Familia Test MISSY Blood Gas Ventilator Setting YES Blood Gas Inspired Oxygen 40% Test 11/03/17 03:20 11/03/17 06:34 11/03/17 08:43 11/03/17 12:39 Range/Units White Blood Count 13.1 H 4.3-11.0 10^3/uL Red Blood Count 3.75 L 4.35-5.85 10^6/uL Hemoglobin 9.9 L 11.5-16.0 G/DL Hematocrit 34 L 35-52 % Mean Corpuscular Volume 90 80-99 FL Mean Corpuscular Hemoglobin 26 25-34 PG Mean Corpuscular Hemoglobin Concent 30 L 32-36 G/DL Red Cell Distribution Width 18.2 H 10.0-14.5 % Platelet Count 226 130-400 10^3/uL Mean Platelet Volume 10.3 7.4-10.4 FL Neutrophils (%) (Auto) 89 H 42-75 % Lymphocytes (%) (Auto) 4 L 12-44 % Monocytes (%) (Auto) 8 0-12 % Eosinophils (%) (Auto) 0 0-10 % Basophils (%) (Auto) 0 0-10 % Neutrophils # (Auto) 11.6 H 1.8-7.8 X 10^3 Lymphocytes # (Auto) 0.5 L 1.0-4.0 X 10^3 Monocytes # (Auto) 1.0 0.0-1.0 X 10^3 Eosinophils # (Auto) 0.0 0.0-0.3 10^3/uL Basophils # (Auto) 0.0 0.0-0.1 10^3/uL Sodium Level 144 135-145 MMOL/L Potassium Level 4.2 3.6-5.0 MMOL/L Chloride Level 101 98-107 MMOL/L Carbon Dioxide Level 36 H 21-32 MMOL/L Anion Gap 7 5-14 MMOL/L Blood Urea Nitrogen 24 H 7-18 MG/DL Creatinine 0.48 L 0.60-1.30 MG/DL Estimat Glomerular Filtration Rate > 60 BUN/Creatinine Ratio 50 Glucose Level 139 H 70-105 MG/DL Calcium Level 7.9 L 8.5-10.1 MG/DL Phosphorus Level 2.2 L 2.3-4.7 MG/DL Magnesium Level 2.9 H 1.8-2.4 MG/DL Blood Gas Puncture Site L RAD Blood Gas Patient Temperature 97.0 Arterial Blood pH 7.42 7.37-7.43 Arterial Blood Partial Pressure CO2 63 H 35-45 MMHG Arterial Blood Partial Pressure O2 66 L 79-93 MMHG Arterial Blood HCO3 41 *H 23-27 MMOL/L Arterial Blood Total CO2 42.6 H 21.0-31.0 MMOL/L Arterial Blood Oxygen Saturation 95 94-100 % Arterial Blood Base Excess 15.1 H -2.5-2.5 MMOL/L Familia Test ART LINE Blood Gas Ventilator Setting YES Blood Gas Inspired Oxygen 35% Glucometer 153 H 145 H 70-110 MG/DL Test 11/03/17 16:17 11/03/17 20:46 11/04/17 01:37 11/04/17 03:40 Range/Units Glucometer 173 H 141 H 135 H 70-110 MG/DL White Blood Count 14.5 H 4.3-11.0 10^3/uL Red Blood Count 3.61 L 4.35-5.85 10^6/uL Hemoglobin 9.8 L 11.5-16.0 G/DL Hematocrit 32 L 35-52 % Mean Corpuscular Volume 89 80-99 FL Mean Corpuscular Hemoglobin 27 25-34 PG Mean Corpuscular Hemoglobin Concent 31 L 32-36 G/DL Red Cell Distribution Width 18.2 H 10.0-14.5 % Platelet Count 187 130-400 10^3/uL Mean Platelet Volume 10.3 7.4-10.4 FL Neutrophils (%) (Auto) 90 H 42-75 % Lymphocytes (%) (Auto) 4 L 12-44 % Monocytes (%) (Auto) 7 0-12 % Eosinophils (%) (Auto) 0 0-10 % Basophils (%) (Auto) 0 0-10 % Neutrophils # (Auto) 13.0 H 1.8-7.8 X 10^3 Lymphocytes # (Auto) 0.5 L 1.0-4.0 X 10^3 Monocytes # (Auto) 1.0 0.0-1.0 X 10^3 Eosinophils # (Auto) 0.0 0.0-0.3 10^3/uL Basophils # (Auto) 0.0 0.0-0.1 10^3/uL Sodium Level 145 135-145 MMOL/L Potassium Level 4.4 3.6-5.0 MMOL/L Chloride Level 104 98-107 MMOL/L Carbon Dioxide Level 31 21-32 MMOL/L Anion Gap 10 5-14 MMOL/L Blood Urea Nitrogen 26 H 7-18 MG/DL Creatinine 0.51 L 0.60-1.30 MG/DL Estimat Glomerular Filtration Rate > 60 BUN/Creatinine Ratio 51 Glucose Level 140 H 70-105 MG/DL Calcium Level 8.5 8.5-10.1 MG/DL Phosphorus Level 2.8 2.3-4.7 MG/DL Magnesium Level 2.4 1.8-2.4 MG/DL Test 11/04/17 03:54 11/04/17 08:47 11/04/17 12:31 11/04/17 15:51 Range/Units Blood Gas Puncture Site R RAD Blood Gas Patient Temperature 98.6 Arterial Blood pH 7.37 7.37-7.43 Arterial Blood Partial Pressure CO2 67 H 35-45 MMHG Arterial Blood Partial Pressure O2 70 L 79-93 MMHG Arterial Blood HCO3 38 H 23-27 MMOL/L Arterial Blood Total CO2 39.9 H 21.0-31.0 MMOL/L Arterial Blood Oxygen Saturation 93 L 94-100 % Arterial Blood Base Excess 12.2 H -2.5-2.5 MMOL/L Familia Test YES-POS Blood Gas Ventilator Setting YES Blood Gas Inspired Oxygen 35% Glucometer 134 H 135 H 149 H 70-110 MG/DL Test 11/04/17 19:58 11/04/17 23:42 11/05/17 03:40 11/05/17 03:50 Range/Units Glucometer 144 H 134 H 159 H 70-110 MG/DL White Blood Count 17.4 H 4.3-11.0 10^3/uL Red Blood Count 3.85 L 4.35-5.85 10^6/uL Hemoglobin 10.2 L 11.5-16.0 G/DL Hematocrit 34 L 35-52 % Mean Corpuscular Volume 87 80-99 FL Mean Corpuscular Hemoglobin 26 25-34 PG Mean Corpuscular Hemoglobin Concent 30 L 32-36 G/DL Red Cell Distribution Width 17.9 H 10.0-14.5 % Platelet Count 203 130-400 10^3/uL Mean Platelet Volume 10.1 7.4-10.4 FL Neutrophils (%) (Auto) 91 H 42-75 % Lymphocytes (%) (Auto) 4 L 12-44 % Monocytes (%) (Auto) 4 0-12 % Eosinophils (%) (Auto) 0 0-10 % Basophils (%) (Auto) 0 0-10 % Neutrophils # (Auto) 15.9 H 1.8-7.8 X 10^3 Lymphocytes # (Auto) 0.8 L 1.0-4.0 X 10^3 Monocytes # (Auto) 0.7 0.0-1.0 X 10^3 Eosinophils # (Auto) 0.0 0.0-0.3 10^3/uL Basophils # (Auto) 0.0 0.0-0.1 10^3/uL Neutrophils % (Manual) 91 % Lymphocytes % (Manual) 1 % Monocytes % (Manual) 5 % Eosinophils % (Manual) 1 % Basophils % (Manual) 0 % Band Neutrophils 2 % Anisocytosis SLIGHT Sodium Level 145 135-145 MMOL/L Potassium Level 4.6 3.6-5.0 MMOL/L Chloride Level 104 98-107 MMOL/L Carbon Dioxide Level 30 21-32 MMOL/L Anion Gap 11 5-14 MMOL/L Blood Urea Nitrogen 23 H 7-18 MG/DL Creatinine 0.52 L 0.60-1.30 MG/DL Estimat Glomerular Filtration Rate > 60 BUN/Creatinine Ratio 44 Glucose Level 152 H 70-105 MG/DL Calcium Level 8.7 8.5-10.1 MG/DL Phosphorus Level 3.8 2.3-4.7 MG/DL Magnesium Level 2.1 1.8-2.4 MG/DL Triglycerides Level 114 <150 MG/DL Test 11/05/17 04:22 11/05/17 08:18 11/05/17 13:26 Range/Units Blood Gas Puncture Site R BRACH Blood Gas Patient Temperature 97.4 Arterial Blood pH 7.40 7.37-7.43 Arterial Blood Partial Pressure CO2 58 H 35-45 MMHG Arterial Blood Partial Pressure O2 85 79-93 MMHG Arterial Blood HCO3 36 H 23-27 MMOL/L Arterial Blood Total CO2 37.4 H 21.0-31.0 MMOL/L Arterial Blood Oxygen Saturation 97 94-100 % Arterial Blood Base Excess 10.3 H -2.5-2.5 MMOL/L Familia Test YES-POS Blood Gas Ventilator Setting YES Blood Gas Inspired Oxygen 35% Glucometer 148 H 128 H 70-110 MG/DL Radiology Reviewed NAME: RAMÓN YANES [facility] REC#: [id number] PT STATUS: ADM IN : 1985 PHYSICIAN: JORGE LUIS DURAN MD ADMIT DATE: 10/31/17/ICU Signed Date of Exam: 10/31/17 US OB SINGLE FETUS<14 [id number] PROCEDURE: US OB SINGLE FETUS <14 WKS. TECHNIQUE: Multiple real-time grayscale images were obtained over the gravid uterus in various projections. INDICATION: survey. There is a gestational sac within uterus containing a single live fetus. heart motion was noted at a rate of 181 bpm was recorded. The crown-rump length suggests estimated gestational age is 8 weeks 3 days plus or minus 1 week. There are no obvious abnormalities identified. The amniotic fluid volume is within normal limits. At this time it is not certain whether the placenta was developed. The left ovary was visualized and was unremarkable. The right ovary could not be clearly identified. There is no pelvic mass or free fluid collection noted. IMPRESSION: 1. There is a single live intrauterine approximately 8 weeks 2 days gestation plus or minus 1 week. The EDC is 06/09/2018. 2. There are no abnormalities identified. If more sensitive evaluation of anatomy is desired however, then a followup OB ultrasound exam in 10-12 weeks would be recommended. 3. There is no pelvic mass or free fluid collection noted. Dictated by: Dictated on workstation # [id number] CXR from this AM showed no significant interval change from previous. As previously noted, on 10/31 pt had live ray IUP at 8w2d gestation; repeat US on 11/03 showed 8w5d gestation without cardiac motion, consistent with demise. Discussion & Recommendations At time of initial exam this morning ~1000, patient was resting comfortably although still requiring significant sedation. The NOODLE PRESS OPERATOR it applications analyst had been contacted regarding the pt's case, and stated he did not feel comfortable doing any type of procedure on patient until patient was able to have a detailed conversation. Discussed that pt was able to understand when her sedation was turned down yesterday, and risks and benefits of various options were reviewed, but that pt was not able to have a detailed conversation at this time. Pt did show elevation in WBC from yesterday, now 17.7, up from 14.5, although no other symptoms of infection present - pt has remained afebrile, scant vaginal bleeding with no foul odor or other discharge. Called by nursing staff at ~1240 that patient was not doing well; was requiring increasing ventilator settings, temp was rising, and they had given her addition IV medication for sedation per orders from eICU. Azithromycin started by eICU for suspected atypical PNA. Given that patient has missed AB, find the potential for septic AB highly likely; cefoxitin and cefotetan not available at this facility; Zosyn 4.5 grams started and doxycycline 100 mg BID for suspected septic AB. call center recruiter NOODLE PRESS OPERATOR currently in surgery. As pt is becoming more compromised from a respiratory standpoint, will call for transfer; pt's next of kin is listed as her mother Sandra Yanes; she was contacted at [phone], updated that patient was requiring additional ventilatory support, and that we felt it would be best to transfer her to a facility with more resources on site - she consents to transfer of patient and requests that patient be transferred to [facility] in [place]. Hussein contacted and patient was graciously accepted by Dr. Mane in the ICU; also spoke with Dr. Gandhi, who is the [employer]ODLE PRESS OPERATOR it applications analyst, as patient will need D&C and has significant risk factors, including grandmultiparity, history of C/S x5, Hep C + without treatment, history of methamphetamine use -- UDS neg on this admission for methamphetamines, last positive UDS 04/21/17, and that fetus was know to be well per US on 10/31 on admission, and found to be without cardiac activity per US on 11/03. The patient has extremely poor peripheral access, and is very edematous; the PICC team is placing a line to ensure adequate access during transport, as she requires heavy sedation. Given her severity of illness, she will be transferred by helicopter as soon as placement is confirmed. Discharge Condition at discharge Stable, intubated, ventilated, sedated Instructions to patient/family Please see electronic discharge instructions given to patient. Discharge Medications Reviewed and agree with Discharge Medication list on patient's Discharge Instruction sheet Clinical Quality Measures DVT/VTE Risk/Contraindication: Risk Factor Score Per Nursin RFS Level Per Nursing on Admit: 1=Low/No VTE PPX Copy Copies To 1: [facility] DO Nov 05, 2017 15:08
[2017-11-05] MEDS ORDERED: PIPERACILLIN/TAZO 3.375 GM/D5W 100 ML IV SCH ×2 (21:00)
[2017-11-06] MEDS ORDERED: AZITHROMYCIN 250 MG/NS 250 ML IVPB IV SCH ×2 (09:00)
--- NOTE | 2017-11-07 14:29 | Consultation ---
History of Present Illness History of Present Illness Patient Consulted On(seamus/time) 11/07/17 14:21 Date Seen by Provider: May 26, 2019 Time Seen by Provider: 00:00 Reason for Visit: Obstetric consult History of Present Illness Obstetric consult was requested for this patient who was intubated for status asthmaticus. I did discuss the patient with Dr. Martinez on three occasions in regard to Obstetric issues including ultrasound documented IUFD and appropriate management options and considerations. Patient consult was not accomplished as the patient was maintained intubated and in a sedated state. I was apprised by Dr. Martinez that the patient was transferred to another facility. I did not initiate a consult with this patient. Allergies and Home Medications Allergies Coded Allergies: chlorpheniramine (Verified Allergy, Unknown, 03/05/06) phenylephrine (Verified Allergy, Unknown, 03/05/06) phenylpropanolamine (Verified Allergy, Unknown, 03/05/06) phenyltoloxamine (Verified Allergy, Unknown, 03/05/06) Home Medications Albuterol Sulfate 1 Puff Puff, 2 PUFF IH Q4H PRN for SHORTNESS OF BREATH, ( Reported) 1 PUFF = 90 MCG Budesonide/Formoterol Fumarate 10.2 Gm Hfa.aer.ad, 2 PUFF INH BID, (Reported) Montelukast Sodium 10 Mg Tablet, 10 MG PO HS, (Reported) Vit W-Ca,Fe,FA(<1 mg) 1 Each Tablet, 1 TAB PO DAILY, (Reported) Patient Home Medication List Home Medication List Reviewed: No Past Gnpatvn-Utsavm-Nmktok Hx Past Med/Social Hx: Reviewed Nursing Past Med/Soc Hx Patient Social History Alcohol Use: Denies Use Recreational Drug Use: No Drug of Choice: methamphetamine per UA Smoking Status: Former Smoker Type Used: Cigarettes Former Smoker, Quit: Nov 04, 2015 2nd Hand Smoke Exposure: Yes ( SMOKES IN HOME) Recent Foreign Travel: No Contact w/Someone Who Travel: No Recent Infectious Disease Expo: No Recent Hopitalizations: Yes Physical Abuse: No Sexual Abuse: No Immunizations Up To Date Tetanus Booster (TDap): Unknown PED Vaccines UTD: No Date of Pneumonia Vaccine: Mar 05, 2016 Date of Influenza Vaccine: Mar 26, 2016 Seasonal Allergies Seasonal Allergies: Yes Past Medical History Surgeries: Yes ( X5) Section Respiratory: Yes Asthma Currently Using CPAP: No Currently Using BIPAP: No Cardiac: No Neurological: No : No (Miscarriage this hospital stay 11/03/2017) Reproductive Disorders: No Female Reproductive Disorders: Denies Sexually Transmitted Disease: No HIV/AIDS: No Genitourinary: No Gastrointestinal: Yes (HEPATITIS C +) Gastroesophageal Reflux, Liver Disease/Jaundice, Hepatitis Musculoskeletal: No Endocrine: No HEENT: No Loss of Vision: Denies Hearing Impairment: Denies Cancer: No Psychosocial: No Nursing Suicide Risk Score: 0 Integumentary: No Blood Disorders: No Adverse Reaction/Blood Tranf: No Family Medical History Reviewed Nursing Family Hx Alcoholism 19 FATHER G8 BROTHER Arthritis 19 FATHER Cardiovascular disease 19 MOTHER Coronary thrombosis 19 MOTHER Diabetes mellitus 19 MOTHER MATERNAL GRANDMOTHER Myocardial infarction 19 MOTHER Neoplasm 19 FATHER (LUNG CANCER) 19 MOTHER Respiratory disorder 19 FATHER (EMPHYSEMA) Asthma Physical Exam-General Problems Physical Exam Vital Signs Vital Signs - First Documented 11/01/17 11/01/17 00:00 07:00 Temp 99.5 Pulse 112 Resp 35 B/P (MAP) 118/67 (84) Pulse Ox 96 O2 Delivery Mechanical Ventilator O2 Flow Rate 40.00 FiO2 40 Capillary Refill : Less Than 3 Seconds Clinical Quality Measures DVT/VTE Risk/Contraindication: Risk Factor Score Per Nursin RFS Level Per Nursing on Admit: 1=Low/No VTE PPX MILAGROS NGUYEN MD Nov 07, 2017 14:29
== END 2017-11-05 15:55 | disposition short-term general hospital (02) | DRG 781 ==
LOC: EDUNIT# 06:36 → ER 06:38 → ICU 08:20
PROVIDERS: ADMIT Family Medicine; ATTEND Family Medicine
PROC: 5A1945Z Respiratory Ventilation, 24-96 Consecutive Hours (ICD-10-PCS; principal; 2017-10-31)
DX: O99.511 Diseases of the respiratory system complicating pregnancy, first trimester (principal); J96.21 Acute and chronic respiratory failure with hypoxia; J45.51 Severe persistent asthma with (acute) exacerbation; O03.37 Sepsis following incomplete spontaneous abortion; O98.411 Viral hepatitis complicating pregnancy, first trimester; B19.20 Unspecified viral hepatitis C without hepatic coma; O99.281 Endocrine, nutritional and metabolic diseases complicating pregnancy, first trimester; E83.42 Hypomagnesemia; I95.9 Hypotension, unspecified; O34.211 Maternal care for low transverse scar from previous cesarean delivery; O99.611 Diseases of the digestive system complicating pregnancy, first trimester; K21.9 Gastro-esophageal reflux disease without esophagitis; O12.01 Gestational edema, first trimester; Z77.22 Contact with and (suspected) exposure to environmental tobacco smoke (acute) (chronic); O09.41 Supervision of pregnancy with grand multiparity, first trimester; Z87.891 Personal history of nicotine dependence; Z3A.08 8 weeks gestation of pregnancy; Z91.19 Patient's noncompliance with other medical treatment and regimen
CPT/HCPCS: 36415; 36600; 71045; 76801; 80048; 80053; 80306; 81000; 82805; 82962; 83605; 83735; 84100; 84478; 85007; 85025; 85027; 86703; 86850; 86900; 86901; 87081; 94002; 94003; 94640; 94799; 96361; 96365; 96375

== ENCOUNTER 2018-07-12 20:06 | Emergency (ER) | payer MEDICAID ==
[~2018-07-12] VITALS: Ht 154.9 cm; Wt 57.2 kg
[2018-07-12] MEDS ORDERED: RT-ALBUTEROL SULF 2.5 MG/3 ML PRE-MIX VIAL INH SCH (20:15)
[2018-07-12] MEDS ORDERED: RT-ALBUTEROL/IPRATROPIUM 3 ML (DUONEB) VIAL INH ONE (20:15)
[2018-07-12] MEDS ORDERED: DEXAMETHASONE 4 MG/ML SDV (DECADRON) IH ONE (20:15)
--- OUTSIDE RECORDS SUMMARY | 2018-07-12 20:17 | XMS REPORT ---
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.52 Active 114347534426048 Problem Hypoxia R09.02 Active 174166104 Problem Mild intermittent asthma without complication J45.20 Active 897143370 Problem Moderate persistent asthma with acute exacerbation J45.41 Active 564902916456705 Problem Social anxiety disorder F40.10 Active 31594759 ALLERGIES No Known Allergies ENCOUNTERS Encounter Location Date Diagnosis [facility] [address] [address] Oct, [facility] [address] [address] Jul, Moderate asthma with exacerbation, unspecified whether persistent J45.901 and Cough R05 [facility] [address] [address] Jun, Cough R05 [facility] [address] [address] Dec, 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.52 and Severe persistent asthma, uncomplicated J45.50 [facility] [address] [address] Oct, [facility] [address] [address] May, Moderate persistent asthma with acute exacerbation J45.41 ; Social anxiety disorder F40.10 and Hypoxia R09.02 [facility] [address] [facility] [id number] [address] Mar, Mild intermittent asthma without complication J45.20 ; Bronchitis J40 ; Otitis of left ear H66.92 and Elevated blood pressure reading R03.0 [facility] [address] [facility] [id number] [address] Jan, Dental examination Z01.20 [facility] [address] [place], [place] [id number] Jan, Anxiety 300.00 and Asthma 493.90 IMMUNIZATIONS No Known Immunizations SOCIAL HISTORY Never Assessed REASON FOR VISIT allergies/asthma and congestion started about 3 weeks ago DESIREEtraSarkis PLAN OF CARE Activity Details Follow Up schedule with [facility] Reason: VITAL SIGNS Height 61 in 2017-08-07 Weight 142.8 lbs 2017-08-07 Temperature 98.1 degrees Fahrenheit 2017-08-07 Heart Rate 100 bpm 2017-08-07 Respiratory Rate 22 2017-08-07 BMI 26.98 kg/m2 2017-08-07 Blood pressure systolic 140 mmHg 2017-08-07 Blood pressure diastolic 94 mmHg 2017-08-07 MEDICATIONS Medication Instructions Dosage Frequency Start Date End Date Duration Status Breo Ellipta 100-25 MCG/INH Inhalation Once a day 1 puff 24h May, Not-Taking HydrOXYzine HCl 25 MG Orally 3 times a day 1 tablet as needed 8h Not-Taking Symbicort 160-4.5 MCG/ACT Inhalation Twice a day 2 puffs 12h Active PredniSONE 10 mg Orally Once a day 5 tabs x2 days, an decrease by 1 tab every other day 24h Not-Taking Paroxetine HCl 10 mg Orally Once a day 1 tablet in the morning 24h May, 90 days Not-Taking ProAir HFA 108 (90 Base) MCG/ACT Inhalation every 4-6 hours as needed 2 puffs as needed May, Not-Taking PredniSONE 10 mg Orally Once a day 3 tablets 24h Jul, Jul, 05 days Active Albuterol Sulfate (2.5 MG/3ML) 0.083% Inhalation 3 times a day 3 ml as needed 8h Jul, Active Loratadine 10 MG Orally Once a day 1 tablet 24h Active Singulair 10 MG Orally Once a day 1 tablet in the evening 24h Active Oxygen Not-Taking RESULTS No Results PROCEDURES No Known procedures INSTRUCTIONS MEDICATIONS ADMINISTERED No Known Medications MEDICAL (GENERAL) HISTORY Type Description Date Medical History Mild intermittent asthma without complication Surgical History c section x5 Hospitalization History Asthma 2016 Hospitalization History Child Hospitalization History VC asthma May 2016 Hospitalization History Severe acute asthma exacerbation-[facility] 11/03/16
--- OUTSIDE RECORDS SUMMARY | 2018-07-12 20:17 | XMS REPORT ---
Author Author LEFTY GONZALEZ Organization [facility] Address [address] [place] [address] Care Team Providers Care Tray Packer Name Role Phone LEFTY GONZALEZ Unavailable PROBLEMS Type Condition ICD9-CM Code VMR14-HP Code Onset Dates Condition Status SNOMED Code Problem Severe persistent asthma, uncomplicated J45.50 Active 871490584 Problem custodial current use of systemic steroids Z79.52 Active 877086438921094 Problem Hypoxia R09.02 Active 238708886 Problem Mild intermittent asthma without complication J45.20 Active 450496056 Problem Moderate persistent asthma with acute exacerbation J45.41 Active 839008416072490 Problem Social anxiety disorder F40.10 Active 47787568 ALLERGIES No Information ENCOUNTERS Encounter Location Date Diagnosis [facility] [address] [address] Oct, [facility] [address] [address] Jul, Moderate asthma with exacerbation, unspecified whether persistent J45.901 and Cough R05 [facility] [address] [address] Jun, Cough R05 [facility] [address] [address] Dec, custodial current use of systemic steroids Z79.52 and Severe persistent asthma, uncomplicated J45.50 [facility] [address] [address] Oct, [facility] [address] [address] May, Moderate persistent asthma with acute exacerbation J45.41 ; Social anxiety disorder F40.10 and Hypoxia R09.02 [facility] [address] [facility] [id number] [place] [address] Mar, Mild intermittent asthma without complication J45.20 ; Bronchitis J40 ; Otitis of left ear H66.92 and Elevated blood pressure reading R03.0 [facility] [address] [facility] [id number] [place] [address] Jan, Dental examination Z01.20 [facility] [address] [place], [place] [id number] Jan, Anxiety 300.00 and Asthma 493.90 IMMUNIZATIONS No Known Immunizations SOCIAL HISTORY Never Assessed REASON FOR VISIT Hospital admit/DC PLAN OF CARE VITAL SIGNS MEDICATIONS Unknown Medications RESULTS No Results PROCEDURES No Known procedures INSTRUCTIONS MEDICATIONS ADMINISTERED No Known Medications MEDICAL (GENERAL) HISTORY Type Description Date Medical History Mild intermittent asthma without complication Surgical History c section x5 Hospitalization History Asthma 2015 Hospitalization History Child Hospitalization History VC asthma May 2016 Hospitalization History Severe acute asthma exacerbation-[facility] 11/03/16
[2018-07-12] MEDS ORDERED: LORazepam INJ 2 MG/ML (ATIVAN) VIAL IVP ONE (21:00)
[2018-07-12] MEDS ORDERED: methylPREDNISolone 125 MG (Solu-MEDROL) VIAL IVP ONE (21:00)
--- NOTE | 2018-07-12 21:18 | Diagnostic Imaging Report ---
INDICATION: Dyspnea. COMPARISON: 11/05/2017. TECHNIQUE: Single view of the chest was obtained. FINDINGS: New right basilar hazy opacities obscure the right heart border. No pleural effusion or pneumothorax. Heart is normal in size. Potential pneumomediastinum is present. IMPRESSION: 1. Questionable pneumomediastinum although there are appears to be extrinsic artifact over the patient. Consider repeat radiographs with removal of presumed oxygen mask equipment. 2. Right middle lobe opacities may represent pneumonia. Dictated by: Dictated on workstation # [id number]
[2018-07-12 21:43] LABS: BASOPHILS % (AUTO) 0 % (0-10); EOSINOPHILS % (AUTO) 0 % (0-10); HEMATOCRIT 46 % (35-52); HEMOGLOBIN 14.8 G/DL (11.5-16.0); LYMPHOCYTES # (AUTO) 1.3 X 10^3 (1.0-4.0); LYMPHOCYTES % (AUTO) 10 % (12-44); MEAN CORPUSCULAR HEMOGLOBIN 26 PG (25-34); MEAN CORPUSCULAR HGB CONC 32 G/DL (32-36); MEAN CORPUSCULAR VOLUME 81 FL (80-99); MEAN PLATELET VOLUME 9.8 FL (7.4-10.4); MONOCYTES # (AUTO) 0.6 X 10^3 (0.0-1.0); MONOCYTES % (AUTO) 4 % (0-12); NEUTROPHILS # (AUTO) 11.7 X 10^3 (1.8-7.8); NEUTROPHILS % (AUTO) 86 % (42-75); PLATELET COUNT 329 10^3/uL (130-400); RED CELL DISTRIBUTION WIDTH 17.2 % (10.0-14.5); WHITE BLOOD COUNT 13.6 10^3/uL (4.3-11.0)
[2018-07-12] MEDS ORDERED: MAGNESIUM 1 GM/100 ML IVPB 100 ML IV ONE (21:45)
--- NOTE | 2018-07-12 21:59 | Diagnostic Imaging Report ---
INDICATION: Chest pain. TECHNIQUE: Single view of the chest was obtained. FINDINGS: The external artifact has been removed from over the mediastinum. No pneumomediastinum is present. Additionally, the hazy opacities in the right medial lung base have resolved. The lungs are clear. No pleural effusion or pneumothorax. IMPRESSION: 1. No pneumomediastinum. Extrinsic artifact accounted for the appearance on prior exam. 2. No consolidations within the right middle lobe. These were secondary to summation shadow of patient's breast and suboptimal inspiration. Dictated by: Dictated on workstation # [id number]
[2018-07-12 22:03] LABS: ALANINE AMINOTRANSFERASE 19 U/L (0-55); ALBUMIN 4.6 GM/DL (3.2-4.5); ALKALINE PHOSPHATASE 61 U/L (40-136); BILIRUBIN,TOTAL 0.5 MG/DL (0.1-1.0); BUN/CREATININE RATIO 15; CALCIUM 10.1 MG/DL (8.5-10.1); CARBON DIOXIDE 28 MMOL/L (21-32); CHLORIDE 103 MMOL/L (98-107); CREATININE SERUM 0.81 MG/DL (0.60-1.30); GFR ESTIMATED > 60; GLUCOSE 124 MG/DL (70-105); MAGNESIUM 2.8 MG/DL (1.8-2.4); POTASSIUM 3.8 MMOL/L (3.6-5.0); SODIUM 141 MMOL/L (135-145); TOTAL PROTEIN 8.2 GM/DL (6.4-8.2)
--- NOTE | 2018-07-12 22:04 | ED Respiratory ---
General Chief Complaint: Respiratory Problems Stated Complaint: ASHMA Source: patient Exam Limitations: no limitations History of Present Illness Date Seen by Provider: Jul 12, 2018 Time Seen by Provider: 20:00 Initial Comments 33-year-old female who presents to the emergency room with complaints of shortness of breath and asthma exacerbation for the past 2 days. She reports using her inhalers at home without relief. She reports that she started taking some prednisone that she had left over from a old prescription yesterday. She has had multiple admissions for asthma exacerbation. She denies fevers, chills, nausea, vomiting. The patient is very fidgety on arrival to the emergency room. She is a known illicit drug user. She reports using meth 1 day ago. Timing/Duration: yesterday Prior Episodes/Possible Cause: frequent episodes, chronic episodes Allergies and Home Medications Allergies Coded Allergies: chlorpheniramine (Verified Allergy, Unknown, 03/05/06) phenylephrine (Verified Allergy, Unknown, 03/05/06) phenylpropanolamine (Verified Allergy, Unknown, 03/05/06) phenyltoloxamine (Verified Allergy, Unknown, 03/05/06) Home Medications Albuterol Sulfate 1 Puff Puff, 2 PUFF IH Q4H PRN for SHORTNESS OF BREATH, ( Reported) 1 PUFF = 90 MCG Budesonide/Formoterol Fumarate 10.2 Gm Hfa.aer.ad, 2 PUFF INH BID, (Reported) Montelukast Sodium 10 Mg Tablet, 10 MG PO HS, (Reported) Vit W-Ca,Fe,FA(<1 mg) 1 Each Tablet, 1 TAB PO DAILY, (Reported) Patient Home Medication List Home Medication List Reviewed: Yes Review of Systems Review of Systems Constitutional: no symptoms reported, see HPI Respiratory: see HPI, short of breath, wheezing All Other Systems Reviewed Negative Unless Noted: Yes Past Lisguyi-Qqutbv-Umhvpl Hx Past Med/Social Hx: Reviewed Nursing Past Med/Soc Hx Patient Social History Drug of Choice: methamphetamine per UA Type Used: Cigarettes Former Smoker, Quit: Nov 04, 2015 2nd Hand Smoke Exposure: Yes ( SMOKES IN HOME) Recent Foreign Travel: No Contact w/Someone Who Travel: No Recent Hopitalizations: Yes Immunizations Up To Date Tetanus Booster (TDap): Unknown PED Vaccines UTD: No Date of Pneumonia Vaccine: Mar 05, 2016 Date of Influenza Vaccine: Mar 26, 2016 Seasonal Allergies Seasonal Allergies: Yes Past Medical History Surgeries: Yes ( X5) Section Respiratory: Yes Asthma Currently Using CPAP: No Currently Using BIPAP: No Cardiac: No Neurological: No Reproductive Disorders: No Female Reproductive Disorders: Denies Sexually Transmitted Disease: No HIV/AIDS: No Genitourinary: No Gastrointestinal: Yes (HEPATITIS C +) Gastroesophageal Reflux, Liver Disease/Jaundice, Hepatitis Musculoskeletal: No Endocrine: No HEENT: No Loss of Vision: Denies Hearing Impairment: Denies Cancer: No Psychosocial: No Integumentary: No Blood Disorders: No Adverse Reaction/Blood Tranf: No Family Medical History Reviewed Nursing Family Hx Alcoholism 19 FATHER G8 BROTHER Arthritis 19 FATHER Cardiovascular disease 19 MOTHER Coronary thrombosis 19 MOTHER Diabetes mellitus 19 MOTHER MATERNAL GRANDMOTHER Myocardial infarction 19 MOTHER Neoplasm 19 FATHER (LUNG CANCER) 19 MOTHER Respiratory disorder 19 FATHER (EMPHYSEMA) Asthma Physical Exam Vital Signs - First Documented 07/12/18 20:09 Temp 96.0 Pulse 118 Resp 24 B/P (MAP) 120/83 (95) Pulse Ox 93 O2 Delivery Nasal Cannula O2 Flow Rate 3.00 Capillary Refill : Height: 5'1.00" Weight: 169lbs. 8.0oz. 76.826884qt; 25.3 BMI Method:Stated General Appearance: WD/WN, moderate distress HEENT: PERRL/EOMI, normal ENT inspection, TMs normal, pharynx normal Respiratory: chest non-tender, decreased breath sounds, accessory muscle use, wheezing, expiration Cardiovascular: normal peripheral pulses, regular rate, rhythm, no edema, no gallop, no JVD, no murmur, tachycardia Gastrointestinal: normal bowel sounds, non tender, soft, no organomegaly, no pulsatile mass Extremities: normal capillary refill Neurologic/Psychiatric: alert, normal mood/affect, oriented x 3 Skin: normal color, warm/dry Procedures/Interventions Date of ETT Placement: Oct 31, 2017 Time of ETT Placement: 1758 Progress/Results/Core Measures Suspected Sepsis SIRS Temperature: Pulse: Respiratory Rate: Laboratory Tests 07/12/18 21:38: White Blood Count 13.6H Blood Pressure / Mean: Laboratory Tests 07/12/18 21:38: Creatinine 0.81, Platelet Count 329, Total Bilirubin 0.5 Results/Orders Lab Results Laboratory Tests Test 07/12/18 21:38 07/12/18 22:36 Range/Units White Blood Count 13.6 H 4.3-11.0 10^3/uL Red Blood Count 5.74 4.35-5.85 10^6/uL Hemoglobin 14.8 11.5-16.0 G/DL Hematocrit 46 35-52 % Mean Corpuscular Volume 81 80-99 FL Mean Corpuscular Hemoglobin 26 25-34 PG Mean Corpuscular Hemoglobin Concent 32 32-36 G/DL Red Cell Distribution Width 17.2 H 10.0-14.5 % Platelet Count 329 130-400 10^3/uL Mean Platelet Volume 9.8 7.4-10.4 FL Neutrophils (%) (Auto) 86 H 42-75 % Lymphocytes (%) (Auto) 10 L 12-44 % Monocytes (%) (Auto) 4 0-12 % Eosinophils (%) (Auto) 0 0-10 % Basophils (%) (Auto) 0 0-10 % Neutrophils # (Auto) 11.7 H 1.8-7.8 X 10^3 Lymphocytes # (Auto) 1.3 1.0-4.0 X 10^3 Monocytes # (Auto) 0.6 0.0-1.0 X 10^3 Eosinophils # (Auto) 0.0 0.0-0.3 10^3/uL Basophils # (Auto) 0.0 0.0-0.1 10^3/uL Neutrophils % (Manual) 84 % Lymphocytes % (Manual) 1 % Monocytes % (Manual) 4 % Eosinophils % (Manual) 0 % Basophils % (Manual) 0 % Band Neutrophils 4 % Reactive Lymphocytes 7 % Anisocytosis SLIGHT Sodium Level 141 135-145 MMOL/L Potassium Level 3.8 3.6-5.0 MMOL/L Chloride Level 103 98-107 MMOL/L Carbon Dioxide Level 28 21-32 MMOL/L Anion Gap 10 5-14 MMOL/L Blood Urea Nitrogen 12 7-18 MG/DL Creatinine 0.81 0.60-1.30 MG/DL Estimat Glomerular Filtration Rate > 60 BUN/Creatinine Ratio 15 Glucose Level 124 H 70-105 MG/DL Calcium Level 10.1 8.5-10.1 MG/DL Corrected Calcium 8.5-10.1 MG/DL Magnesium Level 2.8 H 1.8-2.4 MG/DL Total Bilirubin 0.5 0.1-1.0 MG/DL Aspartate Amino Transf (AST/SGOT) 24 5-34 U/L Alanine Aminotransferase (ALT/SGPT) 19 0-55 U/L Alkaline Phosphatase 61 40-136 U/L Total Protein 8.2 6.4-8.2 GM/DL Albumin 4.6 H 3.2-4.5 GM/DL Serum Test, Qualitative NEGATIVE NEGATIVE Blood Gas Puncture Site R RAD Blood Gas Patient Temperature 96.4 Arterial Blood pH 7.33 *L 7.37-7.43 Arterial Blood Partial Pressure CO2 53 H 35-45 MMHG Arterial Blood Partial Pressure O2 61 L 79-93 MMHG Arterial Blood HCO3 28 H 23-27 MMOL/L Arterial Blood Total CO2 29.2 21.0-31.0 MMOL/L Arterial Blood Oxygen Saturation 91 L 94-100 % Arterial Blood Base Excess 1.9 -2.5-2.5 MMOL/L Familia Test YES-POS Blood Gas Ventilator Setting NO Blood Gas Inspired Oxygen 2.5 L My Orders Orders - JADEN FORD Cbc With Automated Diff (07/12/18 20:11) Comprehensive Metabolic Panel (07/12/18 20:11) Chest 1 View, Ap/Pa Only (07/12/18 20:11) Albuterol/Ipra Inhalation Soln (Duoneb I (07/12/18 20:15) Saline Lock/Iv-Start (07/12/18 20:11) Svn Small Volume Nebulizer (07/12/18 20:11) Albuterol Pre-Mix Nebs (Rt) (Proventil (07/12/18 20:15) Svn Small Volume Nebulizer (07/12/18 20:11) Dexamethasone Injection (Decadron Inject (07/12/18 20:15) Lorazepam Injection (Ativan Injection) (07/12/18 21:00) Magnesium (07/12/18 21:01) Chest 1 View, Ap/Pa Only (07/12/18 21:26) Hcg,Qualitative Serum (07/12/18 21:35) Magnesium 1 Gm/100 Ml Ivpb (Magnesium Holliday (07/12/18 21:45) Manual Differential (07/12/18 21:38) Ns Iv 1000 Ml (Sodium Chloride 0.9%) (07/12/18 22:15) Arterial Blood Gas (07/12/18 22:36) Arterial Blood Draw (07/12/18 ) Medications Given in ED Vital Signs/I&O 07/12/18 07/12/18 07/12/18 20:09 21:07 23:31 Temp 96.0 96.0 Pulse 118 128 Resp 24 24 B/P (MAP) 120/83 (95) 122/94 (103) Pulse Ox 93 98 96 O2 Delivery Nasal Cannula Nasal Cannula Nasal Cannula O2 Flow Rate 3.00 2.50 2.00 Capillary Refill : Progress Note : Time: 22:10 Progress Note I have seen and evaluated the patient. It was brought to my attention that Decadron 20 mg was also given IV in addition to inhalation. The Solu-Medrol order was stopped. I've informed her of the need for hospital admission. Our hospitalist currently on diversion and she selected [facility] for her transfer facility. I have called [facility] at this time and spoke to Dr. Larios the hospitalist and he agrees to accept the patient to his services. The patient has had moderate improvement with hour-long breathing treatment and is moving much more air than on arrival but we're also going to do the magnesium IV. 2300 : The patient is improving with the use of magnesium. Her respiratory rate has decreased, her lung sounds have cleared, her heart rate is down to the 90s, pressure is normotensive. [facility] has been called for dispatch at this time. 2335: The patient was able to transfer to the EMS cot without difficulty. She remains stable at this time. Diagnostic Imaging Diagonstic Imaging: Xray Plain Films/CT/US/NM/MRI: chest Comments NAME: RAMÓN YANES [facility] REC#: [id number] PT STATUS: REG ER : 1985 PHYSICIAN: JADEN FORD ADMIT DATE: 07/12/18/ER Signed Date of Exam:07/12/18 CHEST 1 VIEW, AP/PA ONLY INDICATION: Chest pain. TECHNIQUE: Single view of the chest was obtained. FINDINGS: The external artifact has been removed from over the mediastinum. No pneumomediastinum is present. Additionally, the hazy opacities in the right medial lung base have resolved. The lungs are clear. No pleural effusion or pneumothorax. IMPRESSION: 1. No pneumomediastinum. Extrinsic artifact accounted for the appearance on prior exam. 2. No consolidations within the right middle lobe. These were secondary to summation shadow of patient's breast and suboptimal inspiration. Dictated by: Dictated on workstation # [id number] Dict: [id number] Trans: 07/12/182212 [facility] [id number] Interpreted by: SHARYN YOUNG MD Electronically signed by: SHARYN YOUNG MD 07/12/183 NAME: RAMÓN YANES [facility] REC#: [id number] PT STATUS: REG ER : 1985 PHYSICIAN: JADEN FORD ADMIT DATE: 07/12/18/ER Signed Date of Exam:07/12/18 CHEST 1 VIEW, AP/PA ONLY INDICATION: Dyspnea. COMPARISON: 11/05/2017. TECHNIQUE: Single view of the chest was obtained. FINDINGS: New right basilar hazy opacities obscure the right heart border. No pleural effusion or pneumothorax. Heart is normal in size. Potential pneumomediastinum is present. IMPRESSION: 1. Questionable pneumomediastinum although there are appears to be extrinsic artifact over the patient. Consider repeat radiographs with removal of presumed oxygen mask equipment. 2. Right middle lobe opacities may represent pneumonia. Dictated by: Dictated on workstation # [id number] Dict: 07/12/182112 Trans: 07/12/182213 [facility] [id number] Interpreted by: SHARYN YOUNG MD Electronically signed by: SHARYN YOUNG MD 07/12/184 Reviewed: Reviewed by Me Departure Impression Primary Impression: Status asthmaticus Disposition: [facility] HOS[facility] Condition: Stable/Unchanged Transfer Time Spoke to Accepting Phy: 22:10 Transfer Progress Notes Spoke to Dr. Larios at this time he agrees to accept the patient to his services at this time. Transfer Time: 23:10 Transfer Facility: [facility] Method of Transfer: EMS ([facility]) Departure-Patient Inst. Referrals: LEANDER COONEY DO (PCP/Family) Primary Care Physician JADEN FORD Jul 12, 2018 22:04
[2018-07-12 22:13] LABS: ANISOCYTOSIS SLIGHT; BAND NEUTROPHILS 4 %; BASOPHILS % (MANUAL) 0 %; EOSINOPHILS % (MANUAL) 0 %; LYMPHOCYTES % (MANUAL) 1 %; MONOCYTES % (MANUAL) 4 %; NEUTROPHILS % (MANUAL) 84 %; REACTIVE LYMPHOCYTES 7 %
[2018-07-12] MEDS ORDERED: NS IV 1000 ML 1,000 ML IV SCH (22:15)
[2018-07-12 22:47] LABS: ABG BASE EXCESS 1.9 MMOL/L (-2.5-2.5); ABG OXYGEN SATURATION 91 % (94-100); ABG PCO2 53 MMHG (35-45); ABG PO2 61 MMHG (79-93); ABG TCO2 29.2 MMOL/L (21.0-31.0)
[2018-07-12 22:48] LABS: ALLENS TEST YES-POS; INSPIRED O2 2.5 L; PATIENT TEMP 96.4; VENTILATOR NO
[2018-07-12 22:51] LABS: ABG PH 7.33 (7.37-7.43)
--- NOTE | 2018-07-12 23:30 | NUR ---
PT STANDS TO TRANSFER TO EMS COT, NO S/S OF DISTRESS
[2018-07-12 23:31] VITALS: BP 122/94
== END 2018-07-12 23:31 | disposition short-term general hospital (02) ==
LOC: EDUNIT# 20:06 → ER 20:07
DX: J45.902 Unspecified asthma with status asthmaticus (principal); B19.20 Unspecified viral hepatitis C without hepatic coma; K21.9 Gastro-esophageal reflux disease without esophagitis; Z82.49 Family history of ischemic heart disease and other diseases of the circulatory system; Z80.1 Family history of malignant neoplasm of trachea, bronchus and lung; Z87.19 Personal history of other diseases of the digestive system; Z88.8 Allergy status to other drugs, medicaments and biological substances; Z79.51 Long term (current) use of inhaled steroids; Z87.891 Personal history of nicotine dependence; Z98.890 Other specified postprocedural states
CPT/HCPCS: 36415; 36600; 71045; 80053; 82805; 83735; 84703; 85007; 85027; 94640; 94644; 99291

== ENCOUNTER 2019-01-09 10:31 | Emergency (ER) | payer MEDICAID ==
[~2019-01-09] VITALS: Ht 154.9 cm; Wt 59.0 kg
[~2019-01-09 10:31] MED LIST changes: +BUDE10.22 INH; +PREN-8 PO; +RANI-613 PO; -RANI150T46 PO
--- NOTE | 2019-01-09 10:50 | ED EENT ---
History of Present Illness General Chief Complaint: Ear Problems Stated Complaint: R EAR PAIN Source: patient Exam Limitations: no limitations History of Present Illness Date Seen by Provider: Jan 09, 2019 Time Seen by Provider: 10:45 Initial Comments This 33-year-old female presents with right ear pain that began this morning. The patient has had upper respiratory symptoms of nasal congestion in the last several days. Patient has had a history of frequent otitis media in the past. Patient denies headache, photophobia, or stiff neck. Patient responds well to amoxicillin for her ear infections. Patient states that she uses [employer]. Allergies and Home Medications Allergies Coded Allergies: chlorpheniramine (Verified Allergy, Unknown, 03/05/06) phenylephrine (Verified Allergy, Unknown, 03/05/06) phenylpropanolamine (Verified Allergy, Unknown, 03/05/06) phenyltoloxamine (Verified Allergy, Unknown, 03/05/06) Home Medications Albuterol Sulfate 1 Puff Puff, 2 PUFF IH Q4H PRN for SHORTNESS OF BREATH, (Reported) 1 PUFF = 90 MCG Budesonide/Formoterol Fumarate 10.2 Gm Hfa.aer.ad, 2 PUFF INH BID, (Reported) Montelukast Sodium 10 Mg Tablet, 10 MG PO HS, (Reported) Vit W-Ca,Fe,FA(<1 mg) 1 Each Tablet, 1 TAB PO DAILY, (Reported) Patient Home Medication List Home Medication List Reviewed: Yes Review of Systems Review of Systems Constitutional: No chills, No fever Eyes: Denies Blindness, Denies Photophobia Ears: See HPI; Denies Bloody Discharge; Other Nose: congestion Mouth: no symptoms reported Throat: no symptoms reported Respiratory: No cough Cardiovascular: No chest pain, No palpitations Gastrointestinal: No abdominal pain, No nausea, No vomiting Musculoskeletal: No back pain Skin: No rash Neurological: No Symptoms Reported Hematologic/Lymphatic: No Symptoms Reported Immunological/Allergic: no symptoms reported Past Ykwwwim-Xxjmij-Tifope Hx Past Med/Social Hx: Reviewed Nursing Past Med/Soc Hx Patient Social History Drug of Choice: meth Type Used: Cigarettes Former Smoker, Quit: Nov 04, 2015 2nd Hand Smoke Exposure: No Recent Foreign Travel: No Contact w/Someone Who Travel: No Recent Hopitalizations: Yes Immunizations Up To Date Tetanus Booster (TDap): Unknown PED Vaccines UTD: No Date of Pneumonia Vaccine: Mar 05, 2016 Date of Influenza Vaccine: Mar 26, 2016 Seasonal Allergies Seasonal Allergies: Yes Past Medical History Surgeries: Yes ( X5) Section Respiratory: Yes Asthma Currently Using CPAP: No Currently Using BIPAP: No Cardiac: No Neurological: No Reproductive Disorders: No Female Reproductive Disorders: Denies Sexually Transmitted Disease: No HIV/AIDS: No Genitourinary: No Gastrointestinal: Yes (HEPATITIS C +) Gastroesophageal Reflux, Liver Disease/Jaundice, Hepatitis Musculoskeletal: No Endocrine: No HEENT: No Loss of Vision: Denies Hearing Impairment: Denies Cancer: No Psychosocial: No Integumentary: No Blood Disorders: No Adverse Reaction/Blood Tranf: No Family Medical History Alcoholism 19 FATHER G8 BROTHER Arthritis 19 FATHER Cardiovascular disease 19 MOTHER Coronary thrombosis 19 MOTHER Diabetes mellitus 19 MOTHER MATERNAL GRANDMOTHER Myocardial infarction 19 MOTHER Neoplasm 19 FATHER (LUNG CANCER) 19 MOTHER Respiratory disorder 19 FATHER (EMPHYSEMA) Asthma Physical Exam Height, Weight, BMI Height: 5'1.00" Weight: 126lbs. 8.0oz. [id number]; 25.3 BMI Method:Actual General Appearance: WD/WN, mild distress Eyes: bilateral eye normal inspection Ears: bilateral ear TM red Nose: normal inspection Mouth/Throat: normal mouth inspection Neck: full range of motion, supple, normal inspection Cardiovascular: regular rate, rhythm Respiratory: chest non-tender, lungs clear, normal breath sounds Gastrointestinal: normal bowel sounds, non tender Neurologic/Psychiatric: no motor/sensory deficits, alert, oriented x 3 Skin: normal color, warm/dry Procedures/Interventions Date of ETT Placement: Oct 31, 2017 Time of ETT Placement: 1758 Progress/Results/Core Measures Progress Progress Note : Time: 10:49 Progress Note Patient has evidence of a bilateral otitis media. I discussed treatment options with patient. We will initiate amoxicillin and Ultram. I she'll follow up Departure Impression Primary Impression: Otitis media Qualified Codes: H66.93 - Otitis media, unspecified, bilateral Disposition: HOME, SELF-CARE Condition: Unchanged Departure-Patient Inst. Decision time for Depature: 10:54 Referrals: [facility],LOCAL PHYSICIAN (PCP) Primary Care Physician Patient Instructions: Ear Infections (Otitis Media) (DC) Add. Discharge Instructions: Amoxicillin and Ultram as prescribed. Close follow-up with [facility] on Friday. Return if any problems or questions. All discharge instructions reviewed with patient and/or family. Voiced understanding. Scripts Tramadol HCl (Ultram) 50 Mg Tablet 100 MG PO Q4H, #20 TAB Prov: LEXIE POLLACK MD 01/09/19 Amoxicillin (Amoxicillin) 500 Mg Capsule 1000 MG PO TID for 10 Days, #21 CAP 0 Refills Prov: LEXIE POLLACK MD 01/09/19 LEXIE POLLACK MD Jan 09, 2019 10:50
[2019-01-09] MEDS ORDERED: AMOX500C2 PO (10:58)
[2019-01-09] MEDS ORDERED: TRAM-42 PO (10:58)
[2019-01-09 10:59] VITALS: BP 108/88
== END 2019-01-09 10:59 | disposition home or self-care (01) ==
LOC: EDUNIT# 10:31 → ER 10:32
DX: H66.91 Otitis media, unspecified, right ear (principal); J45.909 Unspecified asthma, uncomplicated; B19.20 Unspecified viral hepatitis C without hepatic coma; K21.9 Gastro-esophageal reflux disease without esophagitis; Z88.8 Allergy status to other drugs, medicaments and biological substances; Z88.6 Allergy status to analgesic agent; Z87.891 Personal history of nicotine dependence; Z82.49 Family history of ischemic heart disease and other diseases of the circulatory system; Z80.1 Family history of malignant neoplasm of trachea, bronchus and lung
CPT/HCPCS: 99282

== ENCOUNTER → 2020-03-29 | Outpatient (CLI) | payer MEDICAID ==
[~2020-03-29] MED LIST changes: +ACHYD1T PO; -HYDR-3820 PO; -MONT10TA24 PO; +MONT10TA26 PO; +TRAM-42 PO
--- NOTE | 2020-03-29 13:17 | Diagnostic Imaging Report ---
INDICATION: survey. TECHNIQUE: Multiple real-time grayscale images were obtained over the gravid uterus. COMPARISON: None. FINDINGS: There is a single live fetus in a cephalic presentation. heart rate was recorded at 152 bpm. Placenta is posterior. Amniotic fluid volume is normal. Cervical length is 3.6 cm. survey demonstrates kidneys, bladder and stomach to be unremarkable. brain is unremarkable. There is a four-chambered heart. There is a three-vessel cord with normal insertion. spine is unremarkable. Biometrical measurements are as follows: Biparietal 4.6 cm, age 20 weeks 0 days. Head circumference 18.18 cm, age 20 weeks 5 days. Abdominal circumference 15.85 cm, age 21 weeks 0 days. Femur length 3.5 cm, age 21 weeks 1 days. Sonographic estimate age: 20 weeks 5 days. Sonographic estimated date of delivery: 08/11/2020. Estimated Weight: 386 gm (+/- 56 gm). LMP percentile: 33%. heart rate: 152 beats per minute. number: 1 of 1. IMPRESSION: Single live IUP 20 weeks 5 days gestational age. Estimated date of confinement sonographically is 08/11/2020. Dictated by: Dictated on workstation # [id number]
== END ==
LOC: RAD 10:30
PROVIDERS: ATTEND Obstetrics & Gynecology
DX: Z34.92 Encounter for supervision of normal pregnancy, unspecified, second trimester (principal); Z3A.20 20 weeks gestation of pregnancy
CPT/HCPCS: 76805

== ENCOUNTER 2020-08-02 05:40 | Outpatient (CLI) | payer MEDICAID ==
[~2020-08-02] VITALS: Ht 154.9 cm; Wt 74.5 kg
[~2020-08-02 05:40] MED LIST changes: -CLIN150C17 PO; +CLIN150C18 PO; -CLIN300C11 PO; +CLIN300C12 PO; -MONT10TA26 PO; +MONT10TA32 PO
[2020-08-04] MEDS ORDERED: ACHD5005 PO ×2 (09:43)
[2020-08-04] MEDS ORDERED: DCS100C PO ×2 (09:43)
[2020-08-04] MEDS ORDERED: IBUP-844 PO ×2 (09:43)
== END 2020-08-03 14:49 | disposition home or self-care (01) ==
LOC: PREOP 05:40
PROVIDERS: ATTEND Obstetrics & Gynecology
DX: Z01.818 Encounter for other preprocedural examination (principal)

== ENCOUNTER → 2020-08-03 | Outpatient (CLI) | payer MEDICAID ==
[~2020-08-03] MED LIST changes: +DCS100C PO; +IBUP-844 PO
--- NOTE | 2020-08-03 15:44 | Diagnostic Imaging Report ---
INDICATION: Supervision of normal . TECHNIQUE: Multiple real-time grayscale images were obtained over the gravid uterus. COMPARISON: 03/29/2020. FINDINGS: There is a single live fetus in a cephalic presentation. heart rate was recorded at 143 bpm. Placenta is posterior and fundal. Amniotic fluid index is approximately 22 cm. The kidneys, bladder and stomach are unremarkable. There is a four-chamber heart. There is three-vessel cord with normal insertion. spine is unremarkable. head evaluation is limited due to low position in the pelvis. Biometrical measurements are as follows: Biparietal 9.3 cm, age 37 weeks 6 days. Head circumference 32.38 cm, age 36 weeks 5 days. Abdominal circumference 35.74 cm, age 39 weeks 5 days. Femur length 7.3 cm, age 37 weeks 3 days. Sonographic estimate age: 38 weeks 0 days. Sonographic estimated date of delivery: 08/17/20. Estimated Weight: 3533 gm (+/- 516 gm). LMP percentile: 54%. heart rate: 143 beats per minute. number: 1 of 1. IMPRESSION: Single live IUP 38 weeks gestational age demonstrating normal interval growth when compared with prior exam. No complicating features are detected. Dictated by: Dictated on workstation # [id number]
== END ==
LOC: RAD 13:06
PROVIDERS: ATTEND Obstetrics & Gynecology
DX: Z34.03 Encounter for supervision of normal first pregnancy, third trimester (principal); Z3A.38 38 weeks gestation of pregnancy
CPT/HCPCS: 76805

== ENCOUNTER 2020-08-04 07:29 | Inpatient (IN) | payer MEDICAID ==
[2020-08-04] VITALS (9 sets, daily range): BP systolic 88–123; BP diastolic 47–79
[~2020-08-04 07:29] MED LIST changes: -DCS100C PO; -IBUP-844 PO
[2020-08-04] MEDS ORDERED: ceFAZolin 2 GM IV Premixed 50 ML IV ONE (08:00)
[2020-08-04 08:38] LABS: BASOPHILS % (AUTO) 0 % (0-10); EOSINOPHILS # (AUTO) 0.7 10^3/uL (0.0-0.3); EOSINOPHILS % (AUTO) 7 % (0-10); HEMATOCRIT 34 % (35-52); HEMOGLOBIN 10.8 g/dL (11.5-16.0); LYMPHOCYTES % (AUTO) 19 % (12-44); MEAN CORPUSCULAR HEMOGLOBIN 25 pg (25-34); MEAN CORPUSCULAR HGB CONC 32 g/dL (32-36); MEAN CORPUSCULAR VOLUME 78 fL (80-99); MONOCYTES # (AUTO) 0.7 10^3/uL (0.0-1.0); MONOCYTES % (AUTO) 6 % (0-12); NEUTROPHILS # (AUTO) 7.1 10^3/uL (1.8-7.8); NEUTROPHILS % (AUTO) 67 % (42-75); PLATELET COUNT 263 10^3/uL (130-400); WHITE BLOOD COUNT 10.6 10^3/uL (4.3-11.0)
[2020-08-04] MEDS ORDERED: CITRIC ACID/SOB CIT (BICITRA) 30 ML UDC ONE (08:40)
[2020-08-04] MEDS ORDERED: FAMOTIDINE 20MG/2ML IV (PEPCID) ONE (08:41)
[2020-08-04] MEDS ORDERED: METOCLOPRAMIDE INJ 10 MG/2 ML (REGLAN) ONE (08:41)
[2020-08-04] MEDS ORDERED: RT-ALBUTEROL/IPRATROPIUM 3 ML (DUONEB) VIAL ONE (08:43)
--- NOTE | 2020-08-04 08:50 | History & Physical-OB ---
OB - Chief Complaint & HPI Date/Time Date of Admission: Date of Admission: Aug 04, 2020 at 07:29 Date seen by a Provider: Aug 04, 2020 Time Seen by a Provider: 08:35 Chief Complaint/History OB-Reason for Admission/Chief: Section Hx : 9 Hx Para: 5 Expected Date of Delivery: Aug 08, 2020 Gestational Age in Weeks: 39 Gestational Age in Days: 3 Indication for : desires repeat Admission Nurse Assessment Rev: Yes History of Labs O pos Antibody neg RNI RPR NR HBsAg NR HIV NR GC- pos chlamydia (no JOY on file) GBS unknown Allergies and Home Medications Allergies Coded Allergies: chlorpheniramine (Verified Allergy, Unknown, 03/05/06) phenylephrine (Verified Allergy, Unknown, 03/05/06) phenylpropanolamine (Verified Allergy, Unknown, 03/05/06) phenyltoloxamine (Verified Allergy, Unknown, 03/05/06) Home Medications Albuterol Sulfate 1 Puff Puff, 2 PUFF IH Q4H PRN for SHORTNESS OF BREATH, (Reported) 1 PUFF = 90 MCG Montelukast Sodium 10 Mg Tablet, 10 MG PO HS, (Reported) Vit W-Ca,Fe,FA(<1 mg) 1 Each Tablet, 1 TAB PO DAILY, (Reported) Patient Home Medication List Home Medication List Reviewed: Yes OB - History Hx of Present Care: No Ultrasounds: Other (38 week US done due to no care between first visit, and 38 week appointment) Obstetrical Complications: Other (no care) Medical Complications: Respiratory (chronic asthma, questionable COPD) Obstetrical History Hx Termination: No Hx Multiple Gestation: No Hx Stillbirth: No Hx Complication: No Hx Induced Hypertens: No Hx Maternal Gestational Diabet: No Delivery History Hx Dystocia: No Hx Large For Gestational Age I: No Hx Small for Gestational Age I: No Hx Section: Yes (x4) Hx Vaginal Delivery Post C-Sec: No Hx Blood Disorders: No Adverse Rxn to Tranfusion: No Patient Past Medical History Severe Persistant Asthma Hepatitis C +Amphetamines and Cocaine on UDS Social History/Family History 2nd Hand Smoke Exposure: No Immunizations Hepatitis A: No Hepatitis B: No Tetanus Booster (TDap): Unknown Date of Pneumonia Vaccine: Mar 05, 2016 Date of Influenza Vaccine: Mar 26, 2016 OB - Admission Exam Physical Exam HEENT: NCAT Heart: Rhythm Normal Lungs: Wheezes Abdomen: Gravid Extremities: Normal Reflexes: Normal Heart Rate: 130's Accelerations: Accelerations Present Prison Variability: Average (6-25) Contractions on Admission: >10 Minutes Apart Intensity: Mild Labs Laboratory Tests Test 08/04/20 07:45 08/04/20 08:18 Range/Units White Blood Count 10.6 4.3-11.0 10^3/uL Red Blood Count 4.38 3.80-5.11 10^6/uL Hemoglobin 10.8 L 11.5-16.0 g/dL Hematocrit 34 L 35-52 % Mean Corpuscular Volume 78 L 80-99 fL Mean Corpuscular Hemoglobin 25 25-34 pg Mean Corpuscular Hemoglobin Concent 32 32-36 g/dL Red Cell Distribution Width 15.0 H 10.0-14.5 % Platelet Count 263 130-400 10^3/uL Mean Platelet Volume 11.0 9.0-12.2 fL Immature Granulocyte % (Auto) 1 % Neutrophils (%) (Auto) 67 42-75 % Lymphocytes (%) (Auto) 19 12-44 % Monocytes (%) (Auto) 6 0-12 % Eosinophils (%) (Auto) 7 0-10 % Basophils (%) (Auto) 0 0-10 % Neutrophils # (Auto) 7.1 1.8-7.8 10^3/uL Lymphocytes # (Auto) 2.0 1.0-4.0 10^3/uL Monocytes # (Auto) 0.7 0.0-1.0 10^3/uL Eosinophils # (Auto) 0.7 H 0.0-0.3 10^3/uL Basophils # (Auto) 0.0 0.0-0.1 10^3/uL Immature Granulocyte # (Auto) 0.1 0.0-0.1 10^3/uL OB - Assessment/Plan/Diagnosis Assessment Assessment: section Admission Dx 35 yo @ 39 weeks Previous x 5 Chronic persistant asthma + UDS cocaine and amphetamines Tobacco use in No care + Chlamydia at 1st visit, no JOY documented GBS unknown Admission Status: Inpatient Order (span 2 midnights) Reason for Inpatient Admission: repeat Plan Plan: Section Other Plan Breathing treatment Azithromycin due to unknown chlamydia status FENECH,PARK S DO Aug 04, 2020 08:50
[2020-08-04 08:56] LABS: AMPHETAMINE SCREEN, URINE POSITIVE (NEGATIVE); BARBITURATE SCREEN URINE NEGATIVE (NEGATIVE); BENZODIAZEPINES SCREEN URINE NEGATIVE (NEGATIVE); CANNABINOID SCREEN, URINE NEGATIVE (NEGATIVE); COCAINE SCREEN URINE POSITIVE (NEGATIVE); METHADONE STAT NEGATIVE (NEGATIVE); METHAMPHETAMINE SCREEN URINE S NEGATIVE (NEGATIVE); OPIATE SCREEN URINE NEGATIVE (NEGATIVE); OXYCODONE STAT NEGATIVE (NEGATIVE); PROPOXYPHENE STAT NEGATIVE (NEGATIVE); TRICYCLIC ANTIDEPRESSANTS SCRE NEGATIVE (NEGATIVE)
[2020-08-04] MEDS ORDERED: CITRIC ACID/SOB CIT (BICITRA) 30 ML UDC PO ONE (09:00)
[2020-08-04] MEDS ORDERED: CATHETER FLUSH 10 ML SYR IV PRN (09:00)
[2020-08-04] MEDS ORDERED: FAMOTIDINE 20MG/2ML IV (PEPCID) IV ONE (09:00)
[2020-08-04] MEDS ORDERED: LACTATED RINGERS 1,000 ML IV PRN ×2 (09:00)
[2020-08-04] MEDS ORDERED: METOCLOPRAMIDE INJ 10 MG/2 ML (REGLAN) IV ONE (09:00)
[2020-08-04] MEDS ORDERED: OXYTOCIN PRE-MIX DRIP 1,000 ML IV ONE (09:08)
[2020-08-04] MEDS ORDERED: fentaNYL INJECTION 100 MCG/2 ML AMP ONE (09:08)
[2020-08-04] MEDS ORDERED: AZITHROMYCIN INJECTION 500 MG/5 ML VIAL ONE (09:16)
[2020-08-04] MEDS ORDERED: WATER (STERILE) FOR INJECTION 0 ML ONE (09:18)
[2020-08-04] MEDS ORDERED: AZITHROMYCIN INJECTION 500 MG in NS (IVPB) 250 ML IV SCH (09:22)
--- NOTE | 2020-08-04 09:40 | Discharge Inst-Women's Service ---
Discharge Inst-Women's Serv Depart Medication/Instructions New, Converted or Re-Newed RX: RX on Chart Final Diagnosis POD 2 RLTCS Problems Reviewed?: Yes Consults/Follow Up Additional Follow Up: Yes Orders/Referrals Dr. Miles in 7-10 days and in 6 weeks Activity Activity: Activity as Tolerated Driving Instructions: No Driving for 1 Week NO SMOKING: NO SMOKING Nothing Inside Vagina: No Douching, No [place], No Tampons Diet Discharge Diet: No Restrictions Symptoms to Report to : Bleeding Excessive, Pain Increased, Fever Over 101 Degrees F, Vaginal Bleeding Increase, Questions/Concerns For Any Problems or Questions: Contact Your Physician Skin/Wound Care Infection Signs and Symptoms: Increased Redness, Foul Odor of Wound, Increased Drainage, Skin Itchy or Has a Rash, Increased Swelling, Temperature Above 101 F Operative Area Clean and Dry: Keep Incision Clean/Dry Stitches/Lee/Dermabond: Dermabond, Care of Stitches Bathing Instructions: PARK Rodas DO Aug 04, 2020 09:40
[2020-08-04] MEDS ORDERED: DCS100C PO ×2 (09:43)
[2020-08-04] MEDS ORDERED: IBUP-844 PO ×2 (09:43)
[2020-08-04] MEDS ORDERED: ACHD5005 PO ×2 (09:43)
[2020-08-04] MEDS ORDERED: MEASLES,MUMPS,RUBELLA 1 EA INJ SC SCH (09:45)
[2020-08-04] MEDS ORDERED: ONDANSETRON 4 MG/2 ML (SDV) Z0FRAN IVP PRN (09:45)
[2020-08-04] MEDS ORDERED: OXYTOCIN PRE-MIX DRIP 500 ML IV SCH (09:45)
[2020-08-04] MEDS ORDERED: TETANUS,DIPTH,PERTUSS P/F (BOOSTRIX) 0.5 ML VIAL IM SCH (09:45)
[2020-08-04] MEDS ORDERED: PHENYLEPHRINE 100 MCG/ML 10 ML (ANESTHESIA) SYR ONE (10:10)
[2020-08-04] MEDS: KETOROLAC 30 MG/ML VIAL IV SCH ×2 (11:13→17:46)
[2020-08-04] MEDS: HYDROcodone/APAP 5 MG/325 MG (LORTAB) TAB PO PRN ×2 (13:19→19:42)
[2020-08-04] MEDS ORDERED: CATHETER FLUSH 10 ML SYR IV SCH (14:00)
--- NOTE | 2020-08-04 16:50 | OPERATIVE REPORT ---
DATE OF SERVICE: PREOPERATIVE DIAGNOSES: 1. A 35-year-old G9, P5 at 39 weeks gestation. 2. Previous section x5. 3. Chronic persistent asthma. 4. Positive urine drug screen for cocaine and amphetamines. 5. Tobacco use in . 6. No care. 7. Positive chlamydia on first visit with no test of cure documented after. 8. GBS unknown. POSTOPERATIVE DIAGNOSES: 1. A 35-year-old G9, P5 at 39 weeks gestation. 2. Previous section x5. 3. Chronic persistent asthma. 4. Positive urine drug screen for cocaine and amphetamines. 5. Tobacco use in . 6. No care. 7. Positive chlamydia on first visit with no test of cure documented after. 8. GBS unknown. PROCEDURE: Repeat low transverse section. SURGEON: Ramón Fernando DO ANESTHESIA: Spinal. ESTIMATED BLOOD LOSS: 500 mL. URINE OUTPUT: 75 mL clear at the end of the procedure. FLUIDS: 1200 mL lactated Ringer's solution. FINDINGS: A live female infant weighing 7 pounds 14 ounces, Apgars of 8 and 9. Grossly normal appearing uterus, bilateral fallopian tubes and ovaries. SPECIMEN SENT: Placenta. INDICATIONS FOR PROCEDURE: This 35-year-old female is a patient who had seen me for first visit and then had not followed up until this week at 38-39 weeks asking to be delivered, she had 5 prior cesareans. We scheduled her as soon as possible due to my concerns for no care. We also ordered a stat ultrasound, which demonstrated a grossly normal appearing baby on ultrasound; however, UDS was ordered at time of admission as well, which revealed positive cocaine and amphetamines on the urine drug screen. The patient also admits to tobacco use quite frequently throughout the , which was concerning given the patient's history of chronic persistent asthma. I discussed with the patient all the risks including these included risk involved with a history of illicit drug use and asthma that has been going untreated and uncontrolled throughout her and concerns for respiratory effort. She was given a breathing treatment perioperatively. After all of her questions were answered, consent was obtained in the preoperative area and the patient was taken to the operating room. OPERATIVE REPORT IN DETAIL: Once in the operating room, spinal analgesia was found to be adequate. She was placed in supine position with leftward tilt, prepped and draped in normal sterile fashion. Timeout was performed and anesthesia was tested to make a Pfannenstiel skin incision through the previously existing scar using knife and carried down to underlying fascia using Bovie cautery. The fascial incision extended laterally using Bovie cautery. Superior aspect of fascial incision was then grasped with Omer clamps, tented up and dissected off the underlying rectus muscles. The inferior aspect of the fascial incision was then grasped with Omer clamps, tented up and dissected off the underlying rectus muscles. The rectus muscles were then dissected down the midline using Jha scissors, which exposed the peritoneum, which I entered bluntly and extended using blunt traction. I then placed an Jose ring retractor within the peritoneal incision, which offers excellent lateral sidewall retraction identified the lower uterine segment, which was found to be thinned out and make a low transverse incision to the vesicouterine peritoneum and bluntly dissected off the lower uterine segment, creating a bladder flap, proceeded with myotomy using the knife I find the membranes extended the uterine incision laterally and superiorly using bandage scissors. Amniotomy was performed using Allis clamp. Clear fluid was noted. The was found in vertex presentation. With gentle fundal pressure, the infant's head was elevated up the incision where it was delivered through the incision. The nares and oropharynx were bulb suctioned. Anterior and posterior shoulders were delivered. Infant was then brought up onto the operative field where the cord was doubly clamped and cut and was handed off to waiting nurses in attendance. Cord blood was collected, 3-vessel cord with intact placenta was delivered spontaneously thereafter. IV Pitocin was initiated to facilitate uterine contraction. Uterine fundus confirmed by manual massage. The uterus was then exteriorized and cleared of all endometrial clots and debris. I then proceeded with closing the uterine incision using 0 Vicryl suture in running locked fashion. Second layer of imbricating 0 Monocryl was placed. Excellent hemostasis was noted after doing this. I then placed the uterus back within the pelvis and copiously irrigated the pelvis using normal saline. There was no active bleeding noted from any of my dissection planes. I placed Interceed antiadhesive over my low transverse incision and then removed the Jose ring retractor. I then proceeded with closing the peritoneum using 3-0 Vicryl suture in running fashion. The rectus muscles were reapproximated using 3-0 Vicryl suture in interrupted fashion. The fascia was reapproximated using 0 Vicryl suture in running fashion. Subcutaneous tissue is thin; therefore, I just reapproximated the skin using 4-0 Monocryl running subcuticular. Dermabond was applied to incision and sterile dressing with adhesive white tape. The patient tolerated the procedure well and sent to recovery in stable condition. Lap and sponge counts were correct at the end of procedure. Instrument counts correct as well. Two grams of Ancef and 500 mg of azithromycin were given preoperatively for infection prophylaxis. The azithromycin was added due to my nonconfirmed test of cure for previous chlamydia. Job ID: [id number] DocumentID: [id number] Dictated Date: 08/04/2020 11:24:42 Toll Settlement Clerk Date: 08/04/2020 16:48:55 Dictated By: RAMÓN FERNANDO DO
[2020-08-04] MEDS: DOCUSATE SODIUM 100 MG (COLACE) CAP PO SCH (21:25)
[2020-08-05] MEDS: KETOROLAC 30 MG/ML VIAL IV SCH ×2 (00:08→05:53)
[2020-08-05] MEDS: HYDROcodone/APAP 5 MG/325 MG (LORTAB) TAB PO PRN ×4 (02:20→20:34)
[2020-08-05 02:21] VITALS: BP 116/59
[2020-08-05 05:55] VITALS: BP 115/67
[2020-08-05 06:04] LABS: BASOPHILS % (AUTO) 1 % (0-10); EOSINOPHILS # (AUTO) 0.4 10^3/uL (0.0-0.3); EOSINOPHILS % (AUTO) 4 % (0-10); HEMATOCRIT 29 % (35-52); LYMPHOCYTES # (AUTO) 1.8 10^3/uL (1.0-4.0); LYMPHOCYTES % (AUTO) 22 % (12-44); MEAN CORPUSCULAR HEMOGLOBIN 25 pg (25-34); MEAN CORPUSCULAR HGB CONC 32 g/dL (32-36); MEAN CORPUSCULAR VOLUME 79 fL (80-99); MEAN PLATELET VOLUME 11.4 fL (9.0-12.2); MONOCYTES # (AUTO) 0.5 10^3/uL (0.0-1.0); MONOCYTES % (AUTO) 6 % (0-12); NEUTROPHILS # (AUTO) 5.6 10^3/uL (1.8-7.8); NEUTROPHILS % (AUTO) 67 % (42-75); PLATELET COUNT 267 10^3/uL (130-400); WHITE BLOOD COUNT 8.3 10^3/uL (4.3-11.0)
[2020-08-05 07:30] VITALS: BP 107/59
[2020-08-05] MEDS: DOCUSATE SODIUM 100 MG (COLACE) CAP PO SCH ×2 (08:47→20:34)
--- NOTE | 2020-08-05 08:50 | Postpartum Progress Note ---
Note Note Day # 1 Subjective: Patient is without complaints. Ambulating, voiding. Tolerating a regular diet without nausea or vomiting. Normal lochia. Pain is well controlled with oral pain medications. Objective: Physical Exam: General - Alert and oriented, no apparent distress Abdomen - Soft, appropriately tender to palpation, non-distended, fundus firm at umbilicus Extremities - no edema, negative Regina's bilaterally Incision- c/d/i Assessment: POD 1 RLTCS Acute blood loss anemia Plan: Routine care. Encourage breast feeding. Encourage ambulation. Ferrous sulfate supplementation. Plan for discharge today Vitals - Labs Vital Signs - I&O Vital Signs Date Time Temp Pulse Resp B/P (MAP) Pulse Ox O2 Delivery O2 Flow Rate FiO2 08/05/20 07:30 95 Room Air 08/05/20 07:30 36.8 85 16 107/59 (75) 95 Room Air 08/05/20 05:55 36.5 74 22 115/67 (83) 96 Room Air 08/05/20 02:21 36.2 83 18 116/59 (78) 98 Room Air 08/04/20 21:59 36.2 97 20 105/58 (74) 96 Room Air 08/04/20 21:00 96 Room Air 08/04/20 17:49 36.1 96 18 118/67 (84) 95 Room Air 08/04/20 13:20 36.9 87 18 117/55 (75) 96 Room Air 08/04/20 11:15 Room Air 08/04/20 11:15 36.7 82 16 105/79 (88) 96 Room Air 08/04/20 11:15 36.7 16 105/79 (88) 97 Room Air 08/04/20 11:00 Room Air 08/04/20 11:00 36.2 16 101/63 (76) 97 Room Air 08/04/20 10:45 Room Air 08/04/20 10:45 36.1 16 93/58 (70) 94 Room Air 08/04/20 10:28 99 Room Air 08/04/20 10:28 Room Air 08/04/20 10:28 36.8 16 88/47 (61) 99 Room Air I & O 08/05/20 07:00 Intake Total 2370 ml Output Total 1675 ml Balance 695 ml Labs Laboratory Tests 08/05/20 05:53: White Blood Count 8.3, Red Blood Count 3.61L, Hemoglobin 9.0L, Hematocrit 29L, Mean Corpuscular Volume 79L, Mean Corpuscular Hemoglobin 25, Mean Corpuscular Hemoglobin Concent 32, Red Cell Distribution Width 15.3H, Platelet Count 267, Mean Platelet Volume 11.4, Immature Granulocyte % (Auto) 1, Neutrophils (%) (Auto) 67, Lymphocytes (%) (Auto) 22, Monocytes (%) (Auto) 6, Eosinophils (%) (Auto) 4, Basophils (%) (Auto) 1, Neutrophils # (Auto) 5.6, Lymphocytes # (Auto) 1.8, Monocytes # (Auto) 0.5, Eosinophils # (Auto) 0.4H, Basophils # (Auto) 0.0, Immature Granulocyte # (Auto) 0.1 Microbiology 08/04/20 MRSA Screen - Final, Complete MRSA not isolated PARK FERNANDO DO Aug 05, 2020 08:50
--- NOTE | 2020-08-05 09:11 | Anesthesia-Regional Post-Op ---
Regional Patient Condition Mental Status: Alert, Oriented x3 Circulation: Same as Pre-Op Headache: Absent Sensation: Full Recovery Motor Block: Absent Post Op Complications Complications None Follow Up Care/Instructions Patient Instructions None needed. Anesthesia/Patient Condition Patient is doing well, no complaints, stable vital signs, no apparent adverse anesthesia problems. No complications reported per nursing. THOMAS SAUNDERS CRNA Aug 05, 2020 09:11
[2020-08-05] MEDS: IBUPROFEN 600 MG (MOTRIN) TAB PO SCH ×2 (12:46→18:08)
[2020-08-05 13:50] VITALS: BP 111/72
[2020-08-05] MEDS ORDERED: FLU QUADRIvalent (3YOA+) 60 mcg/0.5 ml 2020-21 (AFLURIA) IM ONE (17:00)
[2020-08-05 18:06] VITALS: BP 116/64
[2020-08-05] MEDS: SIMETHICONE 80 MG (MYLICON) CHEW PO PRN (20:48)
[2020-08-06 00:20] VITALS: BP 115/65
[2020-08-06] MEDS: IBUPROFEN 600 MG (MOTRIN) TAB PO SCH ×5 (00:20→23:33)
[2020-08-06] MEDS: HYDROcodone/APAP 5 MG/325 MG (LORTAB) TAB PO PRN ×4 (03:35→23:57)
[2020-08-06 06:35] VITALS: BP 114/60
[2020-08-06] MEDS: DOCUSATE SODIUM 100 MG (COLACE) CAP PO SCH ×2 (09:46→22:23)
--- NOTE | 2020-08-06 09:58 | Postpartum Progress Note ---
Note Note Day # 2 Subjective: Patient is without complaints. Ambulating, voiding. Tolerating a regular diet without nausea or vomiting. Normal lochia. Pain is well controlled with oral pain medications. Objective: Physical Exam: General - Alert and oriented, no apparent distress Abdomen - Soft, appropriately tender to palpation, non-distended, fundus firm at umbilicus Extremities - no edema, negative Regina's bilaterally Incision- c/d/i Assessment: POD 2 RLTCS Plan: Routine care. Encourage breast feeding. Encourage ambulation. Ferrous sulfate supplementation. Plan for discharge today Vitals - Labs Vital Signs - I&O Vital Signs Date Time Temp Pulse Resp B/P (MAP) Pulse Ox O2 Delivery O2 Flow Rate FiO2 08/06/20 06:35 36.3 76 18 114/60 (78) 95 Room Air 08/06/20 00:20 36.6 97 16 115/65 (82) 95 Room Air 08/05/20 18:06 36.3 87 16 116/64 (81) 95 Room Air 08/05/20 13:50 37.3 89 16 111/72 (85) 97 Room Air I & O 08/06/20 07:00 Intake Total 250 ml Balance 250 ml Labs Microbiology 08/04/20 MRSA Screen - Final, Complete MRSA not isolated PARK FERNANDO DO Aug 06, 2020 09:58
[2020-08-06 15:30] VITALS: BP 121/78
[2020-08-06 22:23] VITALS: BP 116/58
[2020-08-06] MEDS: SIMETHICONE 80 MG (MYLICON) CHEW PO PRN (23:57)
[2020-08-06 23:59] VITALS: BP 116/58
== END 2020-08-06 23:59 | disposition home or self-care (01) | DRG 787 ==
LOC: LDRP 07:29
PROVIDERS: ADMIT Obstetrics & Gynecology; ATTEND Obstetrics & Gynecology
PROC: 10D00Z1 Extraction of Products of Conception, Low, Open Approach (ICD-10-PCS; principal; 2020-08-04 08:30)
DX: O34.211 Maternal care for low transverse scar from previous cesarean delivery (principal); O98.413 Viral hepatitis complicating pregnancy, third trimester; O99.323 Drug use complicating pregnancy, third trimester; O98.82 Other maternal infectious and parasitic diseases complicating childbirth; D62 Acute posthemorrhagic anemia; O99.52 Diseases of the respiratory system complicating childbirth; Z3A.39 39 weeks gestation of pregnancy; Z37.0 Single live birth; J45.50 Severe persistent asthma, uncomplicated; B19.20 Unspecified viral hepatitis C without hepatic coma; F15.90 Other stimulant use, unspecified, uncomplicated; F14.90 Cocaine use, unspecified, uncomplicated; F17.210 Nicotine dependence, cigarettes, uncomplicated; O99.333 Smoking (tobacco) complicating pregnancy, third trimester; A56.02 Chlamydial vulvovaginitis; O90.81 Anemia of the puerperium; Z23 Encounter for immunization; Z88.8 Allergy status to other drugs, medicaments and biological substances
CPT/HCPCS: 36415; 80306; 85025; 86850; 86900; 86901; 87081; 90707; 90715; 94640; 94664

== ENCOUNTER → 2021-07-11 | Emergency (ER) | payer MEDICAID ==
[~2021-07-11] VITALS: Ht 154.9 cm; Wt 72.7 kg
[~2021-07-11] MED LIST changes: +CLIN-144 PO; -CLIN150C18 PO; +CLIN150C20 PO; -CLIN300C12 PO; +DOCU-239 PO; +EPINEPHrine 1 MG INJECTION 4 MG in NS (IVPB) 246 ML IV SCH; +EPINEPHrine INJECTION 1 MG/ML AMP IM ONE; +IBUP-844 PO; +KETAMINE HCL 100 MG/ML 5 ML VIAL IJ ONE; +KETAMINE INJECTION 500 MG in NS IV 500 ML 500 ML IV STA; +KETAMINE IV SCH; +MAGNESIUM 1 GM/100 ML IVPB 100 ML IV STA; +MIDAZOLAM 5 MG/5 ML (VERSED) VIAL IJ ONE; +MONT-40 PO; -MONT10TA32 PO; +NS IV 1000 ML 1,000 ML IV SCH; +NS IV 1000 ML 1,000 ML IV STA; +NS IV 1000 ML 1,000 ML ONE; +ONDANSETRON 4 MG/2 ML (SDV) Z0FRAN ONE; +ROCURONIUM 10 MG/ML 5 ML SYRINGE IV ONE; +RT-ALBUTEROL SULF 2.5 MG/3 ML PRE-MIX VIAL ONE; +RT-ALBUTEROL/IPRATROPIUM 3 ML (DUONEB) VIAL IH ONE; +RT-ALBUTEROL/IPRATROPIUM 3 ML (DUONEB) VIAL ONE; +SODIUM CHLORIDE IV SCH; +fentaNYL INJ 100 MCG/2 ML AMP IV ONE
[2021-07-11 09:19] LABS: BASOPHILS % (AUTO) 1 % (0-10); EOSINOPHILS # (AUTO) 0.6 10^3/uL (0.0-0.3); EOSINOPHILS % (AUTO) 8 % (0-10); HEMATOCRIT 39 % (35-52); HEMOGLOBIN 12.5 g/dL (11.5-16.0); LYMPHOCYTES # (AUTO) 1.5 10^3/uL (1.0-4.0); LYMPHOCYTES % (AUTO) 21 % (12-44); MEAN CORPUSCULAR HEMOGLOBIN 28 pg (25-34); MEAN CORPUSCULAR HGB CONC 32 g/dL (32-36); MEAN CORPUSCULAR VOLUME 88 fL (80-99); MEAN PLATELET VOLUME 9.5 fL (9.0-12.2); MONOCYTES # (AUTO) 0.7 10^3/uL (0.0-1.0); MONOCYTES % (AUTO) 9 % (0-12); NEUTROPHILS # (AUTO) 4.4 10^3/uL (1.8-7.8); NEUTROPHILS % (AUTO) 61 % (42-75); PLATELET COUNT 312 10^3/uL (130-400); WHITE BLOOD COUNT 7.2 10^3/uL (4.3-11.0)
[2021-07-11 09:24] LABS: ALBUMIN 3.7 GM/DL (3.2-4.5); POTASSIUM 3.5 MMOL/L (3.6-5.0)
[2021-07-11 09:25] LABS: CALCIUM 8.5 MG/DL (8.5-10.1)
--- NOTE | 2021-07-11 09:25 | ED Respiratory ---
General Chief Complaint: Respiratory Problems Stated Complaint: ASTHMA ATTACK Nursing Triage Note: 0901 TO ED PER EMS FROM HOME WITH ASTHMA ATTACK ONSET YESTERDAY. X1 DUONEB BY EMS EMS REPORTS HOUSE FULL OF SMOKE. PATIENT IS APX 6 MONTHS PREG. PATIENT BREATHING IN TRIPOD POSITION. Source: patient, EMS Exam Limitations: no limitations History of Present Illness Date Seen by Provider: Jul 11, 2021 Time Seen by Provider: 09:03 Initial Comments 36-year-old female with past medical history of asthma that is roughly 6 months coming in via EMS in respiratory distress. She says she felt like her asthma was getting worse yesterday with increasing cough. [place] significantly more short of breath today so she called EMS. Has been using her at home inhaler which has not been helping. EMS gave a DuoNeb x1. Initial sats were in the 70s they said with improvement to 99%. They states she was not moving a lot of air. She denies any chest pain, fever, vomiting, diarrhea, abdominal pain, vaginal bleeding, loss of fluid like her water broke, she feels baby moving, and has no other complaints. Allergies and Home Medications Allergies Coded Allergies: chlorpheniramine (Verified Allergy, Unknown, 03/05/06) phenylephrine (Verified Allergy, Unknown, 03/05/06) phenylpropanolamine (Verified Allergy, Unknown, 03/05/06) phenyltoloxamine (Verified Allergy, Unknown, 03/05/06) Patient Home Medication List Home Medication List Reviewed: Yes Albuterol Sulfate (Ventolin Hfa) 1 Puff Puff, 2 PUFF IH Q4H PRN for SHORTNESS OF BREATH, (Reported) Entered as Reported by: CARMELA SOSA on 10/31/17 1120 Docusate Sodium (Dok) 100 Mg Capsule, 100 MG PO BID Prescribed by: PARK FERNANDO on 08/04/20 09 Hydrocodone Bit/Acetaminophen (HYDROcodone/APAP 5 MG/325 MG TAB) 1 Tab Tab, 1-2 EA PO Q6HR PRN for PAIN-MODERATE (5-7) Prescribed by: PARK FERNANDO on 08/04/20 09 Ibuprofen (Ibu) 600 Mg Tablet, 600 MG PO Q6HR Prescribed by: PARK FERNANDO on 08/04/20 09 Vit W-Ca,Fe,FA(<1 mg) ( Formula) 1 Each Tablet, 1 TAB PO DAILY, (Reported) Entered as Reported by: CARMELA SOSA on 10/31/17 1120 Review of Systems Review of Systems Constitutional: No chills, No fever Respiratory: cough, short of breath Cardiovascular: No chest pain Gastrointestinal: No abdominal pain Genitourinary: no symptoms reported Expected Date of Delivery: Oct 31, 2021 Musculoskeletal: no symptoms reported Skin: no symptoms reported Psychiatric/Neurological: No Symptoms Reported Hematologic/Lymphatic: No Symptoms Reported Immunological/Allergic: no symptoms reported All Other Systems Reviewed Negative Unless Noted: Yes Past Xznhanp-Flfywn-Hrjkxy Hx Patient Social History Tobacco Use?: No Use of E-Cig and/or Vaping dev: No Alcohol Use?: No Immunizations Up To Date Tetanus Booster (TDap): Unknown PED Vaccines UTD: No First/Initial COVID19 Vaccinat: X1 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 Seasonal Allergies Seasonal Allergies: Yes Past Medical History Surgeries: Yes ( X5) Section Respiratory: Yes Asthma Currently Using CPAP: No Currently Using BIPAP: No Cardiac: No Neurological: No Expected Date of Delivery: Oct 31, 2021 Last Menstrual Period: Jan 24, 2021 Reproductive Disorders: No Female Reproductive Disorders: Denies Sexually Transmitted Disease: No HIV/AIDS: No Genitourinary: No Gastrointestinal: Yes (HEPATITIS C +) Gastroesophageal Reflux, Liver Disease/Jaundice, Hepatitis Musculoskeletal: No Endocrine: No HEENT: No Loss of Vision: Denies Hearing Impairment: Denies Cancer: No Psychosocial: No Integumentary: No Blood Disorders: No Adverse Reaction/Blood Tranf: No Family Medical History Alcoholism 19 FATHER G8 BROTHER Arthritis 19 FATHER Cardiovascular disease 19 MOTHER Coronary thrombosis 19 MOTHER Diabetes mellitus 19 MOTHER MATERNAL GRANDMOTHER Myocardial infarction 19 MOTHER Neoplasm 19 FATHER (LUNG CANCER) 19 MOTHER Respiratory disorder 19 FATHER (EMPHYSEMA) Asthma Physical Exam Vital Signs - First Documented 07/11/21 07/11/21 09:02 09:30 Temp 35.1 Pulse 117 Resp 28 B/P (MAP) 144/98 (113) Pulse Ox 99 O2 Delivery Non Rebreather O2 Flow Rate 10.00 FiO2 30 Capillary Refill : Less Than 3 Seconds Height: 5'1.00" Weight: 130lbs. 8.0oz. 58.832814gd; 30.00 BMI Method:Stated General Appearance: WD/WN, severe distress Eyes: Bilateral Eye Normal Inspection, Bilateral Eye PERRL HEENT: PERRL/EOMI, normal ENT inspection Neck: non-tender, full range of motion, supple, normal inspection Respiratory: chest non-tender, decreased breath sounds, accessory muscle use, wheezing, other (Tripod position) Cardiovascular: no edema, no murmur, tachycardia Gastrointestinal: normal bowel sounds, non tender, soft; No distended, No guard ing, No rebound; other (Gravid) Extremities: normal range of motion, non-tender, normal inspection, no pedal edema, no calf tenderness, normal capillary refill Neurologic/Psychiatric: no motor/sensory deficits, alert, normal mood/affect Skin: normal color, warm/dry Lymphatic: no adenopathy Procedures/Interventions Reason for Intubation: status asthmaticus, acute hypoxic respiratory failure Date of ETT Placement: Oct 31, 2017 Time of ETT Placement: 1758 Intubation Method: orotracheal Tube Size: 7.5 Medications: Rocuronium (ketamine) Positive End Tide CO2: Yes Breath Sounds after Intubation: bilateral-equal Intubation Complications: no complications Post Intubation Xray: Yes ETT in good position, OG difficult to visualize tube is 22cm at the teeth, OG tube was then placed at 50cm at the lip Progress/Results/Core Measures Suspected Sepsis SIRS Temperature: Pulse: 117 Respiratory Rate: 28 Laboratory Tests 07/11/21 09:00: White Blood Count 7.2 Blood Pressure 144 /98 Mean: 113 Laboratory Tests 07/11/21 09:00: Creatinine 0.59L, Platelet Count 312, Total Bilirubin 0.3 Results/Orders Lab Results Laboratory Tests Test 07/11/21 09:00 07/11/21 09:24 07/11/21 10:05 07/11/21 10:16 Range/Units White Blood Count 7.2 4.3-11.0 10^3/uL Red Blood Count 4.47 3.80-5.11 10^6/uL Hemoglobin 12.5 11.5-16.0 g/dL Hematocrit 39 35-52 % Mean Corpuscular Volume 88 80-99 fL Mean Corpuscular Hemoglobin 28 25-34 pg Mean Corpuscular Hemoglobin Concent 32 32-36 g/dL Red Cell Distribution Width 14.6 H 10.0-14.5 % Platelet Count 312 130-400 10^3/uL Mean Platelet Volume 9.5 9.0-12.2 fL Immature Granulocyte % (Auto) 0 % Neutrophils (%) (Auto) 61 42-75 % Lymphocytes (%) (Auto) 21 12-44 % Monocytes (%) (Auto) 9 0-12 % Eosinophils (%) (Auto) 8 0-10 % Basophils (%) (Auto) 1 0-10 % Neutrophils # (Auto) 4.4 1.8-7.8 10^3/uL Lymphocytes # (Auto) 1.5 1.0-4.0 10^3/uL Monocytes # (Auto) 0.7 0.0-1.0 10^3/uL Eosinophils # (Auto) 0.6 H 0.0-0.3 10^3/uL Basophils # (Auto) 0.0 0.0-0.1 10^3/uL Immature Granulocyte # (Auto) 0.0 0.0-0.1 10^3/uL Sodium Level 141 135-145 MMOL/L Potassium Level 3.5 L 3.6-5.0 MMOL/L Chloride Level 109 H 98-107 MMOL/L Carbon Dioxide Level 21 21-32 MMOL/L Anion Gap 11 5-14 MMOL/L Blood Urea Nitrogen 7 7-18 MG/DL Creatinine 0.59 L 0.60-1.30 MG/DL Estimat Glomerular Filtration Rate 120 BUN/Creatinine Ratio 12 Glucose Level 135 H 70-105 MG/DL Calcium Level 8.5 8.5-10.1 MG/DL Corrected Calcium 8.7 8.5-10.1 MG/DL Total Bilirubin 0.3 0.1-1.0 MG/DL Aspartate Amino Transf (AST/SGOT) 18 5-34 U/L Alanine Aminotransferase (ALT/SGPT) 17 0-55 U/L Alkaline Phosphatase 53 40-136 U/L Total Protein 6.9 6.4-8.2 GM/DL Albumin 3.7 3.2-4.5 GM/DL Influenza Type A (RT-PCR) Not Detected Not Detecte Influenza Type B (RT-PCR) Not Detected Not Detecte SARS-CoV-2 RNA (RT-PCR) Not Detected Not Detecte Membranes Rupture NEGATIVE Urine Color YELLOW Urine Clarity CLOUDY Urine pH 5.5 5-9 Urine Specific [place] >=1.030 1.016-1.022 Urine Protein 2+ H NEGATIVE Urine Glucose (UA) 3+ H NEGATIVE Urine Ketones NEGATIVE NEGATIVE Urine Nitrite NEGATIVE NEGATIVE Urine Bilirubin NEGATIVE NEGATIVE Urine Urobilinogen 0.2 < = 1.0 MG/DL Urine Leukocyte Esterase NEGATIVE NEGATIVE Urine RBC (Auto) NEGATIVE NEGATIVE Urine RBC NONE /HPF Urine WBC 5-10 H /HPF Urine Squamous Epithelial Cells 10-25 H /HPF Urine Crystals NONE /LPF Urine Bacteria MODERATE H /HPF Urine Casts NONE /LPF Urine Mucus NEGATIVE /LPF Urine Culture Indicated YES Test 07/11/21 10:20 Range/Units Blood Gas Puncture Site LT RADIAL Blood Gas Patient Temperature 35.6 Arterial Blood pH 7.23 *L 7.37-7.43 Arterial Blood Partial Pressure CO2 49 H 35-45 MMHG Arterial Blood Partial Pressure O2 128 H 79-93 MMHG Arterial Blood HCO3 21 L 23-27 MMOL/L Arterial Blood Total CO2 22.1 21.0-31.0 MMOL/L Arterial Blood Oxygen Saturation 99 94-100 % Arterial Blood Base Excess -6.0 L -2.5-2.5 MMOL/L Familia Test YES-POS Blood Gas Ventilator Setting YES Blood Gas Inspired Oxygen 50% My Orders Orders - BOYD LATIF MD Albuterol/Ipra Inhalation Soln (Duoneb I (07/11/21 09:10) Chest 1 View, Ap/Pa Only (07/11/21 09:10) Cbc With Automated Diff (07/11/21 09:10) Comprehensive Metabolic Panel (07/11/21 09:10) Influenza A And B By Pcr (07/11/21 09:10) Covid 19 Inhouse Test (07/11/21 09:10) Monitor-Rhythm Ecg Trace Only (07/11/21 09:10) Pulse Oximetry Order (07/11/21 09:10) Rt Request For Service (07/11/21 09:10) Bipap (Bilevel) Set Up (07/11/21 09:10) Albuterol/Ipra Inhalation Soln (Duoneb I (07/11/21 09:15) Magnesium 1 Gm/100 Ml Ivpb (Magnesium [place] (07/11/21 09:10) Epinephrine 1 Mg Injection (Adrenalin I (07/11/21 09:15) Ns Iv 1000 Ml (Sodium Chloride 0.9%) (07/11/21 09:21) Dexamethasone Injection (Decadron Inje (07/11/21 09:20) Ns Iv 1000 Ml (Sodium Chloride 0.9%) (07/11/21 09:22) Albuterol Pre-Mix Nebs (Rt) (Proventil (07/11/21 09:23) Epinephrine 1 Mg Injection (Adrenalin I (07/11/21 09:30) Ondansetron Injection (Zofran Injectio (07/11/21 09:41) Ns Iv 500 Ml ([place]... W/Ketamine Inject (07/11/21 10:00) Chest 1 View, Ap/Pa Only (07/11/21 10:02) Ns Iv 500 Ml (Sodiu... W/Ketamine Inject (07/11/21 10:11) Rupture Of Membrane (Rom) (07/11/21 10:20) Ua Culture If Indicated (07/11/21 10:20) Ed Iv/Invasive Line Start (07/11/21 10:20) Ns Iv 1000 Ml (Sodium Chloride 0.9%) (07/11/21 10:30) Ekg Tracing (07/11/21 10:20) Catheter(Urinary) Insert & Ass 03,15 (07/11/21 10:20) Arterial Blood Gas (07/11/21 10:22) Urine Culture (07/11/21 10:16) Rocuronium 5 Ml Syringe (Rocuronium 5 Ml (07/11/21 11:15) Sputum Culture (07/11/21 11:07) Medications Given in ED Current Medications Medications Dose Ordered Sig/Juan José Route Start Time Stop Time Status Last Admin Dose Admin Albuterol Sulfate 2.5 mg STK-MED ONCE .ROUTE 07/11/21 09:23 07/11/21 09:27 DC 07/11/21 09:30 15 MG Albuterol/ Ipratropium 3 ml ONCE ONCE IH 07/11/21 09:15 07/11/21 09:16 DC 07/11/21 09:29 3 ML Dexamethasone Sodium Phosphate 10 mg STK-MED ONCE .ROUTE 07/11/21 09:20 07/11/21 09:24 DC 07/11/21 09:20 10 MG Epinephrine HCl 0.3 mg ONCE ONCE IM 07/11/21 09:15 07/11/21 09:16 DC 07/11/21 09:15 0.3 MG Epinephrine HCl 0.3 mg ONCE ONCE IM 07/11/21 09:30 07/11/21 09:31 DC 07/11/21 09:30 0.3 MG Ondansetron HCl 4 mg STK-MED ONCE .ROUTE 07/11/21 09:41 07/11/21 09:45 DC 07/11/21 09:40 4 MG Rocuronium [place] 100 mg ONCE ONCE IV 07/11/21 11:15 07/11/21 11:16 DC 07/11/21 11:28 100 MG Vital Signs/I&O 07/11/21 07/11/21 07/11/21 07/11/21 09:02 09:05 09:30 10:40 Temp 35.1 Pulse 117 122 115 Resp 28 18 B/P (MAP) 144/98 (113) Pulse Ox 99 90 95 98 O2 Delivery Non Rebreather NIV Bilevel O2 Flow Rate 10.00 40.00 FiO2 30 50 Capillary Refill : Less Than 3 Seconds Blood Pressure Mean: 113 Progress Note : Progress Note 36-year-old female with above history coming in in respiratory distress. The patient was tripoding, significant accessory muscle use, and in the beginning was not moving a lot of air. DuoNeb given followed by continuous albuterol. B enefits significantly outweigh the risk with her and her respiratory distress of the medications given. Also given IV magnesium 2 g, Decadron 8 mg IV, normal saline 1 L, epi 0.3 mg IM x2. Patient continued to decline and was intubated with ketamine and rocuronium followed by ketamine drip. Initial chest x-ray clear, COVID and flu negative. White blood cell count normal, creatinine normal, potassium 3.5. pH around 7.2 with a high PO2 and PCO2 of 49. Discussed the case with Elisa Washburn, ICU physician Dr. Barclay who has accepted the patient to be admitted to their facility. Given her being 6 months and critica lly ill, my concern was for potential for delivery which our facility would not be able to facilitate given her only being 6 months along. heart rate was in the 160s when we checked it, there is no pooling of fluids on vaginal exam and otherwise no signs of immediate delivery. Of note, attempted to contact patient's family but there was no answer. I also contacted the patient's OB, Dr. Castillo, and she is aware that the patient has been here and is being transferred. Diagnostic Imaging Diagonstic Imaging: Xray Plain Films/CT/US/NM/MRI: chest Comments Initial chest x-ray without any pneumonia or pneumothorax on my interpretation [facility]. [place], [place] NAME: [facility] REC#: [id number] PT STATUS: REG ER : 1985 PHYSICIAN: BOYD LATIF MD ADMIT DATE: 07/11/21/ER Draft Date of Exam:07/11/21 CHEST 1 VIEW, AP/PA ONLY CHEST 1 VIEW, AP/PA ONLY INDICATION: Intubation. COMPARISON: 07/11/2021. FINDINGS: ET tube has tip 4 cm above the anita. An enteric tube is not seen on this examination. Lungs remain clear. No pleural effusion or pneumothorax. Normal cardiomediastinal silhouette. Portions of the left hemithorax are excluded from the [id number]-[id number]. IMPRESSION: 1. Well-positioned ET tube. 2. No adverse development. Dictated on workstation # [id number] Dict: 07/11/21 1106 Trans: 07/11/21 1112 [id number] [id number] Interpreted by: SHARYN YOUNG MD Electronically signed by: Critical Care Note Critical Care Start Time: 09:03 Stop Time: 10:32 Total Time (minutes) 89 Progress Patient came in in severe respiratory distress requiring intubation with significant risk for respiratory compromise and cardiac arrest. I was in the patient's room numerous times frequently reassessing her, changing vent settings, and ordering new interventions. All the time was spent discussing with other physicians regarding her care other facilities. This is all separate from procedures that were being completed. Departure Impression Primary Impression: Respiratory failure Qualified Codes: J96.01 - Acute respiratory failure with hypoxia; J96.02 - Acute respiratory failure with hypercapnia Additional Impressions: Status asthmaticus Qualified Codes: J45.52 - Severe persistent asthma with status asthmaticus Qualified Codes: Z34.90 - Encounter for supervision of normal , unspecified, unspecified trimester Disposition: XFER SHT-TRM HOSP Condition: Critical Transfer Transfer Reason: Exceeds level of care Time Spoke to Accepting Phy: 10:30 Transfer Progress Notes Due to the patient being 6 months with potential for emergency delivery given her critical condition, was not able to take at our facility Transfer Time: 11:42 Transfer Facility: [facility] Method of Transfer: EMS Departure-Patient Inst. Referrals: NO,LOCAL PHYSICIAN (PCP/Family) Primary Care Physician BOYD LATIF MD Jul 11, 2021 09:25
[2021-07-11 09:26] LABS: TOTAL PROTEIN 6.9 GM/DL (6.4-8.2)
[2021-07-11 09:28] LABS: BILIRUBIN,TOTAL 0.3 MG/DL (0.1-1.0)
[2021-07-11 09:30] LABS: CREATININE SERUM 0.59 MG/DL (0.60-1.30)
--- NOTE | 2021-07-11 09:48 | Diagnostic Imaging Report ---
INDICATION: Asthma, shortness of breath. Frontal chest obtained at 09:23 a.m. and compared to 07/12/2018. FINDINGS: Heart and mediastinal silhouette are normal in appearance. The lungs are clear. There is no pneumothorax or pleural fluid. IMPRESSION: Negative chest. Dictated by: Dictated on workstation # [id number]
[2021-07-11 10:29] LABS: ABG OXYGEN SATURATION 99 % (94-100); ABG PCO2 49 MMHG (35-45); ABG PO2 128 MMHG (79-93); ABG TCO2 22.1 MMOL/L (21.0-31.0)
[2021-07-11 10:30] LABS: BILIRUBIN,URINE NEGATIVE (NEGATIVE); CLARITY,URINE CLOUDY; COLOR,URINE YELLOW; GLUCOSE, URINE (UA) 3+ (NEGATIVE); KETONES,URINE NEGATIVE (NEGATIVE); LEUKOCYTE ESTERASE ,URINE NEGATIVE (NEGATIVE); NITRITE,URINE NEGATIVE (NEGATIVE); PH,URINE 5.5 (5-9); PROTEIN,URINE 2+ (NEGATIVE)
[2021-07-11 10:30] LABS: ABG PH 7.23 (7.37-7.43); ALLENS TEST YES-POS; INSPIRED O2 50%; VENTILATOR YES
[2021-07-11 10:31] LABS: PATIENT TEMP 35.6
[2021-07-11 10:40] VITALS: BP 121/74
[2021-07-11 10:42] LABS: BACTERIA,URINE MODERATE /HPF
--- NOTE | 2021-07-11 11:12 | Diagnostic Imaging Report ---
CHEST 1 VIEW, AP/PA ONLY INDICATION: Intubation. COMPARISON: 07/11/2021. FINDINGS: ET tube has tip 4 cm above the anita. An enteric tube is not seen on this examination. Lungs remain clear. No pleural effusion or pneumothorax. Normal cardiomediastinal silhouette. Portions of the left hemithorax are excluded from the eanlq-hd-oshv. IMPRESSION: 1. Well-positioned ET tube. 2. No adverse development. Dictated by: Dictated on workstation # [id number]
== END ==
LOC: EDUNIT# 09:02 → ER 09:04
DX: O99.512 Diseases of the respiratory system complicating pregnancy, second trimester (principal); J96.90 Respiratory failure, unspecified, unspecified whether with hypoxia or hypercapnia; J45.902 Unspecified asthma with status asthmaticus; Z3A.00 Weeks of gestation of pregnancy not specified; Z20.822 Contact with and (suspected) exposure to COVID-19
CPT/HCPCS: 36415; 51702; 71045; 80053; 81000; 82805; 84112; 85025; 87070; 87077; 87088; 87185; 87205; 87636; 93041; 94640

== ENCOUNTER → 2021-07-23 | Outpatient (CLI) | payer MEDICAID ==
[~2021-07-23] MED LIST changes: -EPINEPHrine 1 MG INJECTION 4 MG in NS (IVPB) 246 ML IV SCH; -EPINEPHrine INJECTION 1 MG/ML AMP IM ONE; -KETAMINE HCL 100 MG/ML 5 ML VIAL IJ ONE; -KETAMINE INJECTION 500 MG in NS IV 500 ML 500 ML IV STA; -KETAMINE IV SCH; -MAGNESIUM 1 GM/100 ML IVPB 100 ML IV STA; -MIDAZOLAM 5 MG/5 ML (VERSED) VIAL IJ ONE; -NS IV 1000 ML 1,000 ML IV SCH; -NS IV 1000 ML 1,000 ML IV STA; -NS IV 1000 ML 1,000 ML ONE; -ONDANSETRON 4 MG/2 ML (SDV) Z0FRAN ONE; -ROCURONIUM 10 MG/ML 5 ML SYRINGE IV ONE; -RT-ALBUTEROL SULF 2.5 MG/3 ML PRE-MIX VIAL ONE; -RT-ALBUTEROL/IPRATROPIUM 3 ML (DUONEB) VIAL IH ONE; -RT-ALBUTEROL/IPRATROPIUM 3 ML (DUONEB) VIAL ONE; -SODIUM CHLORIDE IV SCH; -fentaNYL INJ 100 MCG/2 ML AMP IV ONE
--- NOTE | 2021-07-23 13:57 | Diagnostic Imaging Report ---
INDICATION: survey. TECHNIQUE: Multiple real-time grayscale images were obtained over the gravid uterus. COMPARISON: None. FINDINGS: There is a single live fetus in a cephalic presentation. heart rate is recorded at 152 BPM. Placenta is posterior and to the right. Amniotic fluid volume is normal. Cervical length is 3.6 cm. survey shows kidneys, bladder and stomach to be unremarkable. The brain is unremarkable. There is a four-chamber heart. There is a three-vessel cord with normal insertion. spine is unremarkable. Biometrical measurements are as follows: Biparietal 6.26 cm, age 25 weeks 3 days. Head circumference 24.06 cm, age 26 weeks 1 days. Abdominal circumference 21.99 cm, age 26 weeks 4 days. Femur length 4.81 cm, age 26 weeks 1 days. Sonographic estimate age: 26 weeks 1 days. Sonographic estimated date of delivery: 10/28/2021. Estimated Weight: 909 gm (+/- 133 gm). LMP percentile: 62%. heart rate: 152 beats per minute. number: 1 of 1. IMPRESSION: Single live IUP of 26 weeks 1 day gestational age. Estimated date of confinement sonographically is 10/28/2021. Dictated by: Dictated on workstation # [id number]
== END ==
LOC: RAD 10:00
PROVIDERS: ATTEND Obstetrics & Gynecology
DX: Z34.82 Encounter for supervision of other normal pregnancy, second trimester (principal); Z3A.26 26 weeks gestation of pregnancy
CPT/HCPCS: 76805

== ENCOUNTER → 2021-08-20 | Outpatient (CLI) | payer MEDICAID ==
--- NOTE | 2021-08-20 14:53 | Diagnostic Imaging Report ---
INDICATION: Asthma and . TECHNIQUE: Multiple real-time grayscale images were obtained over the gravid uterus. COMPARISON: 07/23/2021. FINDINGS: There is a single live fetus in a cephalic presentation. The heart rate was recorded at 155 BPM. The amniotic fluid index is 15 cm. The placenta is posterior and to the right. A biophysical profile was performed. The overall score is 6 out of 8. A 2 point reduction was given for the lack of breathing movements visualized. Biometrical measurements are as follows: Biparietal 7.36 cm, age 29 weeks 4 days. Head circumference 28.37 cm, age 31 weeks 1 days. Abdominal circumference 26.62 cm, age 30 weeks 6 days. Femur length 5.46 cm, age 28 weeks 6 days. Sonographic estimate age: 30 weeks 1 days. Sonographic estimated date of delivery: 10/28/2021. Estimated Weight: 1508 gm (+/- 220 gm). LMP percentile: 56%. heart rate: 155 beats per minute. number: 1 of 1. IMPRESSION: Single live IUP measuring 30 weeks gestational age showing normal interval growth when compared with the prior ultrasound. Biophysical profile score is 6 out of 8, as described. Dictated by: Dictated on workstation # [id number]
== END ==
LOC: RAD 11:47
PROVIDERS: ATTEND Obstetrics & Gynecology
DX: O99.513 Diseases of the respiratory system complicating pregnancy, third trimester (principal); J45.909 Unspecified asthma, uncomplicated; Z3A.30 30 weeks gestation of pregnancy
CPT/HCPCS: 76805; 76819

== ENCOUNTER 2021-10-24 11:40 | Inpatient (IN) | payer MEDICAID ==
[~2021-10-24] VITALS: Ht 154.9 cm; Wt 71.8 kg
[2021-10-24 12:00] VITALS: BP 136/79
[2021-10-24] MEDS ORDERED: D5 LR IV SOLUTION 1,000 ML IV SCH (12:45)
[2021-10-24 13:22] LABS: BASOPHILS % (AUTO) 0 % (0-10); EOSINOPHILS # (AUTO) 0.4 10^3/uL (0.0-0.3); EOSINOPHILS % (AUTO) 5 % (0-10); HEMATOCRIT 36 % (35-52); HEMOGLOBIN 11.8 g/dL (11.5-16.0); LYMPHOCYTES # (AUTO) 1.4 10^3/uL (1.0-4.0); LYMPHOCYTES % (AUTO) 16 % (12-44); MEAN CORPUSCULAR HEMOGLOBIN 26 pg (25-34); MEAN CORPUSCULAR HGB CONC 33 g/dL (32-36); MEAN CORPUSCULAR VOLUME 80 fL (80-99); MONOCYTES # (AUTO) 0.6 10^3/uL (0.0-1.0); MONOCYTES % (AUTO) 7 % (0-12); NEUTROPHILS # (AUTO) 6.5 10^3/uL (1.8-7.8); NEUTROPHILS % (AUTO) 73 % (42-75); PLATELET COUNT 243 10^3/uL (130-400)
[2021-10-24 13:25] LABS: BILIRUBIN,URINE NEGATIVE (NEGATIVE); CLARITY,URINE CLEAR; COLOR,URINE YELLOW; GLUCOSE, URINE (UA) NEGATIVE (NEGATIVE); KETONES,URINE NEGATIVE (NEGATIVE); LEUKOCYTE ESTERASE ,URINE TRACE (NEGATIVE); NITRITE,URINE NEGATIVE (NEGATIVE); PH,URINE 6.5 (5-9); PROTEIN,URINE NEGATIVE (NEGATIVE)
[2021-10-24 13:34] LABS: BACTERIA,URINE FEW /HPF; RBC,URINE 0-2 /HPF; WBC,URINE 0-2 /HPF
[2021-10-24 13:39] LABS: ALBUMIN 2.9 GM/DL (3.2-4.5)
[2021-10-24 13:40] LABS: POTASSIUM 4.4 MMOL/L (3.6-5.0)
[2021-10-24 13:41] LABS: CALCIUM 8.8 MG/DL (8.5-10.1)
[2021-10-24 13:42] LABS: TOTAL PROTEIN 6.9 GM/DL (6.4-8.2)
[2021-10-24 13:44] LABS: BILIRUBIN,TOTAL 0.7 MG/DL (0.1-1.0)
[2021-10-24 13:46] LABS: CREATININE SERUM 0.56 MG/DL (0.60-1.30)
[2021-10-24 13:49] LABS: URIC ACID 6.4 MG/DL (2.6-7.2)
[2021-10-24] MEDS: CATHETER FLUSH 10 ML SYR IV SCH ×2 (14:00→22:00)
[2021-10-24 14:21] VITALS: BP 132/79
[2021-10-24 15:10] VITALS: BP 110/59
--- NOTE | 2021-10-24 15:34 | History & Physical ---
History and Physical Date Seen by Provider: Oct 24, 2021 Time Seen by Provider: 14:10 This patient is a 36-year-old grand multipara who has had 6 previous she is currently at 39 weeks gestation with elevated blood pressure and with lab work demonstrating development of preeclampsia. She was admitted after being seen in my clinic on this date for the first time since July. She has been noncompliant with clinic appointments. She denied rupture membranes or bleeding but was complaining of contractions. Her has been complicated by severe exacerbation of her pre-existing asthma which warranted admission transfer to a intensive care unit in [place] and eventual intubation for period of time. She is stable now using her albuterol inhaler. Patient was found to be olvin somewhat on admission his contractions have spaced out. Her lab work is concerning for developing preeclampsia leaning towards help syndrome but not diagnostic at this point. Plan is for observation tonight and proceed with repeat delivery tomorrow at noon when surgery and operating room are available Allergies are chlorpheniramine phenylephrine phenylpropanolamine venal Taloxa mean Medications are vitamins and albuterol inhaler Medical social and surgical history is all per the antepartum record HEENT exam is normal Neck is supple no lymphadenopathy no thyromegaly Abdomen is gravid soft nontender nondistended Extremities show no clubbing cyanosis. There is no Homans' sign. Pelvic exam is pending Ultrasound in my clinic on this date showed a baby that was IUGR versus constitutionally small measuring consistent with 35 weeks gestation at 39 weeks of gestation. Amniotic fluid index was acceptable at 63 biophysical profile was reassuring with 12/31 Assessment and plan 39-week gestation with history of severe asthma currently stable on albuterol inhaler. This patient has had 6 previous she is at 39 weeks gestation and she appears to be developing preeclampsia. We will continue observation with monitoring this evening and proceed with delivery tomorrow. Should her blood pressures or signs symptoms indications of preeclampsia progress we would proceed with delivery prompt 39 weeks gestation with labor and preeclampsia in previous C-sections x6 Allergies and Home Medications Allergies Coded Allergies: chlorpheniramine (Verified Allergy, Unknown, 03/05/06) phenylephrine (Verified Allergy, Unknown, 03/05/06) phenylpropanolamine (Verified Allergy, Unknown, 03/05/06) phenyltoloxamine (Verified Allergy, Unknown, 03/05/06) Patient Home Medication List Home Medication List Reviewed: Yes Albuterol Sulfate (Ventolin Hfa) 1 Puff Puff, 2 PUFF IH Q4H PRN for SHORTNESS OF BREATH, (Reported) Entered as Reported by: CARMELA SOSA on 10/31/171119 Docusate Sodium (Dok) 100 Mg Capsule, 100 MG PO BID Prescribed by: PARK FERNANDO on 08/04/20942 Hydrocodone Bit/Acetaminophen (HYDROcodone/APAP 5 MG/325 MG TAB) 1 Tab Tab, 1-2 EA PO Q6HR PRN for PAIN-MODERATE (5-7) Prescribed by: PARK FERNANDO on 08/04/20942 Ibuprofen (Ibu) 600 Mg Tablet, 600 MG PO Q6HR Prescribed by: PARK FERNANDO on 08/04/20942 Vit W-Ca,Fe,FA(<1 mg) ( Formula) 1 Each Tablet, 1 TAB PO DAILY, (Reported) Entered as Reported by: CARMELA SOSA on 10/31/171119 MILAGROS NGUYEN MD Oct 24, 2021 15:34
--- NOTE | 2021-10-24 15:49 | Discharge Inst-Surgical ---
Discharge Inst-Surgical Depart Medication/Instructions New, Converted or Re-Newed RX: Transmitted to Pharmacy Consults/Follow Up Orders & Referrals Follow Up Appt: RTC 1 week for incision check. Call to make follow up appt. for patient in 4 weeks. Wound Care: Remove kuldeep, apply benzoin and steri strips. Activity Per routine post instructions. Patient prescriptions have been sent to her pharmacy electronically from my office. Diet as tolerated Patient may shower or tub bathe as desired. Continue home meds Activity Activity as Tolerated: No Diet Discharge Diet: No Restrictions MILAGROS NGUYEN MD Oct 24, 2021 15:49
[2021-10-24] MEDS: D5 LR IV SOLUTION 1,000 ML IV SCH (16:28)
[2021-10-24] MEDS ORDERED: CALCIUM CARBONATE 500 MG (TUMS) TAB.CHEW PO PRN (21:15)
[2021-10-24] MEDS ORDERED: CALCIUM CARBONATE 500 MG (TUMS) TAB.CHEW ONE (21:22)
[2021-10-24 21:30] VITALS: BP 138/69
[2021-10-24] MEDS ORDERED: ACETAMINOPHEN 500 MG TAB (TYLENOL) ONE (21:35)
[2021-10-24] MEDS ORDERED: ACETAMINOPHEN 500 MG TAB (TYLENOL) PO PRN (21:45)
[2021-10-25] VITALS (10 sets, daily range): BP systolic 90–130; BP diastolic 57–90
[2021-10-25] MEDS: D5 LR IV SOLUTION 1,000 ML IV SCH (00:25)
[2021-10-25 07:41] LABS: AMPHETAMINE SCREEN, URINE NEGATIVE (NEGATIVE); BARBITURATE SCREEN URINE NEGATIVE (NEGATIVE); BENZODIAZEPINES SCREEN URINE NEGATIVE (NEGATIVE); CANNABINOID SCREEN, URINE NEGATIVE (NEGATIVE); COCAINE SCREEN URINE NEGATIVE (NEGATIVE); METHADONE STAT NEGATIVE (NEGATIVE); OPIATE SCREEN URINE NEGATIVE (NEGATIVE); OXYCODONE STAT NEGATIVE (NEGATIVE); PROPOXYPHENE STAT NEGATIVE (NEGATIVE); TRICYCLIC ANTIDEPRESSANTS SCRE NEGATIVE (NEGATIVE)
--- NOTE | 2021-10-25 08:39 | Progress Note ---
Standard Progress Note Progress Notes/Assess & Plan Date Seen by a Provider: Oct 25, 2021 Time Seen by a Provider: 08:38 Progress/Assessment & Plan This patient is without complaint. She does have an occasional contraction but has not manifested anything concerning for labor. Her blood pressures have been relatively stable and slightly elevated. Her lab work yesterday was concerning for an elevated uric acid and elevated LDH. Plan is for a repeat delivery today at noon patient is aware and agrees Vital Signs Date Time Temp Pulse Resp B/P (MAP) Pulse Ox O2 Delivery O2 Flow Rate FiO2 10/25/21 00:00 36.7 80 18 121/77 (92) Room Air 10/24/21 21:30 36.4 88 18 138/69 (92) Room Air 10/24/21 15:10 36.6 87 18 110/59 10/24/21 14:21 36.6 82 18 132/79 (96) Room Air 10/24/21 12:00 36.6 100 16 98 Room Air I & O 10/25/21 06:59 Intake Total 1000 ml Balance 1000 ml Vital signs are stable minimally labile and patient is afebrile The abdomen is gravid nontender Extremities show no clubbing cyanosis. There is no Homans' sign. Pelvic exam was deferred Assessment and plan 39+ weeks gestation with 6 previous C-sections and with early manifestations of preeclampsia/PIH. Plan is for repeat delivery at noon today. Recent ultrasound suggested constitutionally small baby or IUGR MILAGROS NGUYEN MD Oct 25, 2021 08:39
[2021-10-25] MEDS: LACTATED RINGERS 1,000 ML IV PRN ×2 (10:40→12:18)
[2021-10-25] MEDS ORDERED: FAMOTIDINE 20MG/2ML IV (PEPCID) IV ONE (11:15)
[2021-10-25] MEDS ORDERED: METOCLOPRAMIDE INJ 10 MG/2 ML (REGLAN) IV ONE (11:15)
[2021-10-25] MEDS ORDERED: CITRIC ACID/SOB CIT (BICITRA) 30 ML UDC PO ONE (11:15)
[2021-10-25] MEDS ORDERED: METOCLOPRAMIDE INJ 10 MG/2 ML (REGLAN) ONE (11:22)
[2021-10-25] MEDS ORDERED: FAMOTIDINE 20MG/2ML IV (PEPCID) ONE (11:22)
[2021-10-25] MEDS ORDERED: CITRIC ACID/SOB CIT (BICITRA) 30 ML UDC ONE (11:22)
[2021-10-25] MEDS ORDERED: RT-ALBUTEROL/IPRATROPIUM 3 ML (DUONEB) VIAL INH ONE (11:30)
[2021-10-25] MEDS ORDERED: RT-ALBUTEROL HFA 8.5 GM INHALER IH SCH (11:30)
[2021-10-25] MEDS ORDERED: RT-ALBUTEROL/IPRATROPIUM 3 ML (DUONEB) VIAL ONE (11:34)
[2021-10-25] MEDS ORDERED: metroNIDAZOLE 500MG/100ML IVPB 100 ML IV ONE (12:00)
[2021-10-25] MEDS ORDERED: ceFAZolin INJECTION 2,000 MG in NS (IVPB) 50 ML IV ONE (12:00)
[2021-10-25] MEDS ORDERED: OXYTOCIN PRE-MIX DRIP 1,000 ML IV ONE (12:07)
[2021-10-25] MEDS ORDERED: fentaNYL INJ 100 MCG/2 ML AMP ONE (12:07)
[2021-10-25] MEDS ORDERED: BUPIVACAINE 0.5% 30 ML (SENSORCAINE) VIAL ONE (12:07)
[2021-10-25] MEDS ORDERED: PHENYLEPHRINE 100 MCG/ML 10 ML (ANESTHESIA) SYR ONE (12:34)
[2021-10-25] MEDS ORDERED: OXYTOCIN PRE-MIX DRIP 500 ML IV ONE (13:43)
[2021-10-25] MEDS ORDERED: D5 LR IV SOLUTION 1,000 ML IV SCH (14:00)
[2021-10-25] MEDS ORDERED: ONDANSETRON 4 MG/2 ML (SDV) Z0FRAN IVP PRN (14:00)
[2021-10-25] MEDS ORDERED: TETANUS,DIPTH,PERTUSS P/F (BOOSTRIX) 0.5 ML VIAL IM ONE (14:00)
[2021-10-25] MEDS ORDERED: fentaNYL INJ 100 MCG/2 ML AMP IVP PRN (14:00)
[2021-10-25] MEDS: OXYTOCIN PRE-MIX DRIP 500 ML IV SCH ×2 (14:06→19:11)
[2021-10-25] MEDS: KETOROLAC 30 MG/ML VIAL IVP SCH ×2 (14:45→21:13)
[2021-10-25] MEDS: oxyCODONE/APAP 10/325MG (PERCOCET 10) TABLET PO PRN ×2 (17:58→22:44)
--- NOTE | 2021-10-25 20:35 | Progress Note ---
Standard Progress Note Progress Notes/Assess & Plan Date Seen by a Provider: Oct 25, 2021 Time Seen by a Provider: 20:33 Progress/Assessment & Plan This patient is without complaint. She does have an occasional contraction but has not manifested anything concerning for labor. Her blood pressures have been relatively stable and slightly elevated. Her lab work yesterday was concerning for an elevated uric acid and elevated LDH. Plan is for a repeat delivery today at noon patient is aware and agrees Vital Signs Date Time Temp Pulse Resp B/P (MAP) Pulse Ox O2 Delivery O2 Flow Rate FiO2 10/25/21 00:00 36.7 80 18 121/77 (92) Room Air 10/24/21 21:30 36.4 88 18 138/69 (92) Room Air 10/24/21 15:10 36.6 87 18 110/59 10/24/21 14:21 36.6 82 18 132/79 (96) Room Air 10/24/21 12:00 36.6 100 16 98 Room Air I & O 10/25/21 06:59 Intake Total 1000 ml Balance 1000 ml Vital signs are stable minimally labile and patient is afebrile The abdomen is gravid nontender Extremities show no clubbing cyanosis. There is no Homans' sign. Pelvic exam was deferred Assessment and plan 39+ weeks gestation with 6 previous C-sections and with early manifestations of preeclampsia/PIH. Plan is for repeat delivery at noon today. Recent ultrasound suggested constitutionally small baby or IUGR October 25, 2021 Patient is without complaint. She is ambulating, voiding, tolerating oral intake and has good pain control. Of the [facility] patient I will be out of town Starting In the morning until Friday. In my absence Dr. Miles is available Vital Signs Date Time Temp Pulse Resp B/P (MAP) Pulse Ox O2 Delivery O2 Flow Rate FiO2 10/25/21 19:12 36.8 96 18 119/90 (100) 96 Room Air 10/25/21 16:08 36.8 85 18 123/76 (92) 97 Room Air 10/25/21 14:15 35.9 20 101/67 (78) 96 Room Air 10/25/21 14:15 Room Air 10/25/21 14:02 Room Air 10/25/21 14:02 36.7 22 107/76 (86) 96 Room Air 10/25/21 13:47 Room Air 10/25/21 13:47 37 22 99/66 (77) 96 Room Air 10/25/21 13:32 Room Air 10/25/21 13:32 36.8 18 99/57 (71) 96 Room Air 10/25/21 13:17 Room Air 10/25/21 13:17 37 16 90/60 (70) 96 Room Air 10/25/21 11:37 98 Room Air 0.00 10/25/21 10:15 36.8 75 18 130/82 (98) Room Air 10/25/21 00:00 36.7 80 18 121/77 (92) Room Air 10/24/21 21:30 36.4 88 18 138/69 (92) Room Air I & O 10/25/21 07:00 Intake Total 1000 ml Balance 1000 ml Vital signs are stable. Patient is afebrile. The abdomen is benign the surgical dressing is clean and dry Extremities show no clubbing or cyanosis. There is no Homans' sign. Assessment and plan Status post repeat delivery at noon today patient is doing well will have routine convalescent care With likely discharge home on postoperative day 2 or 3 MILAGROS NGUYEN MD Oct 25, 2021 20:35
[2021-10-25] MEDS ORDERED: DOCUSATE SODIUM 100 MG (COLACE) CAP PO SCH (21:00)
[2021-10-25] MEDS ORDERED: ONDANSETRON 4 MG (ZOFRAN) ORAL DISSOLVE TAB ONE (21:09)
[2021-10-25] MEDS: ONDANSETRON 4 MG (ZOFRAN) ORAL DISSOLVE TAB PO PRN (21:13)
[2021-10-25] MEDS: DOCUSATE SODIUM 100 MG (COLACE) CAP PO SCH (21:13)
--- NOTE | 2021-10-25 22:21 | OPERATIVE REPORT ---
DATE OF SERVICE: 10/25/2021 PREOPERATIVE DIAGNOSES: A 39+ weeks' gestation with 6 previous C-sections and oligohydramnios and early signs of preeclampsia with PIH. POSTOPERATIVE DIAGNOSES: A 39+ weeks' gestation with 6 previous C-sections and oligohydramnios and early signs of preeclampsia with PIH. OPERATIVE PROCEDURE: Repeat low transverse delivery of a viable female with Apgars of 8 and 9 at 1 and 5 minutes respectively, weight of 6 pounds and 10 ounces. Cord blood pH of 7.23 and a time of 12:48. OPERATIVE DESCRIPTION: With the patient in the supine position under satisfactory spinal analgesia, she was prepped and draped in the usual fashion for abdominal surgery. Floyd catheter was placed in the urinary bladder. A repeat Pfannenstiel incision was made through the skin with a scalpel by removing the patient's fairly generous Pfannenstiel incisional scars. The abdomen was then entered in the usual manner. There was fairly significant scar tissue encountered on the way, but the anatomy was fairly well discernible. With the peritoneal cavity entered, the bladder was found to be advanced quite up on the anterior lower uterine segment of the uterus. This was dissected free, exposing the lower uterine segment, which was quite scarred as well. A clean scalpel was used to make a 4 cm hysterotomy incision transversely across the lower uterine segment that was extended by blunt dissection as well. A vigorous viable female was delivered through the incision from a face presentation to the incision, which required a little bit of manipulation to get the head to come out. The was bulb suctioned on delivery of the head and again on completion of delivery. Umbilical cord was doubly clamped and cut and the passed to the pediatric nurse in attendance for delivery. Cord bloods were obtained. The placenta delivered spontaneously. was normal with a 3-vessel cord. The uterus was now exteriorized, interior wiped clean with a wet laparotomy sponge. Uterine incision then closed with running locked suture of 2-0 Vicryl. Hemostasis was complete. The uterus was returned to abdominal cavity. All blood clot and debris removed from the abdominal cavity. Sponge and needle counts correct, hemostasis assured. Anterior parietal peritoneum was closed with running suture of 2-0 Vicryl. Rectus muscles were closed with 2-0 Vicryl, subcutaneous tissue was closed with 2-0 Vicryl and the skin was stapled. Sponge and needle counts were correct on completion of the procedure. Blood loss was around 500 mL. The patient tolerated the procedure well and was transferred to the recovery room in stable condition. The infant had remained with the mom in the operating room. Job ID: [id number] DocumentID: [id number] Dictated Date: 10/25/2021 13:25:45 Centrifuge Operator Date: 10/25/2021 22:21:12 Dictated By: MILAGROS NGUYEN MD
[2021-10-26 03:37] VITALS: BP 105/60
[2021-10-26] MEDS: KETOROLAC 30 MG/ML VIAL IVP SCH ×2 (03:38→09:05)
[2021-10-26] MEDS: oxyCODONE/APAP 10/325MG (PERCOCET 10) TABLET PO PRN ×4 (05:25→22:59)
[2021-10-26] MEDS: DOCUSATE SODIUM 100 MG (COLACE) CAP PO SCH ×2 (09:05→20:05)
[2021-10-26] MEDS: CATHETER FLUSH 10 ML SYR IV SCH (09:05)
[2021-10-26 09:12] VITALS: BP 102/56
[2021-10-26] MEDS: ONDANSETRON 4 MG (ZOFRAN) ORAL DISSOLVE TAB PO PRN ×2 (09:29→23:00)
--- NOTE | 2021-10-26 09:30 | Postpartum Progress Note ---
Note Note Day # 1 Subjective: Patient is without complaints. Ambulating, voiding. Tolerating a regular diet without nausea or vomiting. Normal lochia. Pain is well controlled with oral pain medications. Physical Exam: General - Alert and oriented, no apparent distress Abdomen - Soft, appropriately tender to palpation, non-distended, fundus firm at umbilicus; incision c/d/i, kuldeep in place Extremities - no edema, negative Regina's bilaterally Assessment: Post- day # 1, status post RLTCS Recovering well, hemodynamically stable Plan: Routine care. Encourage breast feeding. Encourage ambulation. Plan for discharge tomorrow Vitals - Labs Vital Signs - I&O Vital Signs Date Time Temp Pulse Resp B/P (MAP) Pulse Ox O2 Delivery O2 Flow Rate FiO2 10/26/21 03:37 36.3 91 18 105/60 (75) 97 Room Air 10/25/21 23:35 36.0 87 18 112/67 (82) 97 Room Air 10/25/21 19:12 36.8 96 18 119/90 (100) 96 Room Air 10/25/21 16:08 36.8 85 18 123/76 (92) 97 Room Air 10/25/21 14:15 35.9 20 101/67 (78) 96 Room Air 10/25/21 14:15 Room Air 10/25/21 14:02 Room Air 10/25/21 14:02 36.7 22 107/76 (86) 96 Room Air 10/25/21 13:47 Room Air 10/25/21 13:47 37 22 99/66 (77) 96 Room Air 10/25/21 13:32 Room Air 10/25/21 13:32 36.8 18 99/57 (71) 96 Room Air 10/25/21 13:17 Room Air 10/25/21 13:17 37 16 90/60 (70) 96 Room Air 10/25/21 11:37 98 Room Air 0.00 10/25/21 10:15 36.8 75 18 130/82 (98) Room Air I & O 10/26/21 07:00 Intake Total 2150 ml Output Total 2700 ml Balance -550 ml Labs Microbiology 10/24/21 Urine Culture - Final, Complete Mixed Bacterial Nguyen REENA BORJA MINE MOTOR OPERATOR Oct 26, 2021 09:30
[2021-10-26] MEDS ORDERED: IBUPROFEN 800 MG (MOTRIN) TAB PO ONE (14:47)
[2021-10-26 15:00] VITALS: BP 121/68
[2021-10-26] MEDS ORDERED: IBUPROFEN 800 MG (MOTRIN) TAB PO SCH ×3 (15:00→18:00)
--- NOTE | 2021-10-26 15:39 | Anesthesia-Regional Post-Op ---
Regional Patient Condition Mental Status: Alert, Oriented x3 Circulation: Same as Pre-Op Headache: Absent Sensation: Full Recovery Motor Block: Absent Post Op Complications Complications None Follow Up Care/Instructions Patient Instructions None needed. Anesthesia/Patient Condition Patient is doing well, no complaints, stable vital signs, no apparent adverse anesthesia problems. No complications reported per nursing. JANNIE ESPINOZA DO Oct 26, 2021 15:39
[2021-10-26 21:00] VITALS: BP 147/72
[2021-10-26] MEDS: IBUPROFEN 800 MG (MOTRIN) TAB PO SCH (21:00)
[2021-10-26] MEDS: SIMETHICONE 80 MG (MYLICON) CHEW PO SCH (21:38)
[2021-10-27 03:46] VITALS: BP 131/75
[2021-10-27] MEDS: IBUPROFEN 800 MG (MOTRIN) TAB PO SCH ×2 (03:46→08:48)
[2021-10-27] MEDS: oxyCODONE/APAP 10/325MG (PERCOCET 10) TABLET PO PRN ×2 (05:24→08:48)
[2021-10-27] MEDS: ONDANSETRON 4 MG (ZOFRAN) ORAL DISSOLVE TAB PO PRN (05:25)
[2021-10-27] MEDS: DOCUSATE SODIUM 100 MG (COLACE) CAP PO SCH (08:47)
[2021-10-27] MEDS: SIMETHICONE 80 MG (MYLICON) CHEW PO SCH ×2 (08:47→14:29)
[2021-10-27 08:55] VITALS: BP 107/56
--- NOTE | 2021-10-27 08:58 | Postpartum Progress Note ---
Note Note Day #2 Subjective: This patient I am cover for my partner Dr. Case. Patient is without complaints. Ambulating, voiding. Tolerating a regular diet without nausea or vomiting. Normal lochia. Pain is well controlled with oral pain medications. Objective: Physical Exam: General - Alert and oriented, no apparent distress Abdomen - Soft, appropriately tender to palpation, non-distended, fundus firm at umbilicus Extremities - no edema, negative Regina's bilaterally Incision- c/d/i Assessment: POD 2 RLTCS Plan: Routine care. Encourage breast feeding. Encourage ambulation. Ferrous sulfate supplementation. Plan for discharge today Vitals - Labs Vital Signs - I&O Vital Signs Date Time Temp Pulse Resp B/P (MAP) Pulse Ox O2 Delivery O2 Flow Rate FiO2 10/27/21 03:46 36.2 81 18 131/75 (93) 96 Room Air 10/26/21 21:00 Room Air 10/26/21 21:00 36.3 83 18 147/72 (97) 96 Room Air 10/26/21 15:00 36.0 74 18 121/68 (85) 95 Room Air 10/26/21 09:12 Room Air 10/26/21 09:12 36.1 71 18 102/56 (71) 97 Room Air Labs Microbiology 10/24/21 Urine Culture - Final, Complete Mixed Bacterial Nguyen PARK FERNANDO DO Oct 27, 2021 08:58
[2021-10-27] MEDS ORDERED: SIME80TA16 PO (09:01)
[2021-10-27] MEDS ORDERED: IBUP-1780 PO (09:01)
[2021-10-27] MEDS ORDERED: DOCU100C37 PO (09:01)
[2021-10-27] MEDS ORDERED: ONDA4TAB11 PO (09:01)
[2021-10-27] MEDS ORDERED: OXYC1TAB12 PO (09:01)
[2021-10-30] MEDS ORDERED: IBUPROFEN 800 MG (MOTRIN) TAB PO SCH ×2 (15:00→18:00)
== END 2021-10-27 16:04 | disposition home or self-care (01) | DRG 806 ==
LOC: LDRP 11:40
PROVIDERS: ADMIT Obstetrics & Gynecology; ATTEND Obstetrics & Gynecology
PROC: 10E0XZZ Delivery of Products of Conception, External Approach (ICD-10-PCS; principal; 2021-10-25 12:17)
DX: O14.94 Unspecified pre-eclampsia, complicating childbirth (principal); O41.03X0 Oligohydramnios, third trimester, not applicable or unspecified; Z37.0 Single live birth; O99.513 Diseases of the respiratory system complicating pregnancy, third trimester; J45.909 Unspecified asthma, uncomplicated; Z3A.39 39 weeks gestation of pregnancy; Z91.19 Patient's noncompliance with other medical treatment and regimen
CPT/HCPCS: 36415; 80053; 80306; 81000; 82570; 83615; 84156; 84550; 85025; 86850; 86900; 86901; 87088; 94640; 94760

== ENCOUNTER 2022-04-19 01:56 | Observation (INO) | payer MEDICAID ==
[2022-04-19] VITALS (8 sets, daily range): BP systolic 106–125; BP diastolic 52–107
[~2022-04-19] VITALS: Ht 155 cm; Wt 79.0 kg
[~2022-04-19 01:56] MED LIST changes: +ALBU8.5H6 IH; +IBUP-1780 PO; +ONDA4TAB11 PO; +OXYC1TAB12 PO; +SIME80TA16 PO
--- NOTE | 2022-04-19 02:14 | ED Dyspnea ---
General Stated Complaint: SOB,3 MONTHS PREG Source of Information: Patient Exam Limitations: No Limitations History of Present Illness Date Seen by Provider: Apr 19, 2022 Time Seen by Provider: 02:08 Initial Comments Patient is a 36-year-old female who presents to the emergency room with a chief complaint of shortness of breath and wheezing. She has a history of asthma with prior intubations. She states she was at her parents house today and they smoke. She states she was around cigarette smoke and it seems to have kicked it off. She started wheezing later in the evening and it has worsened. She has be en using her breathing treatments without any relief of symptoms. She is not currently on steroids. She is 3 months with a due date of October 30, 2022. No fevers, chills. Cough is nonproductive. She was tested for COVID last weekend and it was negative. No problems with bowel or bladder. No burning with urination. No swelling in her legs. No history of blood clots. She quit smoking 3 months ago. All other review of systems reviewed and negative except as stated. Timing/Duration: 4-6 Hours Severity: Moderate Prior Episodes/Possible Cause: Frequent Episodes Modifying Factors: Improves With Albuterol Inhaler, Improves With Albuterol Nebulizer Associated Symptoms: Wheezing Allergies and Home Medications Allergies Coded Allergies: chlorpheniramine (Verified Allergy, Unknown, 03/05/06) phenylephrine (Verified Allergy, Unknown, 03/05/06) phenylpropanolamine (Verified Allergy, Unknown, 03/05/06) phenyltoloxamine (Verified Allergy, Unknown, 03/05/06) Patient Home Medication List Home Medication List Reviewed: Yes Albuterol Sulfate (Ventolin Hfa) 1 Puff Puff, 2 PUFF IH Q4H PRN for SHORTNESS OF BREATH, (Reported) Entered as Reported by: CARMELA SOSA on 10/31/17 1120 Docusate Sodium (Docusate Sodium) 100 Mg Capsule, 100 MG PO BID PRN for C ONSTIPATION-1ST LINE Prescribed by: PARK FERNANDO on 10/27/21 09 Ibuprofen (Ibuprofen) 800 Mg Tablet, 800 MG PO Q6H Prescribed by: PARK FERNANDO on 10/27/21 09 Ondansetron (Ondansetron Odt) 4 Mg Tab.rapdis, 4 MG PO TID PRN for NAUSEA-1ST LINE Prescribed by: PARK FERNANDO on 10/27/21900 Oxycodone HCl/Acetaminophen (Percocet 10-325 mg Tablet) 1 Each Tablet, 1-2 TAB PO Q4H PRN for Pain Prescribed by: PARK FERNANDO on 10/27/21900 Vit W-Ca,Fe,FA(<1 mg) ( Formula) 1 Each Tablet, 1 TAB PO DAILY, (Reported) Entered as Reported by: CARMELA SOSA on 10/31/17 1120 Simethicone (Simethicone) 80 Mg Tab.chew, 80 MG PO PCHS Prescribed by: PARK FERNANDO on 10/27/21900 Review of Systems Review of Systems Constitutional: see HPI EENTM: no symptoms reported Respiratory: cough, dyspnea on exertion, short of breath, wheezing Cardiovascular: no symptoms reported Gastrointestinal: no symptoms reported Genitourinary: no symptoms reported Musculoskeletal: no symptoms reported Skin: no symptoms reported All Other Systems Reviewed Negative Unless Noted: Yes Past Zsgomzf-Lsjtkl-Utajus Hx Immunizations Up To Date Tetanus Booster (TDap): Unknown PED Vaccines UTD: No First/Initial COVID19 Vaccinat: 2020 Seasonal Allergies Seasonal Allergies: Yes Past Medical History Surgery/Hospitalization HX: previous x6 Surgeries: Yes ( X5) Section Respiratory: Yes Asthma Currently Using CPAP: No Currently Using BIPAP: No Cardiac: No Neurological: No Reproductive Disorders: No Female Reproductive Disorders: Denies Sexually Transmitted Disease: No HIV/AIDS: No Genitourinary: No Gastrointestinal: Yes (HEPATITIS C +) Gastroesophageal Reflux, Liver Disease/Jaundice, Hepatitis Musculoskeletal: No Endocrine: No HEENT: No Loss of Vision: Denies Hearing Impairment: Denies Cancer: No Psychosocial: No Integumentary: No Blood Disorders: No Adverse Reaction/Blood Tranf: No Family Medical History Alcoholism 19 FATHER G8 BROTHER Arthritis 19 FATHER Cardiovascular disease 19 MOTHER Coronary thrombosis 19 MOTHER Diabetes mellitus 19 MOTHER MATERNAL GRANDMOTHER Myocardial infarction 19 MOTHER Neoplasm 19 FATHER (LUNG CANCER) 19 MOTHER Respiratory disorder 19 FATHER (EMPHYSEMA) Asthma Physical Exam Vital Signs Vital Signs - First Documented 04/19/22 04/19/22 02:05 02:19 Temp 36.6 Pulse 138 Resp 36 B/P (MAP) 125/89 (101) Pulse Ox 94 O2 Delivery Room Air Capillary Refill : Height, Weight, BMI Height: 5'1.00" Weight: 130lbs. 8.0oz. 58.609133gz; 29.92 BMI Method:Stated General Appearance: WD/WN, Anxious, Moderate Distress HEENT: PERRL/EOMI, Moist Mucous Membranes Neck: Normal Inspection Respiratory: Respiratory Distress (Mild), Other (Overall poor air movement with scant expiratory wheezes noted, increased work of breathing is present.) Cardiovascular: Regular Rate, Rhythm, Tachycardia (130) Gastrointestinal: Normal Bowel Sounds, Non Tender, Soft Extremity: Normal Inspection, Normal Range of Motion, Non Tender, No Calf Tenderness Neurologic/Psychiatric: Alert, Oriented x3, No Motor/Sensory Deficits, Normal Mood/Affect Skin: Normal Color, Warm/Dry Procedures/Interventions Date of ETT Placement: Jul 11, 2021 Time of ETT Placement: 953 Progress/Results/Core Measures Results/Orders Lab Results Laboratory Tests Test 04/19/22 02:15 Range/Units White Blood Count 10.4 4.3-11.0 10^3/uL Red Blood Count 5.02 3.80-5.11 10^6/uL Hemoglobin 13.0 11.5-16.0 g/dL Hematocrit 39 35-52 % Mean Corpuscular Volume 77 L 80-99 fL Mean Corpuscular Hemoglobin 26 25-34 pg Mean Corpuscular Hemoglobin Concent 34 32-36 g/dL Red Cell Distribution Width 16.9 H 10.0-14.5 % Platelet Count 305 130-400 10^3/uL Mean Platelet Volume 9.8 9.0-12.2 fL Immature Granulocyte % (Auto) 0 % Neutrophils (%) (Auto) 66 42-75 % Lymphocytes (%) (Auto) 20 12-44 % Monocytes (%) (Auto) 6 0-12 % Eosinophils (%) (Auto) 8 0-10 % Basophils (%) (Auto) 0 0-10 % Neutrophils # (Auto) 6.8 1.8-7.8 10^3/uL Lymphocytes # (Auto) 2.0 1.0-4.0 10^3/uL Monocytes # (Auto) 0.7 0.0-1.0 10^3/uL Eosinophils # (Auto) 0.8 H 0.0-0.3 10^3/uL Basophils # (Auto) 0.0 0.0-0.1 10^3/uL Immature Granulocyte # (Auto) 0.0 0.0-0.1 10^3/uL Sodium Level 137 135-145 MMOL/L Potassium Level 3.4 L 3.6-5.0 MMOL/L Chloride Level 108 H 98-107 MMOL/L Carbon Dioxide Level 16 L 21-32 MMOL/L Anion Gap 13 5-14 MMOL/L Blood Urea Nitrogen 10 7-18 MG/DL Creatinine 0.63 0.60-1.30 MG/DL Estimat Glomerular Filtration Rate 118 BUN/Creatinine Ratio 16 Glucose Level 109 H 70-105 MG/DL Calcium Level 9.6 8.5-10.1 MG/DL My Orders Orders - CARLOS ENRIQUE RÍOS MD Ed Iv/Invasive Line Start (04/19/22 02:11) Cbc With Automated Diff (04/19/22 02:11) Basic Metabolic Panel (04/19/22 02:11) Magnesium 1 Gm/100 Ml Ivpb (Magnesium Holliday (04/19/22 02:15) Albuterol Pre-Mix Nebs (Rt) (Proventil (04/19/22 02:15) Svn Small Volume Nebulizer (04/19/22 02:11) Albuterol/Ipra Inhalation Soln (Duoneb I (04/19/22 02:15) Svn Small Volume Nebulizer (04/19/22 02:11) Methylprednisolone Sod Succ (Solu-Medrol (04/19/22 02:15) Medications Given in ED Current Medications Medications Dose Ordered Sig/Juan José Route Start Time Stop Time Status Last Admin Dose Admin Albuterol Sulfate 12.5 mg ONCE ONCE INH 04/19/22 02:15 04/19/22 02:16 DC 04/19/22 02:18 12.5 MG Albuterol/ Ipratropium 3 ml ONCE ONCE INH 04/19/22 02:15 04/19/22 02:16 DC 04/19/22 02:18 3 ML Magnesium Sulfate/ Dextrose 100 ml @ 100 mls/hr ONCE ONCE IV 04/19/22 02:15 04/19/22 03:14 DC 04/19/22 02:25 100 MLS/HR Methylprednisolone Sodium Succinate 125 mg ONCE ONCE IVP 04/19/22 02:15 04/19/22 02:16 DC 04/19/22 02:25 125 MG Vital Signs/I&O 04/19/22 04/19/22 02:05 02:19 Temp 36.6 Pulse 138 Resp 36 B/P (MAP) 125/89 (101) Pulse Ox 94 O2 Delivery Room Air Progress Progress Note #1: Time: 03:40 Progress Note Reevaluated approximately 30 minutes after hour-long breathing treatment. She is moving much more air but still wheezing considerably. Room air saturations 97%. Her work of breathing seems to be a little bit improved. She still coughing some. We will reevaluate in 30 minutes. Progress Note #2: Time: 04:38 Progress Note Patient wheezing again, sounds tight. She is back to some conversational dyspnea, 3-4 words at a time. Room air sats remain 97-98%, heart rate is still 120s. I think she would be best served with her history of intubation in the past due to asthma exacerbation to be admitted observation to the hospital. We will contact Dr. Montoya Departure Communication (Admissions) Time/Spoke to Admitting Phy: 04:[address] Montoya - admit observation to step down Impression Primary Impression: Asthma exacerbation Qualified Codes: J45.41 - Moderate persistent asthma with (acute) exacerbation Disposition: ADMITTED INPATIENT Condition: Stable Admissions Decision to Admit Reason: Admit from ER (General) Decision to Admit/Date: Apr 19, 2022 Time/Decision to Admit Time: 04:42 Departure-Patient Inst. Referrals: NO,LOCAL PHYSICIAN (PCP/Family) Primary Care Physician CARLOS ENRIQUE RÍOS MD Apr 19, 2022 02:14
[2022-04-19] MEDS ORDERED: RT-ALBUTEROL SULF 2.5 MG/3 ML PRE-MIX VIAL INH ONE (02:15)
[2022-04-19] MEDS ORDERED: MAGNESIUM 1 GM/100 ML IVPB 100 ML IV ONE (02:15)
[2022-04-19] MEDS ORDERED: RT-ALBUTEROL/IPRATROPIUM 3 ML (DUONEB) VIAL INH ONE (02:15)
[2022-04-19] MEDS ORDERED: methylPREDNISolone 125 MG (Solu-MEDROL) VIAL IVP ONE (02:15)
[2022-04-19 02:27] LABS: BASOPHILS % (AUTO) 0 % (0-10); EOSINOPHILS # (AUTO) 0.8 10^3/uL (0.0-0.3); EOSINOPHILS % (AUTO) 8 % (0-10); HEMATOCRIT 39 % (35-52); LYMPHOCYTES % (AUTO) 20 % (12-44); MEAN CORPUSCULAR HEMOGLOBIN 26 pg (25-34); MEAN CORPUSCULAR HGB CONC 34 g/dL (32-36); MEAN CORPUSCULAR VOLUME 77 fL (80-99); MEAN PLATELET VOLUME 9.8 fL (9.0-12.2); MONOCYTES # (AUTO) 0.7 10^3/uL (0.0-1.0); MONOCYTES % (AUTO) 6 % (0-12); NEUTROPHILS # (AUTO) 6.8 10^3/uL (1.8-7.8); NEUTROPHILS % (AUTO) 66 % (42-75); PLATELET COUNT 305 10^3/uL (130-400); WHITE BLOOD COUNT 10.4 10^3/uL (4.3-11.0)
[2022-04-19 02:34] LABS: POTASSIUM 3.4 MMOL/L (3.6-5.0)
[2022-04-19 02:35] LABS: CALCIUM 9.6 MG/DL (8.5-10.1)
[2022-04-19 02:39] LABS: CREATININE SERUM 0.63 MG/DL (0.60-1.30)
--- NOTE | 2022-04-19 06:06 | Tele-ICU Consult ---
History of Present Illness History of Present Illness Date Seen by Provider: Apr 19, 2022 Time Seen by Provider: 06:01 History of Present Illness 36 yo F with acute exacerbation of asthma, Hx of prior intubations, pt is 3 months Recent COVID test negative Started on IV Medtrol, albuterol, also given IV magnesium No CXR done eosinophile count 8 Allergies and Home Medications Allergies Coded Allergies: chlorpheniramine (Verified Allergy, Unknown, 03/05/06) phenylephrine (Verified Allergy, Unknown, 03/05/06) phenylpropanolamine (Verified Allergy, Unknown, 03/05/06) phenyltoloxamine (Verified Allergy, Unknown, 03/05/06) Home Medications Albuterol Sulfate 1 Puff Puff, 2 PUFF IH Q4H PRN for SHORTNESS OF BREATH, (Reported) 1 PUFF = 90 MCG Docusate Sodium 100 Mg Capsule, 100 MG PO BID PRN for CONSTIPATION-1ST LINE Prescribed by: PARK FERNANDO on 10/27/21900 Ibuprofen 800 Mg Tablet, 800 MG PO Q6H Prescribed by: PARK FERNANDO on 10/27/21900 Ondansetron 4 Mg Tab.rapdis, 4 MG PO TID PRN for NAUSEA-1ST LINE Prescribed by: PARK FERNANDO on 10/27/21900 Oxycodone HCl/Acetaminophen 1 Each Tablet, 1-2 TAB PO Q4H PRN for Pain Prescribed by: PARK FERNANDO on 10/27/21900 Vit W-Ca,Fe,FA(<1 mg) 1 Each Tablet, 1 TAB PO DAILY, (Reported) Simethicone 80 Mg Tab.chew, 80 MG PO PCHS Prescribed by: PARK FERNANDO on 10/27/21900 Past Medical/Social/Family Hx Immunizations Up To Date First/Initial COVID19 Vaccinat: 2020 Second COVID19 Vaccination Terry: 2020 Tetanus Booster (TDap): Less Than 5 Years Hepatitis A: No Hepatitis B: No TB Skin Test: None Date of Pneumonia Vaccine: Mar 05, 2016 Current Status status: Yes status: No Communicates: Verbally Primary Language: Thai Preferred Spoken Language: Thai Is interpretation needed?: No Past Medical History Severe Persistant Asthma Hepatitis C +Amphetamines and Cocaine on UDS Review of Systems Constitutional: see HPI Respiratory: dyspnea on exertion, wheezing Focused Exam Height, Weight, BMI Height: 5'1.00" Weight: 130lbs. 8.0oz. 58.596154oe; 32.00 BMI Method:Stated Exam Exam Patient acknowledged, consented, and participated in this virtual visit which was conducted using real time audio/video Vital Signs Date Time Temp Pulse Resp B/P (MAP) Pulse Ox O2 Delivery O2 Flow Rate FiO2 04/19/22 02:19 94 Room Air 04/19/22 02:05 36.6 138 36 125/89 (101) Height & Weight Height: 5'1.00" Weight: 130lbs. 8.0oz. 58.934947or; 32.00 BMI Method:Stated General Appearance: WD/WN, Anxious, Moderate Distress, Other (SOB on talking) HEENT: PERRL/EOMI, Moist Mucous Membranes Neck: Normal Inspection Respiratory: Respiratory Distress (Mild), Wheezing, Other (Overall poor air movement with scant expiratory wheezes noted, increased work of breathing is present.) Cardiovascular: Regular Rate, Rhythm, No Edema, Tachycardia (130) Capillary Refill: Less Than 3 Seconds Gastrointestinal: normal bowel sounds Extremity: Normal Inspection, Normal Range of Motion, Non Tender, No Calf Tenderness Neurologic/Psychiatric: Alert, Oriented x3, No Motor/Sensory Deficits, Normal Mood/Affect Skin: Normal Color, Warm/Dry Results Lab Laboratory Tests 04/19/22 02:15 Assessment/Plan Assessment/Plan acute exacerbation of asthma, will continue IV Medrol and albuterol pt is Critical Care: Critically Ill Patient Time spent with patient (mins): 25 BETSY BRADFORD MD Apr 19, 2022 06:06
[2022-04-19] MEDS ORDERED: CATHETER FLUSH 10 ML SYR IVP PRN (06:15)
[2022-04-19] MEDS ORDERED: ONDANSETRON 4 MG/2 ML (SDV) Z0FRAN IV PRN (06:30)
[2022-04-19] MEDS ORDERED: RT-ALBUTEROL/IPRATROPIUM 3 ML (DUONEB) VIAL INH PRN (06:45)
[2022-04-19] MEDS ORDERED: FLU QUADRIvalent (6 months+) 60 mcg/0.5 ml 2022-23 (Fluzone) IM ONE (07:00)
[2022-04-19] MEDS: methylPREDNISolone 125 MG (Solu-MEDROL) VIAL IVP SCH ×3 (08:13→19:50)
[2022-04-19] MEDS: RT-ALBUTEROL/IPRATROPIUM 3 ML (DUONEB) VIAL INH SCH ×4 (10:36→22:31)
[2022-04-19] MEDS ORDERED: PNV1TABL81 PO (12:01)
[2022-04-19] MEDS ORDERED: RT-ALBUINH INH (12:01)
[2022-04-19] MEDS ORDERED: FLUT9.9S NSEACH (12:01)
[2022-04-19] MEDS ORDERED: CETI10TA17 PO (12:01)
[2022-04-19] MEDS ORDERED: BUDE10.26 INH (12:01)
[2022-04-19] MEDS ORDERED: IPRA3AMP31 NEB (12:01)
--- NOTE | 2022-04-19 13:21 | History & Physical-Hospitalist ---
BARRY DIXON A MED STUDENT 04/19/22 1320: History of Present Illness HPI/Chief Complaint Denise is a 36 yo female who was admitted to cardiac step down from ED for asthma exacerbation. Pt has hx of asthma with prior intubation, Hep C and GERD. Pt reported that she was around cigarette smoke and began to develop wheezing and SOA that was not improved with breathing treatments, so she went to the ED. She is around 3 months currently. She was started on methylprednisolone, duonebs, fluticasone/salmeterol with improvement in her SOA and wheezing. She also reported her cough has improved as well. She had been around COVID+ person, so she was tested a week ago and it was negative. She reports she lives in the [facility]. She denies any fever, chills, CP, N/V, sweating, palpitations. Source: patient Date Seen 04/19/22 Time Seen by a Provider: 08:20 Attending Physician No,Local Physician PCP Admitting Physician: Alexus Abraham MD Attending Physician: Alexus Abraham MD Referring Physician Date of Admission Apr 19, 2022 at 04:43 Home Medications & Allergies Home Medications Reviewed patient Home Medication Reconciliation performed by pharmacy medication reconciliations anesthesia technician and/or nursing. Patients Allergies have been reviewed. Allergies Allergies Coded Allergies chlorpheniramine (Verified Allergy, Unknown, 03/05/06) phenylephrine (Verified Allergy, Unknown, 03/05/06) phenylpropanolamine (Verified Allergy, Unknown, 03/05/06) phenyltoloxamine (Verified Allergy, Unknown, 03/05/06) Past Jcnnjdc-Igexnp-Celpxp Hx Patient Social History Tobacco Use?: No Smoking Status: Former Smoker Smokeless Tobacco Frequency: Never a User Use of E-Cig and/or Vaping dev: No Substance use?: No Alcohol Use?: No Pt feels they are or have been: No Immunizations Up To Date Date of Influenza Vaccine: Mar 26, 2020 First/Initial COVID19 Vaccinat: 2020 Second COVID19 Vaccination Terry: 2020 Tetanus Booster (TDap): Less Than 5 Years Hepatitis A: No Hepatitis B: No PED Vaccines UTD: No Date of Pneumonia Vaccine: Mar 05, 2016 Seasonal Allergies Seasonal Allergies: Yes Current Status status: Yes status: No Advance Directives: No Communicates: Verbally Primary Language: Cuban Preferred Spoken Language: Cuban Is interpretation needed?: No Past Medical History Surgeries: Section Asthma Currently Using CPAP: No Currently Using BIPAP: No Sexually Transmitted Disease: No HIV/AIDS: No Gastroesophageal Reflux, Liver Disease/Jaundice, Hepatitis Loss of Vision: Denies Hearing Impairment: Denies Blood Disorders: No Adverse Reaction/Blood Tranf: No Severe Persistant Asthma Hepatitis C +Amphetamines and Cocaine on UDS Family Medical History Alcoholism 19 FATHER G8 BROTHER Arthritis 19 FATHER Cardiovascular disease 19 MOTHER Coronary thrombosis 19 MOTHER Diabetes mellitus 19 MOTHER MATERNAL GRANDMOTHER Myocardial infarction 19 MOTHER Neoplasm 19 FATHER (LUNG CANCER) 19 MOTHER Respiratory disorder 19 FATHER (EMPHYSEMA) Asthma Review of Systems Constitutional: No chills, No fever EENTM: No blurred vision, No double vision, No throat pain Respiratory: cough, short of breath; No wheezing Cardiovascular: No chest pain, No palpitations Gastrointestinal: No constipation, No diarrhea, No nausea, No vomiting Genitourinary: No dysuria, No frequency Musculoskeletal: no symptoms reported Skin: no symptoms reported Psychiatric/Neurological: No Symptoms Reported Physical Exam Physical Exam Vital Signs Vital Signs - First Documented 04/19/22 04/19/22 02:05 02:19 Temp 36.6 Pulse 138 Resp 36 B/P (MAP) 125/89 (101) Pulse Ox 94 O2 Delivery Room Air Capillary Refill : Less Than 3 Seconds Height, Weight, BMI Height: 5'1.00" Weight: 130lbs. 8.0oz. 58.356263wu; 32.88 BMI Method:Stated General Appearance: WD/WN, Anxious HEENT: PERRL/EOMI, Moist Mucous Membranes Neck: Full Range of Motion, Normal Inspection Respiratory: Chest Non Tender, Wheezing (inspiratory and expiratory bilaterally, improved following breathing treatment) Cardiovascular: No Murmur, Tachycardia Gastrointestinal: Normal Bowel Sounds, Non Tender, Soft Back: Normal Inspection, No Vertebral Tenderness Extremity: Non Tender, No Pedal Edema Neurologic/Psychiatric: Alert, Oriented x3, Normal Mood/Affect Skin: Normal Color, Warm/Dry Results Results/Procedures Labs Laboratory Tests 04/19/22 02:15 Patient resulted labs reviewed. Assessment/Plan Admission Diagnosis Acute asthma exacerbation Admission Status: Observation Assessment and Plan Acute asthma exacerbation Tachycardia Hypokalemia Hx of tobacco use Acute asthma exacerbation -Flu and Covid swabs negative -Duoneb, Fluticasone/salmeterol, methylprednisolone -On Room air with adequate saturations Hypokalemia -Mild, will continue to monitor Tachycardia -Likely secondary to duoneb Hx of tobacco use -Quit smoking 3 mo ago Disposition: Will transfer to general medical floor today. If stable tomorrow will transition to oral prednisone and d/c home. Diet: Regular DVT ppx: SCDs Code Status: Full Code Diagnosis/Problems Diagnosis/Problems (1) Status: Acute Qualifiers: Weeks of gestation: unspecified Qualified Codes: Z34.90 - Encounter for supervision of normal , unspecified, unspecified trimester (2) Asthma exacerbation Status: Acute Qualifiers: Asthma severity: moderate Asthma persistence: persistent Qualified Codes: J45.41 - Moderate persistent asthma with (acute) exacerbation ALEXUS ABRAHAM MD 04/19/228: History of Present Illness Source: patient, family Exam Limitations: no limitations Time Seen by a Provider: 09:55 Past Wpxhhpk-Rsdsof-Moslhh Hx Past Medical History Asthma Family Medical History Alcoholism 19 FATHER G8 BROTHER Arthritis 19 FATHER Cardiovascular disease 19 MOTHER Coronary thrombosis 19 MOTHER Diabetes mellitus 19 MOTHER MATERNAL GRANDMOTHER Myocardial infarction 19 MOTHER Neoplasm 19 FATHER (LUNG CANCER) 19 MOTHER Respiratory disorder 19 FATHER (EMPHYSEMA) Assessment/Plan Assessment and Plan Admitted with acute asthma exacerbation. Started on steroids and breathing treatments. Improving. Likely discharge home tomorrow. Diagnosis/Problems Diagnosis/Problems (1) Asthma exacerbation Status: Acute Qualifiers: Asthma severity: moderate Asthma persistence: persistent Qualified Codes: J45.41 - Moderate persistent asthma with (acute) exacerbation (2) Status: Acute Qualifiers: Weeks of gestation: unspecified Qualified Codes: Z34.90 - Encounter for supervision of normal , unspecified, unspecified trimester Supervisory-Addendum Brief Verification & Attestation Participated in pt care: history, MDM, physical Personally performed: exam, history, MDM, supervision of care Care discussed with: Medical Student Procedures: n/a Results interpretation: Verified all documentation A medical student performed and documented this service in my presence. I reviewed and verified all information documented by the medical student and made modifications to such information, when appropriate. I personally performed the physical exam and medical decision making. BARRY DIXON MED STUDENT Apr 19, 2022 13:20 ALEXUS ABRAHAM MD Apr 19, 2022 21:48
[2022-04-19 14:06] LABS: AMPHETAMINE SCREEN, URINE NEGATIVE (NEGATIVE); BARBITURATE SCREEN URINE NEGATIVE (NEGATIVE); BENZODIAZEPINES SCREEN URINE NEGATIVE (NEGATIVE); CANNABINOID SCREEN, URINE NEGATIVE (NEGATIVE); COCAINE SCREEN URINE NEGATIVE (NEGATIVE); OPIATE SCREEN URINE NEGATIVE (NEGATIVE)
[2022-04-19 14:07] LABS: METHADONE STAT NEGATIVE (NEGATIVE); OXYCODONE STAT NEGATIVE (NEGATIVE); PROPOXYPHENE STAT NEGATIVE (NEGATIVE); TRICYCLIC ANTIDEPRESSANTS SCRE NEGATIVE (NEGATIVE)
[2022-04-19] MEDS: CATHETER FLUSH 10 ML SYR IVP SCH ×2 (14:17→19:52)
[2022-04-19] MEDS: RT--FLUTICASONE/SALMETEROL 232-14 (AIRDUO RespiCLICK) IH SCH ×2 (15:45→18:40)
[2022-04-19] MEDS: LACTATED RINGERS 1,000 ML IV SCH (16:48)
[2022-04-19] MEDS ORDERED: ACETAMINOPHEN 325 MG TABLET PO PRN (17:15)
[2022-04-20] MEDS: methylPREDNISolone 125 MG (Solu-MEDROL) VIAL IVP SCH ×2 (02:02→08:44)
[2022-04-20] MEDS: LACTATED RINGERS 1,000 ML IV SCH ×2 (02:03→11:30)
[2022-04-20] MEDS: RT-ALBUTEROL/IPRATROPIUM 3 ML (DUONEB) VIAL INH SCH ×3 (02:48→11:01)
[2022-04-20] MEDS: CATHETER FLUSH 10 ML SYR IVP SCH (03:34)
[2022-04-20 03:59] VITALS: BP 101/55
[2022-04-20 05:30] VITALS: BP 108/59
[2022-04-20] MEDS: RT--FLUTICASONE/SALMETEROL 232-14 (AIRDUO RespiCLICK) IH SCH (07:26)
[2022-04-20 07:44] VITALS: BP 109/58
[2022-04-20] MEDS ORDERED: PRD20T PO (09:48)
[2022-04-20 11:15] VITALS: BP 94/55
[2022-04-20] MEDS ORDERED: IPRA3AMP31 NEB (12:08)
--- NOTE | 2022-04-20 12:35 | Discharge Summary ---
BARRY DIXON Mirna MED STUDENT 04/20/22 1235: Diagnosis/Chief Complaint Date of Admission Apr 19, 2022 at 04:43 Date of Discharge Discharge Date: Apr 20, 2022 Admission Diagnosis Acute asthma exacerbation Primary Care No,Local Physician Discharge Diagnosis Acute asthma exacerbation (1) Asthma exacerbation Status: Acute Assessment & Plan: Oral prednisone and duoneb treatments sent to [facility] pharmacy Take prednisone as prescribed For the first few days, take duonebs 3-4 times per day, then only use when short of breath Continue symbicort and allergy medications previously prescribed F/u with primary care provider (2) Status: Acute Discharge Summary Discharge Physical Exam Allergies: Coded Allergies: chlorpheniramine (Verified Allergy, Unknown, 03/05/06) phenylephrine (Verified Allergy, Unknown, 03/05/06) phenylpropanolamine (Verified Allergy, Unknown, 03/05/06) phenyltoloxamine (Verified Allergy, Unknown, 03/05/06) Vitals & I&Os Vital Signs Date Time Temp Pulse Resp B/P (MAP) Pulse Ox O2 Delivery O2 Flow Rate FiO2 04/20/22 11:15 37.5 125 20 94/55 (68) 94 Room Air General Appearance: WD/WN, Anxious HEENT: PERRL/EOMI, Moist Mucous Membranes Respiratory: Chest Non Tender, Lungs Clear, No Respiratory Distress, Accessory Muscle Use Cardiovascular: No Murmur, Tachycardia Gastrointestinal: Normal Bowel Sounds, Non Tender, Soft Extremity: Normal Capillary Refill, Non Tender, No Pedal Edema Skin: Normal Color, Warm/Dry Neurologic/Psychiatric: Alert, Oriented x3, Normal Mood/Affect Hospital Course Denise is a 36 yo female who was admitted to cardiac step down from ED for asthma exacerbation. Pt has hx of asthma with prior intubation, Hep C and GERD. Pt reported that she was around cigarette smoke and began to develop wheezing and SOA that was not improved with breathing treatments, so she went to the ED. She is around 3 months currently. She was started on methylprednisolone, duonebs, fluticasone/salmeterol with improvement in her SOA and wheezing. Flu and COVID swabs were negative. Pt continued to improve throughout hospital stay and was medically stable for d/c. She reports she lives in the [facility]. Oral prednisone and duoneb treatments were sent to [facility] pharmacy. Advised pt to f/u with PCP. Labs (last 24 hrs) Laboratory Tests 04/19/22 13:50: Urine Opiates Screen NEGATIVE, Urine Oxycodone Screen NEGATIVE, Urine Methadone Screen NEGATIVE, Urine Propoxyphene Screen NEGATIVE, Urine Barbiturates Screen NEGATIVE, Ur Tricyclic Antidepressants Screen NEGATIVE, Urine Phencyclidine Screen NEGATIVE, Urine Amphetamines Screen NEGATIVE, Urine Methamphetamines Screen NEGATIVE, Urine Benzodiazepines Screen NEGATIVE, Urine Cocaine Screen NEGATIVE, Urine Cannabinoids Screen NEGATIVE Patient resulted labs reviewed. Discharge Home Medications: Active Scripts Active Iprat-Albut 0.5-3(2.5) mg/3 ml (Ipratropium/Albuterol Sulfate) 0.5 Mg-3 Mg (2.5 Mg Base)/3 Ml Ampul.neb 2.5 Mg NEB Q6H PRN 4 Days Prednisone 20 Mg Tab 40 Mg PO DAILY 4 Days Reported Multi Tablet (Pnv No.122/Iron/Folic Acid) 27 Mg Iron-800 Mcg Tablet 1 Each PO DAILY Cetirizine HCl 10 Mg Tablet 10 Mg PO DAILY Flonase Allergy Relief (Fluticasone Propionate) 50 Mcg/Actuation [place].susp 1-2 [place] NSEACH DAILY PRN Budesonide-Formoterol 160-4.5 (Budesonide/Formoterol Fumarate) 160 Mcg-4.5 Mcg/Actuation Hfa.aer.ad 2 Puff INH BID Ventolin Hfa (Albuterol Sulfate) 1 Puff Puff 2 Puff INH Q4H PRN Instructions to patient/family Please see electronic discharge instructions given to patient. Copy Copies To 1: [facility]/ALEXUS STEWART MD 04/20/22 1242: Diagnosis/Chief Complaint Discharge Time: 12:39 Discharge Diagnosis (1) Asthma exacerbation Status: Acute Assessment & Plan: Oral prednisone and duoneb treatments sent to [facility] pharmacy Take prednisone as prescribed For the first few days, take duonebs 3-4 times per day, then only use when short of breath Continue symbicort and allergy medications previously prescribed F/u with primary care provider (2) Status: Acute Discharge Summary Discharge Physical Exam Allergies: Coded Allergies: chlorpheniramine (Verified Allergy, Unknown, 03/05/06) phenylephrine (Verified Allergy, Unknown, 03/05/06) phenylpropanolamine (Verified Allergy, Unknown, 03/05/06) phenyltoloxamine (Verified Allergy, Unknown, 03/05/06) Hospital Course Was the Problem List Reviewed?: Yes Discussion & Recommendations Discharge Planning: <30 minutes discharge planning Discharge Condition at discharge Stable Copy Copies To 1: [facility]/[place] Supervisory-Addendum Brief Verification & Attestation Participated in pt care: history, MDM, physical Personally performed: exam, history, MDM, supervision of care Care discussed with: Medical Student Procedures: n/a Results interpretation: Verified all documentation A medical student performed and documented this service in my presence. I reviewed and verified all information documented by the medical student and made modifications to such information, when appropriate. I personally performed the physical exam and medical decision making. Problem Qualifiers (1) Asthma exacerbation: Asthma severity: moderate Asthma persistence: persistent Qualified Codes: J45.41 - Moderate persistent asthma with (acute) exacerbation (2) : Weeks of gestation: unspecified Qualified Codes: Z34.90 - Encounter for supervision of normal , unspecified, unspecified trimester BARRY DIXON MED STUDENT Apr 20, 2022 12:35 ALEXUS ABRAHAM MD Apr 20, 2022 12:42
[2022-04-20 12:51] VITALS: BP 94/55
[2022-04-21] MEDS ORDERED: predniSONE 20 MG TAB PO SCH (07:00)
== END 2022-04-20 12:08 | disposition home or self-care (01) ==
LOC: EDUNIT# 01:56 → ER 01:59 → UNDOADMOB 04:43 → ICU 04:43 → 4TH 12:42 → ICU 12:42 → UNDODISOB 04-20 12:08
PROVIDERS: ADMIT Internal Medicine; ATTEND Internal Medicine
DX: O99.519 Diseases of the respiratory system complicating pregnancy, unspecified trimester (principal); J45.901 Unspecified asthma with (acute) exacerbation; E87.6 Hypokalemia; R00.0 Tachycardia, unspecified; Z3A.00 Weeks of gestation of pregnancy not specified; Z87.891 Personal history of nicotine dependence
CPT/HCPCS: 36415; 80048; 80306; 85025; 87636; 90471; 90686; 94640; 94760; 96361; 96376

== ENCOUNTER 2022-06-03 15:06 | Emergency (ER) | payer MEDICAID ==
[~2022-06-03] VITALS: Ht 154 cm; Wt 79.0 kg
[~2022-06-03 15:06] MED LIST changes: +BUDE10.26 INH; +CETI10TA17 PO; +FLUT9.9S NSEACH; +IPRA3AMP31 NEB; +PNV1TABL81 PO; +RT-ALBUINH INH
[2022-06-03] MEDS ORDERED: predniSONE 20 MG TAB PO ONE (15:30)
[2022-06-03] MEDS ORDERED: RT-ALBUTEROL/IPRATROPIUM 3 ML (DUONEB) VIAL INH ONE (15:30)
--- NOTE | 2022-06-03 15:31 | ED Respiratory ---
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 Pt is also 20wks with an uneventful . Source: patient Exam Limitations: no limitations History of Present Illness Date Seen by Provider: Jun 03, 2022 Time Seen by Provider: 15:20 Initial Comments Patient is a 37-year-old female who presents to the emergency department with wheezing and increased work of breathing over the last 2 days. Patient is currently approximately 20 weeks . She is a G 11 P8 female. 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 She denies any abdominal pain or vaginal bleeding/discharge. Patient has a history of asthma with several exacerbations requiring admission. Patient states she has been taking breathing treatments today with transient improvement. Denies productive cough, fever, chest pain. States she does not smoke, drink, or currently use any drugs. Allergies and Home Medications Allergies Coded Allergies: chlorpheniramine (Verified Allergy, Unknown, 03/05/06) phenylephrine (Verified Allergy, Unknown, 03/05/06) phenylpropanolamine (Verified Allergy, Unknown, 03/05/06) phenyltoloxamine (Verified Allergy, Unknown, 03/05/06) Patient Home Medication List Home Medication List Reviewed: Yes Albuterol Sulfate (Ventolin Hfa) 1 Puff Puff, 2 PUFF INH Q4H PRN for SHORTNESS OF BREATH, (Reported) Entered as Reported by: IRMA NOGUERA on 04/19/221200 Budesonide/Formoterol Fumarate (Budesonide-Formoterol 160-4.5) 160 Mcg-4.5 Mcg/Actuation Hfa.aer.ad, 2 PUFF INH BID, (Reported) Entered as Reported by: IRMA NOGUERA on 04/19/22 120 Cetirizine HCl (Cetirizine HCl) 10 Mg Tablet, 10 MG PO DAILY, (Reported) Entered as Reported by: IRMA NOGUERA on 04/19/22 120 Fluticasone Propionate (Flonase Allergy Relief) 50 Mcg/Actuation [place].susp, 1-2 SPRAY NSEACH DAILY PRN for CONGESTION, (Reported) Entered as Reported by: IRMA NOGUERA on 04/19/22 120 Ipratropium/Albuterol Sulfate (Iprat-Albut 0.5-3(2.5) mg/3 ml) 0.5 Mg-3 Mg (2.5 Mg Base)/3 Ml Ampul.neb, 2.5 MG NEB Q6H PRN for SHORTNESS OF BREATH Prescribed by: ALEXUS ABRAHAM on 04/20/22 1208 Pnv No.122/Iron/Folic Acid ( Multi Tablet) 27 Mg Iron-800 Mcg Tablet, 1 EACH PO DAILY, (Reported) Entered as Reported by: IRMA NOGUERA on 04/19/22 1201 Discontinued Medications Prednisone (Prednisone) 20 Mg Tab, 40 MG PO DAILY Prescribed by: ALEXUS ABRAHAM on 04/20/22 0948 Prednisone (Prednisone) 20 Mg Tab, 40 MG PO DAILY Prescribed by: Yan Dillard on 06/03/22 1649 Review of Systems Review of Systems Constitutional: no symptoms reported EENTM: no symptoms reported Respiratory: see HPI, cough, short of breath, wheezing Cardiovascular: no symptoms reported Gastrointestinal: no symptoms reported Genitourinary: no symptoms reported Expected Date of Delivery: October 21, 2022 Musculoskeletal: no symptoms reported Skin: no symptoms reported Psychiatric/Neurological: No Symptoms Reported Hematologic/Lymphatic: No Symptoms Reported Immunological/Allergic: no symptoms reported Past Krftzig-Lcrpxz-Vmntji Hx Immunizations Up To Date Tetanus Booster (TDap): Unknown PED Vaccines UTD: No First/Initial COVID19 Vaccinat: 2020 Second COVID19 Vaccination Terry: 2020 Third COVID19 Vaccination Date: 2020 Seasonal Allergies Seasonal Allergies: Yes Past Medical History Surgery/Hospitalization HX: previous x6 Surgeries: Yes ( X5) Section Respiratory: Yes Asthma Currently Using CPAP: No Currently Using BIPAP: No Cardiac: No Neurological: No Expected Date of Delivery: October 21, 2022 Reproductive Disorders: No Female Reproductive Disorders: Denies Sexually Transmitted Disease: No HIV/AIDS: No Genitourinary: No Gastrointestinal: Yes (HEPATITIS C +) Gastroesophageal Reflux, Liver Disease/Jaundice, Hepatitis Musculoskeletal: No Endocrine: No HEENT: No Loss of Vision: Denies Hearing Impairment: Denies Cancer: No Psychosocial: No Integumentary: No Blood Disorders: No Adverse Reaction/Blood Tranf: No Family Medical History Alcoholism 19 FATHER G8 BROTHER Arthritis 19 FATHER Cardiovascular disease 19 MOTHER Coronary thrombosis 19 MOTHER Diabetes mellitus 19 MOTHER MATERNAL GRANDMOTHER Myocardial infarction 19 MOTHER Neoplasm 19 FATHER (LUNG CANCER) 19 MOTHER Respiratory disorder 19 FATHER (EMPHYSEMA) Asthma Physical Exam Vital Signs - First Documented 06/03/22 15:21 Temp 37.1 Pulse 112 Resp 24 B/P (MAP) 120/72 (88) Pulse Ox 95 O2 Delivery Room Air Capillary Refill : Height: 5'1.00" Weight: 130lbs. 8.0oz. 58.331945yx; 33.00 BMI Method:Stated General Appearance: WD/WN, no apparent distress HEENT: PERRL/EOMI, normal ENT inspection, TMs normal, pharynx normal Neck: non-tender, full range of motion, supple, normal inspection Respiratory: chest non-tender, lungs clear, normal breath sounds, no respiratory distress, no accessory muscle use Cardiovascular: regular rate, rhythm Gastrointestinal: normal bowel sounds, non tender, soft Neurologic/Psychiatric: no motor/sensory deficits, alert, normal mood/affect, oriented x 3 Skin: normal color, warm/dry Procedures/Interventions Date of ETT Placement: Jul 11, 2021 Time of ETT Placement: 953 Progress/Results/Core Measures Suspected Sepsis SIRS Temperature: Pulse: 112 Respiratory Rate: 24 Blood Pressure 120 /72 Mean: 88 Results/Orders My Orders Orders - YAN DILLARD APRN Albuterol/Ipra Inhalation Soln (Duoneb I (06/03/22 15:30) Svn Small Volume Nebulizer (06/03/22 15:26) Prednisone Tablet (Deltasone Tablet) (06/03/22 15:30) Chest 1 View, Ap/Pa Only (06/03/22 15:59) Medications Given in ED Vital Signs/I&O 06/03/22 06/03/22 06/03/22 06/03/22 15:21 15:24 15:35 17:08 Temp 37.1 Pulse 112 102 Resp 24 22 B/P (MAP) 120/72 (88) 99/64 Pulse Ox 95 96 98 O2 Delivery Room Air Room Air Room Air Room Air Capillary Refill : Blood Pressure Mean: 88 Progress Note : Progress Note Patient is nontoxic and well-hydrated on exam. She is slightly tachypneic and has expiratory wheezing on lung auscultation. She is slightly tachycardic as well. She does have some mild accessory muscle use on initial exam. Orders were placed for a 1 hour DuoNeb as well as a dose of prednisone and a chest x-ray. Review of current recommendations shows prednisone is a preferred steroid for respiratory processes during . Recommendations also indicate it is important to utilize the steroids at the lowest dose for the shortest time possible depending on the indication. Patient had significant improvement in work of breathing after the DuoNeb was complete. Patient did have a very faint end expiratory wheeze that persisted. She endorsed feeling much better and states she could breathe much easier. I encouraged her to use her albuterol nebulizer or her albuterol inhaler every 4 hours for at least the next 24 hours to help prevent further exacerbation. Had a lengthy discussion regarding return precautions if this plan does not work in keeping her respiratory distress yaa. She will be given a prescription for another 4 days of prednisone. Follow-up with PCP and/or POWER MULE OPERATOR. Patient verbalized understanding. Departure Impression Primary Impression: Acute asthma exacerbation Qualified Codes: J45.21 - Mild intermittent asthma with (acute) exacerbation Disposition: 01 HOME, SELF-CARE Condition: Stable Departure-Patient Inst. Decision time for Depature: 16:45 Referrals: DEMETRICE JENNINGS MD (PCP/Family) Primary Care Physician Patient Instructions: Asthma, Adult (DC) YAN DILLARD APRN Jun 03, 2022 15:31
--- NOTE | 2022-06-03 16:20 | Diagnostic Imaging Report ---
CLINICAL INDICATION: Patient with cough and shortness of breath. Patient has asthma. EXAM: Portable chest x-ray, upright view. COMPARISON: Chest x-ray dated 07/11/2021. FINDINGS: Lungs/pleura: Lungs are clear. There is no pneumothorax. There is no pleural effusion. Mediastinum: Unremarkable. Pulmonary vasculature: Unremarkable. Heart: Unremarkable. Bones/extrathoracic soft tissue: There are degenerative spurs involving the thoracic spine. IMPRESSION: There is no radiographic evidence of acute cardiopulmonary process. Dictated by: Dictated on workstation # [id number]
[2022-06-03] MEDS ORDERED: PRD20T PO (16:49)
[2022-06-03 17:08] VITALS: BP 99/64
== END 2022-06-03 17:09 | disposition home or self-care (01) ==
LOC: EDUNIT# 15:06 → ER 15:08
DX: O99.512 Diseases of the respiratory system complicating pregnancy, second trimester (principal); J45.901 Unspecified asthma with (acute) exacerbation; Z3A.20 20 weeks gestation of pregnancy
CPT/HCPCS: 71045; 94640

== ENCOUNTER 2022-06-04 10:19 | Inpatient (IN) | payer MEDICAID ==
[~2022-06-04] VITALS: Ht 154 cm; Wt 85.5 kg
[2022-06-04] MEDS ORDERED: methylPREDNISolone 125 MG (Solu-MEDROL) VIAL IV STA (10:38)
[2022-06-04] MEDS ORDERED: LACTATED RINGERS 1,000 ML IV ONE (10:45)
[2022-06-04] MEDS ORDERED: RT-ALBUTEROL/IPRATROPIUM 3 ML (DUONEB) VIAL INH ONE (10:45)
[2022-06-04 10:54] LABS: BILIRUBIN,URINE NEGATIVE (NEGATIVE); CLARITY,URINE CLEAR; COLOR,URINE YELLOW; GLUCOSE, URINE (UA) NEGATIVE (NEGATIVE); KETONES,URINE NEGATIVE (NEGATIVE); LEUKOCYTE ESTERASE ,URINE NEGATIVE (NEGATIVE); NITRITE,URINE NEGATIVE (NEGATIVE); PH,URINE 5.5 (5-9); PROTEIN,URINE NEGATIVE (NEGATIVE)
[2022-06-04 10:59] LABS: AMPHETAMINE SCREEN, URINE NEGATIVE (NEGATIVE); BARBITURATE SCREEN URINE NEGATIVE (NEGATIVE); BENZODIAZEPINES SCREEN URINE NEGATIVE (NEGATIVE); CANNABINOID SCREEN, URINE NEGATIVE (NEGATIVE); COCAINE SCREEN URINE NEGATIVE (NEGATIVE); METHADONE STAT NEGATIVE (NEGATIVE); OPIATE SCREEN URINE NEGATIVE (NEGATIVE); OXYCODONE STAT NEGATIVE (NEGATIVE); PROPOXYPHENE STAT NEGATIVE (NEGATIVE); TRICYCLIC ANTIDEPRESSANTS SCRE NEGATIVE (NEGATIVE)
[2022-06-04 11:00] LABS: BASOPHILS % (AUTO) 0 % (0-10); EOSINOPHILS # (AUTO) 0.4 10^3/uL (0.0-0.3); EOSINOPHILS % (AUTO) 4 % (0-10); HEMATOCRIT 36 % (35-52); HEMOGLOBIN 11.9 g/dL (11.5-16.0); LYMPHOCYTES # (AUTO) 1.8 10^3/uL (1.0-4.0); LYMPHOCYTES % (AUTO) 15 % (12-44); MEAN CORPUSCULAR HEMOGLOBIN 27 pg (25-34); MEAN CORPUSCULAR HGB CONC 33 g/dL (32-36); MEAN CORPUSCULAR VOLUME 82 fL (80-99); MEAN PLATELET VOLUME 9.6 fL (9.0-12.2); MONOCYTES # (AUTO) 0.5 10^3/uL (0.0-1.0); MONOCYTES % (AUTO) 4 % (0-12); NEUTROPHILS % (AUTO) 76 % (42-75); PLATELET COUNT 314 10^3/uL (130-400); WHITE BLOOD COUNT 11.9 10^3/uL (4.3-11.0)
[2022-06-04 11:01] LABS: BACTERIA,URINE NEGATIVE /HPF; WBC,URINE RARE /HPF
[2022-06-04 11:26] LABS: ALANINE AMINOTRANSFERASE 57 U/L (0-55); ALBUMIN 3.4 GM/DL (3.2-4.5); ALKALINE PHOSPHATASE 73 U/L (40-136); BILIRUBIN,TOTAL 0.2 MG/DL (0.1-1.0); BUN/CREATININE RATIO 17; CALCIUM 9.1 MG/DL (8.5-10.1); CARBON DIOXIDE 17 MMOL/L (21-32); CHLORIDE 111 MMOL/L (98-107); GFR ESTIMATED 118; GLUCOSE 117 MG/DL (70-105); MAGNESIUM 1.5 MG/DL (1.6-2.4); POTASSIUM 3.3 MMOL/L (3.6-5.0); SODIUM 138 MMOL/L (135-145)
[2022-06-04] MEDS ORDERED: MAGNESIUM 2 GM/50 ML IVPB 50 ML IV ONE (11:45)
[2022-06-04] MEDS ORDERED: AZITHROMYCIN INJECTION 500 MG in NS (IVPB) 250 ML IV ONE (12:00)
[2022-06-04] MEDS ORDERED: cefTRIAXone 1 GM PRE-MIX 50 ML IV ONE (12:00)
[2022-06-04] MEDS: 1/2 NS W/KCL 20 MEQ/L 1,000 ML IV SCH ×2 (12:10→15:32)
[2022-06-04] MEDS: MAGNESIUM 1 GM/D5W 100 ML IVPB IV SCH ×2 (12:10→12:11)
--- NOTE | 2022-06-04 12:20 | ED Respiratory ---
General Chief Complaint: Respiratory Problems Stated Complaint: RESPIRATORY ILLNESS Nursing Triage Note: PT AMB TO RM 9 WITH COMPLAINT OF SOB SINCE YESTERDAY. WAS SEEN YESTERDAY AND DIAGNOSED WITH ASTHMA ATTACK AND GIVEN PREDNISONE. STATES TOOK 2 BREATHING TREATMENTS AND PREDNISONE TODAY AT HOME WITH NO RELIEF. Source: patient, old records History of Present Illness Date Seen by Provider: Jun 04, 2022 Allergies and Home Medications Allergies Coded Allergies: chlorpheniramine (Verified Allergy, Unknown, 03/05/06) phenylephrine (Verified Allergy, Unknown, 03/05/06) phenylpropanolamine (Verified Allergy, Unknown, 03/05/06) phenyltoloxamine (Verified Allergy, Unknown, 03/05/06) Patient Home Medication List Albuterol Sulfate (Ventolin Hfa) 1 Puff Puff, 2 PUFF INH Q4H PRN for SHORTNESS OF BREATH, (Reported) Entered as Reported by: IRMA NOGUERA on 04/19/22 120 Budesonide/Formoterol Fumarate (Budesonide-Formoterol 160-4.5) 160 Mcg-4.5 Mcg/Actuation Hfa.aer.ad, 2 PUFF INH BID, (Reported) Entered as Reported by: IRMA NOGUERA on 04/19/22 120 Cetirizine HCl (Cetirizine HCl) 10 Mg Tablet, 10 MG PO DAILY, (Reported) Entered as Reported by: IRMA NOGUERA on 04/19/22 120 Fluticasone Propionate (Flonase Allergy Relief) 50 Mcg/Actuation [place].susp, 1-2 SPRAY NSEACH DAILY PRN for CONGESTION, (Reported) Entered as Reported by: IRMA NOGUERA on 04/19/22 120 Ipratropium/Albuterol Sulfate (Iprat-Albut 0.5-3(2.5) mg/3 ml) 0.5 Mg-3 Mg (2.5 Mg Base)/3 Ml Ampul.neb, 2.5 MG NEB Q6H PRN for SHORTNESS OF BREATH Prescribed by: ALEXUS ABRAHAM on 04/20/22 1208 Pnv No.122/Iron/Folic Acid ( Multi Tablet) 27 Mg Iron-800 Mcg Tablet, 1 EACH PO DAILY, (Reported) Entered as Reported by: IRMA NOGUERA on 04/19/22 120 Prednisone (Prednisone) 20 Mg Tab, 40 MG PO DAILY Prescribed by: ALEXUS ABRAHAM on 04/20/22 0948 Prednisone (Prednisone) 20 Mg Tab, 40 MG PO DAILY Prescribed by: Yan Dillard on 06/03/22 1649 Past Qqnzkco-Tnqgjz-Qjrxjp Hx Patient Social History Tobacco Use?: No Use of E-Cig and/or Vaping dev: No Substance use?: No Alcohol Use?: No Pt feels they are or have been: No Immunizations Up To Date Tetanus Booster (TDap): Unknown PED Vaccines UTD: No First/Initial COVID19 Vaccinat: 2020 Second COVID19 Vaccination Terry: 2020 Third COVID19 Vaccination Date: 2020 Seasonal Allergies Seasonal Allergies: Yes Past Medical History Surgery/Hospitalization HX: previous x6 Surgeries: Yes ( X5) Section Respiratory: Yes Asthma Currently Using CPAP: No Currently Using BIPAP: No Cardiac: No Neurological: No Reproductive Disorders: No Female Reproductive Disorders: Denies Sexually Transmitted Disease: No HIV/AIDS: No Genitourinary: No Gastrointestinal: Yes (HEPATITIS C +) Gastroesophageal Reflux, Liver Disease/Jaundice, Hepatitis Musculoskeletal: No Endocrine: No HEENT: No Loss of Vision: Denies Hearing Impairment: Denies Cancer: No Psychosocial: No Integumentary: No Blood Disorders: No Adverse Reaction/Blood Tranf: No Family Medical History Alcoholism 19 FATHER G8 BROTHER Arthritis 19 FATHER Cardiovascular disease 19 MOTHER Coronary thrombosis 19 MOTHER Diabetes mellitus 19 MOTHER MATERNAL GRANDMOTHER Myocardial infarction 19 MOTHER Neoplasm 19 FATHER (LUNG CANCER) 19 MOTHER Respiratory disorder 19 FATHER (EMPHYSEMA) Asthma Physical Exam Vital Signs - First Documented 06/04/22 10:30 Temp 36.4 Pulse 136 Resp 22 B/P (MAP) 148/81 (103) Pulse Ox 97 O2 Delivery Room Air Capillary Refill : Less Than 3 Seconds Height: 5'1.00" Weight: 130lbs. 8.0oz. 58.036852ng; 33.00 BMI Method:Stated Focused Exam Lactate Level 06/04/22 10:48: Lactic Acid Level 2.66*H Lactic Acid Level Laboratory Tests Test 06/04/22 10:48 Lactic Acid Level 2.66 MMOL/L (0.50-2.00) *H Procedures/Interventions Date of ETT Placement: Jul 11, 2021 Time of ETT Placement: 953 Progress/Results/Core Measures Suspected Sepsis SIRS Temperature: Pulse: 136 Respiratory Rate: 22 Laboratory Tests 06/04/22 10:48: White Blood Count 11.9H Blood Pressure 148 /81 Mean: 103 06/04/22 10:48: Lactic Acid Level 2.66*H Laboratory Tests 06/04/22 10:48: Creatinine 0.60, Platelet Count 314, Total Bilirubin 0.2 Results/Orders Lab Results Laboratory Tests Test 06/04/22 10:35 06/04/22 10:38 06/04/22 10:48 Range/Units Influenza Type A (RT-PCR) Not Detected Not Detecte Influenza Type B (RT-PCR) Not Detected Not Detecte SARS-CoV-2 RNA (RT-PCR) Not Detected Not Detecte Urine Color YELLOW Urine Clarity CLEAR Urine pH 5.5 5-9 Urine Specific [place] 1.020 1.016-1.022 Urine Protein NEGATIVE NEGATIVE Urine Glucose (UA) NEGATIVE NEGATIVE Urine Ketones NEGATIVE NEGATIVE Urine Nitrite NEGATIVE NEGATIVE Urine Bilirubin NEGATIVE NEGATIVE Urine Urobilinogen 0.2 < = 1.0 MG/DL Urine Leukocyte Esterase NEGATIVE NEGATIVE Urine RBC (Auto) NEGATIVE NEGATIVE Urine RBC NONE /HPF Urine WBC RARE /HPF Urine Squamous Epithelial Cells 5-10 /HPF Urine Crystals NONE /LPF Urine Bacteria NEGATIVE /HPF Urine Casts NONE /LPF Urine Mucus NEGATIVE /LPF Urine Culture Indicated NO Urine Opiates Screen NEGATIVE NEGATIVE Urine Oxycodone Screen NEGATIVE NEGATIVE Urine Methadone Screen NEGATIVE NEGATIVE Urine Propoxyphene Screen NEGATIVE NEGATIVE Urine Barbiturates Screen NEGATIVE NEGATIVE Ur Tricyclic Antidepressants Screen NEGATIVE NEGATIVE Urine Phencyclidine Screen NEGATIVE NEGATIVE Urine Amphetamines Screen NEGATIVE NEGATIVE Urine Methamphetamines Screen NEGATIVE NEGATIVE Urine Benzodiazepines Screen NEGATIVE NEGATIVE Urine Cocaine Screen NEGATIVE NEGATIVE Urine Cannabinoids Screen NEGATIVE NEGATIVE White Blood Count 11.9 H 4.3-11.0 10^3/uL Red Blood Count 4.39 3.80-5.11 10^6/uL Hemoglobin 11.9 11.5-16.0 g/dL Hematocrit 36 35-52 % Mean Corpuscular Volume 82 80-99 fL Mean Corpuscular Hemoglobin 27 25-34 pg Mean Corpuscular Hemoglobin Concent 33 32-36 g/dL Red Cell Distribution Width 16.5 H 10.0-14.5 % Platelet Count 314 130-400 10^3/uL Mean Platelet Volume 9.6 9.0-12.2 fL Immature Granulocyte % (Auto) 1 % Neutrophils (%) (Auto) 76 H 42-75 % Lymphocytes (%) (Auto) 15 12-44 % Monocytes (%) (Auto) 4 0-12 % Eosinophils (%) (Auto) 4 0-10 % Basophils (%) (Auto) 0 0-10 % Neutrophils # (Auto) 9.0 H 1.8-7.8 10^3/uL Lymphocytes # (Auto) 1.8 1.0-4.0 10^3/uL Monocytes # (Auto) 0.5 0.0-1.0 10^3/uL Eosinophils # (Auto) 0.4 H 0.0-0.3 10^3/uL Basophils # (Auto) 0.0 0.0-0.1 10^3/uL Immature Granulocyte # (Auto) 0.1 0.0-0.1 10^3/uL Sodium Level 138 135-145 MMOL/L Potassium Level 3.3 L 3.6-5.0 MMOL/L Chloride Level 111 H 98-107 MMOL/L Carbon Dioxide Level 17 L 21-32 MMOL/L Anion Gap 10 5-14 MMOL/L Blood Urea Nitrogen 10 7-18 MG/DL Creatinine 0.60 0.60-1.30 MG/DL Estimat Glomerular Filtration Rate 118 BUN/Creatinine Ratio 17 Glucose Level 117 H 70-105 MG/DL Lactic Acid Level 2.66 *H 0.50-2.00 MMOL/L Calcium Level 9.1 8.5-10.1 MG/DL Corrected Calcium 9.6 8.5-10.1 MG/DL Magnesium Level 1.5 L 1.6-2.4 MG/DL Total Bilirubin 0.2 0.1-1.0 MG/DL Aspartate Amino Transf (AST/SGOT) 35 H 5-34 U/L Alanine Aminotransferase (ALT/SGPT) 57 H 0-55 U/L Alkaline Phosphatase 73 40-136 U/L Total Protein 7.0 6.4-8.2 GM/DL Albumin 3.4 3.2-4.5 GM/DL Procalcitonin 0.02 <0.10 NG/ML Serum Alcohol < 10 <10 MG/DL My Orders Orders - LIANA GRAY DO Ed Iv/Invasive Line Start (06/04/22 10:38) Monitor-Rhythm Ecg Trace Only (06/04/22 10:38) Alcohol (06/04/22 10:38) Cbc With Automated Diff (06/04/22 10:38) Comprehensive Metabolic Panel (06/04/22 10:38) Drug Screen Stat (Urine) (06/04/22 10:38) Lactic Acid Analyzer (06/04/22 10:38) Magnesium (06/04/22 10:38) Procalcitonin (Pct) (06/04/22 10:38) Ua Culture If Indicated (06/04/22 10:38) Blood Culture (06/04/22 10:38) Ed Iv/Invasive Line Start (06/04/22 10:38) Lactated Ringers (Lr 1000 Ml Iv Solution (06/04/22 10:45) Albuterol/Ipra Inhalation Soln (Duoneb I (06/04/22 10:45) Dexamethasone Injection (Decadron Injec (06/04/22 10:45) Rt Request For Service (06/04/22 10:38) Methylprednisolone Sod Succ (Solu-Medrol (06/04/22 10:38) Covid 19 Inhouse Test (06/04/22 10:38) Svn Small Volume Nebulizer (06/04/22 10:38) Influenza A And B By Pcr (06/04/22 10:38) Isolation Central Supply Req (06/04/22 10:38) Magnesium 2 Gm/50 Ml Ivpb (Magnesium 2 G (06/04/22 11:45) 1/2 Ns W/Kcl 20 Meq/L (0.45% Sodium Chlo (06/04/22 11:45) Magnesium 1 Gm/100 Ml Ivpb (Magnesium [place] (06/04/22 12:00) Non Stress Test (06/04/22 11:56) Ed Iv/Invasive Line Start (06/04/22 11:57) Ceftriaxone 1 Gm Pre-Mix (Rocephin 1 Gm (06/04/22 12:00) Azithromycin Injection (Zithromax Inject (06/04/22 12:00) Ed Admission (Communication) (06/04/22 12:02) Medications Given in ED Current Medications Medications Dose Ordered Sig/Juan José Route Start Time Stop Time Status Last Admin Dose Admin Albuterol/ Ipratropium 3 ml ONCE ONCE INH 06/04/22 10:45 06/04/22 10:46 DC 06/04/22 11:11 3 ML Dexamethasone Sodium Phosphate 20 mg ONCE ONCE IH 06/04/22 10:45 06/04/22 10:46 DC 06/04/22 11:11 20 MG Lactated Ringer's 1,000 ml @ 0 mls/hr Q0M ONCE IV 06/04/22 10:45 06/04/22 10:46 DC 06/04/22 10:58 0 MLS/HR Vital Signs/I&O 06/04/22 06/04/22 10:30 11:11 Temp 36.4 Pulse 136 Resp 22 B/P (MAP) 148/81 (103) Pulse Ox 97 95 O2 Delivery Room Air Room Air Capillary Refill : Less Than 3 Seconds Blood Pressure Mean: 103 Departure Departure-Patient Inst. Referrals: DEMETRICE JENNINGS MD (PCP/Family) Primary Care Physician LIANA GRAY DO Jun 04, 2022 12:19
[2022-06-04 15:22] VITALS: BP 115/59
[2022-06-04] MEDS ORDERED: RT-ALBUTEROL/IPRATROPIUM 3 ML (DUONEB) VIAL ONE (16:25)
[2022-06-04] MEDS ORDERED: RT-ALBUTEROL SULF 2.5 MG/3 ML PRE-MIX VIAL INH PRN (16:30)
[2022-06-04] MEDS ORDERED: RT-ALBUTEROL/IPRATROPIUM 3 ML (DUONEB) VIAL INH PRN (16:30)
[2022-06-04] MEDS ORDERED: RT-ALBUTEROL SULF 2.5 MG/3 ML PRE-MIX VIAL INH SCH (18:00)
[2022-06-04 18:32] VITALS: BP 104/55
[2022-06-04] MEDS: RT-ALBUTEROL/IPRATROPIUM 3 ML (DUONEB) VIAL INH SCH ×2 (20:44→21:45)
[2022-06-04] MEDS: RT-BUDESONIDE NEBS 0.5 MG/2ML (PULMICORT) AMP INH SCH (20:45)
[2022-06-04 21:58] VITALS: BP 105/58
[2022-06-05] VITALS (7 sets, daily range): BP systolic 97–159; BP diastolic 57–74
[2022-06-05] MEDS: 1/2 NS W/KCL 20 MEQ/L 1,000 ML IV SCH ×3 (00:26→20:22)
[2022-06-05] MEDS: RT-ALBUTEROL/IPRATROPIUM 3 ML (DUONEB) VIAL INH SCH ×6 (02:02→21:58)
[2022-06-05] MEDS: RT-BUDESONIDE NEBS 0.5 MG/2ML (PULMICORT) AMP INH SCH ×2 (06:53→19:22)
[2022-06-05 09:06] LABS: BASOPHILS % (AUTO) 0 % (0-10); EOSINOPHILS # (AUTO) 0.1 10^3/uL (0.0-0.3); EOSINOPHILS % (AUTO) 1 % (0-10); HEMATOCRIT 33 % (35-52); HEMOGLOBIN 10.7 g/dL (11.5-16.0); LYMPHOCYTES # (AUTO) 1.7 10^3/uL (1.0-4.0); LYMPHOCYTES % (AUTO) 13 % (12-44); MEAN CORPUSCULAR HEMOGLOBIN 27 pg (25-34); MEAN CORPUSCULAR HGB CONC 32 g/dL (32-36); MEAN CORPUSCULAR VOLUME 84 fL (80-99); MEAN PLATELET VOLUME 9.9 fL (9.0-12.2); MONOCYTES # (AUTO) 0.5 10^3/uL (0.0-1.0); MONOCYTES % (AUTO) 4 % (0-12); NEUTROPHILS # (AUTO) 10.8 10^3/uL (1.8-7.8); NEUTROPHILS % (AUTO) 82 % (42-75); PLATELET COUNT 277 10^3/uL (130-400); WHITE BLOOD COUNT 13.1 10^3/uL (4.3-11.0)
[2022-06-05 09:26] LABS: ALBUMIN 3.1 GM/DL (3.2-4.5); BILIRUBIN,TOTAL 0.2 MG/DL (0.1-1.0); CALCIUM 8.4 MG/DL (8.5-10.1); CREATININE SERUM 0.55 MG/DL (0.60-1.30); POTASSIUM 3.3 MMOL/L (3.6-5.0)
[2022-06-05] MEDS ORDERED: KCL 20 MEQ TAB (K-DUR) PO ONE (10:15)
--- NOTE | 2022-06-05 10:17 | History & Physical ---
HPI History of Present Illness: This is a 37 yo at 20w3d with an LATHA 10/21/22 who is admitted for acute asthma exacerbation. Patient reports 2 day history of increase in wheezing and SOA. She was seen in the ED on 06/03/22, CXR was negative and patient improved with breathing treatments. She received a prescription for prednisone and took one dose after leaving the ED but continued to have wheezing and SOA and re- presented to the ED on 06/04/22. Patient's signficant other has observed that when she uses her inhaler she puffs it in the air in front of her mouth. She does not use a chamber. She is currently using for her home regimen: Albuterol MDI, she has a nebulizer but does not prefer to use it, Symbicort, Certrizine 10m daily. Patient has been admitted multiple times for asthma exacerbations, last hospitalization was 04/19/2022. She has been intubated multiple times, last intubation was 07/2021. 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 Since admission, patient has had mild clinical improved. She is not requiring supplemental oxygen, but does appear visually short of breath with conversation. She received IV Solu-medrol, Mag sulfate, Rocephin, Zithromax in the ED and has been receiving Pulmicort neb since admission. Source: patient Exam Limitations: no limitations Date seen by provider: Jun 05, 2022 Time Seen by Provider: 09:00 Attending Physician Belkis Alfaro MD PCP Admitting Physician: Leander Hamm DO Attending Physician: Leander Hamm DO Consult Date of Admission Jun 04, 2022 at 12:02 Home Medications Home Medications Reviewed patient Home Medication Reconciliation performed by pharmacy medication reconciliations school bus technician and/or nursing. Patients Allergies have been reviewed. Allergies Coded Allergies: chlorpheniramine (Verified Allergy, Unknown, 03/05/06) phenylephrine (Verified Allergy, Unknown, 03/05/06) phenylpropanolamine (Verified Allergy, Unknown, 03/05/06) phenyltoloxamine (Verified Allergy, Unknown, 03/05/06) TJR-Cxflwi-Czazja Hx Patient Social History Marrital Status: domestic partnership Employed/Student: employed Drug of Choice: meth Smoking Status: Former Smoker Former smoker/When Quit: Jan 24, 2022 2nd Hand Smoke Exposure: No Recent Hopitalizations: Yes Alcohol Use?: No Have you traveled recently?: No Immunizations Up To Date Tetanus Booster (TDap): Unknown First/Initial COVID19 Vaccinat: 2020 Second COVID19 Vaccination Terry: 2020 Third COVID19 Vaccination Date: 2020 Past Medical History Severe Persistant Asthma requiring multiple hospitalizations; hx of multiple intubations due to exacerbations Hepatitis C Hx of GERTRUDIS, clean since 01/2022 Hx of tobaccoism, quit 01/2022 GERD PSH: c-sections Family Medical History Significant Family History: Asthma Family History: Alcoholism 19 FATHER G8 BROTHER Arthritis 19 FATHER Cardiovascular disease 19 MOTHER Coronary thrombosis 19 MOTHER Diabetes mellitus 19 MOTHER MATERNAL GRANDMOTHER Myocardial infarction 19 MOTHER Neoplasm 19 FATHER (LUNG CANCER) 19 MOTHER Respiratory disorder 19 FATHER (EMPHYSEMA) Review of Systems ([facility]) Constitutional: see HPI Reviewed Test Results Reviewed Test Results Lab Laboratory Tests 06/04/22 10:35: Influenza Type A (RT-PCR) Not Detected, Influenza Type B (RT-PCR) Not Detected, SARS-CoV-2 RNA (RT-PCR) Not Detected 06/04/22 10:38: Urine Color YELLOW, Urine Clarity CLEAR, Urine pH 5.5, Urine Specific [place] 1.020, Urine Protein NEGATIVE, Urine Glucose (UA) NEGATIVE, Urine Ketones NEGATIVE, Urine Nitrite NEGATIVE, Urine Bilirubin NEGATIVE, Urine Urobilinogen 0.2, Urine Leukocyte Esterase NEGATIVE, Urine RBC (Auto) NEGATIVE, Urine RBC NONE, Urine WBC RARE, Urine Squamous Epithelial Cells 5-10, Urine Crystals NONE, Urine Bacteria NEGATIVE, Urine Casts NONE, Urine Mucus NEGATIVE, Urine Culture I ndicated NO, Urine Opiates Screen NEGATIVE, Urine Oxycodone Screen NEGATIVE, Urine Methadone Screen NEGATIVE, Urine Propoxyphene Screen NEGATIVE, Urine Barbiturates Screen NEGATIVE, Ur Tricyclic Antidepressants Screen NEGATIVE, Urine Phencyclidine Screen NEGATIVE, Urine Amphetamines Screen NEGATIVE, Urine Methamphetamines Screen NEGATIVE, Urine Benzodiazepines Screen NEGATIVE, Urine Cocaine Screen NEGATIVE, Urine Cannabinoids Screen NEGATIVE 06/04/22 10:48: White Blood Count 11.9H, Red Blood Count 4.39, Hemoglobin 11.9, Hematocrit 36, Mean Corpuscular Volume 82, Mean Corpuscular Hemoglobin 27, Mean Corpuscular H emoglobin Concent 33, Red Cell Distribution Width 16.5H, Platelet Count 314, Mean Platelet Volume 9.6, Immature Granulocyte % (Auto) 1, Neutrophils (%) (Auto) 76H, Lymphocytes (%) (Auto) 15, Monocytes (%) (Auto) 4, Eosinophils (%) (Auto) 4, Basophils (%) (Auto) 0, Neutrophils # (Auto) 9.0H, Lymphocytes # (Auto) 1.8, Monocytes # (Auto) 0.5, Eosinophils # (Auto) 0.4H, Basophils # (Au to) 0.0, Immature Granulocyte # (Auto) 0.1, Sodium Level 138, Potassium Level 3.3L, Chloride Level 111H, Carbon Dioxide Level 17L, Anion Gap 10, Blood Urea Nitrogen 10, Creatinine 0.60, Estimat Glomerular Filtration Rate 118, BUN/Creatinine Ratio 17, Glucose Level 117H, Lactic Acid Level 2.66*H, Calcium Level 9.1, Corrected Calcium 9.6, Magnesium Level 1.5L, Total Bilirubin 0.2, As partate Amino Transf (AST/SGOT) 35H, Alanine Aminotransferase (ALT/SGPT) 57H, Alkaline Phosphatase 73, Total Protein 7.0, Albumin 3.4, Procalcitonin 0.02, Serum Alcohol < 10 06/04/22 12:52: Lactic Acid Level 2.79*H 06/04/22 15:18: Lactic Acid Level 2.18*H 06/04/22 17:42: Lactic Acid Level 3.77*H 06/04/22 20:26: Lactic Acid Level 2.76*H 06/04/22 22:50: Lactic Acid Level 2.25*H 06/05/22 00:55: Lactic Acid Level 1.60 06/05/22 08:56: White Blood Count 13.1H, Red Blood Count 3.96, Hemoglobin 10.7L, Hematocrit 33L, Mean Corpuscular Volume 84, Mean Corpuscular Hemoglobin 27, Mean Corpuscular Hemoglobin Concent 32, Red Cell Distribution Width 17.0H, Platelet Count 277, Mean Platelet Volume 9.9, Immature Granulocyte % (Auto) 1, Neutrophils (%) (Auto) 82H, Lymphocytes (%) (Auto) 13, Monocytes (%) (Auto) 4, Eosinophils (%) (Auto) 1, Basophils (%) (Auto) 0, Neutrophils # (Auto) 10.8H, Lymphocytes # (Auto) 1.7, Monocytes # (Auto) 0.5, Eosinophils # (Auto) 0.1, Basophils # (Auto) 0.0, Immature Granulocyte # (Auto) 0.1, Sodium Level 138, Potassium Level 3.3L, Chloride Level 111H, Carbon Dioxide Level 20L, Anion Gap 7, Blood Urea Nitrogen 6L, Creatinine 0.55L, Estimat Glomerular Filtration Rate 121, BUN/Creatinine Ratio 11, Glucose Level 125H, Calcium Level 8.4L, Corrected Calcium 9.1, Total Bilirubin 0.2, Aspartate Amino Transf (AST/SGOT) 20, Alanine Aminotransferase (ALT/SGPT) 42, Alkaline Phosphatase 56, Total Protein 6.0L, Albumin 3.1L Microbiology 06/04/22 Blood Culture - Preliminary, Resulted No growth Physical Exam-([facility]) Physical Exam Vital Signs VS - Last 72 Hours, by Label 06/04/22 06/04/22 06/04/22 06/04/22 10:30 11:11 14:55 15:22 Temp 36.4 36.8 Pulse 136 115 113 Resp 22 22 22 B/P (MAP) 148/81 (103) 117/71 115/59 (77) Pulse Ox 97 95 96 95 O2 Delivery Room Air Room Air Room Air Room Air 06/04/22 06/04/22 06/04/22 06/04/22 15:22 15:22 16:28 18:32 Temp 37.3 Pulse 113 Resp 20 B/P (MAP) 104/55 (71) Pulse Ox 95 95 95 95 O2 Delivery Room Air Room Air Room Air Room Air 06/04/22 06/04/22 06/04/22 06/05/22 21:50 21:58 21:58 02:02 Temp 36.9 Pulse 106 Resp 18 B/P (MAP) 105/58 (74) Pulse Ox 98 95 95 98 O2 Delivery Room Air Room Air Room Air Room Air 06/05/22 06/05/22 06/05/22 06/05/22 02:03 06:28 06:53 06:57 Temp 37.0 37.4 Pulse 94 89 Resp 18 18 B/P (MAP) 97/57 (70) 109/60 (76) Pulse Ox 95 95 93 O2 Delivery Room Air Room Air Room Air Room Air 06/05/22 06/05/22 06/05/22 06/05/22 08:28 11:42 13:02 14:38 Temp 36.4 37.0 Pulse 111 120 Resp 28 20 B/P (MAP) 159/74 (102) 155/74 (101) Pulse Ox 94 95 94 96 O2 Delivery Room Air Room Air Room Air Room Air Capillary Refill : Less Than 3 Seconds General Appearance: WD/WN, mild distress (mild SOA with conversation) HEENT: PERRL/EOMI Neck: full range of motion Respiratory: accessory muscle use (with talking), wheezing (all lung hernandez) Cardiovascular: regular rate, rhythm Gastrointestinal: soft Extremities: normal capillary refill Neurologic/Psychiatric: alert, normal mood/affect, oriented x 3 Skin: normal color, warm/dry Assessment/Plan Assessment/Plan Admission Status: Inpatient Order (span 2 midnights) Reason for Inpatient Admission: anticipate 2 days will be required for treatment of asthma exacerbation (1) Asthma exacerbation Status: Acute Assessment & Plan: Clinically improved since admission. 93-96% on RA; at risk for clinic worsening Lactic acid elevated on admission - likely secondary to asthma exacerbation and beta-agonist treatment; no evidence of sepsis - received Solu-medrol 125mg IV x1, Magnesium Sulfate 2g IV x1, Rocephin and zithromax in the ED - currently receiving Duoneb - Add Pulmicort (replacement for home Symbicort), certrizine - Add Solu-medrol 80mg IV q6h - does not currently have a pulm specialist- recommending she follow-up w/ Filemon Verduzco at [facility] on discharge Qualifiers: Qualified Codes: J45.51 - Severe persistent asthma with (acute) exacerbation (2) Status: Acute Assessment & Plan: at 20wk 3d with LATHA 10/21/21 - no complaints -doppler heart tones q shift - restart PNV Qualifiers: Qualified Codes: Z3A.20 - 20 weeks gestation of (3) Hepatitis C Assessment & Plan: - will follow-up with Dr. Álvarez following prenancy regarding treatment of Hep C Qualifiers: Qualified Codes: B18.2 - Chronic viral hepatitis C (4) Elevated LFTs Status: Acute Assessment & Plan: - mildly elevated on admission, now resolved. - patient requesting acetaminophen for tooth pain - will treat, not to exceed 2g in 24 (5) Hypokalemia Status: Acute Assessment & Plan: replacing IV; will given 20mEq po and monitor LEANDER HAMM DO Jun 05, 2022 10:16
[2022-06-05] MEDS: ACETAMINOPHEN 500 MG TAB (TYLENOL) PO PRN (10:40)
[2022-06-05] MEDS: methylPREDNISolone 40 MG/ML (Solu-MEDROL) VIAL IV SCH ×4 (10:40→23:20)
[2022-06-05] MEDS: RT--FLUTICASONE/SALMETEROL 232-14 (AIRDUO RespiCLICK) IH SCH (21:58)
[2022-06-06] MEDS: RT-ALBUTEROL/IPRATROPIUM 3 ML (DUONEB) VIAL INH SCH ×6 (02:43→22:09)
[2022-06-06 05:56] LABS: ALBUMIN 3.2 GM/DL (3.2-4.5)
[2022-06-06 05:57] LABS: CALCIUM 8.8 MG/DL (8.5-10.1)
[2022-06-06 05:59] LABS: TOTAL PROTEIN 6.3 GM/DL (6.4-8.2)
[2022-06-06 06:00] LABS: BILIRUBIN,TOTAL 0.2 MG/DL (0.1-1.0)
[2022-06-06 06:02] LABS: CREATININE SERUM 0.54 MG/DL (0.60-1.30)
[2022-06-06] MEDS: methylPREDNISolone 40 MG/ML (Solu-MEDROL) VIAL IV SCH ×4 (06:06→23:55)
[2022-06-06 06:09] VITALS: BP 111/67
[2022-06-06 06:12] LABS: BASOPHILS % (AUTO) 0 % (0-10); EOSINOPHILS % (AUTO) 0 % (0-10); HEMATOCRIT 34 % (35-52); HEMOGLOBIN 11.1 g/dL (11.5-16.0); LYMPHOCYTES % (AUTO) 7 % (12-44); MEAN CORPUSCULAR HEMOGLOBIN 27 pg (25-34); MEAN CORPUSCULAR HGB CONC 33 g/dL (32-36); MEAN CORPUSCULAR VOLUME 83 fL (80-99); MONOCYTES # (AUTO) 0.3 10^3/uL (0.0-1.0); MONOCYTES % (AUTO) 2 % (0-12); NEUTROPHILS # (AUTO) 13.1 10^3/uL (1.8-7.8); NEUTROPHILS % (AUTO) 89 % (42-75); PLATELET COUNT 304 10^3/uL (130-400); WHITE BLOOD COUNT 14.7 10^3/uL (4.3-11.0)
[2022-06-06] MEDS: ACETAMINOPHEN 500 MG TAB (TYLENOL) PO PRN ×3 (06:13→22:09)
[2022-06-06] MEDS: 1/2 NS W/KCL 20 MEQ/L 1,000 ML IV SCH ×2 (06:13→16:16)
[2022-06-06 06:41] LABS: ANISOCYTOSIS SLIGHT; BAND NEUTROPHILS 0 %; BASOPHILS % (MANUAL) 0 %; EOSINOPHILS % (MANUAL) 0 %; LYMPHOCYTES % (MANUAL) 6 %; MONOCYTES % (MANUAL) 2 %; NEUTROPHILS % (MANUAL) 92 %
[2022-06-06] MEDS: RT-BUDESONIDE NEBS 0.5 MG/2ML (PULMICORT) AMP INH SCH ×2 (06:49→22:09)
[2022-06-06 07:58] VITALS: BP 117/61
[2022-06-06] MEDS: PRENATAL VITAMIN 1 EA TAB PO SCH (07:58)
[2022-06-06] MEDS: LORATADINE (CLARITIN) 10 MG TAB PO SCH (07:59)
[2022-06-06] MEDS: RT--FLUTICASONE/SALMETEROL 232-14 (AIRDUO RespiCLICK) IH SCH ×2 (10:37→18:34)
[2022-06-06 12:09] VITALS: BP 105/53
--- NOTE | 2022-06-06 12:12 | Progress Note ---
Subjective Subjective/Events-last exam Patient improving slowly. Responds well to breathing treatment but continues to re-develop wheezing and SOA between treatments. Focused Exam Lactate Level 06/04/22 20:26: Lactic Acid Level 2.76*H 06/04/22 22:50: Lactic Acid Level 2.25*H 06/05/22 00:55: Lactic Acid Level 1.60 Objective Exam Last Set of Vital Signs Vital Signs Date Time Temp Pulse Resp B/P (MAP) Pulse Ox O2 Delivery O2 Flow Rate FiO2 06/06/22 10:37 93 Room Air 06/06/22 07:58 36.8 110 18 117/61 (79) Capillary Refill : Less Than 3 Seconds I&O Intake and Output 06/06/22 00:00 Intake Total 2000 ml Balance 2000 ml Intake IV Total 2000 ml General: Alert, Oriented X3, Cooperative, Mild Distress (mild dyspnea with talking) Lungs: Other (decreased air flow; wheezing all lung hernandez) Heart: Other (tachycardia) Psych/Mental Status: Mental Status NL, Mood NL Results/Procedures Lab Laboratory Tests 06/06/22 05:09: White Blood Count 14.7H, Red Blood Count 4.09, Hemoglobin 11.1L, Hematocrit 34L, Mean Corpuscular Volume 83, Mean Corpuscular Hemoglobin 27, Mean Corpuscular Hemoglobin Concent 33, Red Cell Distribution Width 16.8H, Platelet Count 304, Mean Platelet Volume 10.0, Immature Granulocyte % (Auto) 2, Neutrophils (%) (Auto) 89H, Lymphocytes (%) (Auto) 7L, Monocytes (%) (Auto) 2, Eosinophils (%) (Auto) 0, Basophils (%) (Auto) 0, Neutrophils # (Auto) 13.1H, Lymphocytes # (Auto) 1.0, Monocytes # (Auto) 0.3, Eosinophils # (Auto) 0.0, Basophils # (Auto) 0.0, Immature Granulocyte # (Auto) 0.3H, Neutrophils % (Manual) 92, Lymphocytes % (Manual) 6, Monocytes % (Manual) 2, Eosinophils % (Manual) 0, Basophils % (Manual) 0, Band Neutrophils 0, Anisocytosis SLIGHT, Sodium Level 137, Potassium Level 4.0, Chloride Level 111H, Carbon Dioxide Level 14L, Anion Gap 12, Blood Urea Nitrogen 8, Creatinine 0.54L, Estimat Glomerular Filtration Rate 122, BUN/Creatinine Ratio 15, Glucose Level 129H, Calcium Level 8.8, Corrected Calcium 9.4, Total Bilirubin 0.2, Aspartate Amino Transf (AST/SGOT) 18, Alanine Aminotransferase (ALT/SGPT) 39, Alkaline Phosphatase 63, Total Protein 6.3L, Albumin 3.2 Microbiology 06/04/22 Blood Culture - Preliminary, Resulted No growth Assessment/Plan Assessment/Plan (1) Asthma exacerbation Status: Acute Assessment & Plan: Clinically improved since admission. 93-96% on RA; at risk for clinic worsening Lactic acid elevated on admission - likely secondary to asthma exacerbation and beta-agonist treatment; no evidence of sepsis - received Solu-medrol 125mg IV x1, Magnesium Sulfate 2g IV x1, Rocephin and zithromax in the ED - currently receiving Duoneb - Add Pulmicort (replacement for home Symbicort), certrizine - Add Solu-medrol 80mg IV q6h - does not currently have a pulm specialist- recommending she follow-up w/ Filemon Verduzco at [facility] on discharge 06/06/22: - not requiring oxygen but continued with bronchospasm/wheezing; at risk for de terioration - continue current therapy - re-add zithromax to complete 5 days; wbc trending up which may be secondary to steroids, but left shift with increasing neutraphils. Qualifiers: Qualified Codes: J45.51 - Severe persistent asthma with (acute) exacerbation (2) Status: Acute Assessment & Plan: at 20wk 3d with LATHA 10/21/21 - no complaints -doppler heart tones q shift - restart PNV Qualifiers: Qualified Codes: Z3A.20 - 20 weeks gestation of (3) Hepatitis C Assessment & Plan: - will follow-up with Dr. Álvarez following prenancy regarding treatment of Hep C Qualifiers: Qualified Codes: B18.2 - Chronic viral hepatitis C (4) Elevated LFTs Status: Acute Assessment & Plan: - mildly elevated on admission, now resolved. - patient requesting acetaminophen for tooth pain - will treat, not to exceed 2g in 24 (5) Hypokalemia Status: Acute Assessment & Plan: replacing IV; will given 20mEq po and monitor 06/06/22: K 4.0 RESOLVED LEANDER COONEY DO Jun 06, 2022 12:12
[2022-06-06 16:16] VITALS: BP 118/61
[2022-06-06 20:30] VITALS: BP 106/60
[2022-06-06 21:40] VITALS: BP 115/63
[2022-06-07 00:05] VITALS: BP 121/69
[2022-06-07] MEDS: 1/2 NS W/KCL 20 MEQ/L 1,000 ML IV SCH ×3 (02:13→22:22)
[2022-06-07] MEDS: RT-ALBUTEROL/IPRATROPIUM 3 ML (DUONEB) VIAL INH SCH ×6 (02:39→22:25)
[2022-06-07 04:30] VITALS: BP 116/67
[2022-06-07] MEDS: methylPREDNISolone 40 MG/ML (Solu-MEDROL) VIAL IV SCH ×3 (06:40→22:22)
[2022-06-07] MEDS: ACETAMINOPHEN 500 MG TAB (TYLENOL) PO PRN ×2 (06:43→14:49)
[2022-06-07] MEDS: RT--FLUTICASONE/SALMETEROL 232-14 (AIRDUO RespiCLICK) IH SCH ×2 (07:11→22:25)
[2022-06-07] MEDS: RT-BUDESONIDE NEBS 0.5 MG/2ML (PULMICORT) AMP INH SCH ×2 (07:11→22:26)
[2022-06-07 08:15] VITALS: BP 123/62
[2022-06-07] MEDS: PRENATAL VITAMIN 1 EA TAB PO SCH (08:15)
[2022-06-07] MEDS: LORATADINE (CLARITIN) 10 MG TAB PO SCH (08:15)
--- NOTE | 2022-06-07 09:31 | Progress Note ---
Subjective Subjective/Events-last exam Slow improvement. Continues to get SOA with activity and talking. Focused Exam Lactate Level 06/04/22 20:26: Lactic Acid Level 2.76*H 06/04/22 22:50: Lactic Acid Level 2.25*H 06/05/22 00:55: Lactic Acid Level 1.60 Objective Exam Last Set of Vital Signs Vital Signs Date Time Temp Pulse Resp B/P (MAP) Pulse Ox O2 Delivery O2 Flow Rate FiO2 06/07/22 08:15 37.0 115 22 123/62 (82) 94 Room Air Capillary Refill : Less Than 3 Seconds General: Alert, Oriented X3, Cooperative, Mild Distress (mild dyspnea with conversation) Lungs: Other (end expiratory wheezes all lung hernandez; mild improvement in air flow) Heart: Other (tachycardia) Psych/Mental Status: Mental Status NL, Mood NL Results/Procedures Lab Microbiology 06/04/22 Blood Culture - Preliminary, Resulted No growth Assessment/Plan Assessment/Plan (1) Asthma exacerbation Status: Acute Assessment & Plan: Clinically improved since admission. 93-96% on RA; at risk for clinic worsening Lactic acid elevated on admission - likely secondary to asthma exacerbation and beta-agonist treatment; no evidence of sepsis - received Solu-medrol 125mg IV x1, Magnesium Sulfate 2g IV x1, Rocephin and zithromax in the ED - currently receiving Duoneb - Add Pulmicort (replacement for home Symbicort), certrizine - Add Solu-medrol 80mg IV q6h - does not currently have a pulm specialist- recommending she follow-up w/ Filemon Verduzco at [facility] on discharge 06/06/22: - not requiring oxygen but continued with bronchospasm/wheezing; at risk for deterioration - continue current therapy - re-add zithromax to complete 5 days; wbc trending up which may be secondary to steroids, but left shift with increasing neutraphils. 06/07/22: - not requiring oxygen but continued with bronchospasm/wheezing; at risk for deterioration - continue current therapy - decrease Solu-medrol to 40mg IV q8h - recheck labs in am - Dr. Alfaro will assume care over the weekend. Qualifiers: Qualified Codes: J45.51 - Severe persistent asthma with (acute) exacerbation (2) Status: Acute Assessment & Plan: at 20wk 3d with LATHA 10/21/21 - no complaints -doppler heart tones q shift - restart PNV Qualifiers: Qualified Codes: Z3A.20 - 20 weeks gestation of (3) Hepatitis C Assessment & Plan: - will follow-up with Dr. Álvarez following prenancy regarding treatment of Hep C Qualifiers: Qualified Codes: B18.2 - Chronic viral hepatitis C (4) Elevated LFTs Status: Resolved Assessment & Plan: - mildly elevated on admission, now resolved. - patient requesting acetaminophen for tooth pain - will treat, not to exceed 2g in 24 RESOLVED (5) Hypokalemia Status: Resolved Assessment & Plan: replacing IV; will given 20mEq po and monitor 06/06/22: K 4.0 RESOLVED LEANDER COONEY DO Jun 07, 2022 09:31
[2022-06-07] MEDS: AZITHROMYCIN 250 MG TAB (ZITHROMAX) PO SCH (11:07)
[2022-06-07] MEDS ORDERED: methylPREDNISolone 40 MG/ML (Solu-MEDROL) VIAL IV SCH (12:00)
[2022-06-07 12:30] VITALS: BP 119/63
[2022-06-07 17:15] VITALS: BP 130/63
[2022-06-07 23:30] VITALS: BP 120/67
[2022-06-08] MEDS: RT-ALBUTEROL/IPRATROPIUM 3 ML (DUONEB) VIAL INH SCH ×6 (02:46→21:25)
[2022-06-08 04:57] VITALS: BP 113/66
[2022-06-08] MEDS: ACETAMINOPHEN 500 MG TAB (TYLENOL) PO PRN (04:57)
[2022-06-08 06:08] LABS: BASOPHILS % (AUTO) 0 % (0-10); EOSINOPHILS % (AUTO) 0 % (0-10); HEMATOCRIT 33 % (35-52); HEMOGLOBIN 10.7 g/dL (11.5-16.0); LYMPHOCYTES # (AUTO) 1.2 10^3/uL (1.0-4.0); LYMPHOCYTES % (AUTO) 8 % (12-44); MEAN CORPUSCULAR HEMOGLOBIN 27 pg (25-34); MEAN CORPUSCULAR HGB CONC 33 g/dL (32-36); MEAN CORPUSCULAR VOLUME 83 fL (80-99); MEAN PLATELET VOLUME 9.5 fL (9.0-12.2); MONOCYTES # (AUTO) 1.1 10^3/uL (0.0-1.0); MONOCYTES % (AUTO) 7 % (0-12); NEUTROPHILS # (AUTO) 12.1 10^3/uL (1.8-7.8); NEUTROPHILS % (AUTO) 79 % (42-75); PLATELET COUNT 296 10^3/uL (130-400); WHITE BLOOD COUNT 15.3 10^3/uL (4.3-11.0)
[2022-06-08 06:20] LABS: ALBUMIN 2.8 GM/DL (3.2-4.5); POTASSIUM 3.9 MMOL/L (3.6-5.0)
[2022-06-08 06:21] LABS: CALCIUM 8.4 MG/DL (8.5-10.1)
[2022-06-08 06:22] LABS: TOTAL PROTEIN 5.6 GM/DL (6.4-8.2)
[2022-06-08 06:24] LABS: BILIRUBIN,TOTAL 0.3 MG/DL (0.1-1.0)
[2022-06-08 06:26] LABS: CREATININE SERUM 0.53 MG/DL (0.60-1.30)
[2022-06-08] MEDS: methylPREDNISolone 40 MG/ML (Solu-MEDROL) VIAL IV SCH ×3 (06:39→23:31)
[2022-06-08 07:30] VITALS: BP 127/79
[2022-06-08] MEDS: 1/2 NS W/KCL 20 MEQ/L 1,000 ML IV SCH (08:30)
[2022-06-08] MEDS: LORATADINE (CLARITIN) 10 MG TAB PO SCH (08:39)
[2022-06-08] MEDS: PRENATAL VITAMIN 1 EA TAB PO SCH (08:39)
[2022-06-08] MEDS: AZITHROMYCIN 250 MG TAB (ZITHROMAX) PO SCH (08:45)
[2022-06-08] MEDS: RT--FLUTICASONE/SALMETEROL 232-14 (AIRDUO RespiCLICK) IH SCH ×2 (09:29→21:25)
[2022-06-08] MEDS: RT-BUDESONIDE NEBS 0.5 MG/2ML (PULMICORT) AMP INH SCH ×2 (09:29→21:25)
--- NOTE | 2022-06-08 10:10 | Progress Note ---
Subjective Subjective/Events-last exam Patient states that she is feeling better but still having shortness of breath. She has not been up around since arrival, encouraged her to get up and walk around today. Tolerating PO diet. Review of Systems Pulmonary: Dyspnea, Cough Cardiovascular: No: Chest Pain Neurological: Other (Headache) Objective Exam Last Set of Vital Signs Vital Signs Date Time Temp Pulse Resp B/P (MAP) Pulse Ox O2 Delivery O2 Flow Rate FiO2 06/08/22 09:35 Room Air 06/08/22 09:29 97 06/08/22 04:57 37.1 90 20 113/66 (82) Capillary Refill : Less Than 3 Seconds I&O Intake and Output 06/08/22 00:00 Intake Total 1000 ml Balance 1000 ml Intake IV Total 1000 ml General: Alert, Oriented X3, Mild Distress (with exertion) Lungs: Other (Diffuse wheezing and increased work of breathing with minimal activity) Heart: Regular Rate, No Murmurs Abdomen: Soft, No Tenderness Results/Procedures Lab Laboratory Tests 06/08/22 06:00: White Blood Count 15.3H, Red Blood Count 3.97, Hemoglobin 10.7L, Hematocrit 33L, Mean Corpuscular Volume 83, Mean Corpuscular Hemoglobin 27, Mean Corpuscular Hemoglobin Concent 33, Red Cell Distribution Width 16.6H, Platelet Count 296, Mean Platelet Volume 9.5, Immature Granulocyte % (Auto) 5, Neutrophils (%) (Auto) 79H, Lymphocytes (%) (Auto) 8L, Monocytes (%) (Auto) 7, Eosinophils (%) (Auto) 0, Basophils (%) (Auto) 0, Neutrophils # (Auto) 12.1H, Lymphocytes # (Auto) 1.2, Monocytes # (Auto) 1.1H, Eosinophils # (Auto) 0.0, Basophils # (Auto) 0.0, Immature Granulocyte # (Auto) 0.8H, Sodium Level 136, Potassium Level 3.9, Chloride Level 110H, Carbon Dioxide Level 14L, Anion Gap 12, Blood Urea Nitrogen 9, Creatinine 0.53L, Estimat Glomerular Filtration Rate 122, BUN/Creatinine Ratio 17, Glucose Level 105, Calcium Level 8.4L, Corrected Calcium 9.4, Total Bilirubin 0.3, Aspartate Amino Transf (AST/SGOT) 15, Alanine Aminotransferase (ALT/SGPT) 26, Alkaline Phosphatase 49, Total Protein 5.6L, Albumin 2.8L Microbiology 06/04/22 Blood Culture - Preliminary, Resulted No growth Assessment/Plan Assessment/Plan (1) Asthma exacerbation Status: Acute Assessment & Plan: Clinically improved since admission. 93-96% on RA; at risk for clinic worsening Lactic acid elevated on admission - likely secondary to asthma exacerbation and beta-agonist treatment; no evidence of sepsis - received Solu-medrol 125mg IV x1, Magnesium Sulfate 2g IV x1, Rocephin and zithromax in the ED - currently receiving Duoneb - Add Pulmicort (replacement for home Symbicort), certrizine - Add Solu-medrol 80mg IV q6h - does not currently have a pulm specialist- recommending she follow-up w/ Filemon Verduzco at [facility] on discharge 06/06/22: - not requiring oxygen but continued with bronchospasm/wheezing; at risk for deterioration - continue current therapy - re-add zithromax to complete 5 days; wbc trending up which may be secondary to steroids, but left shift with increasing neutraphils. 06/07/22: - not requiring oxygen but continued with bronchospasm/wheezing; at risk for deterioration - continue current therapy - decrease Solu-medrol to 40mg IV q8h - recheck labs in am - Dr. Alfaro will assume care over the weekend. 06/08: - Patient at risk for deterioration, h/o intubation for asthma exacerbation - Encouraged patient to get up out of bed - Stop IVFs - Will transition to PO steroids in prep for possible d/c Qualifiers: Qualified Codes: J45.51 - Severe persistent asthma with (acute) exacerbation (2) Status: Acute Assessment & Plan: at 20wk 3d with LATHA 10/21/21 - no complaints -doppler heart tones q shift - restart PNV Qualifiers: Qualified Codes: Z3A.20 - 20 weeks gestation of (3) Hepatitis C Status: Chronic Assessment & Plan: - will follow-up with Dr. Álvarez following prenancy regarding treatment of Hep C Qualifiers: Qualified Codes: B18.2 - Chronic viral hepatitis C (4) Elevated LFTs Status: Resolved Assessment & Plan: - mildly elevated on admission, now resolved. - patient requesting acetaminophen for tooth pain - will treat, not to exceed 2g in 24 RESOLVED (5) Hypokalemia Status: Resolved Assessment & Plan: replacing IV; will given 20mEq po and monitor 06/06/22: K 4.0 RESOLVED DEMETRICE ALFARO MD Jun 08, 2022 10:09
[2022-06-08 15:19] VITALS: BP 109/65
[2022-06-08 18:55] VITALS: BP 118/56
[2022-06-08 22:05] VITALS: BP 94/51
[2022-06-08 23:20] VITALS: BP 127/79
[2022-06-09] MEDS: RT-ALBUTEROL/IPRATROPIUM 3 ML (DUONEB) VIAL INH SCH ×6 (03:03→21:16)
[2022-06-09 05:30] VITALS: BP 123/78
[2022-06-09 06:13] LABS: BASOPHILS # (AUTO) 0.1 10^3/uL (0.0-0.1); BASOPHILS % (AUTO) 0 % (0-10); EOSINOPHILS % (AUTO) 0 % (0-10); HEMATOCRIT 34 % (35-52); HEMOGLOBIN 11.1 g/dL (11.5-16.0); LYMPHOCYTES # (AUTO) 1.2 10^3/uL (1.0-4.0); LYMPHOCYTES % (AUTO) 8 % (12-44); MEAN CORPUSCULAR HEMOGLOBIN 27 pg (25-34); MEAN CORPUSCULAR HGB CONC 33 g/dL (32-36); MEAN CORPUSCULAR VOLUME 82 fL (80-99); MEAN PLATELET VOLUME 9.5 fL (9.0-12.2); MONOCYTES % (AUTO) 7 % (0-12); NEUTROPHILS # (AUTO) 11.4 10^3/uL (1.8-7.8); NEUTROPHILS % (AUTO) 79 % (42-75); PLATELET COUNT 308 10^3/uL (130-400); WHITE BLOOD COUNT 14.5 10^3/uL (4.3-11.0)
[2022-06-09 06:38] LABS: ALBUMIN 3.1 GM/DL (3.2-4.5); BILIRUBIN,TOTAL 0.3 MG/DL (0.1-1.0); CALCIUM 8.5 MG/DL (8.5-10.1); CREATININE SERUM 0.53 MG/DL (0.60-1.30); POTASSIUM 3.7 MMOL/L (3.6-5.0); TOTAL PROTEIN 5.8 GM/DL (6.4-8.2)
[2022-06-09 09:47] VITALS: BP 117/70
[2022-06-09] MEDS: PRENATAL VITAMIN 1 EA TAB PO SCH (09:49)
[2022-06-09] MEDS: LORATADINE (CLARITIN) 10 MG TAB PO SCH (09:49)
[2022-06-09] MEDS: AZITHROMYCIN 250 MG TAB (ZITHROMAX) PO SCH (09:55)
[2022-06-09] MEDS: ACETAMINOPHEN 500 MG TAB (TYLENOL) PO PRN (09:55)
[2022-06-09] MEDS: RT--FLUTICASONE/SALMETEROL 232-14 (AIRDUO RespiCLICK) IH SCH ×2 (10:04→21:22)
[2022-06-09] MEDS: RT-BUDESONIDE NEBS 0.5 MG/2ML (PULMICORT) AMP INH SCH ×2 (10:04→21:17)
--- NOTE | 2022-06-09 12:31 | Progress Note ---
MAXI TUTTLE 06/09/22 1231: Subjective Subjective/Events-last exam Patient is a 37 y/o , GA 21.1, LATHA 10/21/22. Patient is resting in bed at time of encounter. Patient reports she continues to have SOA at rest and with exertion. Patient states the breathing treatments improve her SOA. Patient is visibly SOA. Patient continues to tolerate PO food and drink. Patient denies vaginal bleeding, LOF, contractions, and reports +FM. FHT are 169. Review of Systems General: Appetite Pulmonary: Dyspnea, Cough Cardiovascular: No: Chest Pain Gastrointestinal: No: Nausea, Vomiting, Abdominal Pain Objective Exam Last Set of Vital Signs Vital Signs Date Time Temp Pulse Resp B/P (MAP) Pulse Ox O2 Delivery O2 Flow Rate FiO2 06/09/22 10:04 95 Room Air 06/09/22 05:30 36.4 102 20 123/78 (93) 06/08/22 14:41 0.00 Capillary Refill : Less Than 3 Seconds I&O Intake and Output 06/09/22 00:00 Intake Total 1000 ml Balance 1000 ml Intake IV Total 1000 ml General: Alert, Oriented X3, Cooperative, Mild Distress (mild respiratory distress with SOA at rest and increased wheezing from 06/08 s/p breathing treatment) HEENT: Atraumatic Lungs: Other (bilateral wheezing, diminished lung sounds bilaterally) Heart: Regular Rate, No Murmurs Abdomen: Other (gravid uterus at umbilicus) Psych/Mental Status: Mental Status NL, Mood NL Other physical findings FHT: 169 Results/Procedures Lab Laboratory Tests 06/09/22 05:57: White Blood Count 14.5H, Red Blood Count 4.17, Hemoglobin 11.1L, Hematocrit 34L, Mean Corpuscular Volume 82, Mean Corpuscular Hemoglobin 27, Mean Corpuscular Hemoglobin Concent 33, Red Cell Distribution Width 16.6H, Platelet Count 308, Mean Platelet Volume 9.5, Immature Granulocyte % (Auto) 7, Neutrophils (%) (Auto) 79H, Lymphocytes (%) (Auto) 8L, Monocytes (%) (Auto) 7, Eosinophils (%) (Auto) 0, Basophils (%) (Auto) 0, Neutrophils # (Auto) 11.4H, Lymphocytes # (Auto) 1.2, Monocytes # (Auto) 1.0, Eosinophils # (Auto) 0.0, Basophils # (Auto) 0.1, Immature Granulocyte # (Auto) 0.9H, Sodium Level 137, Potassium Level 3.7, Chloride Level 108H, Carbon Dioxide Level 18L, Anion Gap 11, Blood Urea Nitrogen 13, Creatinine 0.53L, Estimat Glomerular Filtration Rate 122, BUN/Creatinine Ratio 25, Glucose Level 109H, Calcium Level 8.5, Corrected Calcium 9.2, Total Bilirubin 0.3, Aspartate Amino Transf (AST/SGOT) 15, Alanine Aminotransferase (ALT/SGPT) 27, Alkaline Phosphatase 51, Total Protein 5.8L, Albumin 3.1L Microbiology 06/04/22 Blood Culture - Preliminary, Resulted No growth Assessment/Plan Assessment/Plan Admission Status: Inpatient Order (span 2 midnights) (1) Asthma exacerbation Status: Acute Assessment & Plan: Clinically improved since admission. 93-96% on RA; at risk for clinic worsening Lactic acid elevated on admission - likely secondary to asthma exacerbation and beta-agonist treatment; no evidence of sepsis - received Solu-medrol 125mg IV x1, Magnesium Sulfate 2g IV x1, Rocephin and zithromax in the ED - currently receiving Duoneb - Add Pulmicort (replacement for home Symbicort), certrizine - Add Solu-medrol 80mg IV q6h - does not currently have a pulm specialist- recommending she follow-up juan/ Filemon Verduzco at [facility] on discharge 06/06/22: - not requiring oxygen but continued with bronchospasm/wheezing; at risk for deterioration - continue current therapy - re-add zithromax to complete 5 days; wbc trending up which may be secondary to steroids, but left shift with increasing neutraphils. 06/07/22: - not requiring oxygen but continued with bronchospasm/wheezing; at risk for deterioration - continue current therapy - decrease Solu-medrol to 40mg IV q8h - recheck labs in am - Dr. Jennings will assume care over the weekend. 06/08: - Patient at risk for deterioration, h/o intubation for asthma exacerbation - Encouraged patient to get up out of bed - Stop IVFs - Will transition to PO steroids in prep for possible d/c 06/09: -Patient at risk for deterioration. Continued to encourage patient to get out of bed -Will reassess the patient in the afternoon. Patient is exhibiting worsening respiratory condition today s/p breathing treatments -Timely breathing treatments, consider transitioning to PO steroids if respiratory status improves in the afternoon Qualifiers: Qualified Codes: J45.51 - Severe persistent asthma with (acute) exacerbation (2) Status: Acute Assessment & Plan: 06/09: - at 21wk 1d with LATHA 10/21/22 - no complaints -doppler heart tones q shift - restart PNV Qualifiers: Qualified Codes: Z3A.20 - 20 weeks gestation of (3) Hepatitis C Status: Chronic Assessment & Plan: - will follow-up with Dr. Álvarez following prenancy regarding treatment of Hep C Qualifiers: Qualified Codes: B18.2 - Chronic viral hepatitis C (4) Elevated LFTs Status: Resolved Assessment & Plan: - mildly elevated on admission, now resolved. - patient requesting acetaminophen for tooth pain - will treat, not to exceed 2g in 24 RESOLVED (5) Hypokalemia Status: Resolved Assessment & Plan: replacing IV; will given 20mEq po and monitor 06/06/22: K 4.0 RESOLVED DEMETRICE JENNINGS MD 06/09/22 1307: Assessment/Plan Assessment/Plan Assessment & Plan Verification and Attestation of Medical Student E/M Service A medical student performed and documented this service in my presence. I r eviewed and verified all information documented by the medical student and made modifications to such information, when appropriate. I personally performed the physical exam and medical decision making. Demetrice Jennings, Jun 09, 2022,13:07 MAXI TUTTLE Jun 09, 2022 12:31 DEMETRICE JENNINGS MD Jun 09, 2022 13:07
[2022-06-09] MEDS: predniSONE 20 MG TAB PO SCH ×2 (14:18→20:42)
[2022-06-09 14:19] VITALS: BP 109/56
[2022-06-09 20:45] VITALS: BP 114/63
[2022-06-09 23:30] VITALS: BP 110/58
[2022-06-10] MEDS: RT-ALBUTEROL/IPRATROPIUM 3 ML (DUONEB) VIAL INH SCH ×3 (02:45→10:41)
[2022-06-10 04:46] VITALS: BP 101/59
[2022-06-10] MEDS: RT-BUDESONIDE NEBS 0.5 MG/2ML (PULMICORT) AMP INH SCH (07:13)
[2022-06-10] MEDS: RT--FLUTICASONE/SALMETEROL 232-14 (AIRDUO RespiCLICK) IH SCH (07:16)
[2022-06-10] MEDS: AZITHROMYCIN 250 MG TAB (ZITHROMAX) PO SCH (09:18)
[2022-06-10] MEDS: ACETAMINOPHEN 500 MG TAB (TYLENOL) PO PRN (09:19)
[2022-06-10] MEDS: predniSONE 20 MG TAB PO SCH (09:19)
[2022-06-10] MEDS: PRENATAL VITAMIN 1 EA TAB PO SCH (09:19)
[2022-06-10 09:20] VITALS: BP 113/59
[2022-06-10] MEDS: LORATADINE (CLARITIN) 10 MG TAB PO SCH (09:20)
--- NOTE | 2022-06-10 09:35 | Discharge Summary ---
Diagnosis/Chief Complaint Date of Admission Jun 04, 2022 at 12:02 Date of Discharge 06/10/22 Admission Diagnosis Admission Diagnosis See problem list Discharge Diagnosis See below Problems/Diagnosis: (1) Asthma exacerbation Assessment & Plan: Clinically improved since admission. 93-96% on RA; at risk for clinic worsening Lactic acid elevated on admission - likely secondary to asthma exacerbation and beta-agonist treatment; no evidence of sepsis - received Solu-medrol 125mg IV x1, Magnesium Sulfate 2g IV x1, Rocephin and zithromax in the ED - currently receiving Duoneb - Add Pulmicort (replacement for home Symbicort), certrizine - Add Solu-medrol 80mg IV q6h - does not currently have a pulm specialist- recommending she follow-up w/ Filemon Verduzco at [facility] on discharge 06/06/22: - not requiring oxygen but continued with bronchospasm/wheezing; at risk for deterioration - continue current therapy - re-add zithromax to complete 5 days; wbc trending up which may be secondary to steroids, but left shift with increasing neutraphils. 06/07/22: - not requiring oxygen but continued with bronchospasm/wheezing; at risk for deterioration - continue current therapy - decrease Solu-medrol to 40mg IV q8h - recheck labs in am - Dr. Alfaro will assume care over the weekend. 06/08: - Patient at risk for deterioration, h/o intubation for asthma exacerbation - Encouraged patient to get up out of bed - Stop IVFs - Will transition to PO steroids in prep for possible d/c 06/09: -Patient at risk for deterioration. Continued to encourage patient to get out of bed -Will reassess the patient in the afternoon. Patient is exhibiting worsening respiratory condition today s/p breathing treatments -Timely breathing treatments, consider transitioning to PO steroids if resp iratory status improves in the afternoon Qualifiers: Qualified Codes: J45.51 - Severe persistent asthma with (acute) exacerbation Status: Acute (2) Assessment & Plan: 06/09: - at 21wk 1d with LATHA 10/21/22 - no complaints -doppler heart tones q shift - restart PNV Qualifiers: Qualified Codes: Z3A.20 - 20 weeks gestation of Status: Acute (3) Hepatitis C Assessment & Plan: - will follow-up with Dr. Álvarez following prenancy regarding treatment of Hep C Qualifiers: Qualified Codes: B18.2 - Chronic viral hepatitis C Status: Chronic (4) Elevated LFTs Assessment & Plan: - mildly elevated on admission, now resolved. - patient requesting acetaminophen for tooth pain - will treat, not to exceed 2g in 24 RESOLVED Status: Resolved Resolution Date/Time: 06/05/22 @ 09:48 (5) Hypokalemia Assessment & Plan: replacing IV; will given 20mEq po and monitor 06/06/22: K 4.0 RESOLVED Status: Resolved Resolution Date/Time: 06/06/22 @ 09:49 Chief Complaint/HPI Chief Complaint/HPI This is a 37 yo at 20w3d with an LATHA 10/21/22 who is admitted for acute asthma exacerbation. Patient reports 2 day history of increase in wheezing and SOA. She was seen in the ED on 06/03/22, CXR was negative and patient improved with breathing treatments. She received a prescription for prednisone and took one dose after leaving the ED but continued to have wheezing and SOA and re- presented to the ED on 06/04/22. Patient's signficant other has observed that when she uses her inhaler she puffs it in the air in front of her mouth. She does not use a chamber. She is currently using for her home regimen: Albuterol MDI, she has a nebulizer but does not prefer to use it, Symbicort, Certrizine 10m daily. Patient has been admitted multiple times for asthma exacerbations, last hospitalization was 04/19/2022. She has been intubated multiple times, last intubation was 07/2021. 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 Since admission, patient has had mild clinical improved. She is not requiring supplemental oxygen, but does appear visually short of breath with conversation. She received IV Solu-medrol, Mag sulfate, Rocephin, Zithromax in the ED and has been receiving Pulmicort neb since admission. Discharge Summary-Simple/Stand Consultations Discharge Physical Examination Allergies: Coded Allergies: chlorpheniramine (Verified Allergy, Unknown, 03/05/06) phenylephrine (Verified Allergy, Unknown, 03/05/06) phenylpropanolamine (Verified Allergy, Unknown, 03/05/06) phenyltoloxamine (Verified Allergy, Unknown, 03/05/06) Vitals & I&Os Vital Sign - Last 12Hours Date Time Temp Pulse Resp B/P (MAP) Pulse Ox O2 Delivery O2 Flow Rate FiO2 06/10/22 09:20 36.9 106 20 113/59 (77) 95 Room Air 06/08/22 14:41 0.00 General Appearance: Alert, Oriented X3, No Acute Distress Respiratory: Other (Basilar wheezing, normal work of breathing) Cardiovascular: Regular Rate, No Murmurs Abdominal: Normal Bowel Sounds, Soft, No Tenderness, No Masses Extremities: No Edema, No Tenderness/Swelling Neuro: Normal Speech Hospital Course See final discharge diagnosis. Discharge Condition at discharge Improved Instructions to patient/family Please see electronic discharge instructions given to patient. Discharge Medications Reviewed and agree with Discharge Medication list on patient's Discharge Instruction sheet DEMETRICE ALFARO MD Jun 10, 2022 09:35
[2022-06-10] MEDS ORDERED: PRD20T PO (09:40)
[2022-06-10] MEDS ORDERED: IPRA3AMP31 NEB (09:40)
[2022-06-10] MEDS ORDERED: AZIT250T12 PO (09:40)
--- NOTE | 2022-06-10 09:40 | Discharge Summary ---
Discharge [facility] Reconcile Patient Problems Problems Reviewed?: Yes Discharge Medications New, Converted or Re-Newed RX: Transmitted to Pharmacy New Medications: Azithromycin (Azithromycin) 250 Mg Tablet 250 MG PO DAILY, #3 TAB Prednisone (Prednisone) 20 Mg Tab 40 MG PO BID, #58 TAB Continued Medications: Albuterol Sulfate (Ventolin Hfa) 1 Puff Puff 2 PUFF INH Q4H PRN for SHORTNESS OF BREATH, EA Budesonide/Formoterol Fumarate (Budesonide-Formoterol 160-4.5) 160 Mcg-4.5 Mcg/Actuation Hfa.aer.ad 2 PUFF INH BID, EA Cetirizine HCl (Cetirizine HCl) 10 Mg Tablet 10 MG PO DAILY, TAB Fluticasone Propionate (Flonase Allergy Relief) 50 Mcg/Actuation [place].susp 1-2 SPRAY NSEACH DAILY PRN for CONGESTION, EACH Ipratropium/Albuterol Sulfate (Iprat-Albut 0.5-3(2.5) mg/3 ml) 0.5 Mg-3 Mg (2.5 Mg Base)/3 Ml Ampul.neb 2.5 MG NEB Q6H PRN for SHORTNESS OF BREATH for 4 Days, #20 EA (This prescription has been renewed) Pnv No.122/Iron/Folic Acid ( Multi Tablet) 27 Mg Iron-800 Mcg Tablet 1 EACH PO DAILY, TAB Patient Instructions Goal/Follow Up Appt: Laverne Alfaro on Activity & Diet Discharge Diet: No Restrictions DEMETRICE ALFARO MD Jun 10, 2022 09:40
[2022-06-10 12:15] VITALS: BP 118/63
[2022-06-10 13:30] VITALS: BP 118/63
[2022-06-10 16:50] VITALS: BP 97/56
== END 2022-06-10 13:30 | disposition home or self-care (01) | DRG 832 ==
LOC: EDUNIT# 10:19 → ER 10:20 → LDRP 12:02
PROVIDERS: ADMIT Family Medicine; ATTEND Family Medicine
PROC: 8E0ZXY6 Isolation (ICD-10-PCS; principal; 2022-06-04)
DX: O99.512 Diseases of the respiratory system complicating pregnancy, second trimester (principal); J45.51 Severe persistent asthma with (acute) exacerbation; O98.412 Viral hepatitis complicating pregnancy, second trimester; B18.2 Chronic viral hepatitis C; O99.282 Endocrine, nutritional and metabolic diseases complicating pregnancy, second trimester; E87.6 Hypokalemia; Z3A.20 20 weeks gestation of pregnancy; Z87.891 Personal history of nicotine dependence; Z20.822 Contact with and (suspected) exposure to COVID-19
CPT/HCPCS: 36415; 80053; 80306; 80320; 81000; 83605; 83735; 84145; 85007; 85025; 85027; 87040; 87636; 93041; 94640; 94760